=== PATIENT | female | born 1975 | race Two or more races ===

== ENCOUNTER 2020-07-27 07:55 | Outpatient (REF) | payer OTHER, SELFPAY ==
[2020-07-27 10:39] LABS: Hematocrit 37.4 % (37-47); Hemoglobin 12.5 g/dl (12.0-16.0); Mean Corpuscular HGB Conc 33.4 g/dl (31.0-35.0); Mean Corpuscular Hemoglobin 29.6 pg (27.0-33.0); Mean Corpuscular Volume 88.4 fL (80-98); Mean Platelet Volume 11.2 fL (9.4-12.3); Platelet Count 229 X10*3/uL (160-400); Red Blood Count 4.23 X10*6/uL (4.20-5.50); Red Cell Distribution Width 12.4 % (11.0-16.0); White Blood Count 6.5 X10*3/uL (4.8-10.8)
[2020-07-27 11:05] LABS: HCG Quantitative < 2 mIU/mL; Thyroid Stimulating Hormone 0.91 uIU/mL (0.32-4.0)
[2020-07-28 09:42] LABS: BV Int Neg Control Negative (Negative); BV Int Pos Control Positive (Positive)
[2020-07-29 16:43] LABS: HPV mRNA E6/E7 rflx Not Detected (Not Detected)
[2020-08-22 10:06] LABS: CT PCR NOT DETECTED (Not Detect.); NG PCR NOT DETECTED (Not Detect.)
== END 2020-07-27 07:56 | disposition home or self-care (01) ==
LOC: HO.LAB 07:55
PROVIDERS: PCP Internal Medicine; Visit Provider Advanced Practice Midwife
DX: N94.6 Dysmenorrhea, unspecified (principal); N84.1 Polyp of cervix uteri; N92.0 Excessive and frequent menstruation with regular cycle
CPT/HCPCS: 36415; 84443; 84702; 85027; 87480; 87491; 87510; 87591; 87624; 87625; 87660; 88142; 99202

== ENCOUNTER 2020-08-13 10:52 | Outpatient (REF) | payer OTHER, SELFPAY ==
--- NOTE | 2020-08-13 10:56 | US_ITS ---
EXAMINATION: US PELVIS COMPLETE US TRANSVAGINAL CLINICAL INFORMATION: Excessive and frequent menses. COMPARISON: None TECHNIQUE: Transabdominal and transvaginal ultrasound of the pelvis is performed. FINDINGS: The uterus is anteverted and anteflexed measuring 13.6 cm in length, 7.0 cm in AP and 8.6 cm in transverse dimension. There is a hypoechoic lesion in the upper posterior body of the uterus measuring 1.8 x 1.7 x 1.9 cm. No additional lesions seen. The endometrium measures 0.6 cm thick with small cysts within. There are small nabothian cysts seen in the cervix and minimal fluid within the endometrial canal. The right ovary measures 4.7 x 3.2 x 4.2 cm and volume 32.5 mL. There is an anechoic simple cyst measuring 3.5 x 2.9 x 2.5 cm. The left ovary is visualized on transabdominal exam only and measures 3.3 x 2.3 x 2.8 cm and volume 11.1 mL. US/US pelvic complete IMPRESSION: There are small nabothian cysts seen in the cervix and minimal fluid in the endometrial canal. Also visualized are small anechoic cysts in endometrial canal. Right ovarian 3.5 cm cyst.
--- NOTE | 2020-08-13 10:56 | US_ITS ---
EXAMINATION: US PELVIS COMPLETE US TRANSVAGINAL CLINICAL INFORMATION: Excessive and frequent menses. COMPARISON: None TECHNIQUE: Transabdominal and transvaginal ultrasound of the pelvis is performed. FINDINGS: The uterus is anteverted and anteflexed measuring 13.6 cm in length, 7.0 cm in AP and 8.6 cm in transverse dimension. There is a hypoechoic lesion in the upper posterior body of the uterus measuring 1.8 x 1.7 x 1.9 cm. No additional lesions seen. The endometrium measures 0.6 cm thick with small cysts within. There are small nabothian cysts seen in the cervix and minimal fluid within the endometrial canal. The right ovary measures 4.7 x 3.2 x 4.2 cm and volume 32.5 mL. There is an anechoic simple cyst measuring 3.5 x 2.9 x 2.5 cm. The left ovary is visualized on transabdominal exam only and measures 3.3 x 2.3 x 2.8 cm and volume 11.1 mL. US/US transvaginal IMPRESSION: There are small nabothian cysts seen in the cervix and minimal fluid in the endometrial canal. Also visualized are small anechoic cysts in endometrial canal. Right ovarian 3.5 cm cyst.
== END 2020-08-13 10:53 | disposition home or self-care (01) ==
LOC: HO.US 10:52
PROVIDERS: Visit Provider Advanced Practice Midwife
DX: N94.6 Dysmenorrhea, unspecified (principal); N84.1 Polyp of cervix uteri; N92.0 Excessive and frequent menstruation with regular cycle
CPT/HCPCS: 76830; 76856

== ENCOUNTER → 2020-08-24 13:49 | Outpatient (BNVA) | payer OTHER, SELFPAY | PROVIDERS: Visit Provider Advanced Practice Midwife | DX: N93.9 Abnormal uterine and vaginal bleeding, unspecified (principal) | CPT/HCPCS: 81025; 99212 ==

== ENCOUNTER 2020-09-01 15:22 | Outpatient (REF) | payer OTHER, SELFPAY | END 2020-09-01 15:23 | disposition home or self-care (01) | LOC: HO.LAB 15:22 | PROVIDERS: Visit Provider Obstetrics & Gynecology | DX: R87.615 Unsatisfactory cytologic smear of cervix (principal); N76.0 Acute vaginitis; B96.89 Other specified bacterial agents as the cause of diseases classified elsewhere; N92.1 Excessive and frequent menstruation with irregular cycle | CPT/HCPCS: 36415; 88141; 88142; 99212 ==

== ENCOUNTER → 2020-09-07 15:12 | Outpatient (BNVA) | payer OTHER, SELFPAY | PROVIDERS: PCP Internal Medicine; Visit Provider Obstetrics & Gynecology | DX: N92.1 Excessive and frequent menstruation with irregular cycle (principal) | CPT/HCPCS: 99212 ==

== ENCOUNTER 2020-09-11 08:04 | Day surgery (SDC) | payer OTHER, SELFPAY ==
--- NOTE | 2020-09-10 09:19 | HO.ANESPROP2 ---
Documented by User: Elizabeth Grover 09/10/20 09:21 HPI - Anesthesia Eval Consult details Narrative: 45yo F for D&C Diagnostic Hysteroscopy, Poss Myomectomy, Poss Polypectomy PMFSH Past Medical History Medical History Dysmenorrhea Essential hypertension GERD (gastroesophageal reflux disease) Heavy menstrual bleeding Medial meniscus tear Migraine Osteoarthritis, knee Psoriasis Type 2 diabetes mellitus without complication, without long-term current use of insulin Varicose vein of leg Family History Family History Father DVT (deep venous thrombosis) HTN (hypertension) Dyslipidemia Diabetes mellitus Mother Multiple myeloma COVID-19 Brother Lymphoma Surgical History Surgical History H/O arthroscopy of right knee History of bilateral tubal ligation History of varicose veins Social History Social History Alcohol intake: never Smoking Status: Never smoker Use of substances other than those prescribed or required for medical reasons: No Advance Directives: No Advance Directives Information Provided: Yes Sexual orientation: Straight/Heterosexual Meds Allergies Allergy/AdvReac Type Severity Reaction Status Date / Time metformin AdvReac Unknown HICKMAN, nausea Verified 09/07/20 15:22 Home Medications Medication Instructions Recorded Confirmed Type adalimumab 40 mg/0.8 mL mg SUBCUT Q2W 05/20/20 07/17/20 History subcutaneous pen kit flu vac qs 2019(4 yr up)CD(PF) ml IM 05/20/20 07/17/20 History omeprazole 20 mg capsule,delayed 20 mg PO DAILY 05/20/20 07/17/20 History release Exam Exam Date and Time: September 10, 202019 Pertinent Lab Results Pertinent Lab Results: Laboratory Tests 07/27/20 09:15 WBC 6.5 Hgb 12.5 Hct 37.4 Plt Count 229 Assessment and Plan Assessment Anesthesia Assessment: Chart Reviewed Documented by User: Eula Bliss 09/11/20 10:05 PMFSH Past Medical History Medical History Dysmenorrhea Essential hypertension GERD (gastroesophageal reflux disease) Heavy menstrual bleeding Medial meniscus tear Migraine Osteoarthritis, knee Psoriasis Type 2 diabetes mellitus without complication, without long-term current use of insulin Varicose vein of leg Family History Family History Father DVT (deep venous thrombosis) HTN (hypertension) Dyslipidemia Diabetes mellitus Mother Multiple myeloma COVID-19 Brother Lymphoma Surgical History Surgical History H/O arthroscopy of right knee History of bilateral tubal ligation History of varicose veins Social History Social History Alcohol intake: never Smoking Status: Never smoker Use of substances other than those prescribed or required for medical reasons: No Advance Directives: No Advance Directives Information Provided: Yes Sexual orientation: Straight/Heterosexual Meds Allergies Allergy/AdvReac Type Severity Reaction Status Date / Time metformin AdvReac Unknown HICKMAN, nausea Verified 09/07/20 15:22 Home Medications Medication Instructions Recorded Confirmed Type adalimumab 40 mg/0.8 mL mg SUBCUT Q2W 05/20/20 07/17/20 History subcutaneous pen kit flu vac qs 2019(4 yr up)CD(PF) ml IM 05/20/20 07/17/20 History omeprazole 20 mg capsule,delayed 20 mg PO DAILY 05/20/20 07/17/20 History release Exam Airway Mallampati Class: II TM Dist: >3cm Neck ROM: Full Loose/Missing/Broken Teeth: No Heart: RRR Lungs: CTA Assessment and Plan Assessment Anesthesia Assessment: Anesthesia Plan Discussed and Chart Reviewed Final Anesthetic Review NPO: Yes ASA Class: II Final Preanesthetic Review: Meds/Allgs Chart Reviewed, Consent Obtained/Reviewed and Anes Risks/Benef Reviewed Patient Risk: Low Procedure Risk: Low Anesthetic Plan Anesthetic Plan: GA Disposition: Standard PACU
[2020-09-11] MEDS: Lactated Ringers 1,000 ML 100 ML IVCONT (08:30)
--- NOTE | 2020-09-11 08:30 | MHC.SHP ---
Pre-Procedural Eval Section A The patient is an INPATIENT: No Changes since office visit: No Cold of Flu in the past 2 weeks, No New Medical Problems, No Changes in Medication and No Patient answered all questions The History & Physical has been completed within 30 days and I have reviewed it.: Yes Section B Chief Complaint: E Allergies: Allergies Allergy/AdvReac Type Severity Reaction Status Date / Time metformin AdvReac Unknown HICKMAN, nausea Verified 09/07/20 15:22 Plan Diagnosis/Plan: Unchanged I have reviewed the history and physical and performed a pertinent physical examination on my patient. No changes have occurred unless specified.
[2020-09-11 08:31] LABS: Glucose, Whole Blood 174 mg/dL (60-115)
[2020-09-11 08:32] VITALS: BP 149/83; PULSE 104; RESP 16; TEMP 37.3; O2SAT 98; BMI 36.3
--- NOTE | 2020-09-11 10:11 | P.OP_ITS ---
Operative Note Operative Note Date of Service: 09/11/20 Narrative: Preop Diagnosis: Menometrorrhagia Operation: Diagnostic Hysteroscopy, Dilataion & Curettage Post Op Diagnosis: normal endometrial and endocervical cavity no evidence of pathology QBL: Minimal Anesthesia: MAC Surgeon: Leobardo Huston MD Programs Director: None Complication: None Pathology: Endometrial Scrapings Procedure: The patient was put in the dorsal lithotomy position, scrubbed, and draped in the usual manner. A sterile speculum was inserted in the patient's vagina. The anterior lip of the cervix was grasped with a single tooth tenaculum. The cervix was dilated up to 5 mm, then the scope was inserted in the patient's uterus. Inspection revealed normal endocervical & endometrial cavity with no evidence of pathology. The scope was taken out of the uterine cavity , then sharp curetting was carried on with no complications. At the end of the procedure, all instruments were taken out of the patient uterine and vaginal cavity. The single tooth tenaculum was removed and homeostasis was assured using pressure. The patient tolerated the procedure well and was transferred to the PACU in a stable condition.
--- NOTE | 2020-09-11 10:11 | PM.OP ---
Brief Operative Note Date of Service: 09/11/20 Pre-op diagnosis: Menometrorrhagia Post-op diagnosis: same Procedure: Hysteroscopy D&C, Polypectomy Surgeon: Leobardo Huston MD Anesthesia: MAC Estimated blood loss (mL): 0 Pathology: other (Endometrial Scrapping. Polyp) Condition: stable Disposition: PACU
[2020-09-11 10:23] VITALS: BP 149/92; PULSE 94; RESP 18; TEMP 36.4; O2SAT 98
[2020-09-11 10:28] VITALS: BP 145/93; PULSE 91; RESP 18; O2SAT 98
[2020-09-11 10:33] VITALS: BP 138/91; PULSE 94; RESP 18; O2SAT 98
[2020-09-11 10:38] VITALS: BP 129/93; PULSE 91; RESP 18; O2SAT 98
[2020-09-11 10:53] VITALS: BP 137/97; PULSE 84; RESP 18; TEMP 36.4; O2SAT 98
--- NOTE | 2020-09-11 11:28 | HO.POSTANES ---
Post Anesthesia Evaluation Post Anesthesia Evaluation Vital Signs: Vital Signs Temp Pulse Resp BP Pulse Ox 09/11/20 10:53 97.5 F 84 18 137/97 H 98 09/11/20 10:38 91 18 129/93 H 98 09/11/20 10:33 94 18 138/91 H 98 09/11/20 10:28 91 18 145/93 H 98 09/11/20 10:23 97.5 F 94 18 149/92 H 98 09/11/20 08:32 99.1 F 104 H 16 149/83 H 98 Anesthesia: Monitored Mental Status: Awake Pain Control: Satisfactory Nausea/Vomiting: None Hydration: Adequate Anesthesia-Related Issues: No Anes. Related Issues
== END 2020-09-11 11:15 ==
LOC: HO.SSS 08:04
PROVIDERS: PCP Internal Medicine; Visit Provider Obstetrics & Gynecology
PROC: 0UDB8ZX Extraction of Endometrium, Via Natural or Artificial Opening Endoscopic, Diagnostic (ICD-10-PCS; CPT 58558; principal; 2020-09-11 10:30)
DX: N92.1 Excessive and frequent menstruation with irregular cycle (principal); I10 Essential (primary) hypertension; E11.9 Type 2 diabetes mellitus without complications; Z98.51 Tubal ligation status; Z79.899 Other long term (current) drug therapy; Z88.8 Allergy status to other drugs, medicaments and biological substances
CPT/HCPCS: 58558; 82947; 88305; J1100; J1885; J2250; J2405; J3010

== ENCOUNTER → 2020-09-24 15:46 | Outpatient (BNVA) | payer OTHER, SELFPAY | PROVIDERS: PCP Internal Medicine; Visit Provider Obstetrics & Gynecology ==

== ENCOUNTER 2020-10-22 15:00 | Outpatient (REF) | payer OTHER, SELFPAY ==
--- NOTE | ~2020-10-22 | MM_ITS ---
EXAMINATION: MM SCREENING DIGITAL BREAST TOMOSYNTHESIS, BILATERAL CLINICAL INFORMATION: Screening. Asymptomatic. The lifetime risk of breast cancer based on the Tyrer-Cuzick Model is 16.2%. COMPARISON: Mammography: October 17, 2019 and studies dating back to December 15, 2014 TECHNIQUE: Digital breast tomosynthesis is performed in both the craniocaudal and mediolateral oblique views along with computer-aided detection (CAD). Synthesized 2D images are generated from the tomosynthesis. FINDINGS: The breasts are extremely dense, which lowers the sensitivity of mammography (ACR BI-RADS breast composition Category d). There are no significant masses, abnormal calcifications, or other abnormalities. MM/MM tomosynthesis screening BI IMPRESSION: There are no significant changes from prior study. ASSESSMENT: BI-RADS 1: Negative RECOMMENDATION: Routine annual mammography screening. This patient's information was entered into a reminder system with a target due date for their next mammogram.
== END 2020-10-22 15:01 | disposition home or self-care (01) ==
LOC: HO.MAMMO 15:00
PROVIDERS: PCP Internal Medicine; Visit Provider Internal Medicine
DX: Z12.31 Encounter for screening mammogram for malignant neoplasm of breast (principal)
CPT/HCPCS: 77063; 77067

== ENCOUNTER 2020-11-16 06:34 | Emergency (ER) | payer OTHER, SELFPAY ==
[2020-11-16] VITALS (7 sets, daily range): BP systolic 116–146; BP diastolic 53–72; PULSE 89–111; RESP 18–20; TEMP 36.4; O2SAT 98–100; BMI 37.2
--- NOTE | 2020-11-16 07:40 | ED_ITS ---
HPI - Female Genitourinary General Chief complaint: Vaginal Bleeding Stated complaint: Vaginal Bleeding Time Seen by Provider: 11/16/20 07:39 Source: patient Mode of arrival: ambulatory Limitations: no limitations History of Present Illness HPI Narrative: patient with heavy vaginal bleeding for one month. Now with passing clots continuously since yesterday MD elicited complaint: vaginal bleeding Onset (ago): day(s) Severity: moderate Quality of pain: cramping Consistency: constant Vaginal bleeding: heavy Associated symptoms: weakness Related Data Home Medications Medication Instructions Recorded Confirmed adalimumab 40 mg/0.8 mL mg SUBCUT Q2W 05/20/20 09/20/20 subcutaneous pen kit flu vac qs 2019(4 yr up)CD(PF) ml IM 05/20/20 09/20/20 omeprazole 20 mg capsule,delayed 20 mg PO DAILY 05/20/20 09/20/20 release Previous Rx's Medication Instructions Recorded ibuprofen 600 mg tablet 600 mg PO BID PRN #30 tab 07/17/20 tranexamic acid [Lysteda] 1,300 mg PO TID #15 tab 11/16/20 Allergies Allergy/AdvReac Type Severity Reaction Status Date / Time metformin AdvReac Unknown HICKMAN, nausea Verified 09/20/20 22:40 Review of Systems Constitutional: Constitutional: Reports no additional constitutional complaints Eyes: Eyes: Reports no additional eye complaints ENT: Denies dizziness Cardiovascular: Cardiovascular: Reports no additional cardiovascular complaints Respiratory: Respiratory: Reports as per HPI Gastrointestinal: Gastrointestinal: Reports no additional gastrointestinal complaints Genitourinary: Genitourinary: Reports no additional female genitourinary complaints Musculoskeletal: Musculoskeletal: Reports no additional musculoskeletal co mplaints Integumentary/Breasts: Skin/Breast: Denies rash Neurologic: Reports system reviewed and no additional complaints, except as documented, Denies dizziness and Denies Sensory deficit (Neuro) Psychiatric: Psychiatric: Denies anxiety PMFSH Past Medical History Medical History Dysmenorrhea Essential hypertension GERD (gastroesophageal reflux disease) Heavy menstrual bleeding Medial meniscus tear Migraine Osteoarthritis, knee Psoriasis Type 2 diabetes mellitus without complication, without long-term current use of insulin Varicose vein of leg Surgical History H/O arthroscopy of right knee History of bilateral tubal ligation History of varicose veins Family History Family History Father DVT (deep venous thrombosis) HTN (hypertension) Dyslipidemia Diabetes mellitus Mother Multiple myeloma COVID-19 Brother Lymphoma Social History Social History Alcohol intake: never Smoking Status: Never smoker Sexual orientation: Straight/Heterosexual Physical Exam Vital Signs: Vital Signs: Last Vital Signs Temp 97.6 F 11/16/20 07:13 Pulse 89 11/16/20 11:23 Resp 20 11/16/20 11:23 BP 116/72 11/16/20 11:23 Pulse Ox 98 11/16/20 11:23 Body Mass Index 37.2 Const: Nutritional Appearance: obese Orientation/consciousness: oriented to person and patient oriented x3 Limitations: no limitations HENMT: Head: Yes normal to inspection Ears: external ears normal General nose exam: Normal external nose present Mouth: Normal oral and palatal mucosa present and oropharynx normal Throat: Yes posterior oropharynx normal Eyes: General: appearance normal, both eyes and all related structures Neck: Other: supple Neck: Yes normal visual inspection Chest: Chest palpation & inspection: normal inspection of the chest Resp: Auscultation: clear to auscultation bilaterally Cardio: Jugular venous distension: no JVD Rate: regular rate Rhythm: regular rhythm Heart sounds: S1 normal heart sound present and S2 normal heart sound present GI: Inspection: Yes normal to inspection Palpation (GI): Soft to palpation, nontender and No hepatosplenomegaly present Auscultation: normal bowel sounds : Other: Normal vagina, vault cleaned, bleeding stopped Skin: General skin exam: no rashes or lesions noted Neuro: General: oriented to person and patient oriented x3 Cranial nerves: Yes CN's II-XII intact bilaterally Motor exam (neuro): 5/5 motor strength present throughout Sensory Exam: No Sensory deficit (Neuro) Extrem: General: Yes normal to inspection Psych: Appearance: grossly normal Course Course Course Narrative: bleeding stopped, 10 point hct drop Reevaluation(s) Reevaluation #1: Discussed with Dr. Betzaida pereira start lysteda Time: 09:23 Reevaluation #2: patient felt lightheaded with standing Time: 11:17 Reevaluation #3: patient not currently orthostatic, will dc home Time: 13:06 MDM - Female Genitourinary MDM Narrative Medical decision making narrative: dysfunctional uterine bleeding will start txa and discharge home Lab Data Result diagrams: 11/16/20 10:36 11/16/20 10:36 Labs: Lab Results 11/16/20 11/16/20 11/16/20 Range/Units 08:16 08:48 10:36 WBC 5.7 (4.8-10.8) X10*3/uL RBC 3.26 L D (4.20-5.50) X10*6/uL Hgb 8.6 L D (12.0-16.0) g/dl Hct 27.0 L D (37-47) % MCV 82.8 (80-98) fL MCH 26.4 L (27.0-33.0) pg MCHC 31.9 (31.0-35.0) g/dl RDW 13.7 (11.0-16.0) % Plt Count 239 (160-400) X10*3/uL MPV 10.8 (9.4-12.3) fL Immature Gran % (Auto) 0.4 (0.0-0.4) % Neut % (Auto) 80.3 H (45-73) % Lymph % (Auto) 14.2 L (20-40) % Payne % (Auto) 4.2 (2-11) % Eos % (Auto) 0.2 (0-4) % Baso % (Auto) 0.7 (0-2) % Lymph # (Auto) 0.8 L (1.2-4.9) X10*3/uL Payne # (Auto) 0.2 (0.1-1.2) X10*3/uL Eos # (Auto) 0.0 (0.0-0.4) X10*3/uL Baso # (Auto) 0.0 (0.0-0.2) X10*3/uL Abs Immat Gran (auto) 0.02 (0.00-0.03) X10*3/uL Absolute Neuts (auto) 4.6 (2.0-8.3) X10*3/uL Absolute Nucleated RBC 0.000 (0.0-0.012) X10*3/uL Nucleated RBC % (auto) 0.0 (0.0-0.2) /100WBC Sodium 138 (135-145) mmol/L Potassium 3.8 (3.3-5.1) mmol/L Chloride 106 (96-108) mmol/L Carbon Dioxide 24 (22-29) mmol/L Anion Gap 12 (12-20) BUN 11 (9-16) mg/dL Creatinine 0.66 (0.5-1.4) mg/dL Estim Creat Clear Calc 115.6 Estimated GFR > 60 Random Glucose 194 H (60-115) mg/dL Calcium 8.6 (8.4-10.2) mg/dL Urine Test NEGATIVE (NEGATIVE) Blood Type Antibody Screen 11/16/20 11/16/20 Range/Units 10:36 10:44 WBC 7.3 (4.8-10.8) X10*3/uL RBC 3.20 L (4.20-5.50) X10*6/uL Hgb 8.2 L (12.0-16.0) g/dl Hct 26.2 L (37-47) % MCV 81.9 (80-98) fL MCH 25.6 L (27.0-33.0) pg MCHC 31.3 (31.0-35.0) g/dl RDW 13.7 (11.0-16.0) % Plt Count 227 (160-400) X10*3/uL MPV 10.6 (9.4-12.3) fL Immature Gran % (Auto) 0.4 (0.0-0.4) % Neut % (Auto) 79.0 H (45-73) % Lymph % (Auto) 16.1 L (20-40) % Payne % (Auto) 3.8 (2-11) % Eos % (Auto) 0.0 (0-4) % Baso % (Auto) 0.7 (0-2) % Lymph # (Auto) 1.2 (1.2-4.9) X10*3/uL Payne # (Auto) 0.3 (0.1-1.2) X10*3/uL Eos # (Auto) 0.0 (0.0-0.4) X10*3/uL Baso # (Auto) 0.1 (0.0-0.2) X10*3/uL Abs Immat Gran (auto) 0.03 (0.00-0.03) X10*3/uL Absolute Neuts (auto) 5.8 (2.0-8.3) X10*3/uL Absolute Nucleated RBC 0.000 (0.0-0.012) X10*3/uL Nucleated RBC % (auto) 0.0 (0.0-0.2) /100WBC Sodium (135-145) mmol/L Potassium (3.3-5.1) mmol/L Chloride (96-108) mmol/L Carbon Dioxide (22-29) mmol/L Anion Gap (12-20) BUN (9-16) mg/dL Creatinine (0.5-1.4) mg/dL Estim Creat Clear Calc Estimated GFR Random Glucose (60-115) mg/dL Calcium (8.4-10.2) mg/dL Urine Test (NEGATIVE) Blood Type A Positive Antibody Screen NEGATIVE Discharge Plan Discharge Clinical Impression: Dysmenorrhea Heavy menstrual bleeding Qualifiers: Menorrhagia type: with irregular cycle Qualified Code(s): N92.1 - Excessive and frequent menstruation with irregular cycle Patient Disposition: Home, Self-Care Instructions: Menorrhagia (ED), Dysfunctional Uterine Bleeding (ED) Prescriptions: New tranexamic acid [Lysteda] 650 mg tablet 1,300 mg PO TID Qty: 15 RF: 0 No Action Humira Pen 40 mg/0.8 mL pen injector kit subcut Q2W RF: 0 Flucelvax Quad [id number] (PF) 60 mcg (15 mcg x 4)/0.5 mL syringe IM RF: 0 omeprazole 20 mg capsule,delayed release(DR/EC) 20 mg PO DAILY RF: 0 ibuprofen 600 mg tablet 600 mg PO BID PRN (Reason: pain) Qty: 30 RF: 0 Referrals: Jen Ambrocio MD [Primary Care Provider] - 2 days Leobardo Huston MD [Physician] - 2 days
[2020-11-16 08:20] LABS: MANUAL DIFF FLAG NO
[2020-11-16 08:22] LABS: Basophils Percent Auto 0.7 % (0-2); Eosinophils Percent Auto 0.2 % (0-4); Hemoglobin 8.6 g/dl (12.0-16.0); Imm Gran Abs Auto 0.02 X10*3/uL (0.00-0.03); Imm Gran Pct Auto 0.4 % (0.0-0.4); Lymphocytes Absolute Auto 0.8 X10*3/uL (1.2-4.9); Lymphocytes Percent Auto 14.2 % (20-40); Mean Corpuscular HGB Conc 31.9 g/dl (31.0-35.0); Mean Corpuscular Hemoglobin 26.4 pg (27.0-33.0); Mean Corpuscular Volume 82.8 fL (80-98); Mean Platelet Volume 10.8 fL (9.4-12.3); Monocytes Absolute Auto 0.2 X10*3/uL (0.1-1.2); Monocytes Percent Auto 4.2 % (2-11); Neutrophils Absolute Auto 4.6 X10*3/uL (2.0-8.3); Neutrophils Percent Auto 80.3 % (45-73); Platelet Count 239 X10*3/uL (160-400); Red Blood Count 3.26 X10*6/uL (4.20-5.50); Red Cell Distribution Width 13.7 % (11.0-16.0); White Blood Count 5.7 X10*3/uL (4.8-10.8)
[2020-11-16] MEDS: Ketorolac Tromethamine 15 MG/ML VIAL IVPUSH (08:24)
--- NOTE | 2020-11-16 08:44 | PC.NURSE ---
pt reports for the last month having heavy periods, abd us being followed by obgyn, but yesterday started with very heavy bleeding yesterday with lot of clots, bright red, soaking through two pads every 5 minutes per pt. pt reports feeling very weak, lightheaded and lots of lower abd cramping, sclera slightly pale, ns on the monitor , vs stable
--- NOTE | 2020-11-16 09:16 | PC.NURSE ---
chaperoned dr rogers during a pelvic exam, pt tolerated the procedure well. every time pt stands up or changed position pt has a medium gush of blood come out form the vaginal pt also got very dizzy and nauseas when standing, bp stable 122/53 hr 90
--- NOTE | 2020-11-16 09:23 | P.CONOB_ITS ---
[employer] - CN: HPI Data of Consult Consult date: 11/16/20 Primary Care Provider: Jen Ambrocio MD Consult Narrative Narrative: I was consulted regarding Neredya Wood who is a 45 year old female who presented emergency room with heavy bleeding for the last 3 days associated with passage of blood clots. The patient was seen in the office few weeks ago the following workup done including CBC, TSH, GC and Chlamydia, ultrasound, endometrial biopsy all within normal. Options of treatment were discussed with the patient patient was leaning towards Mirena IUD as an option of treatment but was planning to discuss it with her have her mammogram done which was done and was negative and get back to us. In the emergency room today, hematocrit is 27, urine test is negative, and vaginal bleeding bleeding is not active on a pelvic exam by Dr. Man cc:: CC: OB [facility] Past Medical History Medical History Dysmenorrhea Essential hypertension GERD (gastroesophageal reflux disease) Heavy menstrual bleeding Medial meniscus tear Migraine Osteoarthritis, knee Psoriasis Type 2 diabetes mellitus without complication, without long-term current use of insulin Varicose vein of leg Family History Family History Father DVT (deep venous thrombosis) HTN (hypertension) Dyslipidemia Diabetes mellitus Mother Multiple myeloma COVID-19 Brother Lymphoma Surgical History Surgical History H/O arthroscopy of right knee History of bilateral tubal ligation History of varicose veins Social History Social History Alcohol intake: never Smoking Status: Never smoker Sexual orientation: Straight/Heterosexual Meds Allergies Allergy/AdvReac Type Severity Reaction Status Date / Time metformin AdvReac Unknown HICKMAN, nausea Verified 09/20/20 22:40 Home Medications Medication Instructions Recorded Confirmed Last Taken Type adalimumab 40 mg/0.8 mL mg SUBCUT Q2W 05/20/20 09/20/20 Unknown History subcutaneous pen kit flu vac qs 2019(4 yr up)CD(PF) ml IM 05/20/20 09/20/20 Unknown History omeprazole 20 mg capsule,delayed 20 mg PO DAILY 05/20/20 09/20/20 Unknown H istory release [employer] Physical Exam Vitals Vital signs: Temp Pulse Resp BP Pulse Ox 97.6 F 90 18 122/53 L 100 11/16/20 07:13 11/16/20 09:18 11/16/20 08:43 11/16/20 09:18 11/16/20 08:43 Body Mass Index 37.2 Additional Comments: Pelvic exam per Dr. Man no evidence of active vaginal bleeding [employer] - Results Labs CBC & Chem 7: 11/16/20 10:36 11/16/20 10:36 Labs: Short CBC 11/16/20 Range/Units 08:16 WBC 5.7 (4.8-10.8) X10*3/uL Hgb 8.6 L D (12.0-16.0) g/dl Hct 27.0 L D (37-47) % Plt Count 239 (160-400) X10*3/uL Assessment and Plan (1) Menometrorrhagia: Status: Acute Discussed the case with Dr. Man, if the patient is stable to be discharged from the emergency room, recommended Lysteda was 1300 mg p.o. t.i.d. for 5 days, will reach out to the patient to to come in for an evaluation and discuss options of treatment including endometrial ablation or Mirena IUD insertion as soon as possible, iron sulfate 325 mg p.o. t.i.d.
[2020-11-16 09:35] LABS: UPreg QC Valid YES; Urine Pregnancy NEGATIVE (NEGATIVE)
[2020-11-16 11:06] LABS: MANUAL DIFF FLAG NO
[2020-11-16 11:08] LABS: Basophils Absolute Auto 0.1 X10*3/uL (0.0-0.2); Basophils Percent Auto 0.7 % (0-2); Hematocrit 26.2 % (37-47); Hemoglobin 8.2 g/dl (12.0-16.0); Imm Gran Abs Auto 0.03 X10*3/uL (0.00-0.03); Imm Gran Pct Auto 0.4 % (0.0-0.4); Lymphocytes Absolute Auto 1.2 X10*3/uL (1.2-4.9); Lymphocytes Percent Auto 16.1 % (20-40); Mean Corpuscular HGB Conc 31.3 g/dl (31.0-35.0); Mean Corpuscular Hemoglobin 25.6 pg (27.0-33.0); Mean Corpuscular Volume 81.9 fL (80-98); Mean Platelet Volume 10.6 fL (9.4-12.3); Monocytes Absolute Auto 0.3 X10*3/uL (0.1-1.2); Monocytes Percent Auto 3.8 % (2-11); Neutrophils Absolute Auto 5.8 X10*3/uL (2.0-8.3); Platelet Count 227 X10*3/uL (160-400); Red Cell Distribution Width 13.7 % (11.0-16.0); White Blood Count 7.3 X10*3/uL (4.8-10.8)
[2020-11-16] MEDS: 0.9 % Sodium Chloride 1,000 ML 999 ML IVCONT ×2 (11:20→12:59)
--- NOTE | 2020-11-16 11:21 | PC.NURSE ---
pt got up to use the bathroom to urinate, while in the bathroom got very weak/dizzy and pale, states she feels like i am going to pass out. aware, vs stable 116/72, hr 90
[2020-11-16 11:37] LABS: Anion Gap 12 (12-20); Blood Urea Nitrogen 11 mg/dL (9-16); Calcium 8.6 mg/dL (8.4-10.2); Carbon Dioxide 24 mmol/L (22-29); Chloride 106 mmol/L (96-108); Creatinine Clr Calc Pharmacy 115.6; Estimated Glomerular Filt Rate > 60; Glucose Random 194 mg/dL (60-115); Potassium 3.8 mmol/L (3.3-5.1); Sodium 138 mmol/L (135-145)
== END 2020-11-16 13:37 | disposition home or self-care (01) ==
PROVIDERS: Emergency Provider Emergency Medicine; PCP Internal Medicine
DX: N92.1 Excessive and frequent menstruation with irregular cycle (principal); N94.4 Primary dysmenorrhea; N93.8 Other specified abnormal uterine and vaginal bleeding; I10 Essential (primary) hypertension; Z79.899 Other long term (current) drug therapy
CPT/HCPCS: 36415; 80048; 81025; 85025; 86850; 86900; 96365; 96375; 99283; 99284; J1885

== ENCOUNTER 2020-11-17 09:52 | Outpatient (REF) | payer OTHER, SELFPAY ==
[2020-11-17 11:36] LABS: Hematocrit 22.9 % (37-47); Hemoglobin 7.2 g/dl (12.0-16.0); Mean Corpuscular HGB Conc 31.4 g/dl (31.0-35.0); Mean Corpuscular Hemoglobin 25.9 pg (27.0-33.0); Mean Corpuscular Volume 82.4 fL (80-98); Mean Platelet Volume 10.4 fL (9.4-12.3); Platelet Count 224 X10*3/uL (160-400); Red Blood Count 2.78 X10*6/uL (4.20-5.50); Red Cell Distribution Width 13.8 % (11.0-16.0); White Blood Count 6.3 X10*3/uL (4.8-10.8)
[2020-11-18 11:28] LABS: CT PCR NOT DETECTED (Not Detect.); NG PCR NOT DETECTED (Not Detect.)
== END 2020-11-17 09:53 | disposition home or self-care (01) ==
LOC: HO.LAB 09:52
PROVIDERS: PCP Internal Medicine; Visit Provider Obstetrics & Gynecology
DX: Z30.430 Encounter for insertion of intrauterine contraceptive device (principal); N92.1 Excessive and frequent menstruation with irregular cycle; D64.9 Anemia, unspecified
CPT/HCPCS: 36415; 58300; 85027; 87491; 87591; 99212

== ENCOUNTER 2020-11-17 15:06 | Emergency (ER) | payer OTHER, SELFPAY ==
[2020-11-17] VITALS (9 sets, daily range): BP systolic 121–150; BP diastolic 58–74; PULSE 97–136; RESP 16–18; TEMP 36.2–37.2; O2SAT 98–99; BMI 37.2
--- NOTE | 2020-11-17 18:26 | ED_ITS ---
HPI - General Adult General Chief complaint: General Medical Stated complaint: blood tranfusion Time Seen by Provider: 11/17/20 18:26 Source: patient Mode of arrival: ambulatory Limitations: no limitations History of Present Illness HPI narrative: PATIENT DYSFUNCTIONAL UTERINE BLEED WAS SEEN HERE YESTERDAY AT THAT TIME HER HEMOGLOBIN WAS 8.2 HEMATOCRIT 26.2 PATIENT WAS SEEN BY SALES MANAGEMENT TRAINEE TODAY AND REPEAT HEMOGLOBIN WAS 7.2 AND HEMATOCRIT 22.9 PATIENT FEELING DIZZY AND WEAK HAD IUD PLACED EARLIER TODAY SENT BY SALES MANAGEMENT TRAINEE FOR BLOOD TRANSFUSION PATIENT NEVER HAD BLOOD TRANSFUSION BEFORE BUT SHE HAS DYSFUNCTIONAL UTERINE BLEED IN THE PAST BLEEDING HAS DECREASED BUT STILL HAVING CLOTS ALMOST EVERY HOUR Related Data Home Medications Medication Instructions Recorded Confirmed adalimumab 40 mg/0.8 mL mg SUBCUT Q2W 05/20/20 09/20/20 subcutaneous pen kit flu vac qs 2019(4 yr up)CD(PF) ml IM 05/20/20 09/20/20 omeprazole 20 mg capsule,delayed 20 mg PO DAILY 05/20/20 09/20/20 release Previous Rx's Medication Instructions Recorded ibuprofen 600 mg tablet 600 mg PO BID PRN #30 tab 07/17/20 tranexamic acid [Lysteda] 1,300 mg PO TID #15 tab 11/16/20 ferrous sulfate 325 mg PO DAILY #30 tab 11/18/20 Allergies Allergy/AdvReac Type Severity Reaction Status Date / Time metformin AdvReac Unknown HICKMAN, nausea Verified 09/20/20 22:40 Review of Systems Review of Systems: CONSTITUTIONAL : NO WEIGHT LOSS, NO FEVER, NO CHILLS ENT/MOUTH : NO SORE THROAT, NO RHINORRHEA EYES: NO EYE PAIN, NO SWELLING CARDIOVASCULAR : NO CHEST PAIN, NO PALPITATIONS RESPIRATORY : NO COUGH, NO SPUTUM, NO SHORTNESS OF BREATH GASTROINTESTINAL : NO NAUSEA, NO VOMITING, NO DIARRHEA, NO ABDOMINAL PAIN, NO BLACK STOOLS GENITOURINARY : NO DYSURIA, NO URINARY FREQUENCY MUSCULOSKELETAL : NO JOINT PAIN, NO MYALGIAS, NO JOINT SWELLING SKIN : NO SKIN LESIONS, NO RASH NEURO : NO WEAKNESS, NO NUMBNESS, NO DIZZINESS, NO HEADACHE PSYCH : NO ANXIETY/PANIC, NO DEPRESSION HEME/LYMPH: NO BRUISING, NO LYMPHADENOPATHY ENDOCRINE : NO POLYURIA, NO POLYDIPSIA ALL OTHER SYSTEMS REVIEWED AND ARE NEGATIVE [facility] Past Medical History Medical History Dysmenorrhea Essential hypertension GERD (gastroesophageal reflux disease) Heavy menstrual bleeding Medial meniscus tear Migraine Osteoarthritis, knee Psoriasis Type 2 diabetes mellitus without complication, without long-term current use of insulin Varicose vein of leg Surgical History H/O arthroscopy of right knee History of bilateral tubal ligation History of varicose veins Family History Family History Father DVT (deep venous thrombosis) HTN (hypertension) Dyslipidemia Diabetes mellitus Mother Multiple myeloma COVID-19 Brother Lymphoma Social History Social History Alcohol intake: never Smoking Status: Never smoker Advance Directives: No Advance Directives Information Provided: Yes Sexual orientation: Straight/Heterosexual Physical Exam Vital Signs: Vital Signs: Last Vital Signs Temp 98.0 F 11/18/20 01:07 Pulse 98 11/18/20 01:07 Resp 18 11/18/20 01:07 BP 140/77 H 11/18/20 01:07 Pulse Ox 98 11/17/20 23:20 Body Mass Index 37.2 APPEARANCE: ALERT. ORIENTED X3. NO ACUTE DISTRESS. EYES: PUPILS EQUAL, ROUND AND REACTIVE TO LIGHT. ENT: PHARYNX NORMAL. PALLOR+ NECK: NORMAL INSPECTION. NECK SUPPLE. CVS: NORMAL HEART RATE AND RHYTHM. PULSES NORMAL. RESPIRATORY: NO RESPIRATORY DISTRESS. BREATH SOUNDS NORMAL. ABDOMEN: SOFT AND NONTENDER. BOWEL SOUNDS ARE PRESENT, NO MASS PALPABLE, NO CVA TENDERNESS SKIN: SKIN WARM AND DRY. NORMAL SKIN COLOR. NORMAL SKIN TURGOR. EXTREMITIES: NO LOWER EXTREMITY EDEMA. NEURO: ORIENTED X 3. NO MOTOR DEFICIT. NO SENSORY DEFICIT. Medical Decision Making MDM Narrative Medical decision making narrative: Patient with acute anemia secondary to loss of blood secondary to vaginal bleed received 2 units of packed blood cell in the ER feeling much better will discharge patient home patient already has a plan to follow-up with Dr. Huston gynecology Lab Data Lab results reviewed: Yes I reviewed the patient's lab results. Labs: Lab Results 11/17/20 11/17/20 Range/Units 18:29 20:15 Blood Type A Positive Antibody Screen NEGATIVE Crossmatch See Detail See Detail Discharge Plan Discharge Clinical Impression: Heavy menstrual bleeding Qualifiers: Menorrhagia type: with irregular cycle Qualified Code(s): N92.1 - Excessive and frequent menstruation with irregular cycle Anemia Qualifiers: Anemia type: iron deficiency Iron deficiency anemia type: chronic blood loss Qualified Code(s): D50.0 - Iron deficiency anemia secondary to blood loss (chronic) Patient Disposition: Home, Self-Care Instructions: Menorrhagia (ED) Additional Instructions: Take the iron tablet as advised and follow with PCP/print support specialist Prescriptions: New ferrous sulfate 325 mg (65 mg iron) tablet 325 mg PO DAILY Qty: 30 RF: 0 No Action tranexamic acid [Lysteda] 650 mg tablet 1,300 mg PO TID Qty: 15 RF: 0 Humira Pen 40 mg/0.8 mL pen injector kit subcut Q2W RF: 0 Flucelvax Quad (PF) 60 mcg (15 mcg x 4)/0.5 mL syringe IM RF: 0 omeprazole 20 mg capsule,delayed release(DR/EC) 20 mg PO DAILY RF: 0 ibuprofen 600 mg tablet 600 mg PO BID PRN (Reason: pain) Qty: 30 RF: 0
--- NOTE | 2020-11-17 21:49 | PC.NURSE ---
first unit started to infuse at this time, vitals stable. Patient offers no complaints.
--- NOTE | 2020-11-17 23:36 | PC.NURSE ---
The first unit of PRBC's are continuing to infuse, patient is sleeping at this time, vitals are stable
[2020-11-18 00:20] VITALS: BP 134/85; PULSE 110; RESP 18; TEMP 37
--- NOTE | 2020-11-18 00:40 | PC.NURSE ---
patient is up going to the bathroom witha steady gait, denies any symptoms.
[2020-11-18 00:49] VITALS: BP 147/68; PULSE 96; RESP 16; TEMP 37
[2020-11-18 01:07] VITALS: BP 140/77; PULSE 98; RESP 18; TEMP 36.7
[2020-11-18 02:40] VITALS: BP 146/78; PULSE 87; RESP 16; TEMP 37.1
== END 2020-11-18 03:19 | disposition home or self-care (01) ==
PROVIDERS: Emergency Provider Internal Medicine; PCP Internal Medicine
DX: N92.1 Excessive and frequent menstruation with irregular cycle (principal); D50.0 Iron deficiency anemia secondary to blood loss (chronic); R42 Dizziness and giddiness; Z79.899 Other long term (current) drug therapy
CPT/HCPCS: 36430; 86850; 86900; 86923; 99284; P9016

== ENCOUNTER → 2020-12-16 15:03 | Outpatient (BNVA) | payer OTHER, SELFPAY | PROVIDERS: PCP Internal Medicine; Visit Provider Obstetrics & Gynecology | DX: Z30.431 Encounter for routine checking of intrauterine contraceptive device (principal); D64.9 Anemia, unspecified | CPT/HCPCS: 81025; 99212 ==

== ENCOUNTER 2020-12-23 06:37 | Outpatient (REF) | payer OTHER, SELFPAY ==
[2020-12-23 12:02] LABS: Estimated Average Glucose 151 mg/dL; Hemoglobin A1c % 6.9 %
[2020-12-23 12:15] LABS: Alanine Aminotransferase 42 U/L (0-31); Anion Gap 12 (12-20); Aspartate Amino Transferase 34 U/L (5-31); Blood Urea Nitrogen 12 mg/dL (9-16); Calcium 9.1 mg/dL (8.4-10.2); Carbon Dioxide 30 mmol/L (22-29); Chloride 102 mmol/L (96-108); Cholesterol 186 mg/dL; Estimated Glomerular Filt Rate > 60; Glucose Fasting 180 mg/dL (60-99); HDL Cholesterol 37 mg/dL; LDL Cholesterol Calculated 87 mg/dl; Potassium 3.8 mmol/L (3.3-5.1); Sodium 140 mmol/L (135-145); Triglycerides 313 mg/dL
[2020-12-23 12:36] LABS: Creatinine Urine 159.81 mg/dL; Microalbum/Creatinine Ratio Ur 21.9 ug/mg cr
== END 2020-12-23 06:38 | disposition home or self-care (01) ==
LOC: HO.HMGCLDS 06:37
PROVIDERS: PCP Internal Medicine; Visit Provider Internal Medicine
DX: I10 Essential (primary) hypertension (principal); E11.9 Type 2 diabetes mellitus without complications; L40.9 Psoriasis, unspecified
CPT/HCPCS: 36415; 80048; 80061; 82043; 83036; 84450; 84460

== ENCOUNTER 2020-12-31 08:14 | Outpatient (REF) | payer OTHER, SELFPAY ==
[2020-12-31 08:45] LABS: Hematocrit 38.5 % (37-47); Hemoglobin 12.7 g/dl (12.0-16.0); Mean Corpuscular Hemoglobin 27.8 pg (27.0-33.0); Mean Corpuscular Volume 84.2 fL (80-98); Mean Platelet Volume 10.5 fL (9.4-12.3); Platelet Count 269 X10*3/uL (160-400); Red Blood Count 4.57 X10*6/uL (4.20-5.50); Red Cell Distribution Width 15.1 % (11.0-16.0)
== END 2020-12-31 08:15 | disposition home or self-care (01) ==
LOC: HO.LAB 08:14
PROVIDERS: PCP Internal Medicine; Visit Provider Obstetrics & Gynecology
DX: D64.9 Anemia, unspecified (principal)
CPT/HCPCS: 36415; 85027

== ENCOUNTER → 2021-01-05 14:54 | Outpatient (BNVA) | payer OTHER, SELFPAY | PROVIDERS: PCP Internal Medicine; Visit Provider Obstetrics & Gynecology ==

== ENCOUNTER → 2021-02-10 08:06 | Outpatient (BNVA) | payer OTHER, SELFPAY | PROVIDERS: PCP Internal Medicine; Visit Provider Obstetrics & Gynecology | DX: N92.1 Excessive and frequent menstruation with irregular cycle (principal); T83.32XA Displacement of intrauterine contraceptive device, initial encounter | CPT/HCPCS: 81025; 99212 ==

== ENCOUNTER 2021-02-10 13:27 | Outpatient (REF) | payer OTHER, SELFPAY ==
--- NOTE | ~2021-02-10 | US_ITS ---
EXAMINATION: US PELVIS AND TRANSVAGINAL CLINICAL INFORMATION: Abnormal vaginal and uterine bleeding. COMPARISON: Pelvic ultrasound 07/2020 TECHNIQUE: Transabdominal and transvaginal imaging of pelvis is performed. FINDINGS: The uterus is anteverted and anteflexed measuring 14.4 cm in length, 16.6 cm in AP and 9.5 cm in transverse dimension. The uterus is heterogeneous. There is a hypoechoic lesion in the posterior body of the uterus measuring 2.0 x 1.7 x 1.8 cm. Previously measured 1.8 x 1.7 x 1.9 cm. There are small nabothian cysts in the cervix. IUD is not visualized. Endometrial thickness is 0.6 cm with punctate small anechoic multiple cysts in the myometrium. Small echogenic areas seen in the endometrium, likely large hemorrhagic products. The right ovary measures 1.8 x 1.5 x 1.3 cm and volume 1.8 mL. It appears unremarkable. Previously, the right ovary measured 4.7 x 3.2 x 4.2 cm. The left ovary measures 3.4 x 1.8 x 3.9 cm and volume 12.5 mL. There is an anechoic cyst measuring 2.6 x 1.6 x 2.7 cm. There is a cystic tubular structure in the left adnexa measuring 3.1 x 1.3 x 3.8 cm likely a small hydrosalpinx. Minimal fluid in right adnexa. US/US pelvic and transvaginal IMPRESSION: Large heterogeneous uterus with small posterior fibroid. Small endometrial cyst and echogenic material in the endometrium likely hemorrhagic products. Left ovarian cyst with a tubular structure adjacent suggestive of a small hydrosalpinx. Minimal fluid in the right adnexa.
--- NOTE | ~2021-02-10 | XR_ITS ---
EXAMINATION: XR ABDOMEN KUB CLINICAL INFORMATION: Displacement of intrauterine contraceptive device. COMPARISON: None TECHNIQUE: AP view of the abdomen. FINDINGS: No dilated loops of large or small bowel are evident. No pneumatosis intestinalis. Visualized bones unremarkable. Psoas margins are intact. No radiopaque intrauterine device is appreciated. There is osteitis pubis present. XR/XR KUB IMPRESSION: IUD not identified. Normal bowel gas pattern.
== END 2021-02-10 13:28 | disposition home or self-care (01) ==
LOC: HO.US 13:27
PROVIDERS: PCP Internal Medicine; Visit Provider Obstetrics & Gynecology
DX: N93.9 Abnormal uterine and vaginal bleeding, unspecified (principal); T83.32XA Displacement of intrauterine contraceptive device, initial encounter
CPT/HCPCS: 74018; 76830; 76856

== ENCOUNTER 2021-02-18 13:16 | Outpatient (REF) | payer OTHER, SELFPAY | END 2021-02-18 13:17 | disposition home or self-care (01) | LOC: HO.LAB 13:16 | PROVIDERS: Visit Provider Obstetrics & Gynecology | DX: N92.1 Excessive and frequent menstruation with irregular cycle (principal) | CPT/HCPCS: 58100; 88305; 99212 ==

== ENCOUNTER 2021-02-19 13:13 | Day surgery (SDC) | payer OTHER, SELFPAY ==
[2021-02-19 13:38] VITALS: BMI 36.6
[2021-02-19 13:45] VITALS: BP 138/83; PULSE 86; RESP 16; TEMP 37.1; O2SAT 98
--- NOTE | 2021-02-19 14:04 | MHC.SHP ---
Pre-Procedural Eval Section A Date of Service: 02/19/21 The patient is an INPATIENT: No Changes since office visit: No Cold of Flu in the past 2 weeks, No New Medical Problems, No Changes in Medication and No Patient answered all questions The History & Physical has been completed within 30 days and I have reviewed it.: Yes Section B Chief Complaint: excessive and frequent menstruation Allergies: Allergies Allergy/AdvReac Type Severity Reaction Status Date / Time metformin AdvReac Unknown HICKMAN, nausea Verified 02/18/21 13:26 Plan Diagnosis/Plan: Unchanged I have reviewed the history and physical and performed a pertinent physical examination on my patient. No changes have occurred unless specified.
[2021-02-19 14:05] LABS: Glucose, Whole Blood 126 mg/dL (60-115)
[2021-02-19 14:19] LABS: UPreg QC Valid YES; Urine Pregnancy NEGATIVE (NEGATIVE)
--- NOTE | 2021-02-19 14:23 | HO.ANESPROP2 ---
HPI - Anesthesia Eval Consult details Narrative: 46 year old female patient for uterine ablation with Novasure PMFSH Active Problems Active Problems: All Active Problems (Updated 02/10/21 @ 08:52 by Leobardo Huston MD) IUD strings lost (Acute) IUD check up (Acute) Anemia (Acute) Screening mammogram, encounter for (Acute) Menometrorrhagia (Acute) Bacterial vaginosis (Acute) Unsatisfactory cervical cytology smear (Acute) Polyp at cervical os (Acute) Dysmenorrhea (Acute) Heavy menstrual bleeding (Acute) GERD (gastroesophageal reflux disease) (Acute) Varicose vein of leg (Acute) Essential hypertension (Acute) Type 2 diabetes mellitus without complication, without long-term current use of insulin (Acute) Osteoarthritis, knee (Acute) Psoriasis (Acute) Past Medical History Medical History (Updated 02/19/21 @ 14:38 by Asia Scott) Dysmenorrhea Essential hypertension GERD (gastroesophageal reflux disease) Heavy menstrual bleeding Medial meniscus tear Migraine Osteoarthritis, knee Psoriasis Type 2 diabetes mellitus without complication, without long-term current use of insulin Varicose vein of leg Family History Family History Father DVT (deep venous thrombosis) HTN (hypertension) Dyslipidemia Diabetes mellitus Mother Multiple myeloma COVID-19 Brother Lymphoma Family history of problems with anesthesia: No Surgical History Surgical History H/O arthroscopy of right knee History of bilateral tubal ligation History of varicose veins History of Problems with Anesthesia: No Social History Social History Alcohol intake: current Alcohol intake frequency: does not drink Patient Tobacco Use Status: Never used Tobacco Use of substances other than those prescribed or required for medical reasons: No Are you DNR?: No Advance Directives: No Advance Directives Information Provided: No Recently lost weight without trying: No Nutrition Risks: No Nutritional Risk Sexual orientation: Straight/Heterosexual Meds Allergies Allergy/AdvReac Type Severity Reaction Status Date / Time metformin AdvReac Unknown HICKMAN, nausea Verified 02/18/21 13:26 Home Medications Medication Instructions Recorded Confirmed Last Taken Type adalimumab 40 mg/0.8 mL mg SUBCUT Q2W 05/20/20 09/20/20 Unknown History subcutaneous pen kit flu vac qs 2019(4 yr up)CD(PF) ml IM 05/20/20 09/20/20 Unknown History omeprazole 20 mg capsule,delayed 20 mg PO DAILY 05/20/20 09/20/20 Unknown History release levonorgestrel 20 mcg/24 hours (6 INTRAUTERINE 12/16/20 Unknown History yrs) 52 mg intrauterine device Exam Exam Date and Time: February 19, 2021 1423 Height,Weight and Vital Signs: Height 5 ft 2 in Weight 90.718 kg Last Vital Signs Temp 98.8 F 02/19/21 13:45 Pulse 86 02/19/21 13:45 Resp 16 02/19/21 13:45 BP 138/83 02/19/21 13:45 Pulse Ox 98 02/19/21 13:45 Pertinent Lab Results Pertinent Lab Results: Laboratory Tests 02/19/21 02/19/21 13:51 13:57 POC Glucose 126 H Urine Test NEGATIVE Airway Mallampati Class: III TM Dist: >3cm Neck ROM: Full Heart: RRR ?murmur Lungs: CTAB Assessment and Plan Assessment Anesthesia Assessment: Anesthesia Plan Discussed and Chart Reviewed Final Anesthetic Review NPO: Yes ASA Class: II Final Preanesthetic Review: No Changes in Pt Med Stat, Meds/Allgs Chart Reviewed, Consent Obtained/Reviewed and Anes Risks/Benef Reviewed Patient Risk: Intermediate Procedure Risk: Low Assessment/Block/Sedation in SS: Assess/Block/Sedation-SS Anesthetic Plan Anesthetic Plan: GA Disposition: Standard PACU
[2021-02-19] MEDS: Lactated Ringers 1,000 ML 100 ML IVCONT (14:33)
--- NOTE | 2021-02-19 15:19 | P.BOP_ITS ---
Brief Operative Note Date of Service: 06/26/20 Pre-op diagnosis: Menometrorrhagia Post-op diagnosis: same Procedure: NovaSure Endometrial Ablation Surgeon: Leobardo Huston MD Anesthesia: MAC Was an Senior Government Program Analyst used for this Procedure?: No Estimated blood loss (mL): 0 Pathology: none sent Condition: stable Disposition: PACU
--- NOTE | 2021-02-19 15:20 | W.PM.OPN ---
Operative Note Operative Note Date of Service: 06/26/20 Narrative: Preop diagnosis: Menorrhagia Post Op Diagnosis: Same Op: Novasure Endometrial Ablation Anesthesia: MAC Occupational Psychologist: None QBL: Minimal Pathology: None Complications: None Procedure: The patient was put in the dorsal lithotomy position. She was prepped and draped in the usual sterile manner. Bimanual exam prior to prepping revealed a mobile, anteverted uterus. A speculum was placed in the vagina and the anterior lip of the cervix was grasped with a single toothed tenaculum and brought forward. Taking care not to enter deep into the uterus, a sound was passed inside to measure the length of the uterus and cervix. This length was found to be 8 cm. Next, Hegar dilator was inserted into the cervical os to measure the cervical length which was 3 cm. This yielded an endometrial cavity length of 6.5 cm. A series of Hegar dilators were then inserted sequentially into the cervical os up to a size of 5 mm. The Novasure device was then opened and tested; the fan deployed easily. The instrument was set to the correct cavity length and introduced into the uterine cavity. The fan was slowly deployed with gentle movements to ensure a snug fit within the cavity. The cavity width read 4.5 cm. The measurements were imported and a cavity check was done. The trumpet was then slid down to the cervix and the device was activated. The total burn time was 94 seconds. The fan was retracted and device removed. The fan was examined and revealed charred tissue. The tenaculum was removed and the cervix examined for hemostasis which was achieved using pressure. Finally the speculum was removed. The patient tolerated the procedure well and was brought to the recovery room in a stable condition. At the end of the procedure all sponges and instruments were counted and correct. The blood loss was minimal and there were no complications.
[2021-02-19 15:29] VITALS: BP 132/66; PULSE 93; RESP 14; TEMP 36.7; O2SAT 96
[2021-02-19 15:34] VITALS: BP 140/71; PULSE 96; RESP 17; O2SAT 95
[2021-02-19 15:39] VITALS: BP 167/80; PULSE 94; RESP 16; O2SAT 96
[2021-02-19 15:44] VITALS: BP 158/81; PULSE 94; RESP 17; O2SAT 96
[2021-02-19 16:00] VITALS: BP 152/87; PULSE 87; RESP 17; TEMP 36.4; O2SAT 97
== END 2021-02-19 16:39 | disposition home or self-care (01) ==
LOC: HO.SSS 13:13
PROVIDERS: Visit Provider Obstetrics & Gynecology
PROC: (CPT 58353; principal; 2021-02-19 14:50)
DX: N92.1 Excessive and frequent menstruation with irregular cycle (principal); N94.6 Dysmenorrhea, unspecified; I10 Essential (primary) hypertension; E11.9 Type 2 diabetes mellitus without complications; D64.9 Anemia, unspecified; Z98.51 Tubal ligation status; Z79.899 Other long term (current) drug therapy
CPT/HCPCS: 58353; 81025; 82947; J1100; J2250; J2405; J3010

== ENCOUNTER → 2021-02-24 10:42 | Outpatient (BNVA) | payer OTHER, SELFPAY | PROVIDERS: PCP Internal Medicine; Visit Provider Obstetrics & Gynecology ==

== ENCOUNTER 2021-06-12 10:55 | Outpatient (REF) | payer OTHER, SELFPAY ==
[2021-06-12 13:20] LABS: Hematocrit 37.3 % (37.0-47.0); Hemoglobin 12.7 g/dl (12.0-16.0); Mean Corpuscular Hemoglobin 29.4 pg (27.0-33.0); Mean Corpuscular Volume 86.3 fL (80.0-98.0); Mean Platelet Volume 11.5 fL (9.4-12.3); Platelet Count 276 X10*3/uL (160-400); Red Blood Count 4.32 X10*6/uL (4.20-5.50); Red Cell Distribution Width 13.9 % (11.0-16.0); White Blood Count 6.4 X10*3/uL (4.8-10.8)
[2021-06-12 13:40] LABS: HCG Quantitative < 2 mIU/mL
== END 2021-06-12 10:56 | disposition home or self-care (01) ==
LOC: HO.HMGCLDS 10:55
PROVIDERS: PCP Internal Medicine; Visit Provider Physician Assistant
DX: N93.9 Abnormal uterine and vaginal bleeding, unspecified (principal)
CPT/HCPCS: 36415; 84702; 85027

== ENCOUNTER → 2021-06-22 09:32 | Outpatient (BNVA) | payer OTHER, SELFPAY | PROVIDERS: PCP Internal Medicine; Visit Provider Obstetrics & Gynecology | DX: N92.1 Excessive and frequent menstruation with irregular cycle (principal) | CPT/HCPCS: 99212 ==

== ENCOUNTER 2021-06-24 05:34 | Emergency (ER) | payer OTHER, SELFPAY ==
--- NOTE | 2021-06-24 | ECG_ITS ---
Test Reason : syncope Blood Pressure : / mmHG Vent. Rate : 087 BPM Atrial Rate : 087 BPM P-R Int : 158 ms QRS Dur : 092 ms QT Int : 384 ms P-R-T Axes : 015 019 048 degrees QTc Int : 462 ms Normal sinus rhythm RSR' or QR pattern in V1 suggests right ventricular conduction delay Otherwise normal ECG No previous ECGs available Referred By: Generic ED Physician Electronically Signed By:EULALIA MANUEL MD
[2021-06-24 06:14] VITALS: BP 117/62; PULSE 87; RESP 16; TEMP 36.6; O2SAT 99; BMI 36.3
[2021-06-24 06:30] LABS: MANUAL DIFF FLAG NO
[2021-06-24 06:52] LABS: Basophils Absolute Auto 0.1 X10*3/uL (0.0-0.2); Basophils Percent Auto 0.5 % (0-2); Eosinophils Percent Auto 0.1 % (0-4); Hemoglobin 10.1 g/dl (12.0-16.0); Imm Gran Abs Auto 0.04 X10*3/uL (0.00-0.03); Imm Gran Pct Auto 0.4 % (0.0-0.4); Lymphocytes Absolute Auto 1.4 X10*3/uL (1.2-4.9); Lymphocytes Percent Auto 14.9 % (20-40); Mean Corpuscular HGB Conc 33.7 g/dl (31.0-35.0); Mean Corpuscular Hemoglobin 29.4 pg (27.0-33.0); Mean Corpuscular Volume 87.2 fL (80.0-98.0); Mean Platelet Volume 10.6 fL (9.4-12.3); Monocytes Absolute Auto 0.5 X10*3/uL (0.1-1.2); Monocytes Percent Auto 5.2 % (2-11); Neutrophils Absolute Auto 7.3 x10*3/uL (2.0-8.3); Neutrophils Percent Auto 78.9 % (45-73); Platelet Count 230 X10*3/uL (160-400); Red Blood Count 3.44 X10*6/uL (4.20-5.50); Red Cell Distribution Width 13.6 % (11.0-16.0); White Blood Count 9.3 X10*3/uL (4.8-10.8)
[2021-06-24 06:53] LABS: Alanine Aminotransferase 32 U/L (0-31); Albumin Level 3.9 g/dL (3.5-5.0); Alkaline Phosphatase 97 U/L (39-117); Anion Gap 13 (12-20); Aspartate Amino Transferase 18 U/L (5-31); Bilirubin Total 1.4 mg/dL (0.0-1.0); Blood Urea Nitrogen 13 mg/dL (9-16); Calcium 8.5 mg/dL (8.4-10.2); Carbon Dioxide 23 mmol/L (22-29); Chloride 103 mmol/L (96-108); Estimated Glomerular Filt Rate > 60; Glucose Fasting 274 mg/dL (60-99); Potassium 3.7 mmol/L (3.3-5.1); Sodium 135 mmol/L (135-145); Total Protein 6.9 g/dL (6.5-8.0)
--- NOTE | 2021-06-24 07:31 | ED_ITS ---
HPI - General Adult General Chief complaint: Syncope Stated complaint: heavy flow during period, nausea Time Seen by Provider: 06/24/21 07:31 Source: family Mode of arrival: ambulatory Limitations: no limitations History of Present Illness HPI narrative: patient with heavy vaginal bleeding, in October she needed a blood transfusion. Now changing pads every 5 minutes. Last month had a period for 3 weeks and was started on norethindrone. Being seen my Dr. Huston. Her period stopped June 13 but restarted on 06/21. Today felt lightheaded. Onset (ago): day(s) Severity: moderate Associated symptoms: denies other symptoms Related Data Home Medications Medication Instructions Recorded Confirmed adalimumab 40 mg/0.8 mL mg SUBCUT Q2W 05/20/20 03/26/21 subcutaneous pen kit flu vac qs 2019(4 yr up)CD(PF) ml IM 05/20/20 03/26/21 Previous Rx's Medication Instructions Recorded ibuprofen 600 mg tablet 600 mg PO BID PRN #30 tab 07/17/20 omeprazole 20 mg capsule,delayed 20 mg PO DAILY #30 cap 03/18/21 release ibuprofen 600 mg tablet 600 mg PO Q8H PRN #30 tab 06/12/21 norethindrone acetate 5 mg tablet 5 mg PO DAILY 10 Days #10 tab 06/12/21 ferrous sulfate 324 mg (65 mg 324 mg PO DAILY #60 tab 06/24/21 iron) tablet,delayed release folic acid 1 mg tablet 1 mg PO DAILY #60 tab 06/24/21 medroxyprogesterone 10 mg tablet 10 mg PO DAILY #60 tab 06/24/21 (Provera) Allergies Allergy/AdvReac Type Severity Reaction Status Date / Time metformin AdvReac Unknown HICKMAN, nausea Verified 06/22/21 10:17 Review of Systems Constitutional: Constitutional: Reports no additional constitutional c omplaints Eyes: Eyes: Reports no additional eye complaints ENT: Denies dizziness Cardiovascular: Cardiovascular: Reports no additional cardiovascular complaints Respiratory: Respiratory: Reports as per HPI Gastrointestinal: Gastrointestinal: Reports no additional gastrointestinal complaints Genitourinary: Genitourinary: Reports no additional female genitourinary complaints Musculoskeletal: Musculoskeletal: Reports no additional musculoskeletal complaints Integumentary/Breasts: Skin/Breast: Denies rash Neurologic: Reports system reviewed and no additional complaints, except as documented, Denies dizziness and Denies Sensory deficit (Neuro) Psychiatric: Psychiatric: Denies anxiety [facility] Past Medical History Medical History Dysmenorrhea GERD (gastroesophageal reflux disease) Heartburn Heavy menstrual bleeding Medial meniscus tear Migraine Osteoarthritis, knee Psoriasis Type 2 diabetes mellitus without complication, without long-term current use of insulin Varicose vein of leg Surgical History H/O arthroscopy of right knee History of bilateral tubal ligation History of endometrial ablation History of varicose veins Family History Family History Father DVT (deep venous thrombosis) HTN (hypertension) Dyslipidemia Diabetes mellitus Mother Multiple myeloma COVID-19 Brother Lymphoma Social History Social History Housing: House Alcohol intake: current Alcohol intake frequency: does not drink Patient Tobacco Use Status: Never used Tobacco e-Cigarette/Vaping Use: Never Used Second Hand Smoke Exposure: No Use of substances other than those prescribed or required for medical reasons: No Advance Directives: No Advance Directives Information Provided: Yes service: No Current occupational status: employed 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 Current occupational exposures/hazards: No Sexual orientation: Straight/Heterosexual Physical Exam Vital Signs: Vital Signs: Last Vital Signs Temp 98 F 06/24/21 11:27 Pulse 82 06/24/21 11:27 Resp 18 06/24/21 11:27 BP 129/72 06/24/21 11:27 Pulse Ox 99 06/24/21 11:27 Body Mass Index 36.3 Const: Nutritional Appearance: obese Orientation/consciousness: oriented to person and patient oriented x3 Limitations: no limitations HENMT: Head: Yes normal to inspection Ears: external ears normal General nose exam: Normal external nose present Mouth: Normal oral and palatal mucosa present and oropharynx normal Throat: Yes posterior oropharynx normal Eyes: General: appearance normal, both eyes and all related structures Neck: Other: supple Neck: Yes normal visual inspection Chest: Chest palpation & inspection: normal inspection of the chest Resp: Auscultation: clear to auscultation bilaterally Cardio: Jugular venous distension: no JVD Rate: regular rate Rhythm: regular rhythm Heart sounds: S1 normal heart sound present and S2 normal heart sound present GI: Other: supra pubic tenderness to palpation Palpation (GI): Tenderness to palpation present (GI) Auscultation: normal bowel sounds : Other: vaginal exam, large clots removed, bleeding stopped General: Yes no CVA tenderness Back/Spine/Pelvis: Back: no CVA tenderness Skin: General skin exam: no rashes or lesions noted Neuro: General: oriented to person and patient oriented x3 Cranial nerves: Yes CN's II-XII intact bilaterally Motor exam (neuro): 5/5 motor strength present throughout Sensory Exam: No Sensory deficit (Neuro) Extrem: General: Yes normal to inspection Psych: Appearance: grossly normal Course Reevaluation(s) Reevaluation #1: seen by Dr. Huston, Physician observation started at 11am, the reason is observation for further bleeding and repeat CBC in 3 hours. Currently only seeping blood, no clots Time: 11:04 Reevaluation #2: Patients HCT stabilized nor further bleeding will dc on provera and Iron Time: 13:20 Medical Decision Making Lab Data Result diagrams: 06/24/21 13:05 06/24/21 06:23 Labs: Lab Results 06/24/21 06/24/21 06/24/21 Range/Units 06:23 06:23 08:40 WBC 9.3 (4.8-10.8) X10*3/uL RBC 3.44 L D (4.20-5.50) X10*6/uL Hgb 10.1 L D (12.0-16.0) g/dl Hct 30.0 L (37.0-47.0) % MCV 87.2 (80.0-98.0) fL MCH 29.4 (27.0-33.0) pg MCHC 33.7 (31.0-35.0) g/dl RDW 13.6 (11.0-16.0) % Plt Count 230 (160-400) X10*3/uL MPV 10.6 (9.4-12.3) fL Immature Gran % (Auto) 0.4 (0.0-0.4) % Neut % (Auto) 78.9 H (45-73) % Lymph % (Auto) 14.9 L (20-40) % [place] % (Auto) 5.2 (2-11) % Eos % (Auto) 0.1 (0-4) % Baso % (Auto) 0.5 (0-2) % Lymph # (Auto) 1.4 (1.2-4.9) X10*3/uL [place] # (Auto) 0.5 (0.1-1.2) X10*3/uL Eos # (Auto) 0.0 (0.0-0.4) X10*3/uL Baso # (Auto) 0.1 (0.0-0.2) X10*3/uL Abs Immat Gran (auto) 0.04 H (0.00-0.03) X10*3/uL Absolute Neuts (auto) 7.3 (2.0-8.3) x10*3/uL Absolute Nucleated RBC 0.000 (0.0-0.012) X10*3/uL Nucleated RBC % (auto) 0.0 (0.0-0.2) /100WBC Sodium 135 (135-145) mmol/L Potassium 3.7 (3.3-5.1) mmol/L Chloride 103 (96-108) mmol/L Carbon Dioxide 23 (22-29) mmol/L Anion Gap 13 (12-20) BUN 13 (9-16) mg/dL Creatinine 0.76 (0.5-1.4) mg/dL Estim Creat Clear Calc 98.0 Estimated GFR > 60 Fasting Glucose 274 H (60-99) mg/dL Calcium 8.5 D (8.4-10.2) mg/dL Total Bilirubin 1.4 H (0.0-1.0) mg/dL AST 18 D (5-31) U/L ALT 32 H (0-31) U/L Alkaline Phosphatase 97 (39-117) U/L Troponin I High Sens < 3.5 (<3.5-17.0) ng/L Total Protein 6.9 (6.5-8.0) g/dL Albumin 3.9 (3.5-5.0) g/dL Blood Type Antibody Screen 06/24/21 06/24/21 06/24/21 Range/Units 08:54 09:42 13:05 WBC 10.9 H 10.7 (4.8-10.8) X10*3/uL RBC 3.03 L 2.98 L (4.20-5.50) X10*6/uL Hgb 9.0 L 8.9 L (12.0-16.0) g/dl Hct 26.9 L 26.3 L (37.0-47.0) % MCV 88.8 88.3 (80.0-98.0) fL MCH 29.7 29.9 (27.0-33.0) pg MCHC 33.5 33.8 (31.0-35.0) g/dl RDW 13.8 14.0 (11.0-16.0) % Plt Count 191 187 (160-400) X10*3/uL MPV 10.4 10.4 (9.4-12.3) fL Immature Gran % (Auto) 0.4 0.3 (0.0-0.4) % Neut % (Auto) 82.2 H 73.4 H (45-73) % Lymph % (Auto) 12.4 L 19.7 L (20-40) % [place] % (Auto) 4.5 6.3 (2-11) % Eos % (Auto) 0.0 0.0 (0-4) % Baso % (Auto) 0.5 0.3 (0-2) % Lymph # (Auto) 1.3 2.1 (1.2-4.9) X10*3/uL [place] # (Auto) 0.5 0.7 (0.1-1.2) X10*3/uL Eos # (Auto) 0.0 0.0 (0.0-0.4) X10*3/uL Baso # (Auto) 0.1 0.0 (0.0-0.2) X10*3/uL Abs Immat Gran (auto) 0.04 H 0.03 (0.00-0.03) X10*3/uL Absolute Neuts (auto) 8.9 H 7.9 (2.0-8.3) x10*3/uL Absolute Nucleated RBC 0.000 0.000 (0.0-0.012) X10*3/uL Nucleated RBC % (auto) 0.0 0.0 (0.0-0.2) /100WBC Sodium (135-145) mmol/L Potassium (3.3-5.1) mmol/L Chloride (96-108) mmol/L Carbon Dioxide (22-29) mmol/L Anion Gap (12-20) BUN (9-16) mg/dL Creatinine (0.5-1.4) mg/dL Estim Creat Clear Calc Estimated GFR Fasting Glucose (60-99) mg/dL Calcium (8.4-10.2) mg/dL Total Bilirubin (0.0-1.0) mg/dL AST (5-31) U/L ALT (0-31) U/L Alkaline Phosphatase (39-117) U/L Troponin I High Sens (<3.5-17.0) ng/L Total Protein (6.5-8.0) g/dL Albumin (3.5-5.0) g/dL Blood Type A Positive Antibody Screen NEGATIVE Discharge Plan Discharge Clinical Impression: Dysmenorrhea Heavy menstrual bleeding Qualifiers: Menorrhagia type: with irregular cycle Qualified Code(s): N92.1 - Excessive and frequent menstruation with irregular cycle Patient Disposition: Home, Self-Care Instructions: Dysfunctional Uterine Bleeding (ED), Dysmenorrhea (ED) Prescriptions: New medroxyprogesterone [Provera] 10 mg tablet 10 mg PO DAILY Qty: 60 RF: 0 folic acid 1 mg tablet 1 mg PO DAILY Qty: 60 RF: 0 ferrous sulfate 324 mg (65 mg iron) tablet,delayed release (DR/EC) 324 mg PO DAILY Qty: 60 RF: 0 No Action Humira Pen 40 mg/0.8 mL pen injector kit subcut Q2W RF: 0 Flucelvax Quad (PF) 60 mcg (15 mcg x 4)/0.5 mL syringe IM RF: 0 omeprazole 20 mg capsule,delayed release(DR/EC) 20 mg PO DAILY Qty: 30 RF: 0 ibuprofen 600 mg tablet 600 mg PO BID PRN (Reason: pain) Qty: 30 RF: 0 norethindrone acetate 5 mg tablet 5 mg PO DAILY 10 Days Qty: 10 RF: 0 ibuprofen 600 mg tablet 600 mg PO Q8H PRN (Reason: menstrual cramps) Qty: 30 RF: 0 Referrals: Leobardo Huston MD [Physician] - 5 days Jen Ambrocio MD [Primary Care Provider] - 1 week
--- NOTE | 2021-06-24 08:05 | PC.NURSE ---
CALLED TO ROOM BY PATIENT REQUESTING TO USE COMMODE. REPORTS HEAVY VAGINAL BLEEDING AT HOME. DID NOT WANT TO USE BED [facility]. ASSISTED TO COMMODE BY THIS RN. PT REPORTED LARGE GUSH OF BLOOD. REPORTED FEELING DIZZY. CALLED FOR ASSISTANCE AND PLACED PATIENT BACK INTO THE BED. PT PLACED BACK ON MONITOR. BP 100/65. DR SANCHEZ AT BEDSIDE AND AWARE. 2L NS TO BE INFUSED WIDE OPEN. CARE BAG DRY WEIGHT 32 GRAMS CARE BAG WITH BLOOD 275 GRAMS EBL 243 GRAMS OF BLOOD. UPDATED PRIMARY RN ON ABOVE EVENT.
[2021-06-24] MEDS: 0.9 % Sodium Chloride 1,000 ML 999 ML IVCONT ×2 (08:06)
[2021-06-24 08:08] VITALS: BP 105/45; PULSE 86; RESP 18; TEMP 36.8; O2SAT 100
[2021-06-24 09:06] VITALS: BP 131/67; PULSE 97; RESP 19; O2SAT 100
[2021-06-24 09:13] LABS: Troponin-I High Sensitivity < 3.5 ng/L (<3.5-17.0)
[2021-06-24 09:45] LABS: MANUAL DIFF FLAG NO
[2021-06-24 09:48] LABS: Basophils Absolute Auto 0.1 X10*3/uL (0.0-0.2); Basophils Percent Auto 0.5 % (0-2); Hematocrit 26.9 % (37.0-47.0); Imm Gran Abs Auto 0.04 X10*3/uL (0.00-0.03); Imm Gran Pct Auto 0.4 % (0.0-0.4); Lymphocytes Absolute Auto 1.3 X10*3/uL (1.2-4.9); Lymphocytes Percent Auto 12.4 % (20-40); Mean Corpuscular HGB Conc 33.5 g/dl (31.0-35.0); Mean Corpuscular Hemoglobin 29.7 pg (27.0-33.0); Mean Corpuscular Volume 88.8 fL (80.0-98.0); Mean Platelet Volume 10.4 fL (9.4-12.3); Monocytes Absolute Auto 0.5 X10*3/uL (0.1-1.2); Monocytes Percent Auto 4.5 % (2-11); Neutrophils Absolute Auto 8.9 x10*3/uL (2.0-8.3); Neutrophils Percent Auto 82.2 % (45-73); Platelet Count 191 X10*3/uL (160-400); Red Blood Count 3.03 X10*6/uL (4.20-5.50); Red Cell Distribution Width 13.8 % (11.0-16.0); White Blood Count 10.9 X10*3/uL (4.8-10.8)
[2021-06-24] MEDS: Acetaminophen 325 MG TABLET 650 MG PO (09:49)
--- NOTE | 2021-06-24 11:04 | PM.GYNCN ---
TITLE CURATIVE SPECIALIST - CN: HPI Data of Consult Consult date: 06/24/21 Primary Care Provider: Jen Ambrocio MD Consult Narrative Narrative: I was consulted on Neryeda Wood who is a 46 year old female who presented emergency room with heavy vaginal bleeding started 3 hours prior to presentation associated with passage of blood clots and pelvic cramping. The patient was on norethindrone 5 mg p.o. q.d. for 10 days. 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 - Review of Systems Review of Systems ROS Unobtainable: All systems reviewed & are unremarkable except as noted in HPI and below OB PMFSH Past Medical History Medical History Dysmenorrhea GERD (gastroesophageal reflux disease) Heartburn Heavy menstrual bleeding Medial meniscus tear Migraine Osteoarthritis, knee Psoriasis Type 2 diabetes mellitus without complication, without long-term current use of insulin Varicose vein of leg Family History Family History Father DVT (deep venous thrombosis) HTN (hypertension) Dyslipidemia Diabetes mellitus Mother Multiple myeloma COVID-19 Brother Lymphoma Surgical History Surgical History H/O arthroscopy of right knee History of bilateral tubal ligation History of endometrial ablation History of varicose veins Social History Social History Housing: House Alcohol intake: current Alcohol intake frequency: does not drink Patient Tobacco Use Status: Never used Tobacco e-Cigarette/Vaping Use: Never Used Second Hand Smoke Exposure: No Use of substances other than those prescribed or required for medical reasons: No Advance Directives: No Advance Directives Information Provided: Yes service: No Current occupational status: employed 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 Current occupational exposures/hazards: No Sexual orientation: Straight/Heterosexual Meds Allergies Allergy/AdvReac Type Severity Reaction Status Date / Time metformin AdvReac Unknown HICKMAN, nausea Verified 06/22/21 10:17 Home Medications Medication Instructions Recorded Confirmed Last Taken Type adalimumab 40 mg/0.8 mL mg SUBCUT Q2W 05/20/20 03/26/21 Unknown History subcutaneous pen kit flu vac qs 2019(4 yr up)CD(PF) ml IM 10/07/20 08/13/21 Unknown History TITLE CURATIVE SPECIALIST Physical Exam Vitals Vital signs: Temp Pulse Resp BP Pulse Ox 98.2 F 97 19 131/67 100 06/24/21 08:08 06/24/21 09:06 06/24/21 09:06 06/24/21 09:06 06/24/21 09:06 Body Mass Index 36.3 Female Genitalia (Pelvic) Bladder/Urethra: Normal meatus Vulva: No lesions Cervix: Grossly normal Adnexa/Parametria: Adnexal Tenderness: None, Adnexal Mass: None, Parametrial Tenderness: None and Parametrial Mass: None Additional Comments: No evidence of active bleeding TITLE CURATIVE SPECIALIST - Results Labs CBC & Chem 7: 06/24/21 09:42 06/24/21 06:23 Labs: Short CBC 06/24/21 06/24/21 Range/Units 06:23 09:42 WBC 9.3 10.9 H (4.8-10.8) X10*3/uL Hgb 10.1 L D 9.0 L (12.0-16.0) g/dl Hct 30.0 L 26.9 L (37.0-47.0) % Plt Count 230 191 (160-400) X10*3/uL BMP 06/24/21 06:23 Sodium 135 Potassium 3.7 Chloride 103 Carbon Dioxide 23 BUN 13 Creatinine 0.76 Calcium 8.5 D Liver Function 06/24/21 Range/Units 06:23 Total Bilirubin 1.4 H (0.0-1.0) mg/dL AST 18 D (5-31) U/L ALT 32 H (0-31) U/L Alkaline Phosphatase 97 (39-117) U/L Albumin 3.9 (3.5-5.0) g/dL Antibody Screen Antibody Screen NEGATIVE 06/24/21 08:54 Assessment and Plan (1) Menometrorrhagia: Status: Acute Urine test to be done in the emergency room, discontinue Lysteda (the patient never filled up the prescription), start Provera 10 mg p.o. q.d. start now, observe the patient for few hours in the emergency room and repeat H&H, if the patient vaginal bleeding slows down and hematocrit drops, will need blood transfusion will transfuse with 1-2 units of packed RBCs, if bleeding subsides and the patient is stable for discharge, Provera 10 mg p.o. q.d. for 60 days, iron sulfate 325 mg p.o. t.i.d., follow-up in the office in few days for endometrial biopsy and further management .Instructions given to patient to call or come to emergency room in case of recurrence of her vaginal bleeding. All questions answered, the patient and her daughter verbalized understanding. Discussed with case Dr. Man in the emergency room.
[2021-06-24] MEDS: Ferrous Sulfate 324 MG TABLET.DR PO (11:22)
[2021-06-24] MEDS: medroxyPROGESTERone Acetate 5 MG TABLET 10 MG PO (11:22)
[2021-06-24 11:27] VITALS: BP 129/72; PULSE 82; RESP 18; TEMP 36.6; O2SAT 99
[2021-06-24 13:09] LABS: MANUAL DIFF FLAG NO
[2021-06-24 13:13] LABS: Basophils Percent Auto 0.3 % (0-2); Hematocrit 26.3 % (37.0-47.0); Hemoglobin 8.9 g/dl (12.0-16.0); Imm Gran Abs Auto 0.03 X10*3/uL (0.00-0.03); Imm Gran Pct Auto 0.3 % (0.0-0.4); Lymphocytes Absolute Auto 2.1 X10*3/uL (1.2-4.9); Lymphocytes Percent Auto 19.7 % (20-40); Mean Corpuscular HGB Conc 33.8 g/dl (31.0-35.0); Mean Corpuscular Hemoglobin 29.9 pg (27.0-33.0); Mean Corpuscular Volume 88.3 fL (80.0-98.0); Mean Platelet Volume 10.4 fL (9.4-12.3); Monocytes Absolute Auto 0.7 X10*3/uL (0.1-1.2); Monocytes Percent Auto 6.3 % (2-11); Neutrophils Absolute Auto 7.9 x10*3/uL (2.0-8.3); Neutrophils Percent Auto 73.4 % (45-73); Platelet Count 187 X10*3/uL (160-400); Red Blood Count 2.98 X10*6/uL (4.20-5.50); White Blood Count 10.7 X10*3/uL (4.8-10.8)
== END 2021-06-24 13:50 | disposition home or self-care (01) ==
PROVIDERS: Emergency Provider Emergency Medicine; PCP Internal Medicine
DX: N92.1 Excessive and frequent menstruation with irregular cycle (principal); N94.6 Dysmenorrhea, unspecified; E11.9 Type 2 diabetes mellitus without complications
CPT/HCPCS: 36415; 80053; 84484; 85025; 86850; 86900; 86901; 93005; 96360; 99284; 99285

== ENCOUNTER 2021-06-28 02:34 | Emergency (ER) | payer OTHER, SELFPAY ==
[2021-06-28] VITALS (8 sets, daily range): BP systolic 131–188; BP diastolic 66–106; PULSE 89–118; RESP 15–20; TEMP 36.7–36.9; O2SAT 99–100; BMI 35.7
--- NOTE | 2021-06-28 | ECG_ITS ---
Test Reason : HEART PALPATIONS Blood Pressure : / mmHG Vent. Rate : 117 BPM Atrial Rate : 117 BPM P-R Int : 156 ms QRS Dur : 090 ms QT Int : 346 ms P-R-T Axes : 042 000 041 degrees QTc Int : 482 ms Sinus tachycardia RSR' or QR pattern in V1 suggests right ventricular conduction delay Otherwise normal ECG When compared with ECG of 24-JUN-2021 06:14, Heart rate has increased Referred By: Generic ED Physician Electronically Signed By:EULALIA MANUEL MD
[2021-06-28 03:42] LABS: MANUAL DIFF FLAG NO
[2021-06-28 03:43] LABS: Basophils Percent Auto 0.6 % (0-2); Eosinophils Absolute Auto 0.1 X10*3/uL (0.0-0.4); Imm Gran Abs Auto 0.02 X10*3/uL (0.00-0.03); Imm Gran Pct Auto 0.4 % (0.0-0.4); Lymphocytes Absolute Auto 1.8 X10*3/uL (1.2-4.9); Lymphocytes Percent Auto 37.2 % (20-40); Mean Corpuscular HGB Conc 33.3 g/dl (31.0-35.0); Mean Corpuscular Hemoglobin 29.2 pg (27.0-33.0); Mean Corpuscular Volume 87.5 fL (80.0-98.0); Mean Platelet Volume 9.7 fL (9.4-12.3); Monocytes Absolute Auto 0.4 X10*3/uL (0.1-1.2); Monocytes Percent Auto 7.9 % (2-11); Neutrophils Absolute Auto 2.6 x10*3/uL (2.0-8.3); Neutrophils Percent Auto 52.9 % (45-73); Platelet Count 229 X10*3/uL (160-400); Red Cell Distribution Width 13.6 % (11.0-16.0); White Blood Count 4.9 X10*3/uL (4.8-10.8)
--- NOTE | 2021-06-28 03:54 | ED_ITS ---
HPI - Chest Pain General Chief Complaint: Chest Pain Stated Complaint: Palpitations Time Seen by Provider: 06/28/21 03:13 Source: patient and japanese interpreter Mode of arrival: ambulatory History of Present Illness HPI narrative: This is a 46-year-old female with known menorrhagia and was seen here on 06/24, started on Provera, and has an appointment this morning with gynecology at 9:00 a.m. and presents with worsening shortness of breath, pal pitations with associated tingling in hands/fingers and worsening fatigue since she was evaluated on . She denies any dizziness, shortness of breath, urinary symptoms or GI symptoms. Related Data Home Medications Medication Instructions Recorded Confirmed adalimumab 40 mg/0.8 mL mg SUBCUT Q2W 05/20/20 03/26/21 subcutaneous pen kit flu vac qs 2019(4 yr up)CD(PF) ml IM 05/20/20 03/26/21 Previous Rx's Medication Instructions Recorded ibuprofen 600 mg tablet 600 mg PO BID PRN #30 tab 07/17/20 omeprazole 20 mg capsule,delayed 20 mg PO DAILY #30 cap 03/18/21 release ibuprofen 600 mg tablet 600 mg PO Q8H PRN #30 tab 06/12/21 norethindrone acetate 5 mg tablet 5 mg PO DAILY 10 Days #10 tab 06/12/21 ferrous sulfate 324 mg (65 mg 324 mg PO DAILY #60 tab 06/24/21 iron) tablet,delayed release folic acid 1 mg tablet 1 mg PO DAILY #60 tab 06/24/21 medroxyprogesterone 10 mg tablet 10 mg PO DAILY #60 tab 06/24/21 (Provera) Allergies Allergy/AdvReac Type Severity Reaction Status Date / Time metformin AdvReac Unknown HICKMAN, nausea Verified 06/22/21 10:17 Review of Systems Review of Systems: Pertinent positives and negatives as stated in HPI 10 point review of systems is otherwise negative. [facility] Past Medical History Source: nursing notes reviewed Medical History Dysmenorrhea GERD (gastroesophageal reflux disease) Heartburn Heavy menstrual bleeding Medial meniscus tear Migraine Osteoarthritis, knee Psoriasis Type 2 diabetes mellitus without complication, without long-term current use of insulin Varicose vein of leg Surgical History H/O arthroscopy of right knee History of bilateral tubal ligation History of endometrial ablation History of varicose veins Family History Family History Father DVT (deep venous thrombosis) HTN (hypertension) Dyslipidemia Diabetes mellitus Mother Multiple myeloma COVID-19 Brother Lymphoma Social History Social History Housing: House Alcohol intake: current Alcohol intake frequency: does not drink Patient Tobacco Use Status: Never used Tobacco e-Cigarette/Vaping Use: Never Used Second Hand Smoke Exposure: No Advance Directives: No Patient : No service: No Current occupational status: employed 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 GENERAL: Well developed, well nourished, in no acute distress. HEAD: Normocephalic/atraumatic EYES: PERRLA, EOMI, pale conjunctiva OROPHARYNX: no oral lesions noted, posterior pharynx clear , with pale mucosa NECK: Supple, no adenopathy LUNGS: Normal breath sounds. No adventitious sounds or accessory muscle use. SpO2<99> CARDIOVASCULAR: Regular rate and rhythm without noted murmurs ABDOMEN: Soft, non-tender, non-distended with bowel sounds. SKIN: Inspection of the skin reveals no rashes, but pallor is present NEUROLOGIC: Alert and oriented x 4. Strength and sensation to light touch were grossly intact x 4. Course Course Course Narrative: 46-year-old female with history and clinical presentation consistent with acute blood loss anemia and patient will receive blood transfusion. Her symptoms are consistent with the blood loss, and this was discussed with Dr Huston, will see the patient and has instructed that she be kept NPO. Review of all investigations significant for acute, symptomatic blood loss anemia. Patient was typed and screened and will receive 2 units. She is otherwise hemodynamically stable and is pending evaluation by Dr Huston. Reevaluation(s) Reevaluation #1: Patient placed in physician observation because the patient needed more time for blood transfusion and evaluation by senior product consultant At the time observation was started the patient's vital signs were stable, patient is alert and oriented, neuro: Nonfocal, CV RRR, lungs clear Time: 05:08 MDM - Chest Pain Lab Data Result diagrams: 06/28/21 03:22 06/28/21 03:22 Labs: Lab Results 06/28/21 06/28/21 06/28/21 Range/Units 03:22 03:22 04:05 WBC 4.9 (4.8-10.8) X10*3/uL RBC 2.40 L (4.20-5.50) X10*6/uL Hgb 7.0 L* D (12.0-16.0) g/dl Hct 21.0 L* D (37.0-47.0) % MCV 87.5 (80.0-98.0) fL MCH 29.2 (27.0-33.0) pg MCHC 33.3 (31.0-35.0) g/dl RDW 13.6 (11.0-16.0) % Plt Count 229 (160-400) X10*3/uL MPV 9.7 (9.4-12.3) fL Immature Gran % (Auto) 0.4 (0.0-0.4) % Neut % (Auto) 52.9 (45-73) % Lymph % (Auto) 37.2 (20-40) % [place] % (Auto) 7.9 (2-11) % Eos % (Auto) 1.0 (0-4) % Baso % (Auto) 0.6 (0-2) % Lymph # (Auto) 1.8 (1.2-4.9) X10*3/uL [place] # (Auto) 0.4 (0.1-1.2) X10*3/uL Eos # (Auto) 0.1 (0.0-0.4) X10*3/uL Baso # (Auto) 0.0 (0.0-0.2) X10*3/uL Abs Immat Gran (auto) 0.02 (0.00-0.03) X10*3/uL Absolute Neuts (auto) 2.6 (2.0-8.3) x10*3/uL Absolute Nucleated RBC 0.000 (0.0-0.012) X10*3/uL Nucleated RBC % (auto) 0.0 (0.0-0.2) /100WBC Sodium 138 (135-145) mmol/L Potassium 3.2 L (3.3-5.1) mmol/L Chloride 107 (96-108) mmol/L Carbon Dioxide 24 (22-29) mmol/L Anion Gap 10 L (12-20) BUN 11 (9-16) mg/dL Creatinine 0.72 (0.5-1.4) mg/dL Estim Creat Clear Calc 102.7 Estimated GFR > 60 Random Glucose 242 H (60-115) mg/dL Calcium 8.4 (8.4-10.2) mg/dL Total Bilirubin 0.4 (0.0-1.0) mg/dL AST 26 D (5-31) U/L ALT 32 H (0-31) U/L Alkaline Phosphatase 75 D (39-117) U/L Total Protein 6.3 L (6.5-8.0) g/dL Albumin 3.6 (3.5-5.0) g/dL Urine Color Urine Appearance Urine pH (5.0-8.0) Ur Specific [place] (1.005-1.025) Urine Protein (NEG-TRACE) MG/DL Urine Glucose (UA) (NEG) MG/DL Urine Ketones (NEG) MG/DL Urine Blood (NEG) Urine Nitrite (NEG) Ur Leukocyte Esterase (NEG) Urine RBC (0) /HPF Urine WBC (0-4) /HPF Ur Squamous Epith Cells /LPF Urine Bacteria /LPF Ur Oval Fat Bodies (NONE) Urine Test (NEGATIVE) Blood Type A Positive Antibody Screen NEGATIVE Crossmatch See Detail 06/28/21 06/28/21 Range/Units 04:10 04:10 WBC (4.8-10.8) X10*3/uL RBC (4.20-5.50) X10*6/uL Hgb (12.0-16.0) g/dl Hct (37.0-47.0) % MCV (80.0-98.0) fL MCH (27.0-33.0) pg MCHC (31.0-35.0) g/dl RDW (11.0-16.0) % Plt Count (160-400) X10*3/uL MPV (9.4-12.3) fL Immature Gran % (Auto) (0.0-0.4) % Neut % (Auto) (45-73) % Lymph % (Auto) (20-40) % [place] % (Auto) (2-11) % Eos % (Auto) (0-4) % Baso % (Auto) (0-2) % Lymph # (Auto) (1.2-4.9) X10*3/uL [place] # (Auto) (0.1-1.2) X10*3/uL Eos # (Auto) (0.0-0.4) X10*3/uL Baso # (Auto) (0.0-0.2) X10*3/uL Abs Immat Gran (auto) (0.00-0.03) X10*3/uL Absolute Neuts (auto) (2.0-8.3) x10*3/uL Absolute Nucleated RBC (0.0-0.012) X10*3/uL Nucleated RBC % (auto) (0.0-0.2) /100WBC Sodium (135-145) mmol/L Potassium (3.3-5.1) mmol/L Chloride (96-108) mmol/L Carbon Dioxide (22-29) mmol/L Anion Gap (12-20) BUN (9-16) mg/dL Creatinine (0.5-1.4) mg/dL Estim Creat Clear Calc Estimated GFR Random Glucose (60-115) mg/dL Calcium (8.4-10.2) mg/dL Total Bilirubin (0.0-1.0) mg/dL AST (5-31) U/L ALT (0-31) U/L Alkaline Phosphatase (39-117) U/L Total Protein (6.5-8.0) g/dL Albumin (3.5-5.0) g/dL Urine Color RED Urine Appearance TURBID Urine pH 6.5 (5.0-8.0) Ur Specific [place] 1.020 (1.005-1.025) Urine Protein 2+ H (NEG-TRACE) MG/DL Urine Glucose (UA) >=1000 H (NEG) MG/DL Urine Ketones NEG (NEG) MG/DL Urine Blood 3+ H (NEG) Urine Nitrite NEG (NEG) Ur Leukocyte Esterase NEG (NEG) Urine RBC TNTC H (0) /HPF Urine WBC 0-2 (0-4) /HPF Ur Squamous Epith Cells 2+ /LPF Urine Bacteria NONE /LPF Ur Oval Fat Bodies NOTED (NONE) Urine Test NEGATIVE (NEGATIVE) Blood Type Antibody Screen Crossmatch ECG Data ECG #1: Attestation: I personally reviewed and interpreted this ECG as follows: Prior ECG tracings: available for review (06/24/2021 with some EKG changes noted within lead to/V2 likely consistent with anemia.) Interpretation: Sinus tachycardia, HR-117, no STEMI, GA/QRS/QTC are within normal limits. Discharge Plan Discharge Clinical Impression: Heavy menstrual bleeding, Acute blood loss anemia Patient Disposition: Still a Patient Prescriptions: No Action medroxyprogesterone [Provera] 10 mg tablet 10 mg PO DAILY Qty: 60 RF: 0 folic acid 1 mg tablet 1 mg PO DAILY Qty: 60 RF: 0 ferrous sulfate 324 mg (65 mg iron) tablet,delayed release (DR/EC) 324 mg PO DAILY Qty: 60 RF: 0 Humira Pen 40 mg/0.8 mL pen injector kit subcut Q2W RF: 0 Flucelvax Quad (PF) 60 mcg (15 mcg x 4)/0.5 mL syringe IM RF: 0 omeprazole 20 mg capsule,delayed release(DR/EC) 20 mg PO DAILY Qty: 30 RF: 0 ibuprofen 600 mg tablet 600 mg PO BID PRN (Reason: pain) Qty: 30 RF: 0 norethindrone acetate 5 mg tablet 5 mg PO DAILY 10 Days Qty: 10 RF: 0 ibuprofen 600 mg tablet 600 mg PO Q8H PRN (Reason: menstrual cramps) Qty: 30 RF: 0
[2021-06-28 04:00] LABS: Alanine Aminotransferase 32 U/L (0-31); Albumin Level 3.6 g/dL (3.5-5.0); Alkaline Phosphatase 75 U/L (39-117); Anion Gap 10 (12-20); Aspartate Amino Transferase 26 U/L (5-31); Bilirubin Total 0.4 mg/dL (0.0-1.0); Blood Urea Nitrogen 11 mg/dL (9-16); Calcium 8.4 mg/dL (8.4-10.2); Carbon Dioxide 24 mmol/L (22-29); Chloride 107 mmol/L (96-108); Creatinine Clr Calc Pharmacy 102.7; Estimated Glomerular Filt Rate > 60; Glucose Random 242 mg/dL (60-115); Potassium 3.2 mmol/L (3.3-5.1); Sodium 138 mmol/L (135-145); Total Protein 6.3 g/dL (6.5-8.0)
[2021-06-28 04:30] LABS: Appearance Urine TURBID; Color Urine RED; Glucose Urine UA >=1000 MG/DL (NEG); PH 6.5 (5.0-8.0); UACC Culture Trigger NO; Urine Blood 3+ (NEG); Urine Ketones NEG (NEG); Urine Protein 2+ MG/DL (NEG-TRACE)
[2021-06-28 04:42] LABS: Leukocyte Esterase Urine NEG (NEG); Nitrite Urine NEG (NEG)
[2021-06-28 04:43] LABS: Oval Fat Bodies Urine NOTED; RBC Urine TNTC /HPF (0); Squamous Epithelial Cell Urine 2+ /LPF; WBC Urine 0-2 /HPF (0-4)
[2021-06-28 04:51] LABS: UPreg QC Valid YES; Urine Pregnancy NEGATIVE (NEGATIVE)
[2021-06-28] MEDS: Potassium Chloride/H20 10 MEQ/100 ML PIGGYBACK 100 MEQ IV ×2 (08:22→09:41)
[2021-06-28] MEDS: 0.9 % Sodium Chloride 1,000 ML 999 ML IV (08:22)
--- NOTE | 2021-06-28 10:04 | ED.CHESTPAIN ---
HPI - Chest Pain General Chief Complaint: Chest Pain Stated Complaint: Palpitations Time Seen by Provider: 06/28/21 03:13 Source: patient and surgical services assistant Mode of arrival: ambulatory Related Data Home Medications Medication Instructions Recorded Confirmed adalimumab 40 mg/0.8 mL mg SUBCUT Q2W 05/20/20 03/26/21 subcutaneous pen kit flu vac qs 2020(4 yr up)CD(PF) ml IM 05/20/20 03/26/21 Previous Rx's Medication Instructions Recorded ibuprofen 600 mg tablet 600 mg PO BID PRN #30 tab 07/17/20 omeprazole 20 mg capsule,delayed 20 mg PO DAILY #30 cap 03/18/21 release ibuprofen 600 mg tablet 600 mg PO Q8H PRN #30 tab 06/12/21 norethindrone acetate 5 mg tablet 5 mg PO DAILY 10 Days #10 tab 06/12/21 ferrous sulfate 324 mg (65 mg 324 mg PO DAILY #60 tab 06/24/21 iron) tablet,delayed release folic acid 1 mg tablet 1 mg PO DAILY #60 tab 06/24/21 medroxyprogesterone 10 mg tablet 10 mg PO DAILY #90 tab 06/28/21 (Provera) Allergies Allergy/AdvReac Type Severity Reaction Status Date / Time metformin AdvReac Unknown HICKMAN, nausea Verified 06/28/21 10:40 PMFSH Past Medical History Medical History Dysmenorrhea GERD (gastroesophageal reflux disease) Heartburn Heavy menstrual bleeding Medial meniscus tear Migraine Osteoarthritis, knee Psoriasis Type 2 diabetes mellitus without complication, without long-term current use of insulin Varicose vein of leg Surgical History H/O arthroscopy of right knee History of bilateral tubal ligation History of endometrial ablation History of varicose veins Family History Family History Father DVT (deep venous thrombosis) HTN (hypertension) Dyslipidemia Diabetes mellitus Mother Multiple myeloma COVID-19 Brother Lymphoma Social History Social History Housing: House Alcohol intake: current Alcohol intake frequency: does not drink Patient Tobacco Use Status: Never used Tobacco e-Cigarette/Vaping Use: Never Used Second Hand Smoke Exposure: No service: No Current occupational status: employed 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 Current occupational exposures/hazards: No Sexual orientation: Straight/Heterosexual Physical Exam Vital Signs: Vital Signs: Last Vital Signs Temp 98.5 F 06/28/21 09:40 Pulse 95 06/28/21 09:40 Resp 20 06/28/21 09:40 BP 152/87 H 06/28/21 09:40 Pulse Ox 100 06/28/21 04:00 Body Mass Index 35.7 Course Course Course Narrative: Dr Camarillo saw the pt overnight and signed out to me at 7 AM,she received blood transfusion ,she spoke with Dr Graves and the plan is to d/c pt after blood transfusion and to go to his office directly from the ED MDM - Chest Pain Lab Data Result diagrams: 06/28/21 03:22 06/28/21 03:22 Labs: Lab Results 06/28/21 06/28/21 06/28/21 Range/Units 03:22 03:22 04:05 WBC 4.9 (4.8-10.8) X10*3/uL RBC 2.40 L (4.20-5.50) X10*6/uL Hgb 7.0 L* D (12.0-16.0) g/dl Hct 21.0 L* D (37.0-47.0) % MCV 87.5 (80.0-98.0) fL MCH 29.2 (27.0-33.0) pg MCHC 33.3 (31.0-35.0) g/dl RDW 13.6 (11.0-16.0) % Plt Count 229 (160-400) X10*3/uL MPV 9.7 (9.4-12.3) fL Immature Gran % (Auto) 0.4 (0.0-0.4) % Neut % (Auto) 52.9 (45-73) % Lymph % (Auto) 37.2 (20-40) % Story % (Auto) 7.9 (2-11) % Eos % (Auto) 1.0 (0-4) % Baso % (Auto) 0.6 (0-2) % Lymph # (Auto) 1.8 (1.2-4.9) X10*3/uL Story # (Auto) 0.4 (0.1-1.2) X10*3/uL Eos # (Auto) 0.1 (0.0-0.4) X10*3/uL Baso # (Auto) 0.0 (0.0-0.2) X10*3/uL Abs Immat Gran (auto) 0.02 (0.00-0.03) X10*3/uL Absolute Neuts (auto) 2.6 (2.0-8.3) x10*3/uL Absolute Nucleated RBC 0.000 (0.0-0.012) X10*3/uL Nucleated RBC % (auto) 0.0 (0.0-0.2) /100WBC Sodium 138 (135-145) mmol/L Potassium 3.2 L (3.3-5.1) mmol/L Chloride 107 (96-108) mmol/L Carbon Dioxide 24 (22-29) mmol/L Anion Gap 10 L (12-20) BUN 11 (9-16) mg/dL Creatinine 0.72 (0.5-1.4) mg/dL Estim Creat Clear Calc 102.7 Estimated GFR > 60 Random Glucose 242 H (60-115) mg/dL Calcium 8.4 (8.4-10.2) mg/dL Total Bilirubin 0.4 (0.0-1.0) mg/dL AST 26 D (5-31) U/L ALT 32 H (0-31) U/L Alkaline Phosphatase 75 D (39-117) U/L Total Protein 6.3 L (6.5-8.0) g/dL Albumin 3.6 (3.5-5.0) g/dL Urine Color Urine Appearance Urine pH (5.0-8.0) Ur Specific [place] (1.005-1.025) Urine Protein (NEG-TRACE) MG/DL Urine Glucose (UA) (NEG) MG/DL Urine Ketones (NEG) MG/DL Urine Blood (NEG) Urine Nitrite (NEG) Ur Leukocyte Esterase (NEG) Urine RBC (0) /HPF Urine WBC (0-4) /HPF Ur Squamous Epith Cells /LPF Urine Bacteria /LPF Ur Oval Fat Bodies (NONE) Urine Test (NEGATIVE) Blood Type A Positive Antibody Screen NEGATIVE Crossmatch See Detail 11/15/21 11/15/21 Range/Units 04:10 04:10 WBC (4.8-10.8) X10*3/uL RBC (4.20-5.50) X10*6/uL Hgb (12.0-16.0) g/dl Hct (37.0-47.0) % MCV (80.0-98.0) fL MCH (27.0-33.0) pg MCHC (31.0-35.0) g/dl RDW (11.0-16.0) % Plt Count (160-400) X10*3/uL MPV (9.4-12.3) fL Immature Gran % (Auto) (0.0-0.4) % Neut % (Auto) (45-73) % Lymph % (Auto) (20-40) % Story % (Auto) (2-11) % Eos % (Auto) (0-4) % Baso % (Auto) (0-2) % Lymph # (Auto) (1.2-4.9) X10*3/uL Story # (Auto) (0.1-1.2) X10*3/uL Eos # (Auto) (0.0-0.4) X10*3/uL Baso # (Auto) (0.0-0.2) X10*3/uL Abs Immat Gran (auto) (0.00-0.03) X10*3/uL Absolute Neuts (auto) (2.0-8.3) x10*3/uL Absolute Nucleated RBC (0.0-0.012) X10*3/uL Nucleated RBC % (auto) (0.0-0.2) /100WBC Sodium (135-145) mmol/L Potassium (3.3-5.1) mmol/L Chloride (96-108) mmol/L Carbon Dioxide (22-29) mmol/L Anion Gap (12-20) BUN (9-16) mg/dL Creatinine (0.5-1.4) mg/dL Estim Creat Clear Calc Estimated GFR Random Glucose (60-115) mg/dL Calcium (8.4-10.2) mg/dL Total Bilirubin (0.0-1.0) mg/dL AST (5-31) U/L ALT (0-31) U/L Alkaline Phosphatase (39-117) U/L Total Protein (6.5-8.0) g/dL Albumin (3.5-5.0) g/dL Urine Color RED Urine Appearance TURBID Urine pH 6.5 (5.0-8.0) Ur Specific [place] 1.020 (1.005-1.025) Urine Protein 2+ H (NEG-TRACE) MG/DL Urine Glucose (UA) >=1000 H (NEG) MG/DL Urine Ketones NEG (NEG) MG/DL Urine Blood 3+ H (NEG) Urine Nitrite NEG (NEG) Ur Leukocyte Esterase NEG (NEG) Urine RBC TNTC H (0) /HPF Urine WBC 0-2 (0-4) /HPF Ur Squamous Epith Cells 2+ /LPF Urine Bacteria NONE /LPF Ur Oval Fat Bodies NOTED (NONE) Urine Test NEGATIVE (NEGATIVE) Blood Type Antibody Screen Crossmatch Discharge Plan Discharge Clinical Impression: Heavy menstrual bleeding, Acute blood loss anemia Patient Disposition: Home, Self-Care Instructions: Dysmenorrhea (ED), Anemia (ED) Additional Instructions: Go to Dr Cisneros office as discussed ,he is waiting in the office Prescriptions: No Action folic acid 1 mg tablet 1 mg PO DAILY Qty: 60 RF: 0 ferrous sulfate 324 mg (65 mg iron) tablet,delayed release (DR/EC) 324 mg PO DAILY Qty: 60 RF: 0 Humira Pen 40 mg/0.8 mL pen injector kit subcut Q2W RF: 0 Flucelvax Quad [id number] (PF) 60 mcg (15 mcg x 4)/0.5 mL syringe IM RF: 0 omeprazole 20 mg capsule,delayed release(DR/EC) 20 mg PO DAILY Qty: 30 RF: 0 ibuprofen 600 mg tablet 600 mg PO BID PRN (Reason: pain) Qty: 30 RF: 0 norethindrone acetate 5 mg tablet 5 mg PO DAILY 10 Days Qty: 10 RF: 0 ibuprofen 600 mg tablet 600 mg PO Q8H PRN (Reason: menstrual cramps) Qty: 30 RF: 0 medroxyprogesterone [Provera] 10 mg tablet 10 mg PO DAILY Qty: 90 RF: 2 Referrals: Leobardo Huston MD [Physician] - 06/28/21 10:03 am Interventions: ED Discharge Assessment Last Done: 06/28/21 10:18 Discharge Date/Time: 06/28/21 10:19
== END 2021-06-28 10:19 | disposition home or self-care (01) ==
PROVIDERS: Student in an Organized Health Care Education/Training Program; Emergency Provider Emergency Medicine; PCP Internal Medicine
DX: D62 Acute posthemorrhagic anemia (principal); N92.0 Excessive and frequent menstruation with regular cycle; E11.9 Type 2 diabetes mellitus without complications
CPT/HCPCS: 36415; 36430; 80053; 81001; 81025; 85025; 86850; 86900; 86901; 86923; 93005; 96361; 96374; 99212; 99284; 99285; P9016

== ENCOUNTER 2021-07-17 08:06 | Emergency (ER) | payer OTHER, SELFPAY ==
[2021-07-17 08:35] VITALS: BP 112/82; PULSE 120; RESP 18; TEMP 36.7; O2SAT 98; BMI 36.3
--- NOTE | 2021-07-17 09:43 | ED.GENADULT ---
HPI - General Adult General Chief complaint: General Medical Stated complaint: heavy menstrual bleeding Time Seen by Provider: 07/17/21 09:22 Source: patient Mode of arrival: ambulatory Limitations: no limitations History of Present Illness HPI narrative: 46-year-old female presents for heavy vaginal bleeding that started July 14. Patient has a year-long history of menometrorrhagia, and is followed by ashley Huston.. Patient was here on June 28, 2021 and received 2 units of packed red blood cells for anemia from menstrual bleeding. She was seen the same day by doctors Betzaida who recommended a hysterectomy because her menometrorrhagia is resistant to endometrial ablation. Patient was referred to [facility] for this and has not heard back about it. Four days ago patient went to [facility] with heavy bleeding and waited 13 hours and was never seen by a doctor and so she left. States she has had heavy menstrual bleeding for 1 year, she gets her periods monthly. Her menses can last for 3 weeks. Patient has pelvic pain bilaterally, she had pain last night in her low right back with which Motrin helped. She is fatigued, she feels short of breath, she feels very short of breath when she uses the bathroom. States that her fingers are tingly. States she is changing pads every 10 minutes. Related Data Home Medications Medication Instructions Recorded Confirmed adalimumab 40 mg/0.8 mL mg SUBCUT Q2W 05/20/20 03/26/21 subcutaneous pen kit flu vac qs 2019(4 yr up)CD(PF) ml IM 05/20/20 03/26/21 Previous Rx's Medication Instructions Recorded omeprazole 20 mg capsule,delayed 20 mg PO DAILY #30 cap 03/18/21 release ibuprofen 600 mg tablet 600 mg PO Q8H PRN #30 tab 06/12/21 norethindrone acetate 5 mg tablet 5 mg PO DAILY 10 Days #10 tab 06/12/21 ferrous sulfate 324 mg (65 mg 324 mg PO DAILY #60 tab 06/24/21 iron) tablet,delayed release folic acid 1 mg tablet 1 mg PO DAILY #60 tab 06/24/21 medroxyprogesterone 10 mg tablet 10 mg PO DAILY #90 tab 07/15/21 (Provera) ibuprofen 600 mg tablet 600 mg PO BID PRN #30 tab 07/16/21 Allergies Allergy/AdvReac Type Severity Reaction Status Date / Time metformin AdvReac Unknown HICKMAN, nausea Verified 06/28/21 10:40 Review of Systems Constitutional: Constitutional: Denies body ache(s), Denies chills, Reports fatigue, Denies fever(s), Denies headache(s), Denies malaise and Denies weakness Eyes: Eyes: Denies diplopia ENT: Denies vertigo, Denies dizziness, Denies otalgia, Denies headache(s), Denies mouth pain, Denies post nasal drip, Denies sinus pain, Denies sinus pressure, Denies sore throat and Denies throat swelling Cardiovascular: Cardiovascular: Denies chest pain, Denies syncope, Denies leg edema, Denies lightheadedness, Denies Loss of Consciousness, Denies palpitations, Reports dyspnea and Reports dyspnea on exertion Respiratory: Respiratory: Denies chest congestion, Denies cough, Reports dyspnea and Reports dyspnea on exertion Gastrointestinal: Gastrointestinal: Denies abdominal pain, Denies hematochezia, Denies constipation, Denies diarrhea and Denies vomiting Genitourinary: Genitourinary: Reports abnormal vaginal bleeding, Reports menorrhagia, Denies dysuria, Reports pelvic pain and Denies urinary incontinence Musculoskeletal: Musculoskeletal: Reports back pain Neurologic: Denies confusion, Denies vertigo, Denies dizziness, Denies syncope, Denies headache(s) and Denies weakness Psychiatric: Psychiatric: Denies anxiety, Denies confusion and Denies depression Endocrine: Endocrine: Reports fatigue and Denies palpitations Allergic/Immunologic: Allergic/Immunologic: Denies throat swelling PMFSH Past Medical History Medical History Dysmenorrhea GERD (gastroesophageal reflux disease) Heartburn Heavy menstrual bleeding Medial meniscus tear Migraine Osteoarthritis, knee Psoriasis Type 2 diabetes mellitus without complication, without long-term current use of insulin Varicose vein of leg Surgical History H/O arthroscopy of right knee History of bilateral tubal ligation History of endometrial ablation History of varicose veins Family History Family History Father DVT (deep venous thrombosis) HTN (hypertension) Dyslipidemia Diabetes mellitus Mother Multiple myeloma COVID-19 Brother Lymphoma Social History Social History Housing: House Alcohol intake: never Patient Tobacco Use Status: Never used Tobacco e-Cigarette/Vaping Use: Never Used Second Hand Smoke Exposure: No Use of substances other than those prescribed or required for medical reasons: No Advance Directives: No Advance Directives Information Provided: Yes Patient : No service: No Current occupational status: employed 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 Current occupational exposures/hazards: No Sexual orientation: Straight/Heterosexual Physical Exam Vital Signs: Vital Signs: Last Vital Signs Temp 98.4 F 07/17/21 12:00 Pulse 90 07/17/21 14:09 Resp 18 07/17/21 14:09 BP 134/67 07/17/21 14:09 Pulse Ox 100 07/17/21 12:00 BMI result Body Mass Index 36.3 Const: General: alert and awake; No confusion Nutritional Appearance: obese centrally obese Orientation/consciousness: patient oriented x3 and No confusion Limitations: no limitations HENMT: Head: Yes normal to inspection, Yes normocephalic and Yes atraumatic Ears: hearing grossly normal bilaterally General nose exam: Normal external nose present Face and sinus: Yes normal facial exam Mouth: Normal oral and palatal mucosa present Throat: Yes posterior oropharynx normal Eyes: Conjunctivae: conjunctival abnormal bilateral pallor Pupils: Equal, round and reactive pupils present EOM: EOMs intact bilaterally Neck: Neck: Yes full ROM, Yes no lymphadenopathy and Yes supple Resp: Effort & Inspection: normal respiratory effort and able to speak in complete sentences Auscultation: clear to auscultation bilaterally, no crackles, no rales, no rhonchi and no wheezes Cardio: Rate: regular rate Rhythm: regular rhythm Heart sounds: S1 normal heart sound present and S2 normal heart sound present GI: Inspection: Yes normal to inspection Palpation (GI): Soft to palpation, nontender, no guarding and not rigid Percussion: Yes normal to percussion Auscultation: normal bowel sounds : External Female Exam: normal external appearance, No erythema and No externally tender Speculum Exam - Vagina: normal appearance of the vagina, no lesions, vaginal bleeding, No tissue present in vagina and nontender Speculum Exam - Cervix: normal appearance of the cervix OB/external & speculum: vaginal bleeding; No no tissue noted in vagina Skin: General skin exam: no rashes or lesions noted Neuro: General: patient oriented x3 and No confusion Cranial nerves: Yes Equal, round and reactive pupils present Extrem: General: Yes normal to inspection and Yes full ROM Psych: Appearance: grossly normal Affect: normal affect Attitude: cooperative Thought process: Normal thought process present Course Course Course Narrative: 46-year-old female presents for 4 days of heavy menstrual bleeding, states she is soaking a pad every 15 minutes. Patient was seen here 3 weeks ago and received 2 units packed red blood cells. Patient is visibly short of breath when she returns from the bathroom. Patient has pallor in her conjunctiva. On speculum exam, patient has blood in her vaginal vault, no clots. About 2 tbsp of blood in vaginal vault. Patient did not give enough urine to get a urine . Will get hCG serum instead. Reevaluation(s) Reevaluation #1: Patient's H&H is 9.7 and 29.9. On June 28, 2021 it was [address] Huston about patient. DR Huston requested we repeat transvaginal ultrasound, start fluids, he will come in and see patient. Have called labs several times for hCG results Reevaluation #2: Spoke with Dr Huston in person, who came down to evaluate the patient. Patient's heart rate is now 97. Patient given fluids. He advise ultrasound not indicated now, I cancel that order. Prior to discharge we will redraw patient's CBC, and make sure her H&H is not dropping precipitously. Patient will be put on [id number] iron, and get 10 mg of Provera day. Patient needs a hysterectomy, will discuss doing that here at [facility] and let ashley Huston know pt's preference Reevaluation #3: Patient prefers to wait to hear back from [facility] for hysterectomy. Patient given 1 L of fluid, and her H&H has dropped mildly. H&H was 9.7 and 29.9, now is 8.8 and 27.4. Will do orthostatics, and if patient's vitals remained stable, will discharge home. Discussed patient's H&H drop with Dr Blankenship, who agreed with above plan. Orthostatics negative Medical Decision Making Lab Data Result diagrams: 07/17/21 12:38 07/17/21 10:05 Labs: Lab Results 07/17/21 07/17/2121 Range/Units 09:49 10:05 10:05 WBC (4.8-10.8) X10*3/uL RBC (4.20-5.50) X10*6/uL Hgb (12.0-16.0) g/dl Hct (37.0-47.0) % MCV (80.0-98.0) fL MCH (27.0-33.0) pg MCHC (31.0-35.0) g/dl RDW (11.0-16.0) % Plt Count (160-400) X10*3/uL MPV (9.4-12.3) fL Immature Gran % (Auto) (0.0-0.4) % Neut % (Auto) (45-73) % Lymph % (Auto) (20-40) % Howell % (Auto) (2-11) % Eos % (Auto) (0-4) % Baso % (Auto) (0-2) % Lymph # (Auto) (1.2-4.9) X10*3/uL Howell # (Auto) (0.1-1.2) X10*3/uL Eos # (Auto) (0.0-0.4) X10*3/uL Baso # (Auto) (0.0-0.2) X10*3/uL Abs Immat Gran (auto) (0.00-0.03) X10*3/uL Absolute Neuts (auto) (2.0-8.3) x10*3/uL Absolute Nucleated RBC (0.0-0.012) X10*3/uL Nucleated RBC % (auto) (0.0-0.2) /100WBC Sodium 136 (135-145) mmol/L Potassium 3.4 (3.3-5.1) mmol/L Chloride 106 (96-108) mmol/L Carbon Dioxide 24 (22-29) mmol/L Anion Gap 9 L (12-20) BUN 12 (9-16) mg/dL Creatinine 0.82 (0.5-1.4) mg/dL Estim Creat Clear Calc 90.9 Estimated GFR > 60 Random Glucose 256 H (60-115) mg/dL Calcium 8.7 (8.4-10.2) mg/dL Total Bilirubin 1.0 (0.0-1.0) mg/dL AST 18 (5-31) U/L ALT 19 (0-31) U/L Alkaline Phosphatase 91 D (39-117) U/L Total Protein 6.8 (6.5-8.0) g/dL Albumin 3.9 (3.5-5.0) g/dL Beta HCG, Quant mIU/mL Urine Color Urine Appearance Urine pH (5.0-8.0) Ur Specific [place] (1.005-1.025) Urine Protein (NEG-TRACE) MG/DL Urine Glucose (UA) (NEG) MG/DL Urine Ketones (NEG) MG/DL Urine Blood (NEG) Urine Nitrite (NEG) Ur Leukocyte Esterase (NEG) Urine RBC (0) /HPF Urine WBC (0-4) /HPF Ur Squamous Epith Cells /LPF Urine Bacteria /LPF Urine Test NEGATIVE (NEGATIVE) Blood Type A Positive Antibody Screen NEGATIVE 07/17/21 07/17/21 07/17/21 Range/Units 10:06 11:06 11:15 WBC 5.7 (4.8-10.8) X10*3/uL RBC 3.44 L D (4.20-5.50) X10*6/uL Hgb 9.7 L D (12.0-16.0) g/dl Hct 29.9 L D (37.0-47.0) % MCV 86.9 (80.0-98.0) fL MCH 28.2 (27.0-33.0) pg MCHC 32.4 (31.0-35.0) g/dl RDW 13.5 (11.0-16.0) % Plt Count 276 (160-400) X10*3/uL MPV 10.2 (9.4-12.3) fL Immature Gran % (Auto) 0.4 (0.0-0.4) % Neut % (Auto) 62.6 (45-73) % Lymph % (Auto) 28.0 (20-40) % Howell % (Auto) 7.2 (2-11) % Eos % (Auto) 0.9 (0-4) % Baso % (Auto) 0.9 (0-2) % Lymph # (Auto) 1.6 (1.2-4.9) X10*3/uL Howell # (Auto) 0.4 (0.1-1.2) X10*3/uL Eos # (Auto) 0.1 (0.0-0.4) X10*3/uL Baso # (Auto) 0.1 (0.0-0.2) X10*3/uL Abs Immat Gran (auto) 0.02 (0.00-0.03) X10*3/uL Absolute Neuts (auto) 3.6 (2.0-8.3) x10*3/uL Absolute Nucleated RBC 0.000 (0.0-0.012) X10*3/uL Nucleated RBC % (auto) 0.0 (0.0-0.2) /100WBC Sodium (135-145) mmol/L Potassium (3.3-5.1) mmol/L Chloride (96-108) mmol/L Carbon Dioxide (22-29) mmol/L Anion Gap (12-20) BUN (9-16) mg/dL Creatinine (0.5-1.4) mg/dL Estim Creat Clear Calc Estimated GFR Random Glucose (60-115) mg/dL Calcium (8.4-10.2) mg/dL Total Bilirubin (0.0-1.0) mg/dL AST (5-31) U/L ALT (0-31) U/L Alkaline Phosphatase (39-117) U/L Total Protein (6.5-8.0) g/dL Albumin (3.5-5.0) g/dL Beta HCG, Quant < 2 mIU/mL Urine Color RED Urine Appearance CLOUDY Urine pH 6.0 (5.0-8.0) Ur Specific [place] 1.025 (1.005-1.025) Urine Protein 2+ H (NEG-TRACE) MG/DL Urine Glucose (UA) 250 H (NEG) MG/DL Urine Ketones NEG (NEG) MG/DL Urine Blood 3+ H (NEG) Urine Nitrite NEG (NEG) Ur Leukocyte Esterase NEG (NEG) Urine RBC TNTC H (0) /HPF Urine WBC 0-2 (0-4) /HPF Ur Squamous Epith Cells TRACE /LPF Urine Bacteria NONE /LPF Urine Test (NEGATIVE) Blood Type Antibody Screen 12/04/21 Range/Units 12:38 WBC 5.6 (4.8-10.8) X10*3/uL RBC 3.15 L (4.20-5.50) X10*6/uL Hgb 8.8 L (12.0-16.0) g/dl Hct 27.4 L (37.0-47.0) % MCV 87.0 (80.0-98.0) fL MCH 27.9 (27.0-33.0) pg MCHC 32.1 (31.0-35.0) g/dl RDW 13.6 (11.0-16.0) % Plt Count 258 (160-400) X10*3/uL MPV 9.7 (9.4-12.3) fL Immature Gran % (Auto) 0.2 (0.0-0.4) % Neut % (Auto) 55.4 (45-73) % Lymph % (Auto) 35.3 (20-40) % Howell % (Auto) 7.7 (2-11) % Eos % (Auto) 0.9 (0-4) % Baso % (Auto) 0.5 (0-2) % Lymph # (Auto) 2.0 (1.2-4.9) X10*3/uL Howell # (Auto) 0.4 (0.1-1.2) X10*3/uL Eos # (Auto) 0.1 (0.0-0.4) X10*3/uL Baso # (Auto) 0.0 (0.0-0.2) X10*3/uL Abs Immat Gran (auto) 0.01 (0.00-0.03) X10*3/uL Absolute Neuts (auto) 3.1 (2.0-8.3) x10*3/uL Absolute Nucleated RBC 0.000 (0.0-0.012) X10*3/uL Nucleated RBC % (auto) 0.0 (0.0-0.2) /100WBC Sodium (135-145) mmol/L Potassium (3.3-5.1) mmol/L Chloride (96-108) mmol/L Carbon Dioxide (22-29) mmol/L Anion Gap (12-20) BUN (9-16) mg/dL Creatinine (0.5-1.4) mg/dL Estim Creat Clear Calc Estimated GFR Random Glucose (60-115) mg/dL Calcium (8.4-10.2) mg/dL Total Bilirubin (0.0-1.0) mg/dL AST (5-31) U/L ALT (0-31) U/L Alkaline Phosphatase (39-117) U/L Total Protein (6.5-8.0) g/dL Albumin (3.5-5.0) g/dL Beta HCG, Quant mIU/mL Urine Color Urine Appearance Urine pH (5.0-8.0) Ur Specific Gardner (1.005-1.025) Urine Protein (NEG-TRACE) MG/DL Urine Glucose (UA) (NEG) MG/DL Urine Ketones (NEG) MG/DL Urine Blood (NEG) Urine Nitrite (NEG) Ur Leukocyte Esterase (NEG) Urine RBC (0) /HPF Urine WBC (0-4) /HPF Ur Squamous Epith Cells /LPF Urine Bacteria /LPF Urine Test (NEGATIVE) Blood Type Antibody Screen Discharge Plan Discharge Clinical Impression: Menometrorrhagia Patient Disposition: Home, Self-Care Additional Instructions: Please return to the emergency room have chest pain, severe dizziness, or worsening shortness of breath. You do not need a blood transfusion today. He must continue [id number] iron supplements, and continue to take your Provera 10 mg a day. Please call [facility]. This is their phone number a replaced by [facility] fall: [phone] The solution for your vaginal bleeding as a hysterectomy. If you cannot get in to see [facility] in a timely fashion, doctor Huston will be happy to perform. Prescriptions: No Action medroxyprogesterone [Provera] 10 mg tablet 10 mg PO DAILY Qty: 90 RF: 2 ibuprofen 600 mg tablet 600 mg PO BID PRN (Reason: pain) Qty: 30 RF: 0 folic acid 1 mg tablet 1 mg PO DAILY Qty: 60 RF: 0 ferrous sulfate 324 mg (65 mg iron) tablet,delayed release (DR/EC) 324 mg PO DAILY Qty: 60 RF: 0 Humira Pen 40 mg/0.8 mL pen injector kit subcut Q2W RF: 0 Flucelvax Quad (PF) 60 mcg (15 mcg x 4)/0.5 mL syringe IM RF: 0 omeprazole 20 mg capsule,delayed release(DR/EC) 20 mg PO DAILY Qty: 30 RF: 0 norethindrone acetate 5 mg tablet 5 mg PO DAILY 10 Days Qty: 10 RF: 0 ibuprofen 600 mg tablet 600 mg PO Q8H PRN (Reason: menstrual cramps) Qty: 30 RF: 0 Referrals: Leobardo Huston MD [Physician] - 2 days
[2021-07-17] MEDS: Ibuprofen 800 MG TABLET PO (09:59)
[2021-07-17 10:12] LABS: MANUAL DIFF FLAG NO
[2021-07-17 10:24] LABS: Basophils Percent Auto 0.9 % (0-2); Eosinophils Percent Auto 0.9 % (0-4); Hematocrit 29.9 % (37.0-47.0); Hemoglobin 9.7 g/dl (12.0-16.0); Imm Gran Pct Auto 0.4 % (0.0-0.4); Mean Corpuscular HGB Conc 32.4 g/dl (31.0-35.0); Mean Corpuscular Hemoglobin 28.2 pg (27.0-33.0); Mean Corpuscular Volume 86.9 fL (80.0-98.0); Mean Platelet Volume 10.2 fL (9.4-12.3); Monocytes Percent Auto 7.2 % (2-11); Neutrophils Absolute Auto 3.6 x10*3/uL (2.0-8.3); Neutrophils Percent Auto 62.6 % (45-73); Platelet Count 276 X10*3/uL (160-400); Red Blood Count 3.44 X10*6/uL (4.20-5.50); Red Cell Distribution Width 13.5 % (11.0-16.0); White Blood Count 5.7 X10*3/uL (4.8-10.8)
[2021-07-17 10:25] LABS: Basophils Absolute Auto 0.1 X10*3/uL (0.0-0.2); Eosinophils Absolute Auto 0.1 X10*3/uL (0.0-0.4); Imm Gran Abs Auto 0.02 X10*3/uL (0.00-0.03); Lymphocytes Absolute Auto 1.6 X10*3/uL (1.2-4.9); Monocytes Absolute Auto 0.4 X10*3/uL (0.1-1.2)
[2021-07-17 10:47] LABS: Alanine Aminotransferase 19 U/L (0-31); Albumin Level 3.9 g/dL (3.5-5.0); Alkaline Phosphatase 91 U/L (39-117); Anion Gap 9 (12-20); Aspartate Amino Transferase 18 U/L (5-31); Blood Urea Nitrogen 12 mg/dL (9-16); Calcium 8.7 mg/dL (8.4-10.2); Carbon Dioxide 24 mmol/L (22-29); Chloride 106 mmol/L (96-108); Creatinine Clr Calc Pharmacy 90.9; Estimated Glomerular Filt Rate > 60; Glucose Random 256 mg/dL (60-115); Potassium 3.4 mmol/L (3.3-5.1); Sodium 136 mmol/L (135-145); Total Protein 6.8 g/dL (6.5-8.0)
[2021-07-17] MEDS: 0.9 % Sodium Chloride 1,000 ML 999 ML IV (11:20)
[2021-07-17 11:37] LABS: Appearance Urine CLOUDY; Color Urine RED; Glucose Urine UA 250 MG/DL (NEG); Leukocyte Esterase Urine NEG (NEG); Nitrite Urine NEG (NEG); Specific Gravity - Urine 1.025 (1.005-1.025); UACC Culture Trigger NO; Urine Blood 3+ (NEG); Urine Ketones NEG (NEG); Urine Protein 2+ MG/DL (NEG-TRACE)
[2021-07-17 11:38] VITALS: BP 140/76; PULSE 97; RESP 18; TEMP 37.2; O2SAT 99
[2021-07-17 11:40] LABS: RBC Urine TNTC /HPF (0); Squamous Epithelial Cell Urine TRACE /LPF; WBC Urine 0-2 /HPF (0-4)
[2021-07-17 11:41] LABS: UPreg QC Valid YES; Urine Pregnancy NEGATIVE (NEGATIVE)
[2021-07-17 12:00] VITALS: BP 147/75; PULSE 87; RESP 18; TEMP 36.9; O2SAT 100
--- NOTE | 2021-07-17 12:28 | P.CONOB_ITS ---
[facility] - CN: HPI Data of Consult Consult date: 07/17/21 Primary Care Provider: Jen Ambrocio MD Consult Narrative Narrative: I was consulted on Nereyda Wood who is a 46 year old female who presented emergency room few days history of vaginal bleeding. Patient went to the ER at [facility] 2 days ago left after several hours of waiting in the emergency room and patient states that she was having heavy bleeding for last few days but the bleeding slowed down over the last few hours since she has been in the emergency room. No other associated symptoms patient is on Provera 10 mg p.o. q.d. and iron sulfate 325 mg p.o. b.i.d. which she stopped few days ago after she ran out of the pills. The patient was seen on 06/28 after she was seen in the emergency room few days prior to her office appointment, with heavy menstrual bleeding H&H was 26.2, the patient was started on Provera 10 mg p.o. q.d. the bleeding has slowed krista to spotting daily over the few days prior to the appointment on the 28 of June, the patient start having some dizziness and weakness in presented emergency room hematocrit was 21, she received 2 units of packed RBCs is feeling much better now. Menometrorrhagia workup was done over the last few months included TSH, hCG both negative, Pap /HPV in August of 2020 were negative, endometrial biopsy in February of 2021 was also negative for malignancy and hyperplasia.? Last mammogram was in October of 2020 was negative.? Pelvic ultrasound done in January of 2021 showed the following: The uterus is anteverted and anteflexed measuring 14.4 cm in length, 16.6 cm in AP and 9.5 cm in transverse dimension. The uterus is heterogeneous. There is a hypoechoic lesion in the posterior body of the uterus measuring 2.0 x 1.7 x 1.8 cm. Previously measured 1.8 x 1.7 x 1.9 cm. There are small nabothian cysts in the cervix. IUD is not visualized. Endometrial thickness is 0.6 cm with punctate small anechoic multiple cysts in the myometrium. Small echogenic areas seen in the endometrium, likely large hemorrhagic products. The right ovary measures 1.8 x 1.5 x 1.3 cm and volume 1.8 mL. It appears unremarkable. Previously, the right ovary measured 4.7 x 3.2 x 4.2 cm. The left ovary measures 3.4 x 1.8 x 3.9 cm and volume 12.5 mL. There is an anechoic cyst measuring 2.6 x 1.6 x 2.7 cm. There is a cystic tubular structure in the left adnexa measuring 3.1 x 1.3 x 3.8 cm likely a small hydrosalpinx. Minimal fluid in right adnexa. The patient had an IUD which was expelled, underwent endometrial ablation few months ago but her bleeding persisted.??During this visit the patient was counseled regarding different options of treat including hysterectomy, the patient decided to be referred to [facility] for minimally invasive/robotic hysterectomy, since then she has not heard from the OBGYN at [facility] for her appointment. 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 - Review of Systems Review of Systems ROS Unobtainable: All systems reviewed & are unremarkable except as noted in HPI and below Cardiovascular: Denies Palpatations, Loss of consciousness or Chest pain Respiratory: Denies Cough, Wheezing or Shortness of breath Musculoskeletal: Denies Low back pain Gastrointestinal: Denies Heartburn, Constipation, Diarrhea, Nausea or Vomiting Genitourinary: Denies Pain with urination, Burning with urination or Urinary frequency Neurological: Denies Migranes Psychological: Denies Depression OB PMFSH Past Medical History Medical History Dysmenorrhea GERD (gastroesophageal reflux disease) Heartburn Heavy menstrual bleeding Medial meniscus tear Migraine Osteoarthritis, knee Psoriasis Type 2 diabetes mellitus without complication, without long-term current use of insulin Varicose vein of leg Family History Family History Father DVT (deep venous thrombosis) HTN (hypertension) Dyslipidemia Diabetes mellitus Mother Multiple myeloma COVID-19 Brother Lymphoma Surgical History Surgical History H/O arthroscopy of right knee History of bilateral tubal ligation History of endometrial ablation History of varicose veins Social History Social History Housing: House Alcohol intake: current Alcohol intake frequency: does not drink Patient Tobacco Use Status: Never used Tobacco e-Cigarette/Vaping Use: Never Used Second Hand Smoke Exposure: No Advance Directives: No Advance Directives Information Provided: Yes Patient : No service: No Current occupational status: employed 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 Current occupational exposures/hazards: No Sexual orientation: Straight/Heterosexual Meds Allergies Allergy/AdvReac Type Severity Reaction Status Date / Time metformin AdvReac Unknown HICKMAN, nausea Verified 06/28/21 10:40 Home Medications Medication Instructions Recorded Confirmed Last Taken Type adalimumab 40 mg/0.8 mL mg SUBCUT Q2W 05/20/20 03/26/21 Unknown History subcutaneous pen kit flu vac qs 2020(4 yr up)CD(PF) ml IM 05/20/20 03/26/21 Unknown History [facility] Physical Exam Vitals Vital signs: Temp Pulse Resp BP Pulse Ox 98.9 F 97 18 140/76 H 99 07/17/21 11:38 07/17/21 11:38 07/17/21 11:38 07/17/21 11:38 07/17/21 11:38 BMI result Body Mass Index 36.3 Constitutional General Appearance: Healthy appearing, Well-nourished and Well-developed Psychiatric Mood and Affect: active and alert, normal mood and normal affect Skin Appearance: No rashes and No lesions Lungs Respiratory Effort: No intercostal retractions Auscultation: Clear to auscultation Cardiovascular Auscultation: RRR Abdomen Auscultation/Inspection/Palpation: Normal bowel sounds, Soft, Non-distended and No tenderness Female Genitalia (Pelvic) Vagina: Nontender Cervix: Grossly normal Uterus: Normal size Adnexa/Parametria: Adnexal Tenderness: None, Adnexal Mass: None, Parametrial Tenderness: None and Parametrial Mass: None Additional Comments: Speculum exam revealed minimal blood per vagina, no active bleeding [facility] - Results Labs CBC & Chem 7: 07/17/21 10:06 07/17/21 10:05 Labs: Short CBC 07/17/21 Range/Units 10:06 WBC 5.7 (4.8-10.8) X10*3/uL Hgb 9.7 L D (12.0-16.0) g/dl Hct 29.9 L D (37.0-47.0) % Plt Count 276 (160-400) X10*3/uL BMP 07/17/21 10:05 Sodium 136 Potassium 3.4 Chloride 106 Carbon Dioxide 24 BUN 12 Creatinine 0.82 Calcium 8.7 Liver Function 07/17/21 Range/Units 10:05 Total Bilirubin 1.0 (0.0-1.0) mg/dL AST 18 (5-31) U/L ALT 19 (0-31) U/L Alkaline Phosphatase 91 D (39-117) U/L Albumin 3.9 (3.5-5.0) g/dL Urine 07/17/21 07/17/21 Range/Units 09:49 11:15 Urine Color RED Urine Appearance CLOUDY Urine pH 6.0 (5.0-8.0) Ur Specific [place] 1.025 (1.005-1.025) Urine Protein 2+ H (NEG-TRACE) MG/DL Urine Glucose (UA) 250 H (NEG) MG/DL Urine Test NEGATIVE (NEGATIVE) Antibody Screen Antibody Screen NEGATIVE 07/17/21 10:05 Assessment and Plan (1) Menometrorrhagia: Status: Acute Heart rate on presentation was 120 repeat vital signs it was down to 96. Recommended to JOSIAH Mccall the following: IV fluid, CBC, and assess the need for blood transfusion. The patient is to stay on Provera 10 mg p.o. q.d., iron sulfate 325 mg p.o. t.i.d. Discussed with the patient indication for hysterectomy, and type of hysterectomy were discussed with the patient including minimally invasive/robotic, abdominal, with and without BSO supracervical versus total. Patient is interested in minimally invasive hysterectomy/robotic and would like to get in at [facility]. I offered the patient hysterectomy on an urgent basis, to be done as soon as possible, at [facility] to stop the bleeding and improve her situation. The patient would like to think about and get back to me katrina. Instructions were given to patient to stay on Provera 10 mg p.o. q.d., iron sulfate 325 mg p.o. t.i.d., call or come back to emergency room in case of heavy bleeding all questions answered, the patient verbalized understanding
[2021-07-17 12:50] LABS: MANUAL DIFF FLAG NO
[2021-07-17 12:57] LABS: HCG Quantitative < 2 mIU/mL
[2021-07-17 12:58] LABS: Basophils Percent Auto 0.5 % (0-2); Eosinophils Absolute Auto 0.1 X10*3/uL (0.0-0.4); Eosinophils Percent Auto 0.9 % (0-4); Hematocrit 27.4 % (37.0-47.0); Hemoglobin 8.8 g/dl (12.0-16.0); Imm Gran Abs Auto 0.01 X10*3/uL (0.00-0.03); Imm Gran Pct Auto 0.2 % (0.0-0.4); Lymphocytes Percent Auto 35.3 % (20-40); Mean Corpuscular HGB Conc 32.1 g/dl (31.0-35.0); Mean Corpuscular Hemoglobin 27.9 pg (27.0-33.0); Mean Platelet Volume 9.7 fL (9.4-12.3); Monocytes Absolute Auto 0.4 X10*3/uL (0.1-1.2); Monocytes Percent Auto 7.7 % (2-11); Neutrophils Absolute Auto 3.1 x10*3/uL (2.0-8.3); Neutrophils Percent Auto 55.4 % (45-73); Platelet Count 258 X10*3/uL (160-400); Red Blood Count 3.15 X10*6/uL (4.20-5.50); Red Cell Distribution Width 13.6 % (11.0-16.0); White Blood Count 5.6 X10*3/uL (4.8-10.8)
--- NOTE | 2021-07-17 13:02 | PC.NURSE ---
patient a&ox3, vss, labs redrawn, fluids completed, family at bedside will continue to monitor
[2021-07-17 14:08] VITALS: BP 134/67; BP 141/72; PULSE 90; PULSE 96
[2021-07-17 14:09] VITALS: BP 134/67; BP 146/73; PULSE 90; PULSE 92; RESP 18
== END 2021-07-17 14:55 | disposition home or self-care (01) ==
PROVIDERS: Physician Assistant; Emergency Provider Emergency Medicine; PCP Internal Medicine
DX: N92.1 Excessive and frequent menstruation with irregular cycle (principal); R53.83 Other fatigue; R06.02 Shortness of breath; D64.9 Anemia, unspecified; I10 Essential (primary) hypertension; E11.9 Type 2 diabetes mellitus without complications; Z79.4 Long term (current) use of insulin
CPT/HCPCS: 36415; 80053; 81001; 81025; 84702; 85025; 86850; 86900; 86901; 99285

== ENCOUNTER 2021-08-26 13:54 | Outpatient (REF) | payer OTHER, SELFPAY ==
[2021-08-27 08:51] LABS: BV Int Neg Control Negative (Negative); BV Int Pos Control Positive (Positive)
== END 2021-08-26 13:55 | disposition home or self-care (01) ==
LOC: HO.LNP 13:54
PROVIDERS: Visit Provider Physician Assistant Medical
DX: N76.0 Acute vaginitis (principal)
CPT/HCPCS: 87086; 87480; 87510; 87660

== ENCOUNTER 2021-09-27 12:11 | Outpatient (REF) | payer OTHER, SELFPAY ==
[2021-09-28 11:04] LABS: BV Int Neg Control Negative (Negative)
[2021-09-28 11:05] LABS: BV Int Pos Control Positive (Positive)
== END 2021-09-27 12:12 | disposition home or self-care (01) ==
LOC: HO.LNP 12:11
PROVIDERS: Visit Provider Physician Assistant
DX: N76.0 Acute vaginitis (principal)
CPT/HCPCS: 87480; 87510; 87660

== ENCOUNTER 2021-10-06 08:55 | Outpatient (REF) | payer OTHER, SELFPAY ==
[2021-10-06 11:08] LABS: MANUAL DIFF FLAG NO
[2021-10-06 11:15] LABS: Basophils Percent Auto 0.6 % (0-2); Eosinophils Percent Auto 0.4 % (0-4); Hematocrit 39.6 % (37.0-47.0); Hemoglobin 13.5 g/dl (12.0-16.0); Imm Gran Abs Auto 0.01 X10*3/uL (0.00-0.03); Imm Gran Pct Auto 0.2 % (0.0-0.4); Lymphocytes Absolute Auto 1.9 X10*3/uL (1.2-4.9); Lymphocytes Percent Auto 40.1 % (20-40); Mean Corpuscular HGB Conc 34.1 g/dl (31.0-35.0); Mean Platelet Volume 11.4 fL (9.4-12.3); Monocytes Absolute Auto 0.3 X10*3/uL (0.1-1.2); Monocytes Percent Auto 6.7 % (2-11); Neutrophils Absolute Auto 2.5 x10*3/uL (2.0-8.3); Platelet Count 261 X10*3/uL (160-400); Red Blood Count 4.66 X10*6/uL (4.20-5.50); Red Cell Distribution Width 13.4 % (11.0-16.0); White Blood Count 4.8 X10*3/uL (4.8-10.8)
[2021-10-06 11:32] LABS: Alanine Aminotransferase 21 U/L (0-31); Albumin Level 4.2 g/dL (3.5-5.0); Alkaline Phosphatase 96 U/L (39-117); Anion Gap 14 (12-20); Aspartate Amino Transferase 18 U/L (5-31); Blood Urea Nitrogen 14 mg/dL (9-16); Calcium 9.5 mg/dL (8.4-10.2); Carbon Dioxide 23 mmol/L (22-29); Chloride 104 mmol/L (96-108); Cholesterol 156 mg/dL; Estimated Glomerular Filt Rate > 60; Glucose Fasting 170 mg/dL (60-99); HDL Cholesterol 39 mg/dL; Iron 109 mcg/dL (30-160); LDL Cholesterol Calculated 97 mg/dl; Percent Iron Saturation 27 % (15-50); Potassium 3.7 mmol/L (3.3-5.1); Sodium 137 mmol/L (135-145); Total Iron Binding Capacity 404 mcg/dL (228-428); Total Protein 7.5 g/dL (6.5-8.0); Triglycerides 104 mg/dL; Unsaturated Iron Binding 295 ug/dL
[2021-10-06 12:11] LABS: Creatinine Urine 228.14 mg/dL; Microalbum/Creatinine Ratio Ur 181.4 ug/mg cr
== END 2021-10-06 08:56 | disposition home or self-care (01) ==
LOC: HO.HMGCLDS 08:55
PROVIDERS: Visit Provider Internal Medicine
DX: D50.9 Iron deficiency anemia, unspecified (principal); E11.65 Type 2 diabetes mellitus with hyperglycemia
CPT/HCPCS: 36415; 80053; 80061; 82043; 83540; 85025

== ENCOUNTER 2021-10-20 11:47 | Outpatient (REF) | payer OTHER, SELFPAY ==
[2021-10-21 11:03] LABS: BV Int Neg Control Negative (Negative); BV Int Pos Control Positive (Positive)
== END 2021-10-20 11:48 | disposition home or self-care (01) ==
LOC: HO.LNP 11:47
PROVIDERS: Visit Provider Internal Medicine
DX: R30.0 Dysuria (principal)
CPT/HCPCS: 87480; 87510; 87660

== ENCOUNTER 2021-10-26 15:03 | Outpatient (REF) | payer OTHER, SELFPAY ==
--- NOTE | ~2021-10-26 | MM_ITS ---
EXAMINATION: MM SCREENING DIGITAL BREAST TOMOSYNTHESIS, BILATERAL CLINICAL INFORMATION: Screening. Asymptomatic. The lifetime risk of breast cancer based on the Tyrer-Cuzick Model is 16%. COMPARISON: Mammography: 10/22/2020, 10/17/2019, 04/03/2018 TECHNIQUE: Digital breast tomosynthesis is performed in both the craniocaudal and mediolateral oblique views along with computer-aided detection (CAD). Synthesized 2D images are generated from the tomosynthesis. FINDINGS: The breasts are heterogeneously dense, which may obscure small masses (ACR BI-RADS breast composition Category c). There are no significant masses, abnormal calcifications, or other abnormalities. Parenchymal pattern is similar to prior studies. There is no developing density or architectural abnormality. Fibronodular parenchymal pattern is similar to prior studies. The axilla and skin contours are unremarkable. No significant changes. MM/MM tomosynthesis screening BI IMPRESSION: No mammographic evidence of malignancy. ASSESSMENT: BI-RADS 1: Negative RECOMMENDATION: Routine annual mammography screening. This patient's information was entered into a reminder system with a target due date for their next mammogram.
== END 2021-10-26 15:04 | disposition home or self-care (01) ==
LOC: HO.MAMMO 15:03
PROVIDERS: PCP Internal Medicine; Visit Provider Internal Medicine
DX: Z12.31 Encounter for screening mammogram for malignant neoplasm of breast (principal)
CPT/HCPCS: 77063; 77067

== ENCOUNTER 2021-12-11 08:10 | Outpatient (REF) | payer OTHER, SELFPAY ==
[2021-12-11 11:09] LABS: MANUAL DIFF FLAG NO
[2021-12-11 11:13] LABS: Basophils Absolute Auto 0.1 X10*3/uL (0.0-0.2); Basophils Percent Auto 1.1 % (0-2); Eosinophils Percent Auto 0.6 % (0-4); Hematocrit 37.7 % (37.0-47.0); Hemoglobin 12.8 g/dl (12.0-16.0); Imm Gran Abs Auto 0.01 X10*3/uL (0.00-0.03); Imm Gran Pct Auto 0.2 % (0.0-0.4); Lymphocytes Absolute Auto 2.1 X10*3/uL (1.2-4.9); Mean Corpuscular Hemoglobin 29.6 pg (27.0-33.0); Mean Corpuscular Volume 87.3 fL (80.0-98.0); Mean Platelet Volume 10.9 fL (9.4-12.3); Monocytes Absolute Auto 0.5 X10*3/uL (0.1-1.2); Monocytes Percent Auto 8.5 % (2-11); Neutrophils Absolute Auto 2.7 x10*3/uL (2.0-8.3); Neutrophils Percent Auto 50.6 % (45-73); Platelet Count 342 X10*3/uL (160-400); Red Blood Count 4.32 X10*6/uL (4.20-5.50); Red Cell Distribution Width 13.2 % (11.0-16.0); White Blood Count 5.4 X10*3/uL (4.8-10.8)
[2021-12-11 11:21] LABS: Alanine Aminotransferase 18 U/L (0-31); Anion Gap 13 (12-20); Aspartate Amino Transferase 17 U/L (5-31); Blood Urea Nitrogen 11 mg/dL (9-16); Calcium 9.4 mg/dL (8.4-10.2); Carbon Dioxide 26 mmol/L (22-29); Chloride 104 mmol/L (96-108); Cholesterol 181 mg/dL; Estimated Glomerular Filt Rate > 60; Glucose Fasting 163 mg/dL (60-99); HDL Cholesterol 43 mg/dL; Iron 72 mcg/dL (30-160); LDL Cholesterol Calculated 112 mg/dl; Percent Iron Saturation 17 % (15-50); Potassium 4.2 mmol/L (3.3-5.1); Sodium 139 mmol/L (135-145); Total Iron Binding Capacity 418 mcg/dL (228-428); Triglycerides 131 mg/dL; Unsaturated Iron Binding 346 ug/dL
[2021-12-11 12:15] LABS: Estimated Average Glucose 154 mg/dL
== END 2021-12-11 08:11 | disposition home or self-care (01) ==
LOC: HO.HMGCLDS 08:10
PROVIDERS: PCP Internal Medicine; Visit Provider Internal Medicine
DX: D50.9 Iron deficiency anemia, unspecified (principal); E11.65 Type 2 diabetes mellitus with hyperglycemia; I10 Essential (primary) hypertension
CPT/HCPCS: 36415; 80048; 80061; 83036; 83540; 84450; 84460; 85025

== ENCOUNTER 2022-03-14 09:39 | Outpatient (REF) | payer OTHER, SELFPAY ==
[2022-03-14 12:23] LABS: Alanine Aminotransferase 18 U/L (0-31); Anion Gap 13 (12-20); Aspartate Amino Transferase 18 U/L (5-31); Blood Urea Nitrogen 18 mg/dL (9-16); Calcium 9.5 mg/dL (8.4-10.2); Carbon Dioxide 26 mmol/L (22-29); Chloride 105 mmol/L (96-108); Cholesterol 139 mg/dL; Estimated Glomerular Filt Rate > 60; Glucose Fasting 130 mg/dL (60-99); HDL Cholesterol 41 mg/dL; LDL Cholesterol Calculated 67 mg/dl; Potassium 3.9 mmol/L (3.3-5.1); Sodium 140 mmol/L (135-145); Triglycerides 157 mg/dL
[2022-03-14 12:25] LABS: Estimated Average Glucose 148 mg/dL; Hemoglobin A1c % 6.8 %
[2022-03-14 12:31] LABS: Creatinine Urine 164.59 mg/dL; Microalbum/Creatinine Ratio Ur 8.5 ug/mg cr
== END 2022-03-14 09:40 | disposition home or self-care (01) ==
LOC: HO.HMGCLDS 09:39
PROVIDERS: PCP Internal Medicine; Visit Provider Internal Medicine
DX: E11.65 Type 2 diabetes mellitus with hyperglycemia (principal); E78.5 Hyperlipidemia, unspecified; I10 Essential (primary) hypertension
CPT/HCPCS: 36415; 80048; 80061; 82043; 83036; 84450; 84460

== ENCOUNTER 2022-06-01 18:16 | Outpatient (REF) | payer SELFPAY ==
[2022-06-02 09:46] LABS: BV Int Neg Control Negative (Negative); BV Int Pos Control Positive (Positive)
== END 2022-06-01 18:17 | disposition home or self-care (01) ==
LOC: HO.LNP 18:16
PROVIDERS: Visit Provider Internal Medicine
DX: N76.0 Acute vaginitis (principal)
CPT/HCPCS: 87480; 87510; 87660

== ENCOUNTER 2022-07-13 11:14 | Outpatient (REF) | payer SELFPAY ==
[2022-07-13 13:22] LABS: CT PCR NOT DETECTED (Not Detect.); NG PCR NOT DETECTED (Not Detect.)
[2022-07-14 13:57] LABS: BV Int Neg Control Negative (Negative); BV Int Pos Control Positive (Positive)
== END 2022-07-13 11:15 | disposition home or self-care (01) ==
LOC: HO.LNP 11:14
PROVIDERS: Visit Provider Nurse Practitioner Family
DX: Z11.3 Encounter for screening for infections with a predominantly sexual mode of transmission (principal); R30.0 Dysuria; N89.8 Other specified noninflammatory disorders of vagina; B37.31 Acute candidiasis of vulva and vagina
CPT/HCPCS: 87086; 87480; 87491; 87510; 87591; 87660

== ENCOUNTER 2022-09-24 08:02 | Outpatient (REF) | payer OTHER, SELFPAY ==
[2022-09-24 11:17] LABS: Anion Gap 14 (12-20); Blood Urea Nitrogen 16 mg/dL (9-16); Calcium 9.5 mg/dL (8.4-10.2); Carbon Dioxide 24 mmol/L (22-29); Chloride 105 mmol/L (96-108); Estimated Glomerular Filt Rate > 60; Glucose Fasting 148 mg/dL (60-99); Potassium 4.2 mmol/L (3.3-5.1); Sodium 139 mmol/L (135-145)
== END 2022-09-24 08:03 | disposition home or self-care (01) ==
LOC: HO.HMGCLDS 08:02
PROVIDERS: PCP Internal Medicine; Visit Provider Internal Medicine
DX: E11.9 Type 2 diabetes mellitus without complications (principal); E78.5 Hyperlipidemia, unspecified; I10 Essential (primary) hypertension; Z79.4 Long term (current) use of insulin
CPT/HCPCS: 36415; 80048

== ENCOUNTER 2022-10-04 11:20 | Outpatient (AMB) | payer OTHER, SELFPAY ==
--- NOTE | 2022-10-04 12:18 | MHC.PC.OV ---
Vital Signs 10/04/22 12:21 Height 5 ft 3 in Weight 200 lb 6 oz BMI 35.4 BP 138/80 Blood Pressure Location Rt brachial Position Sitting Pulse 85 Pulse Source Pulse Oximeter Pulse Oximetry (%) 97 Oxygen Delivery Method Room Air Intake Visit Reasons: 3m f/u dm,lipids Intake Note: Pt is here for her three month f/u on diabetes and lipids. Allergies No Known Allergies Allergy (Verified 10/08/23 17:12) Medication List - Last Reconciled 10/04/22 by Jen Ambrocio MD adalimumab Humira cefuroxime axetil 250 mg PO BID 5 days fluconazole (Diflucan) 150 mg PO DAILY fluticasone propionate 50 mcg/actuation 1 spray intranasal Q12H ibuprofen 600 mg PO Q8H PRN levocetirizine 5 mg PO QPM PRN lisinopril 5 mg PO DAILY metformin 500 mg PO BIDWMEAL 3 months omeprazole 20 mg PO DAILY oxybutynin chloride ER 5 mg PO QAM rosuvastatin 5 mg PO Q2D 90 days Tobacco use date assessed: 10/04/22 HPI 3m f/u dm,lipids HPI Details 48-year-old lady here today for follow-up on her diabetes mellitus and hyperlipidemia. Currently taking metformin 500 mg 1 tablet twice a day with meals and rosuvastatin 5 mg every other day. Has been compliant with diet, admits to not getting regular exercise however. Complains of recurrent pruritic rash on vulvar area, present for the last several weeks. Denies any abnormal vaginal discharge, no dysuria or urinary frequency PFSH Medical History Intermittent lightheadedness Type 2 diabetes mellitus without complication, without long-term current use of insulin Dyslipidemia Essential hypertension Iron deficiency anemia Heartburn Dysmenorrhea Heavy menstrual bleeding Medial meniscus tear GERD (gastroesophageal reflux disease) Varicose vein of leg Osteoarthritis, knee Psoriasis Migraine Surgical History Status post abdominal hysterectomy History of endometrial ablation History of bilateral tubal ligation H/O arthroscopy of right knee History of varicose veins Family History Father DVT (deep venous thrombosis) HTN (hypertension) Dyslipidemia Diabetes mellitus Mother Multiple myeloma COVID-19 Brother Lymphoma Social History Housing: House Alcohol intake: current Alcohol intake frequency: a few times a month Patient Tobacco Use Status: Never used Tobacco e-Cigarette/Vaping Use: Never Used Second Hand Smoke Exposure: No service: No Current occupational status: employed 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 1. Little interest or pleasure in doing things: not at all 2. Feeling down, depressed, or hopeless: not at all 3. Trouble falling or staying asleep, or sleeping too much: not at all 4. Feeling tired or having little energy: not at all 5. Poor appetite or overeating: not at all 6. Feeling bad about yourself - or that you are a failure or have let yourself or your family down: not at all 7. Trouble concentrating on things, such as reading the newspaper or watching television: not at all 8. Moving or speaking so slowly that other people could have noticed. Or the opposite - being so fidgety or restless that you have been moving around a lot more than usual: not at all 9. Thoughts that you would be better off or of hurting yourself in some way: not at all Total score: 0 Depression Screening Interpretation: Negative 59549 - PHQ-9 Billing: Yes Source: Developed by Drs. Sid Real, Martha Oviedo, Arnoldo Escobedo and colleagues, with an educational yamini from [employer]. Thrive Questionnaire Declines Thrive assessment: No Date Thrive assessed: 10/04/22 I am a: Patient What is your living situation today?: I have a steady place to live Within the past 12 months, did the food you bought not last and you didn't have the money to get more?: Never true Within the past 12 months, did you worry whether your food would run out before you got money to buy more?: Never true Do you have trouble paying for medicines?: No Do you have trouble getting transportation to medical appointments?: No Do you have trouble paying your heating and electricity bill?: No Do you have trouble taking care of your child, family member or friend?: No Do you have trouble with day-to-day activities such as bathing, preparing meals, shopping, managing finances, etc.?: No Are you currently unemployed and looking for a job?: No Are you interested in more education?: No AUDIT C Alcohol Use Questionnaire (AUDIT-C) 1. How often do you have a drink containing alcohol?: Never 3. How often do you have six or more drinks on one occasion?: Never Total Score: 0 MARY-7 AMB Questionnaire MARY-7 Date MARY - 7 assessed: 10/04/22 Feeling nervous, anxious, or on edge: 0 = Not at all Not being able to stop or control worryin = Not at all Worrying too much about different things: 0 = Not at all Trouble relaxin = Not at all Being so restless that it is hard to sit still: 0 = Not at all Becoming easily annoyed or irritable: 0 = Not at all Feeling afraid as if something awful might happen: 0 = Not at all Total MARY-7 score (0-4 normal; 5-9 mild; 10-14 moderate; 15-21 severe): 0 Source: Developed by Drs. Sid Real, Martha Oviedo, Arnoldo Escobedo and colleagues, with an educational yamini from [employer]. MARY-7 Assessment Billing MARY-7 Assessment Tool: MARY-7 Assessment 41963 Review of Systems Const Denies chills, Denies fever(s), Denies frequent falls, Denies headache(s) and Denies malaise Eyes Details: Negative retinopathy screening done at [facility] 01/16/2023 Reports no additional complaints ENT Denies headache(s) Card Denies chest pain, Denies chest pain with activity, Denies syncope, Denies irregular heart rhythm and Denies palpitations Resp Reports no additional complaints GI Denies abdominal pain, Denies dyspepsia, Denies heartburn and Denies nausea Reports no additional complaints Musc Denies myalgias, Denies arthralgias, Denies joint swelling, Denies limited range of motion, Denies muscle weakness and Denies stiffness Neuro Denies syncope, Denies frequent falls and Denies headache(s) Psych Reports no additional complaints Endo Denies palpitations Eusebio/Lymph Reports no additional complaints Aller/Immun Reports no additional complaints Physical exam (Primary Care) Vital Signs: Last Vital Signs Pulse 85 10/04/22 12:21 BP 138/80 10/04/22 12:21 Pulse Ox 97 10/04/22 12:21 Oxygen Delivery Method Room Air 10/04/22 12:21 BMI result Body Mass Index 35.4 Tobacco/Smoking Status: Tobacco use Status Tobacco use date assessed 10/04/22 10/04/22 12:23 Patient Tobacco Use Status Never used Tobacco 10/04/22 12:19 e-Cigarette/Vaping Use Never Used 10/04/22 12:19 PHQ-9: PHQ-9 Score PHQ-9: Total score 0 10/04/22 12:45 Depression Screening Interpretation: Negative Thrive Assessment: Date of Thrive Assessment Date Thrive assessed 10/04/22 10/04/22 12:31 Const Other: Alert oriented x3, no acute cardiorespiratory distress noted ambulatory with normal gait HENMT Head: Yes normocephalic Ears: external ears normal, TM's normal bilaterally and EAC's normal General nose exam: Normal external nose present Face and sinus: Yes face symmetric Mouth: Normal oral and palatal mucosa present, oropharynx normal and moist mucous membranes Eyes General: appearance normal, both eyes and all related structures Pupils: Equal, round and reactive pupils present EOM: EOMs intact bilaterally Neck Neck: Yes full ROM, Yes no lymphadenopathy and Yes supple Resp Auscultation: clear to auscultation bilaterally Cardio Other: S1-S2 present regular rate and rhythm, no murmurs GI Other: Normal bowel sounds, soft, nontender with no mass palpated Other: Erythematous patch on vulvar areas, no abnormal vaginal discharge seen Neuro Cranial nerves: Yes CN's II-XII intact bilaterally, Yes Equal, round and reactive pupils present and Yes Bilaterally intact EOM present Extrem General: Yes full ROM, Yes no joint enlargement, Yes no clubbing, cyanosis or edema, Yes no calf tenderness and Yes normal gait Results AMB Hemoglobin A1c AMB Hemoglobin A1c 6.5 % Last Edit by Shell Schultz CMA on 10/04/22 12:36 Results Reviewed Results Reviewed: Laboratory Last Values Hgb A1c (Clinic) 6.5 % (4.0-6.0) H 10/04/22 12:20 ENTERED: 09/24/22-810 DELMY MEJIAS: ORDERED: Met Prof Fast Test Result Flag Reference Site Sodium 139 135-145 mmol/L Potassium 4.2 3.3-5.1 mmol/L CL 105 96-108 mmol/L CO2 24 22-29 mmol/L Gap 14 12-20 BUN 16 9-16 mg/dL Creat 0.69 0.5-1.4 mg/dL EGFR > 60 NOTE: For -Senegalese individuals, multiply the result by 1.210. Chronic Kidney Disease: Estimated GFR < 60 mL/min/1.73m2 Severe Kidney Disease: Estimated GFR < 15 mL/min/1.73m2 FBS 148 H 60-99 mg/dL A fasting glucose of 126 mg/dl or greater on more than one occasion is considered diagnostic of diabetes. CA 9.5 8.4-10.2 mg/dL Laboratory Tests 10/04/22 12:20 Hgb A1c (Clinic) 6.5 H Assessment and Plan Assessment & Plan (1) Dyslipidemia: Code(s): E78.5 - Hyperlipidemia, unspecified Plan: Fasting lipid panel Continue with rosuvastatin 5 mg every other day , in addition to adherence to low-cholesterol diet and regular exercise, at least 30 minutes 3 to 4 times a week. Advised patient to make healthy food choices, eat more fruits, vegetables, whole grains, wild caught fish and low-fat dairy. Limit amount of meat and fried or fatty food products, as well as processed foods and fast foods. Follow-up scheduled with repeat fasting lipid panel in 3 months. (2) Essential hypertension: Code(s): I10 - Essential (primary) hypertension Plan: Blood pressure not at goal of less than 130/80. . Will continue on 10 mg of lisinopril once daily and reinforced importance of following a low sodium diet, getting regular exercise, and lowering stress levels. Follow-up in 3 month (3) Type 2 diabetes mellitus without complication, without long-term current use of insulin: Code(s): E11.9 - Type 2 diabetes mellitus without complications Plan: Recent lab results reviewed with patient, with sugar and hemoglobin A1c stable and at goal. Continue with metformin same dose, continue to check fasting blood sugar at home, maintain log and bring to next appointment for review. Reinforced diabetic diet and regular exercise with patient. Counseled regarding importance of yearly diabetes retinopathy screening. Patient advised to inspect feet daily, for any signs of injury, callus or infection. Compliance with diet and regular exercise again stressed. Blood pressure goal is less than 130/80, goal LDL is less than 100 and goal hemoglobin A1c is less than 7% follow-up appointment made in--3-months, after fasting labs done. (4) Rash of vulva: Code(s): R21 - Rash and other nonspecific skin eruption Plan: Prescription sent for nystatin-triamcinolone cream to be applied sparingly to affected area once a day for 7 days. Keep areas clean and dry at all times Orders: Orders Alanine Aminotransferase 12/12/22 E78.5 - Hyperlipidemia, unspecified, I10 - Essential (primary) hypertension Hemoglobin A1c 12/12/22 E78.5 - Hyperlipidemia, unspecified, I10 - Essential (primary) hypertension, E11.9 - Type 2 diabetes mellitus without complications Lipid Panel 12/12/22 E78.5 - Hyperlipidemia, unspecified, I10 - Essential (primary) hypertension Basic Metabolic Panel Fasting 12/12/22 E78.5 - Hyperlipidemia, unspecified, I10 - Essential (primary) hypertension Microalbumin, Random (w Creat) 12/12/22 E78.5 - Hyperlipidemia, unspecified, I10 - Essential (primary) hypertension, E11.9 - Type 2 diabetes mellitus without complications AMB Hemoglobin A1c 10/04/22 E11.9 - Type 2 diabetes mellitus without complications, Z79.4 - halfway (current) use of insulin Aspartate Amino Transferase 12/12/22 E78.5 - Hyperlipidemia, unspecified, I10 - Essential (primary) hypertension Medications: New nystatin-triamcinolone 100,000-0.1 unit/g-% 1 appl topical DAILY 30 grams 0RF 7 days R21 - Rash and other nonspecific skin eruption Coding Level of Care Code Est Pt Level 4 (28281) Diagnoses Dyslipidemia E78.5 Essential hypertension I10 Type 2 diabetes mellitus without complication, without long-term current use of insulin E11.9 Rash of vulva R21 Additional Codes MARY-7 Assessment Billing - MARY-7 Assessment Tool: MARY-7 Assessment [id number] ([id number])
[2022-10-04 12:21] VITALS: BP 138/80; PULSE 85; O2SAT 97; BMI 35.4
== END 2022-10-04 12:53 | disposition home or self-care (01) ==
LOC: HO.HMGC 11:20
PROVIDERS: PCP Internal Medicine; Visit Provider Internal Medicine
DX: E78.5 Hyperlipidemia, unspecified (principal); I10 Essential (primary) hypertension; E11.9 Type 2 diabetes mellitus without complications; R21 Rash and other nonspecific skin eruption
CPT/HCPCS: 99214; 99499

== ENCOUNTER 2022-11-03 10:43 | Emergency (ER) | payer OTHER, SELFPAY ==
--- NOTE | ~2022-11-03 | CT_ITS ---
EXAMINATION: CT ABDOMEN AND PELVIS WITHOUT CONTRAST CLINICAL INFORMATION: Right flank pain. COMPARISON: None available. TECHNIQUE: Multidetector volumetric imaging was performed from the superior aspect of the liver through the pubic symphysis. Sagittal and coronal reformatted images were obtained on the technologist's workstation. This CT examination was performed using dose optimization techniques as appropriate, variously including the following: *Automated exposure control *Adjustment of mA and/or kV according to patient size (this includes techniques or standardized protocols for targeted exams where dose is matched to indication/reason for exam; i.e. extremities or head) *Use of iterative reconstruction technique DLP: 653 mGy-cm FINDINGS: LUNG BASES: The visualized lung bases are unremarkable. Heart size is normal. LIVER, GALLBLADDER, AND BILIARY TREE: The liver is normal in size, shape, and attenuation. No focal hepatic lesion or biliary ductal dilatation is present. The gallbladder is unremarkable with no evidence of radiopaque gallstones, gallbladder wall thickening, or obvious pericholecystic inflammatory changes. PANCREAS: Unremarkable. SPLEEN: Unremarkable. ADRENAL GLANDS: Unremarkable. KIDNEYS AND URETERS: The kidneys are normal in size, shape, and attenuation. No visible 5 mm right distal ureter radiopaque calculi resulting in mild hydroureteronephrosis. No radiopaque renal calculi seen. The left ureter is normal. There is an exophytic 1.4 cm cyst lower pole right kidney. BLADDER: The bladder is mildly distended. GASTROINTESTINAL TRACT: There is scattered stool and gas seen throughout the colon without significant distention. The small bowel loops are normal caliber. There is mild haziness in the left small bowel mesentery, nonspecific. No lymph nodes seen. The stomach is nondistended. Appendix is not visualized with certainty. There is no free fluid. ABDOMINAL WALL: Small lumbar canal hernia containing fat. LYMPH NODES: Normal. VASCULAR: Unremarkable. PELVIC VISCERA: The uterus is anteverted without focal lesion. There is a 2.9 x 2.2 cm right ovarian cysts.. OSSEOUS STRUCTURES: No lytic or sclerotic process seen.. CT/CT abdomen pelvis wo IV con IMPRESSION: 1. 5 mm right distal ureter radiopaque calculi with mild hydroureteronephrosis. 2. Mild constipation. 3. Small right ovarian cyst. Fleischner guidelines were followed.
[2022-11-03 10:47] VITALS: BP 175/96; PULSE 106; RESP 16; TEMP 36.9; O2SAT 99; BMI 35.4
[2022-11-03 11:28] LABS: Bacteria Urine Trace (None Seen); Hyaline Casts Urine 0-2 /LPF (0-2); RBC Urine >20 /HPF (0-2); WBC Urine 0-5 /HPF (0-5)
[2022-11-03 11:35] LABS: Appearance Urine Cloudy; Color Urine Orange; Glucose Urine UA >=1000 mg/dL (Negative); Leukocyte Esterase Urine Trace (Negative); Nitrite Urine Negative (Negative); PH 6.5 (5.0-9.0); Specific Gravity - Urine 1.025 (1.005-1.025); UMIC TRIGGER UACC YES; Urine Blood Large (3+) (Negative); Urine Ketones Negative (Negative); Urine Protein 30 (1+) mg/dL (Neg-Trace)
[2022-11-03 12:44] VITALS: BP 162/83; PULSE 90; RESP 18; TEMP 36.7; O2SAT 97
--- NOTE | 2022-11-03 13:11 | ED.FEMALEGU ---
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 She states her urine has become darker in color but denies seeing any bright red blood. She states she has frequency and only voiding small amounts. She states she was treated for a UTI a couple of weeks ago as well as a yeast infection. No current vaginal discharge or bleeding. No vomiting or diarrhea. She has intermittent nausea but no fever or chills. MD elicited complaint: UTI and flank pain Pertinent past history: recurrent UTIs Onset (ago): week(s) (1) Location of symptoms: flank Severity: moderate Female Urogenital Radiation: Suprapubic Quality of pain: aching Consistency: intermittent Vaginal discharge: none Vaginal bleeding: none Urinary symptoms: Urgency, Frequency and Difficulty Urinating Exacerbating factors: urination and palpation Relieving factors: medication Associated symptoms: chills and nausea Treatment prior to arrival: none Sexual activity: No Patient : No Related Data Home Medications Medication Instructions Recorded Confirmed oxybutynin chloride 5 mg 5 mg PO QAM 10/20/21 06/09/22 tablet,extended release 24 hr adalimumab 40 mg/0.8 mL mg subcut Q2W 01/06/22 06/09/22 subcutaneous pen kit Previous Rx's Medication Instructions Recorded ibuprofen 600 mg tablet 600 mg PO Q8H PRN menstrual cramps 01/06/22 #30 tabs metformin 500 mg tablet 500 mg PO BIDWMEAL 3 months #180 01/06/22 tabs omeprazole 20 mg capsule,delayed 20 mg PO DAILY #90 caps 04/05/22 release rosuvastatin 5 mg tablet 5 mg PO Q2D 90 days #45 tabs 04/26/22 fluticasone propionate 50 1 spray intranasal Q12H #16 grams 06/09/22 mcg/actuation nasal spray,suspension lisinopril 5 mg tablet 5 mg PO DAILY #90 tabs 06/09/22 levocetirizine 5 mg tablet 5 mg PO QPM PRN allergy symptoms 07/05/22 #30 tabs cefuroxime axetil 250 mg tablet 250 mg PO BID 5 days #10 tabs 07/13/22 fluconazole 150 mg tablet 150 mg PO DAILY #1 tab 07/13/22 (Diflucan) nystatin-triamcinolone 100,000 1 appl topical DAILY 7 days #30 10/04/22 unit/g-0.1 % topical cream grams cefuroxime axetil 250 mg tablet 250 mg PO BID 7 days #14 tabs 11/03/22 ibuprofen 600 mg tablet 600 mg PO Q8H PRN pain #20 tabs 11/03/22 ondansetron 4 mg disintegrating 4 mg PO TID PRN nausea and 11/03/22 tablet vomiting #6 tabs tamsulosin 0.4 mg capsule (Flomax) 0.4 mg PO BEDTIME #30 caps 11/03/22 Allergies Allergy/AdvReac Type Severity Reaction Status Date / Time metformin AdvReac Unknown HICKMAN, nausea Verified 11/03/22 10:50 Review of Systems Review of Systems: Yes all other systems are reviewed and are negative COUNT INCLUDES THE [facility] Past Medical History Medical History (Updated 11/03/22 @ 16:12 by JOSIAH Ellis) Dyslipidemia Dysmenorrhea Essential hypertension GERD (gastroesophageal reflux disease) Heartburn Heavy menstrual bleeding Iron deficiency anemia Medial meniscus tear Migraine Osteoarthritis, knee Psoriasis Type 2 diabetes mellitus without complication, without long-term current use of insulin Varicose vein of leg Surgical History (Updated 06/09/22 @ 18:09 by Jen Ambrocio MD) H/O arthroscopy of right knee History of bilateral tubal ligation History of endometrial ablation History of varicose veins Status post abdominal hysterectomy Family History Family History Father DVT (deep venous thrombosis) HTN (hypertension) Dyslipidemia Diabetes mellitus Mother Multiple myeloma COVID-19 Brother Lymphoma Social History Social History Housing: House Alcohol intake: current Alcohol intake frequency: a few times a month Patient Tobacco Use Status: Never used Tobacco e-Cigarette/Vaping Use: Never Used Second Hand Smoke Exposure: No service: No Current occupational status: employed 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 Oriented X3. No acute distress. Eyes: Pupils equal, round and reactive to light. ENT: Pharynx normal. Neck: Normal inspection. Neck supple. CVS: Normal heart rate and rhythm. Pulses normal. Respiratory: No respiratory distress. Breath sounds normal. Abdomen: Soft and nontender. +BS x4. +CVA tenderness on the right. Skin: Skin warm and dry. Normal skin color. Normal skin turgor. No rashes. Extremities: No lower extremity edema. Neuro: Oriented X 3. No motor deficit. No sensory deficit. Medications Administered Discontinued Medications Generic Name Dose Route Start Last Admin Trade Name Freq PRN Reason Stop Dose Admin Dexamethasone Sodium Phosphate 8 mg 11/03/22 15:27 11/03/22 15:46 Dexamethasone Sod Phosphate 4 Mg/Ml Vial IVPUSH 11/03/22 15:28 8 mg ONCE ONE Administration Ceftriaxone Sodium 1 gm/ 50 mls @ 100 mls/hr 11/03/22 13:06 11/03/22 15:04 Sodium Chloride IV 11/03/22 13:35 Infused ONCE ONE Infusion Sodium Chloride 1,000 mls @ 999 mls/hr 11/03/22 13:15 11/03/22 15:43 Ns IVCONT 11/03/22 14:15 Infused .Q1H1M JONAH Infusion Tamsulosin HCl 0.4 mg 11/03/22 15:27 11/03/22 15:45 Tamsulosin Hcl 0.4 Mg Capsule PO 11/03/22 15:28 0.4 mg ONCE ONE Administration Medical Decision Making Medical Decision Making MDM Narrative: 47-year-old female presenting to the ER for evaluation of right-sided flank pain, intermittent for the last 1 week along with urinary symptoms of frequency, darkened urine. Urinalysis is consistent with blood, possible early infection although there is some squamous cells in the sample which could suggest contamination. Lab work was performed which shows no leukocytosis, normal renal function. CT scan is showing a 5 mm distal ureteral stone with mild hydroureteronephrosis. Given the stone is in the distal ureter it is likely that she will pass the stone on her own. She is currently pain-free. She states she has a longstanding history of kidney stones dating back to 25 years ago when she was . Will plan to discharge with Flomax, pain control, follow-up with Urology. She was given strict return precautions and stable for discharge home. Differential Diagnosis Differential Diagnoses: The differential diagnosis associated with the presentation includes acute UTI, pyelonephritis, kidney stone, obstructive uropathy, nephritis Admission/Observation Consideration of admission/observation: Escalation of care including admission/observation considered 5mm stone, considered admission for intervention however pain is well controlled. Lab Data MDM Lab Attestation statement: I reviewed the patient's lab results. No leukocytosis, normal renal function. No metabolic derangement 11/03/22 13:26 11/03/22 13:26 Labs: Lab Results 11/03/22 11/03/22 11/03/22 Range/Units 11:01 13:26 13:26 WBC 8.7 (4.8-10.8) X10*3/uL RBC 4.49 (4.20-5.50) X10*6/uL Hgb 13.8 (12.0-16.0) g/dl Hct 39.1 (37.0-47.0) % MCV 87.1 (80.0-98.0) fL MCH 30.7 (27.0-33.0) pg MCHC 35.3 H (31.0-35.0) g/dl RDW 12.0 (11.0-16.0) % Plt Count 241 D (160-400) X10*3/uL MPV 9.8 (9.4-12.3) fL Immature Gran % (Auto) 0.3 (0.0-0.4) % Neut % (Auto) 70.4 (45-73) % Lymph % (Auto) 20.6 (20-40) % [place] % (Auto) 7.4 (2-11) % Eos % (Auto) 0.5 (0-4) % Baso % (Auto) 0.8 (0-2) % Lymph # (Auto) 1.8 (1.2-4.9) X10*3/uL [place] # (Auto) 0.6 (0.1-1.2) X10*3/uL Eos # (Auto) 0.0 (0.0-0.4) X10*3/uL Baso # (Auto) 0.1 (0.0-0.2) X10*3/uL Abs Immat Gran (auto) 0.03 (0.00-0.03) X10*3/uL Absolute Neuts (auto) 6.1 (2.0-8.3) x10*3/uL Absolute Nucleated RBC 0.000 (0.0-0.012) X10*3/uL Nucleated RBC % (auto) 0.0 (0.0-0.2) /100WBC Sodium 141 (135-145) mmol/L Potassium 3.6 (3.3-5.1) mmol/L Chloride 105 (96-108) mmol/L Carbon Dioxide 26 (22-29) mmol/L Anion Gap 14 (12-20) BUN 17 H (9-16) mg/dL Creatinine 0.75 (0.5-1.4) mg/dL Estim Creat Clear Calc 97.0 Estimated GFR > 60 Random Glucose 124 H (60-115) mg/dL Lactic Acid (0.5-2.0) mmol/L Calcium 9.4 (8.4-10.2) mg/dL Magnesium 1.7 (1.6-2.6) mg/dL Total Bilirubin 0.7 (0.0-1.0) mg/dL Direct Bilirubin 0.2 (0.0-0.5) mg/dL AST 20 (5-31) U/L ALT 22 (0-31) U/L Alkaline Phosphatase 80 (39-117) U/L Total Protein 7.5 (6.5-8.0) g/dL Albumin 4.4 (3.5-5.0) g/dL Urine Color [place] A Urine Appearance Cloudy Urine pH 6.5 (5.0-9.0) Ur Specific [place] 1.025 (1.005-1.025) Urine Protein 30 (1+) H (Neg-Trace) mg/dL Urine Glucose (UA) >=1000 H (Negative) mg/dL Urine Ketones Negative (Negative) mg/dL Urine Blood Large (3+) H (Negative) Urine Nitrite Negative (Negative) Ur Leukocyte Esterase Trace H (Negative) Urine RBC >20 H (0-2) /HPF Urine WBC 0-5 (0-5) /HPF Ur Squamous Epith Cells 6-10 (0-2) /HPF Urine Bacteria Trace (None Seen) Hyaline Casts 0-2 (0-2) /LPF 11/03/22 Range/Units 13:26 WBC (4.8-10.8) X10*3/uL RBC (4.20-5.50) X10*6/uL Hgb (12.0-16.0) g/dl Hct (37.0-47.0) % MCV (80.0-98.0) fL MCH (27.0-33.0) pg MCHC (31.0-35.0) g/dl RDW (11.0-16.0) % Plt Count (160-400) X10*3/uL MPV (9.4-12.3) fL Immature Gran % (Auto) (0.0-0.4) % Neut % (Auto) (45-73) % Lymph % (Auto) (20-40) % [place] % (Auto) (2-11) % Eos % (Auto) (0-4) % Baso % (Auto) (0-2) % Lymph # (Auto) (1.2-4.9) X10*3/uL [place] # (Auto) (0.1-1.2) X10*3/uL Eos # (Auto) (0.0-0.4) X10*3/uL Baso # (Auto) (0.0-0.2) X10*3/uL Abs Immat Gran (auto) (0.00-0.03) X10*3/uL Absolute Neuts (auto) (2.0-8.3) x10*3/uL Absolute Nucleated RBC (0.0-0.012) X10*3/uL Nucleated RBC % (auto) (0.0-0.2) /100WBC Sodium (135-145) mmol/L Potassium (3.3-5.1) mmol/L Chloride (96-108) mmol/L Carbon Dioxide (22-29) mmol/L Anion Gap (12-20) BUN (9-16) mg/dL Creatinine (0.5-1.4) mg/dL Estim Creat Clear Calc Estimated GFR Random Glucose (60-115) mg/dL Lactic Acid 1.1 (0.5-2.0) mmol/L Calcium (8.4-10.2) mg/dL Magnesium (1.6-2.6) mg/dL Total Bilirubin (0.0-1.0) mg/dL Direct Bilirubin (0.0-0.5) mg/dL AST (5-31) U/L ALT (0-31) U/L Alkaline Phosphatase (39-117) U/L Total Protein (6.5-8.0) g/dL Albumin (3.5-5.0) g/dL Urine Color Urine Appearance Urine pH (5.0-9.0) Ur Specific [place] (1.005-1.025) Urine Protein (Neg-Trace) mg/dL Urine Glucose (UA) (Negative) mg/dL Urine Ketones (Negative) mg/dL Urine Blood (Negative) Urine Nitrite (Negative) Ur Leukocyte Esterase (Negative) Urine RBC (0-2) /HPF Urine WBC (0-5) /HPF Ur Squamous Epith Cells (0-2) /HPF Urine Bacteria (None Seen) Hyaline Casts (0-2) /LPF Independent Interpretation I performed an independent interpretation of an: CT Scan Interpretation: Mild hydro nephrosis appreciated, distal kidney stone appreciated. Agree the radiologist reading. Radiology Impression Discussion of test interpretation with radiology: I have reviewed the radiologist's reading. Radiologist Impression: EXAMINATION: CT ABDOMEN AND PELVIS WITHOUT CONTRAST? CLINICAL INFORMATION: Right flank pain.? COMPARISON: None available.? TECHNIQUE: Multidetector volumetric imaging was performed from the superior aspect of the liver through the pubic symphysis. Sagittal and coronal reformatted images were obtained on the technologist's workstation.? This CT examination was performed using dose optimization techniques as appropriate, variously including the following: *Automated exposure control *Adjustment of mA and/or kV according to patient size (this includes techniques or standardized protocols for targeted exams where dose is matched to indication/reason for exam; i.e. extremities or head) *Use of iterative reconstruction technique DLP: 653 mGy-cm FINDINGS: LUNG BASES: The visualized lung bases are unremarkable. Heart size is normal. LIVER, GALLBLADDER, AND BILIARY TREE: The liver is normal in size, shape, and attenuation. No focal hepatic lesion or biliary ductal dilatation is present. The gallbladder is unremarkable with no evidence of radiopaque gallstones, gallbladder wall thickening, or obvious pericholecystic inflammatory changes.? PANCREAS: Unremarkable.? SPLEEN: Unremarkable.? ADRENAL GLANDS: Unremarkable.? KIDNEYS AND URETERS: The kidneys are normal in size, shape, and attenuation. No visible 5 mm right distal ureter radiopaque calculi resulting in mild hydroureteronephrosis. No radiopaque renal calculi seen. The left ureter is normal. There is an exophytic 1.4 cm cyst lower pole right kidney.? BLADDER: The bladder is mildly distended.? GASTROINTESTINAL TRACT: There is scattered stool and gas seen throughout the colon without significant distention. The small bowel loops are normal caliber. There is mild haziness in the left small bowel mesentery, nonspecific. No lymph nodes seen. The stomach is nondistended. Appendix is not visualized with certainty. There is no free fluid.? ABDOMINAL WALL: Small lumbar canal hernia containing fat.? LYMPH NODES: Normal. VASCULAR: Unremarkable. PELVIC VISCERA: The uterus is anteverted without focal lesion. There is a 2.9 x 2.2 cm right ovarian cysts..? OSSEOUS STRUCTURES: No lytic or sclerotic process seen..? CT/CT abdomen pelvis wo IV con IMPRESSION: 1.? 5 mm right distal ureter radiopaque calculi with mild hydroureteronephrosis. 2.? Mild constipation. 3.? Small right ovarian cyst. ? External Record Review External record reviewed: Outpatient record, Prior outpatient labs and Prior outpatient radiology Prescription Management I considered prescription management with: Pain Medication and Antibiotic Chronic Conditions Patient?s care impacted by: Other (recurrent kidney stones) Critical Care Time Critical Care Time Critical Care Time: No Discharge Plan Discharge Clinical Impression: Hydronephrosis with ureteral calculus Patient Disposition: Home, Self-Care Instructions: Ureteral Stones (ED) Additional Instructions: The prescribed antibiotic as directed. Started tomorrow morning. Your given 1st IV dose today the emergency room. Take the prescribed other medications for kidney stone. You most likely will pass the stone on your own at home. Recommend following up with Urology. If you develop new or worsening symptoms call 911 or come back to the ER for further evaluation. Prescriptions: New tamsulosin [Flomax] 0.4 mg capsule 0.4 mg PO BEDTIME Qty: 30 0RF ibuprofen 600 mg tablet 600 mg PO Q8H PRN (Reason: pain) Qty: 20 0RF cefuroxime axetil 250 mg tablet 250 mg PO BID 7 Days Qty: 14 0RF ondansetron 4 mg tablet,disintegrating 4 mg PO TID PRN (Reason: nausea and vomiting) Qty: 6 0RF No Action omeprazole 20 mg capsule,delayed release(DR/EC) 20 mg PO DAILY Qty: 90 1RF rosuvastatin 5 mg tablet 5 mg PO Q2D 90 Days Qty: 45 1RF levocetirizine 5 mg tablet 5 mg PO QPM PRN (Reason: allergy symptoms) Qty: 30 0RF adalimumab 40 mg/0.8 mL pen injector kit subcut Q2W Rx Instructions: Humira oxybutynin chloride 5 mg tablet extended release 24hr 5 mg PO QAM fluticasone propionate 50 mcg/actuation spray,suspension 1 spray intranasal Q12H Qty: 16 0RF Rx Instructions: administer into each nostril lisinopril 5 mg tablet 5 mg PO DAILY Qty: 90 1RF metformin 500 mg tablet 500 mg PO BIDWMEAL 90 Days Qty: 180 3RF ibuprofen 600 mg tablet 600 mg PO Q8H PRN (Reason: menstrual cramps) Qty: 30 0RF fluconazole [Diflucan] 150 mg tablet 150 mg PO DAILY Qty: 1 0RF cefuroxime axetil 250 mg tablet 250 mg PO BID 5 Days Qty: 10 0RF nystatin-triamcinolone 100,000-0.1 unit/g-% cream 1 appl topical DAILY 7 Days Qty: 30 0RF Referrals: [facility] [Provider Group] (recurrent kidney stones, 5mm distal stone w/ hydro) Stand Alone Forms: Work/School Release
[2022-11-03 13:40] LABS: MANUAL DIFF FLAG NO
[2022-11-03 13:42] LABS: Basophils Absolute Auto 0.1 X10*3/uL (0.0-0.2); Basophils Percent Auto 0.8 % (0-2); Eosinophils Percent Auto 0.5 % (0-4); Hematocrit 39.1 % (37.0-47.0); Hemoglobin 13.8 g/dl (12.0-16.0); Imm Gran Abs Auto 0.03 X10*3/uL (0.00-0.03); Imm Gran Pct Auto 0.3 % (0.0-0.4); Lymphocytes Absolute Auto 1.8 X10*3/uL (1.2-4.9); Lymphocytes Percent Auto 20.6 % (20-40); Mean Corpuscular HGB Conc 35.3 g/dl (31.0-35.0); Mean Corpuscular Hemoglobin 30.7 pg (27.0-33.0); Mean Corpuscular Volume 87.1 fL (80.0-98.0); Mean Platelet Volume 9.8 fL (9.4-12.3); Monocytes Absolute Auto 0.6 X10*3/uL (0.1-1.2); Monocytes Percent Auto 7.4 % (2-11); Neutrophils Absolute Auto 6.1 x10*3/uL (2.0-8.3); Neutrophils Percent Auto 70.4 % (45-73); Platelet Count 241 X10*3/uL (160-400); Red Blood Count 4.49 X10*6/uL (4.20-5.50); White Blood Count 8.7 X10*3/uL (4.8-10.8)
[2022-11-03] MEDS: 0.9 % Sodium Chloride 1,000 ML 999 ML IVCONT (13:50)
[2022-11-03 13:51] LABS: Lactic Acid 1.1 mmol/L (0.5-2.0)
--- NOTE | 2022-11-03 13:55 | PC.NURSE ---
Pt a&ox4. Iv 20G inserted in Left AC, labs drawn, 1L NS running.
[2022-11-03 14:03] LABS: Alanine Aminotransferase 22 U/L (0-31); Albumin Level 4.4 g/dL (3.5-5.0); Alkaline Phosphatase 80 U/L (39-117); Anion Gap 14 (12-20); Aspartate Amino Transferase 20 U/L (5-31); Bilirubin Direct 0.2 mg/dL (0.0-0.5); Bilirubin Total 0.7 mg/dL (0.0-1.0); Blood Urea Nitrogen 17 mg/dL (9-16); Calcium 9.4 mg/dL (8.4-10.2); Carbon Dioxide 26 mmol/L (22-29); Chloride 105 mmol/L (96-108); Estimated Glomerular Filt Rate > 60; Glucose Random 124 mg/dL (60-115); Magnesium 1.7 mg/dL (1.6-2.6); Potassium 3.6 mmol/L (3.3-5.1); Sodium 141 mmol/L (135-145); Total Protein 7.5 g/dL (6.5-8.0)
[2022-11-03] MEDS: cefTRIAXone sodium 1 GM in 0.9 % Sodium Chloride 50 ML IV (14:04)
[2022-11-03 15:17] VITALS: BP 151/71; PULSE 83; RESP 18; TEMP 36.6; O2SAT 99
[2022-11-03] MEDS: Tamsulosin HCL 0.4 MG CAPSULE PO (15:45)
[2022-11-03] MEDS: dexAMETHasone sod phosphate 4 MG/ML VIAL 8 MG IVPUSH (15:46)
== END 2022-11-03 16:57 | disposition home or self-care (01) ==
PROVIDERS: Physician Assistant; Emergency Provider Student in an Organized Health Care Education/Training Program; PCP Internal Medicine
DX: N13.2 Hydronephrosis with renal and ureteral calculous obstruction (principal); E11.9 Type 2 diabetes mellitus without complications; E78.5 Hyperlipidemia, unspecified; I10 Essential (primary) hypertension; Z79.02 Long term (current) use of antithrombotics/antiplatelets; Z79.899 Other long term (current) drug therapy
CPT/HCPCS: 36415; 74176; 80048; 80076; 81001; 83605; 83735; 85025; 87040; 96361; 96374; 96375; 99284; J0696; J1100

== ENCOUNTER 2022-11-06 22:27 | Emergency (ER) | payer OTHER, SELFPAY ==
[2022-11-06 22:52] VITALS: BP 143/71; PULSE 102; RESP 18; TEMP 36.6; O2SAT 98; BMI 35.4
[2022-11-06 23:30] LABS: MANUAL DIFF FLAG NO
[2022-11-06 23:31] LABS: Basophils Absolute Auto 0.1 X10*3/uL (0.0-0.2); Basophils Percent Auto 0.6 % (0-2); Eosinophils Absolute Auto 0.1 X10*3/uL (0.0-0.4); Eosinophils Percent Auto 1.1 % (0-4); Hematocrit 35.4 % (37.0-47.0); Hemoglobin 12.4 g/dl (12.0-16.0); Imm Gran Abs Auto 0.02 X10*3/uL (0.00-0.03); Imm Gran Pct Auto 0.2 % (0.0-0.4); Lymphocytes Absolute Auto 2.4 X10*3/uL (1.2-4.9); Lymphocytes Percent Auto 29.7 % (20-40); Mean Corpuscular Hemoglobin 30.8 pg (27.0-33.0); Mean Corpuscular Volume 88.1 fL (80.0-98.0); Monocytes Absolute Auto 0.7 X10*3/uL (0.1-1.2); Monocytes Percent Auto 8.7 % (2-11); Neutrophils Absolute Auto 4.9 x10*3/uL (2.0-8.3); Neutrophils Percent Auto 59.7 % (45-73); Platelet Count 226 X10*3/uL (160-400); Red Blood Count 4.02 X10*6/uL (4.20-5.50); Red Cell Distribution Width 11.9 % (11.0-16.0); White Blood Count 8.2 X10*3/uL (4.8-10.8)
--- NOTE | 2022-11-06 23:39 | ED.GENADULT ---
HPI - General Adult General Chief complaint: General Medical Stated complaint: kidney stone pain Time Seen by Provider: 11/06/22 23:39 Source: patient Mode of arrival: ambulatory Limitations: no limitations History of Present Illness HPI narrative: Patient with history of kidney stone was seen here 4 days ago with right flank pain CT scan showed 5 mm UVJ stone with mild to moderate hydronephrosis patient is on Flomax comes back as pain is still going on being worse now with nausea no fever no chills no hematuria Related Data Home Medications Medication Instructions Recorded Confirmed oxybutynin chloride 5 mg 5 mg PO QAM 10/20/21 06/09/22 tablet,extended release 24 hr adalimumab 40 mg/0.8 mL mg subcut Q2W 01/06/22 06/09/22 subcutaneous pen kit Previous Rx's Medication Instructions Recorded ibuprofen 600 mg tablet 600 mg PO Q8H PRN menstrual cramps 01/06/22 #30 tabs metformin 500 mg tablet 500 mg PO BIDWMEAL 3 months #180 01/06/22 tabs omeprazole 20 mg capsule,delayed 20 mg PO DAILY #90 caps 04/05/22 release rosuvastatin 5 mg tablet 5 mg PO Q2D 90 days #45 tabs 04/26/22 fluticasone propionate 50 1 spray intranasal Q12H #16 grams 06/09/22 mcg/actuation nasal spray,suspension lisinopril 5 mg tablet 5 mg PO DAILY #90 tabs 06/09/22 levocetirizine 5 mg tablet 5 mg PO QPM PRN allergy symptoms 07/05/22 #30 tabs cefuroxime axetil 250 mg tablet 250 mg PO BID 5 days #10 tabs 07/13/22 fluconazole 150 mg tablet 150 mg PO DAILY #1 tab 07/13/22 (Diflucan) nystatin-triamcinolone 100,000 1 appl topical DAILY 7 days #30 10/04/22 unit/g-0.1 % topical cream grams cefuroxime axetil 250 mg tablet 250 mg PO BID 7 days #14 tabs 11/03/22 ibuprofen 600 mg tablet 600 mg PO Q8H PRN pain #20 tabs 11/03/22 ondansetron 4 mg disintegrating 4 mg PO TID PRN nausea and 11/03/22 tablet vomiting #6 tabs tamsulosin 0.4 mg capsule (Flomax) 0.4 mg PO BEDTIME #30 caps 11/03/22 ondansetron 4 mg disintegrating 4 mg PO Q6-8H PRN nausea and 11/07/22 tablet vomiting #7 tabs oxycodone 5 mg tablet 5 mg PO Q6H PRN pain #20 tabs 11/07/22 Allergies Allergy/AdvReac Type Severity Reaction Status Date / Time No Known Allergies Allergy Verified 11/07/22 00:27 Review of Systems Review of Systems: Yes all other systems are reviewed and are negative [facility] Past Medical History Medical History Dyslipidemia Dysmenorrhea Essential hypertension GERD (gastroesophageal reflux disease) Heartburn Heavy menstrual bleeding Iron deficiency anemia Medial meniscus tear Migraine Osteoarthritis, knee Psoriasis Type 2 diabetes mellitus without complication, without long-term current use of insulin Varicose vein of leg Surgical History H/O arthroscopy of right knee History of bilateral tubal ligation History of endometrial ablation History of varicose veins Status post abdominal hysterectomy Family History Family History Father DVT (deep venous thrombosis) HTN (hypertension) Dyslipidemia Diabetes mellitus Mother Multiple myeloma COVID-19 Brother Lymphoma Social History Social History Housing: House Alcohol intake: current Alcohol intake frequency: a few times a month Patient Tobacco Use Status: Never used Tobacco e-Cigarette/Vaping Use: Never Used Second Hand Smoke Exposure: No Advance Directives: No service: No Current occupational status: employed 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 Oriented X3. In mild distress. Eyes: No pallor/ icterus ENT: Pharynx normal. Oral Mucosa moist Neck: Normal inspection. Neck supple. CVS: Normal heart rate and rhythm. Pulses normal. Respiratory: No respiratory distress. Equal air entry bilateral, no wheezing/rales/rhonchi Abdomen: Soft and nontender. Bowel sounds are present, no mass palpable,r CVA tenderness Skin: Skin warm and dry. Normal skin color. Normal skin turgor. Extremities: No lower extremity edema. No calf tenderness Neuro: Oriented X 3. No motor deficit. Medications Administered Discontinued Medications Generic Name Dose Route Start Last Admin Trade Name Freq PRN Reason Stop Dose Admin Sodium Chloride 1,000 mls @ 999 mls/hr 11/06/22 23:46 11/07/22 00:17 Ns IV 11/07/22 00:46 999 mls/hr .Q1H1M ONE Administration Ketorolac Tromethamine 30 mg 11/06/22 23:46 11/07/22 00:28 Ketorolac Tromethamine 30 Mg/Ml Vial IVPUSH 11/06/22 23:47 Not Given ONCE ONE Morphine Sulfate 4 mg 11/06/22 23:46 11/07/22 00:16 Morphine Sulfate 4 Mg/Ml Cartridge IVPUSH 11/06/22 23:47 4 mg ONCE ONE Administration Protocol Ondansetron HCl 4 mg 11/06/22 23:46 11/07/22 00:15 Ondansetron Hcl 4 Mg/2 Ml Vial IVPUSH 11/06/22 23:47 4 mg ONCE ONE Administration Medical Decision Making Medical Decision Making [facility] Narrative: Patient feeling much better now pain is almost gone discharge patient on oxycodone and advised to continue Flomax see urologist if pain recurs Lab Data [facility] Lab Attestation statement: I reviewed the patient's lab results. 11/06/22 23:20 11/06/22 23:20 Labs: Lab Results 11/06/22 11/06/22 11/07/22 Range/Units 23:20 23:20 01:13 WBC 8.2 (4.8-10.8) X10*3/uL RBC 4.02 L (4.20-5.50) X10*6/uL Hgb 12.4 (12.0-16.0) g/dl Hct 35.4 L (37.0-47.0) % MCV 88.1 (80.0-98.0) fL MCH 30.8 (27.0-33.0) pg MCHC 35.0 (31.0-35.0) g/dl RDW 11.9 (11.0-16.0) % Plt Count 226 (160-400) X10*3/uL MPV 10.0 (9.4-12.3) fL Immature Gran % (Auto) 0.2 (0.0-0.4) % Neut % (Auto) 59.7 (45-73) % Lymph % (Auto) 29.7 (20-40) % [place] % (Auto) 8.7 (2-11) % Eos % (Auto) 1.1 (0-4) % Baso % (Auto) 0.6 (0-2) % Lymph # (Auto) 2.4 (1.2-4.9) X10*3/uL [place] # (Auto) 0.7 (0.1-1.2) X10*3/uL Eos # (Auto) 0.1 (0.0-0.4) X10*3/uL Baso # (Auto) 0.1 (0.0-0.2) X10*3/uL Abs Immat Gran (auto) 0.02 (0.00-0.03) X10*3/uL Absolute Neuts (auto) 4.9 (2.0-8.3) x10*3/uL Absolute Nucleated RBC 0.000 (0.0-0.012) X10*3/uL Nucleated RBC % (auto) 0.0 (0.0-0.2) /100WBC Sodium 138 (135-145) mmol/L Potassium 3.8 (3.3-5.1) mmol/L Chloride 102 (96-108) mmol/L Carbon Dioxide 25 (22-29) mmol/L Anion Gap 15 (12-20) BUN 16 (9-16) mg/dL Creatinine 0.88 (0.5-1.4) mg/dL Estim Creat Clear Calc 82.6 Estimated GFR > 60 Random Glucose 149 H (60-115) mg/dL Calcium 9.2 (8.4-10.2) mg/dL Total Bilirubin 1.2 H (0.0-1.0) mg/dL AST 18 (5-31) U/L ALT 16 (0-31) U/L Alkaline Phosphatase 69 (39-117) U/L Total Protein 7.0 (6.5-8.0) g/dL Albumin 4.1 (3.5-5.0) g/dL Urine Color Yellow Urine Appearance Clear Urine pH 5.5 (5.0-9.0) Ur Specific [place] 1.010 (1.005-1.025) Urine Protein Negative (Neg-Trace) mg/dL Urine Glucose (UA) 100 H (Negative) mg/dL Urine Ketones Negative (Negative) mg/dL Urine Blood Moderate (2+) H (Negative) Urine Nitrite Negative (Negative) Ur Leukocyte Esterase Trace H (Negative) Urine RBC 6-10 H (0-2) /HPF Urine WBC 0-5 (0-5) /HPF Ur Squamous Epith Cells 3-5 (0-2) /HPF Urine Bacteria None Seen (None Seen) Hyaline Casts 0-2 (0-2) /LPF Discharge Plan Discharge Clinical Impression: Kidney stone on right side Patient Disposition: Home, Self-Care Instructions: Kidney Stones (ED) Additional Instructions: Drink plenty of fluids Continue to Take Flomax daily in the evening till stone passes Pain medication as prescribed Follow with urologist if pain continues Prescriptions: New oxycodone 5 mg tablet 5 mg PO Q6H PRN (Reason: pain) Qty: 20 0RF Rx Instructions: Partial Fill upon patient request. ondansetron 4 mg tablet,disintegrating 4 mg PO Q6-8H PRN (Reason: nausea and vomiting) Qty: 7 0RF No Action omeprazole 20 mg capsule,delayed release(DR/EC) 20 mg PO DAILY Qty: 90 1RF rosuvastatin 5 mg tablet 5 mg PO Q2D 90 Days Qty: 45 1RF levocetirizine 5 mg tablet 5 mg PO QPM PRN (Reason: allergy symptoms) Qty: 30 0RF tamsulosin [Flomax] 0.4 mg capsule 0.4 mg PO BEDTIME Qty: 30 0RF ibuprofen 600 mg tablet 600 mg PO Q8H PRN (Reason: pain) Qty: 20 0RF cefuroxime axetil 250 mg tablet 250 mg PO BID 7 Days Qty: 14 0RF ondansetron 4 mg tablet,disintegrating 4 mg PO TID PRN (Reason: nausea and vomiting) Qty: 6 0RF adalimumab 40 mg/0.8 mL pen injector kit subcut Q2W Rx Instructions: Humira oxybutynin chloride 5 mg tablet extended release 24hr 5 mg PO QAM fluticasone propionate 50 mcg/actuation spray,suspension 1 spray intranasal Q12H Qty: 16 0RF Rx Instructions: administer into each nostril lisinopril 5 mg tablet 5 mg PO DAILY Qty: 90 1RF metformin 500 mg tablet 500 mg PO BIDWMEAL 90 Days Qty: 180 3RF ibuprofen 600 mg tablet 600 mg PO Q8H PRN (Reason: menstrual cramps) Qty: 30 0RF fluconazole [Diflucan] 150 mg tablet 150 mg PO DAILY Qty: 1 0RF cefuroxime axetil 250 mg tablet 250 mg PO BID 5 Days Qty: 10 0RF nystatin-triamcinolone 100,000-0.1 unit/g-% cream 1 appl topical DAILY 7 Days Qty: 30 0RF Referrals: Junior Lama MD [Physician] - 2 days
[2022-11-06 23:46] LABS: Alanine Aminotransferase 16 U/L (0-31); Albumin Level 4.1 g/dL (3.5-5.0); Alkaline Phosphatase 69 U/L (39-117); Anion Gap 15 (12-20); Aspartate Amino Transferase 18 U/L (5-31); Bilirubin Total 1.2 mg/dL (0.0-1.0); Blood Urea Nitrogen 16 mg/dL (9-16); Calcium 9.2 mg/dL (8.4-10.2); Carbon Dioxide 25 mmol/L (22-29); Chloride 102 mmol/L (96-108); Creatinine Clr Calc Pharmacy 82.6; Estimated Glomerular Filt Rate > 60; Glucose Random 149 mg/dL (60-115); Potassium 3.8 mmol/L (3.3-5.1); Sodium 138 mmol/L (135-145)
[2022-11-07] MEDS: ondansetron HCL 4 MG/2 ML VIAL IVPUSH (00:15)
[2022-11-07 00:16] VITALS: RESP 16
[2022-11-07] MEDS: Morphine Sulfate 4 MG/ML CARTRIDGE IVPUSH (00:16)
[2022-11-07] MEDS: 0.9 % Sodium Chloride 1,000 ML 999 ML IV (00:17)
[2022-11-07 01:16] VITALS: BP 139/73; PULSE 93; RESP 16; TEMP 36.6; O2SAT 95
[2022-11-07 01:21] LABS: Appearance Urine Clear; Color Urine Yellow; Glucose Urine UA 100 mg/dL (Negative); Leukocyte Esterase Urine Trace (Negative); Nitrite Urine Negative (Negative); PH 5.5 (5.0-9.0); UMIC TRIGGER UACC YES; Urine Blood Moderate (2+) (Negative); Urine Ketones Negative (Negative); Urine Protein Negative (Neg-Trace)
[2022-11-07 01:26] LABS: Bacteria Urine None Seen (None Seen); Hyaline Casts Urine 0-2 /LPF (0-2); WBC Urine 0-5 /HPF (0-5)
== END 2022-11-07 02:06 | disposition home or self-care (01) ==
PROVIDERS: Emergency Provider Internal Medicine; PCP Internal Medicine
DX: N20.0 Calculus of kidney (principal); N13.30 Unspecified hydronephrosis; Z79.899 Other long term (current) drug therapy
CPT/HCPCS: 36415; 80053; 81001; 85025; 96361; 96374; 96375; 99283; 99284; J2270; J2405

== ENCOUNTER 2022-11-17 13:18 | Outpatient (REF) | payer OTHER, SELFPAY | END 2022-11-17 13:19 | disposition home or self-care (01) | LOC: HO.LNP 13:18 | PROVIDERS: PCP Internal Medicine; Visit Provider Nurse Practitioner Family | DX: R31.29 Other microscopic hematuria (principal); N20.0 Calculus of kidney; R30.0 Dysuria | CPT/HCPCS: 87086; 99202 ==

== ENCOUNTER 2022-12-21 15:10 | Outpatient (REF) | payer OTHER, SELFPAY ==
--- NOTE | ~2022-12-21 | US_ITS ---
EXAMINATION: US RETROPERITONEAL LIMITED (RENAL ONLY) CLINICAL INFORMATION: Calculus of kidney. COMPARISON: CT abdomen and pelvis without contrast 11/03/2022. X-ray abdomen KUB 02/10/2021. TECHNIQUE: Real-time imaging of the kidneys. FINDINGS: RIGHT KIDNEY: 12.6 x 5.1 x 6.3 cm (SAG x AP x TRV). The kidney is normal in size, contour, and echogenicity. Renal cortical thickness is normal. No renal calculi or hydronephrosis. There is anechoic cyst lower pole measuring 1.2 x 1.5 x 1.1 cm LEFT KIDNEY: 12.4 x 5.6 x 5.1 cm (SAG x AP x TRV). The kidney is normal in size, contour, and echogenicity. Renal cortical thickness is normal. No calculi or focal parenchymal lesions. No hydronephrosis. US/US renal BI IMPRESSION: Anechoic cyst lower pole right kidney. The left kidney is unremarkable.
== END 2022-12-21 15:11 | disposition home or self-care (01) ==
LOC: HO.US 15:10
PROVIDERS: Visit Provider Nurse Practitioner Family
DX: N20.0 Calculus of kidney (principal)
CPT/HCPCS: 76775

== ENCOUNTER 2022-12-28 15:36 | Outpatient (REF) | payer OTHER, SELFPAY ==
--- NOTE | ~2022-12-28 | MM_ITS ---
EXAMINATION: MM SCREENING DIGITAL BREAST TOMOSYNTHESIS, BILATERAL CLINICAL INFORMATION: Screening. Asymptomatic. The lifetime risk of breast cancer based on the Tyrer-Cuzick Model is 15.4%. COMPARISON: Mammography: October 26, 2021 and studies dating back to February 03, 2016 TECHNIQUE: Digital breast tomosynthesis is performed in both the craniocaudal and mediolateral oblique views along with computer-aided detection (CAD). Synthesized 2D images are generated from the tomosynthesis. FINDINGS: The breasts are extremely dense, which lowers the sensitivity of mammography (ACR BI-RADS breast composition Category d). There are no new significant masses, abnormal calcifications, or other abnormalities. MM/MM tomosynthesis screening BI IMPRESSION: No significant changes from prior exam. ASSESSMENT: BI-RADS 1: Negative RECOMMENDATION: Routine annual mammography screening. This patient's information was entered into a reminder system with a target due date for their next mammogram.
== END 2022-12-28 15:37 | disposition home or self-care (01) ==
LOC: HO.MAMMO 15:36
PROVIDERS: PCP Internal Medicine; Visit Provider Internal Medicine
DX: Z12.31 Encounter for screening mammogram for malignant neoplasm of breast (principal)
CPT/HCPCS: 77063; 77067

== ENCOUNTER 2023-01-14 08:17 | Outpatient (REF) | payer OTHER, SELFPAY ==
[2023-01-14 11:46] LABS: Estimated Average Glucose 143 mg/dL; Hemoglobin A1c % 6.6 %
[2023-01-14 11:49] LABS: Alanine Aminotransferase 26 U/L (0-31); Anion Gap 13 (12-20); Aspartate Amino Transferase 18 U/L (5-31); Blood Urea Nitrogen 19 mg/dL (9-16); Calcium 9.6 mg/dL (8.4-10.2); Carbon Dioxide 26 mmol/L (22-29); Chloride 105 mmol/L (96-108); Cholesterol 166 mg/dL; Estimated Glomerular Filt Rate > 60; Glucose Fasting 149 mg/dL (60-99); HDL Cholesterol 46 mg/dL; LDL Cholesterol Calculated 90 mg/dl; Potassium 4.1 mmol/L (3.3-5.1); Sodium 140 mmol/L (135-145); Triglycerides 150 mg/dL
[2023-01-14 12:00] LABS: Microalbum/Creatinine Ratio Ur 18.2 ug/mg cr
== END 2023-01-14 08:18 | disposition home or self-care (01) ==
LOC: HO.HMGCLDS 08:17
PROVIDERS: PCP Internal Medicine; Visit Provider Internal Medicine
DX: I10 Essential (primary) hypertension (principal); E78.5 Hyperlipidemia, unspecified; E11.9 Type 2 diabetes mellitus without complications
CPT/HCPCS: 36415; 80048; 80061; 82043; 83036; 84450; 84460

== ENCOUNTER 2023-03-22 13:19 | Outpatient (AMB) | payer OTHER, SELFPAY ==
--- NOTE | 2023-03-22 13:50 | MHC.PC.OV ---
Vital Signs 03/22/23 13:51 Height 5 ft 3 in Weight 202 lb BMI 35.8 BP 144/97 H Blood Pressure Location Rt brachial Position Sitting Pulse 92 Pulse Source Pulse Oximeter Pulse Oximetry (%) 97 Oxygen Delivery Method Room Air Intake Visit Reasons: Dizziness/Nausea Intake Note: Pt is here today c/o dizziness and nausea started this morning Allergies No Known Allergies Allergy (Verified 03/22/23 13:50) Tobacco use date assessed: 03/22/23 Dental Screening Dental Screen Date: 03/22/23 Did you have a dental visit in the last 12 months?: Yes Did you have a dental problem in the last 6 months where you did not have access to dental care?: No Was dental information given to patient?: Patient has dentist HPI Dizziness/Nausea HPI Details 48-year-old lady here today complaining of sudden onset of dizziness when she woke up this morning. Patient states that she was getting out of bed when she the spinning sensation hit her accompanied by a headache. She had to rest for a while on the bed until is subsided. She has been experiencing these episodes now on and off for the last several weeks. Denies any accompanying chest pain, no headache, no shortness of breath or nausea reported. Recent labs showed diabetes mellitus is well controlled, but blood pressure today is high. She states that she recently had some dental work done, and she was told that her blood pressure shot up to around 1 60/1 80s systolic during the surgery. [facility] Medical History (Updated 03/23/23 @ 00:06 by Jen Ambrocio MD) Dyslipidemia Dysmenorrhea Essential hypertension GERD (gastroesophageal reflux disease) Heartburn Heavy menstrual bleeding Intermittent lightheadedness Iron deficiency anemia Medial meniscus tear Migraine Osteoarthritis, knee Psoriasis Type 2 diabetes mellitus without complication, without long-term current use of insulin Varicose vein of leg Surgical History H/O arthroscopy of right knee History of bilateral tubal ligation History of endometrial ablation History of varicose veins Status post abdominal hysterectomy Family History Father DVT (deep venous thrombosis) HTN (hypertension) Dyslipidemia Diabetes mellitus Mother Multiple myeloma COVID-19 Brother Lymphoma Social History Housing: House Alcohol intake: current Alcohol intake frequency: a few times a month Patient Tobacco Use Status: Never used Tobacco e-Cigarette/Vaping Use: Never Used Second Hand Smoke Exposure: No service: No Current occupational status: employed 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 How often do you have a drink containing alcohol?: Never Total Score: 0 MARY-7 AMB Questionnaire MARY-7 Date MARY - 7 assessed: 11/11/22 Source: Developed by Drs. Sid Real, Martha Oviedo, Arnoldo Escobedo and colleagues, with an educational yamini from [employer]. Review of Systems Const Reports no additional complaints, Denies chills, Denies fever(s), Denies frequent falls, Denies headache(s) and Denies malaise Eyes Reports no additional complaints ENT Denies headache(s) Card Denies chest pain, Denies chest pain with activity, Denies syncope, Denies irregular heart rhythm and Denies palpitations Resp Reports no additional complaints GI Denies abdominal pain, Denies dyspepsia, Denies heartburn and Denies nausea Reports no additional complaints Neuro Denies syncope, Denies frequent falls and Denies headache(s) Endo Denies palpitations Physical exam (Primary Care) Vital Signs: Last Vital Signs Pulse 92 03/22/23 13:51 BP 144/97 H 03/22/23 13:51 Pulse Ox 97 03/22/23 13:51 Oxygen Delivery Method Room Air 03/22/23 13:51 BMI result Body Mass Index 35.8 Tobacco/Smoking Status: Tobacco use Status Tobacco use date assessed 03/22/23 03/22/23 13:55 Patient Tobacco Use Status Never used Tobacco 03/22/23 13:55 e-Cigarette/Vaping Use Never Used 03/22/23 13:55 Thrive Assessment: Date of Thrive Assessment Date Thrive assessed 11/11/22 03/22/23 13:55 Const Other: Alert oriented x3, no acute cardiorespiratory distress noted ambulatory with normal gait [facility] Head: Yes normocephalic and Yes atraumatic Ears: external ears normal, TM's normal bilaterally and EAC's normal General nose exam: Normal external nose present Face and sinus: Yes face symmetric Mouth: Normal oral and palatal mucosa present, tongue normal, oropharynx normal and moist mucous membranes Eyes General: appearance normal, both eyes and all related structures Pupils: Equal, round and reactive pupils present EOM: EOMs intact bilaterally Neck Neck: Yes full ROM, Yes no lymphadenopathy and Yes supple Resp Auscultation: clear to auscultation bilaterally Cardio Other: S1-S2 present regular rate and rhythm, no murmurs GI Other: Normal bowel sounds, soft, nontender with no mass palpated Neuro Cranial nerves: Yes CN's II-XII intact bilaterally, Yes Equal, round and reactive pupils present, Yes Bilaterally intact EOM present and Yes Nystagmus not present Results Reviewed Results Reviewed: PEC : [id number] MICA: 01/14/23 STATUS: COMP REQ : [id number] RECD: 01/14/[address]: Jen Ambrocio MD COMP: 01/14/23114 ENTERED: 01/14/[address]: ORDERED: Met Prof Fast, AST, ALT, Lipid Panel Test Result Flag Reference Site Sodium 140 135-145 mmol/L Potassium 4.1 3.3-5.1 mmol/L CL 105 96-108 mmol/L CO2 26 22-29 mmol/L Gap 13 12-20 BUN 19 H 9-16 mg/dL Creat 0.75 0.5-1.4 mg/dL EGFR > 60 NOTE: For -Italian individuals, multiply the result by 1.210. Chronic Kidney Disease: Estimated GFR < 60 mL/min/1.73m2 Severe Kidney Disease: Estimated GFR < 15 mL/min/1.73m2 FBS 149 H 60-99 mg/dL A fasting glucose of 126 mg/dl or greater on more than one occasion is considered diagnostic of diabetes. CA 9.6 8.4-10.2 mg/dL AST (GOT) 18 5-31 U/L ALT (GPT) 26 0-31 U/L Triglyceride 150 mg/dL Desirable Triglyceride: less than 150 mg/dL Borderline High Triglyceride 150-199 mg/dL High Triglyceride: 200-499 mg/dL Very High Triglyceride: greater than or equal to 5OO mg/dL Chol 166 mg/dL Desirable Cholesterol: less than 200 mg/dL Borderline High Cholesterol: 200-239 mg/dL High Cholesterol: greater than 239 mg/dL LDL Calculated 90 mg/dl Desirable LDL: less than 100 mg/dL Near Optimal/Above Optimal LDL: 110-129 mg/dL Borderline High LDL: 130-159 mg/dL High LDL: 160-189 mg/dL Very High LDL: greater than or equal to 190 mg/dL HDL 46 mg/dL Desirable HDL: greater than 40 mg/dL Note: This HDL assay may give artificially low results in patients with liver disease. Laboratory Tests 11/06/22 01/14/23 23:20 08:32 WBC 8.2 Hgb 12.4 Hct 35.4 L Plt Count 226 Estimat Average Glucose 143 Hemoglobin A1c % 6.6 Assessment and Plan Assessment & Plan (1) Type 2 diabetes mellitus without complication, without long-term current use of insulin: Code(s): E11.9 - Type 2 diabetes mellitus without complications Plan: Recent lab results reviewed with patient, with sugar and hemoglobin A1c stable and at goal. continue with metformin 500 at bedtime, continue to check fasting blood sugar at home, maintain log and bring to next appointment for review. Reinforced diabetic diet and regular exercise with patient. Counseled regarding importance of yearly diabetes retinopathy screening. Patient advised to inspect feet daily, for any signs of injury, callus or infection. Compliance with diet and regular exercise again stressed. Blood pressure goal is less than 130/80, goal LDL is less than 100 and goal hemoglobin A1c is less than 7% follow-up appointment made in---months, after fasting labs done. (2) Essential hypertension: Code(s): I10 - Essential (primary) hypertension Plan: Increased lisinopril dosing to 10 mg daily, refill sent. Blood pressure goal is less than 130/80. Reinforced importance of following a low sodium diet, getting regular exercise, and lowering stress levels. (3) Dyslipidemia: Code(s): E78.5 - Hyperlipidemia, unspecified Plan: Reviewed recent fasting lipid profile with patient with levels within normal limits . Continue with adherence to low-cholesterol diet and regular exercise, at least 30 minutes 3 to 4 times a week. Advised patient to make healthy food choices, eat more fruits, vegetables, whole grains, wild caught fish and low-fat dairy. Limit amount of meat and fried or fatty food products, as well as processed foods and fast foods. Return to clinic for follow-up next month (4) Intermittent lightheadedness: Code(s): R42 - Dizziness and giddiness Plan: Advised to drink plenty of fluids, dose of lisinopril increased to 10 mg daily in a.m., continued on metformin Medications: New meclizine 12.5 mg PO .qd PRN 20 tabs 0RF dizziness Changed From lisinopril 5 mg PO DAILY 90 tabs 1RF I10 - Essential (primary) hypertension To lisinopril 10 mg (2 x 5 mg) PO DAILY 90 tabs 1RF I10 - Essential (primary) hypertension Refilled omeprazole 20 mg PO DAILY 90 caps 1RF R12 - Heartburn Coding Level of Care Code Est Pt Level 4 (50613) Diagnoses Type 2 diabetes mellitus without complication, without long-term current use of insulin E11.9 Essential hypertension I10 Dyslipidemia E78.5 Intermittent lightheadedness R42
[2023-03-22 13:51] VITALS: BP 144/97; PULSE 92; O2SAT 97; BMI 35.8
== END 2023-03-22 15:05 | disposition home or self-care (01) ==
PROVIDERS: PCP Internal Medicine; Visit Provider Internal Medicine
DX: E11.9 Type 2 diabetes mellitus without complications (principal); I10 Essential (primary) hypertension; E78.5 Hyperlipidemia, unspecified; R42 Dizziness and giddiness
CPT/HCPCS: 99214

== ENCOUNTER 2023-03-28 08:59 | Outpatient (REF) | payer OTHER, SELFPAY ==
[2023-03-28 11:31] LABS: Estimated Average Glucose 148 mg/dL; Hemoglobin A1c % 6.8 %
[2023-03-28 12:04] LABS: Alanine Aminotransferase 25 U/L (0-31); Anion Gap 11 (12-20); Aspartate Amino Transferase 23 U/L (5-31); Blood Urea Nitrogen 13 mg/dL (9-16); Calcium 9.6 mg/dL (8.4-10.2); Carbon Dioxide 29 mmol/L (22-29); Chloride 105 mmol/L (96-108); Cholesterol 139 mg/dL; Estimated Glomerular Filt Rate > 60; Glucose Fasting 140 mg/dL (60-99); HDL Cholesterol 44 mg/dL; LDL Cholesterol Calculated 58 mg/dl; Potassium 4.2 mmol/L (3.3-5.1); Sodium 141 mmol/L (135-145); Triglycerides 186 mg/dL
[2023-03-28 12:29] LABS: Microalbum/Creatinine Ratio Ur 10.8 ug/mg cr
== END 2023-03-28 09:00 | disposition home or self-care (01) ==
LOC: HO.HMGCLDS 08:59
PROVIDERS: PCP Internal Medicine; Visit Provider Internal Medicine
DX: E11.9 Type 2 diabetes mellitus without complications (principal); E78.5 Hyperlipidemia, unspecified; I10 Essential (primary) hypertension
CPT/HCPCS: 36415; 80048; 80061; 82043; 83036; 84450; 84460

== ENCOUNTER 2023-04-06 15:11 | Outpatient (AMB) | payer OTHER, SELFPAY ==
[2023-04-06 15:57] VITALS: BP 136/78; PULSE 76; O2SAT 98
--- NOTE | 2023-04-06 15:57 | A.OFFPC_ITS ---
Vital Signs 04/06/23 15:57 Height 5 ft 3 in BP 136/78 Blood Pressure Location Lt brachial Position Sitting Pulse 76 Pulse Source Pulse Oximeter Pulse Oximetry (%) 98 Intake Visit Reasons: f/u DM and lipids Intake Note: pt is here for f/u labs Allergies No Known Allergies Allergy (Verified 04/06/23 16:26) Medication List - Last Reconciled 04/06/23 by Jen Ambrocio MD adalimumab Humira ibuprofen 600 mg PO Q8H PRN levocetirizine 5 mg PO QPM PRN lisinopril 10 mg (2 x 5 mg) PO DAILY meclizine 12.5 mg PO .qd PRN metformin 500 mg PO BIDWMEAL 3 months omeprazole 20 mg PO DAILY Tobacco use date assessed: 03/22/23 Dental Screening Dental Screen Date: 04/06/23 Did you have a dental visit in the last 12 months?: Yes Did you have a dental problem in the last 6 months where you did not have access to dental care?: No Was dental information given to patient?: Patient has dentist HPI f/u DM and lipids HPI Details 48-year-old lady with diabetes mellitus type 2, has dyslipidemia hypertension, here today for follow-up. She has been feeling well, with no complaints at present time. Blood sugar well controlled and stable with present treatment, with hemoglobin A1c at 6.8%. Her fasting lipids are also within normal limits and blood pressure stable and controlled on present treatment. [facility] Medical History Intermittent lightheadedness Type 2 diabetes mellitus without complication, without long-term current use of insulin Dyslipidemia Essential hypertension Iron deficiency anemia Heartburn Dysmenorrhea Heavy menstrual bleeding Medial meniscus tear GERD (gastroesophageal reflux disease) Varicose vein of leg Osteoarthritis, knee Psoriasis Migraine Surgical History Status post abdominal hysterectomy History of endometrial ablation History of bilateral tubal ligation H/O arthroscopy of right knee History of varicose veins Family History Father DVT (deep venous thrombosis) HTN (hypertension) Dyslipidemia Diabetes mellitus Mother Multiple myeloma COVID-19 Brother Lymphoma Social History Housing: House Alcohol intake: current Alcohol intake frequency: a few times a month Patient Tobacco Use Status: Never used Tobacco e-Cigarette/Vaping Use: Never Used Second Hand Smoke Exposure: No service: No Current occupational status: employed 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 Sid Real, Martha Oviedo, Arnoldo Escobedo and colleagues, with an educational yamini from [employer]. Review of Systems Const Reports no additional complaints, Denies chills, Denies fever(s), Denies frequent falls, Denies headache(s) and Denies malaise Eyes Details: Negative retinopathy screening done at [facility] 01/16/2023 Reports no additional complaints ENT Denies headache(s) Card Denies chest pain, Denies chest pain with activity, Denies syncope, Denies irregular heart rhythm and Denies palpitations Resp Reports no additional complaints GI Denies abdominal pain, Denies dyspepsia, Denies heartburn and Denies nausea Reports no additional complaints Musc Denies myalgias, Denies arthralgias, Denies joint swelling, Denies limited range of motion, Denies muscle weakness and Denies stiffness Skin/Breast Denies rash Neuro Denies syncope, Denies frequent falls and Denies headache(s) Psych Reports no additional complaints Endo Denies palpitations Eusebio/Lymph Reports no additional complaints Aller/Immun Reports no additional complaints Physical exam (Primary Care) Vital Signs: Last Vital Signs Pulse 76 04/06/23 15:57 BP 136/78 04/06/23 15:57 Pulse Ox 98 04/06/23 15:57 Tobacco/Smoking Status: Tobacco use Status Tobacco use date assessed 03/22/23 04/06/23 15:57 Patient Tobacco Use Status Never used Tobacco 04/06/23 15:57 e-Cigarette/Vaping Use Never Used 04/06/23 15:57 Thrive Assessment: Date of Thrive Assessment Date Thrive assessed 11/11/22 04/06/23 15:57 Const Other: Alert oriented x3, no acute cardiorespiratory distress noted ambulatory with normal gait HENSC Head: Yes normocephalic and Yes atraumatic Ears: external ears normal, TM's normal bilaterally and EAC's normal General nose exam: Normal external nose present Face and sinus: Yes face symmetric Mouth: Normal oral and palatal mucosa present, oropharynx normal and moist mucous membranes Eyes General: appearance normal, both eyes and all related structures Pupils: Equal, round and reactive pupils present EOM: EOMs intact bilaterally Neck Neck: Yes full ROM, Yes no lymphadenopathy and Yes supple Resp Auscultation: clear to auscultation bilaterally Cardio Other: S1-S2 present regular rate and rhythm, no murmurs GI Other: Normal bowel sounds, soft, nontender with no mass palpated Skin General skin exam: no rashes or lesions noted Neuro Cranial nerves: Yes CN's II-XII intact bilaterally, Yes Equal, round and reactive pupils present, Yes Bilaterally intact EOM present and Yes Nystagmus not present Extrem General: Yes full ROM, Yes no joint enlargement, Yes no clubbing, cyanosis or edema, Yes no calf tenderness and Yes normal gait Results Reviewed Results Reviewed: RUN: 04/06/23 7374 PAGE 1 [facility] [address] [place] [id number] M1 Armor Crewman: Theron Krishnan M.D. Specimen Inquiry Name: Nereyda Edge Age/Sex: 48/F : 1975 Unit#: [id number] Attend Dr: Jen Ambrocio MD Re03/28/23 Status: DEP REF Location: [facility] Disch: SPEC : [id number] MICA: 03/28/23 STATUS: COMP REQ : [id number] RECD: 03/28/23-[address]: Jen Ambrocio MD COMP: 03/28/231204 ENTERED: 03/28/[address] [facility] [address]: ORDERED: Met Prof Fast, AST, ALT, Lipid Panel Test Result Flag Reference Site Sodium 141 135-145 mmol/L Potassium 4.2 3.3-5.1 mmol/L CL 105 96-108 mmol/L CO2 29 22-29 mmol/L Gap 11 L 12-20 BUN 13 9-16 mg/dL Creat 0.78 0.5-1.4 mg/dL EGFR > 60 NOTE: For -[place] individuals, multiply the result by 1.210. Chronic Kidney Disease: Estimated GFR < 60 mL/min/1.73m2 Severe Kidney Disease: Estimated GFR < 15 mL/min/1.73m2 FBS 140 H 60-99 mg/dL A fasting glucose of 126 mg/dl or greater on more than one occasion is considered diagnostic of diabetes. CA 9.6 8.4-10.2 mg/dL AST (GOT) 23 5-31 U/L ALT (GPT) 25 0-31 U/L Triglyceride 186 mg/dL Desirable Triglyceride: less than 150 mg/dL Borderline High Triglyceride 150-199 mg/dL High Triglyceride: 200-499 mg/dL Very High Triglyceride: greater than or equal to 5OO mg/dL Chol 139 mg/dL Desirable Cholesterol: less than 200 mg/dL Borderline High Cholesterol: 200-239 mg/dL High Cholesterol: greater than 239 mg/dL LDL Calculated 58 mg/dl Desirable LDL: less than 100 mg/dL Near Optimal/Above Optimal LDL: 110-129 mg/dL Borderline High LDL: 130-159 mg/dL High LDL: 160-189 mg/dL Very High LDL: greater than or equal to 190 mg/dL HDL 44 mg/dL Desirable HDL: greater than 40 mg/dL Note: This HDL assay may give artificially low results in patients with liver disease. RECD: 03/28/23-[address]: Jen Ambrocio MD COMP: 03/28/231229 ENTERED: 03/28/[address] [facility] [address]: ORDERED: MICARU Test Result Flag Reference Site Creat, Ur 379.22 mg/dL Microalbumin Ur 41.0 mg/L Alb/Creat Ratio 10.8 ug/mg cr Albumin/Creatinine Ratio Reference Ranges: Normal: < 30 ug/mg creatinine Microalbuminuria: 30 - 300 ug/mg creatinine Clinical Albuminuria: > 300 ug/mg creatinine Laboratory Tests 03/28/23 09:16 Estimat Average Glucose 148 Hemoglobin A1c % 6.8 Assessment and Plan Assessment & Plan (1) Type 2 diabetes mellitus without complication, without long-term current use of insulin: Code(s): E11.9 - Type 2 diabetes mellitus without complications Plan: Recent lab results reviewed with patient, with sugar and hemoglobin A1c stable and at goal . continue to check fasting blood sugar at home, maintain log and bring to next appointment for review. Reinforced diabetic diet and regular exercise with patient. She is up-to-date with her yearly diabetes retinopathy screening. Patient advised to inspect feet daily, for any signs of injury, callus or infection. Compliance with diet and regular exercise again stressed. Blood pressure goal is less than 130/80, goal LDL is less than 100 and goal hemoglobin A1c is less than 7% follow-up appointment made in---months, after fasting labs done. (2) Dyslipidemia: Code(s): E78.5 - Hyperlipidemia, unspecified Plan: Reviewed recent fasting lipid profile with patient with levels within normal limits except for mildly elevated triglycerides. . Continue with , in addition to adherence to low-cholesterol diet and regular exercise, at least 30 minutes 3 to 4 times a week. Advised patient to make healthy food choices, eat more fruits, vegetables, whole grains, wild caught fish and low-fat dairy. Limit amount of meat and fried or fatty food products, as well as processed foods and fast foods. Follow-up scheduled with repeat fasting lipid panel in 7 months. (3) Essential hypertension: Code(s): I10 - Essential (primary) hypertension Plan: Blood pressure at goal of less than 130/80. Continue with current medication. Reinforced importance of following a low sodium diet, getting regular exercise, and lowering stress levels. Coding Level of Care Code Est Pt Level 4 (40484) Diagnoses Type 2 diabetes mellitus without complication, without long-term current use of insulin E11.9 Dyslipidemia E78.5 Essential hypertension I10
== END 2023-04-06 17:01 | disposition home or self-care (01) ==
PROVIDERS: PCP Internal Medicine; Visit Provider Internal Medicine
DX: E11.9 Type 2 diabetes mellitus without complications (principal); E78.5 Hyperlipidemia, unspecified; I10 Essential (primary) hypertension
CPT/HCPCS: 99214

== ENCOUNTER 2023-07-13 08:01 | Outpatient (AMB) | payer OTHER, SELFPAY ==
[2023-07-13 08:08] VITALS: BP 152/90; PULSE 103; TEMP 36.7; O2SAT 98
--- NOTE | 2023-07-13 08:08 | MHC.OFFWIV ---
Intake Vital Signs 07/13/23 08:08 Height 5 ft 3 in BP 152/90 H Blood Pressure Location Rt brachial Position Sitting Pulse 103 H Pulse Source Pulse Oximeter Temp 98.0 F Temp Source Temporal Artery Scan Pulse Oximetry (%) 98 Oxygen Delivery Method Room Air Intake Visit Reasons: EP, body aches, headache ([phone]) Intake Note: pt is here for c.o body aches, headache, at home covid test postive Patient Tobacco Use Status: Never used Tobacco Allergies No Known Allergies Allergy (Verified 07/13/23 08:09) Do you need a note to return to daycare/school/sports/work: Yes HPI HPI Comments History of Present Illness Details This is a 48-year-old female with a past medical history of [id number] diabetes, hyperlipidemia, hypertension and gastroesophageal reflux disease presenting for evaluation after testing positive for COVID-19 at home last night. Patient reports a 1 day history of headache, fever and body aches. Patient denies having any shortness of breath, chest pain, nausea, vomiting, diarrhea, abdominal pain or back pain. Patient is requesting a return to work note for Monday07.17.2023. [facility] Medical History Intermittent lightheadedness Type 2 diabetes mellitus without complication, without long-term current use of insulin Dyslipidemia Essential hypertension Iron deficiency anemia Heartburn Dysmenorrhea Heavy menstrual bleeding Medial meniscus tear GERD (gastroesophageal reflux disease) Varicose vein of leg Osteoarthritis, knee Psoriasis Migraine Surgical History Status post abdominal hysterectomy History of endometrial ablation History of bilateral tubal ligation H/O arthroscopy of right knee History of varicose veins Family History Father DVT (deep venous thrombosis) HTN (hypertension) Dyslipidemia Diabetes mellitus Mother Multiple myeloma COVID-19 Brother Lymphoma Social History Housing: House Alcohol intake: current Alcohol intake frequency: a few times a month Patient Tobacco Use Status: Never used Tobacco e-Cigarette/Vaping Use: Never Used Second Hand Smoke Exposure: No service: No Current occupational status: employed 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 Current occupational exposures/hazards: No Sexual orientation: Straight/Heterosexual Cognitive needs: No Hearing needs: No Vision needs: No Female Reproductive History Menstrual Age of Menarche: 6 Date of menopause: 08/25/20 Review of Systems Const All systems reviewed & are unremarkable except as noted in HPI and below Reports body aches, Denies chills, Reports fatigue, Reports fever(s), Denies night sweats and Reports weakness Eyes Reports as per HPI ENT Reports no additional complaints Card Reports as per HPI Resp Reports as per HPI GI Reports as per HPI Skin/Breast Reports system reviewed and no additional complaints, except as documented Neuro Reports no additional complaints and Reports weakness Endo Reports fatigue Physical Exam Vital Signs: Patient is afebrile and is not hypoxic. Const General: cooperative, comfortable and no acute distress Nutritional Appearance: average body habitus Orientation/consciousness: patient oriented x3 Limitations: no limitations HEENT Head: Yes normal to inspection Ears: hearing grossly normal bilaterally, external ears normal, TM's normal bilaterally and EAC's normal General nose exam: Normal external nose present Face and sinus: Yes normal facial exam Mouth: Normal oral and palatal mucosa present and oropharynx normal Teeth and gingiva: dentition normal Throat: Yes posterior oropharynx normal Eyes General: appearance normal, both eyes and all related structures Conjunctivae: conjunctivae normal Sclerae: sclerae normal Pupils: Equal, round and reactive pupils present EOM: EOMs intact bilaterally Resp Effort & Inspection: normal respiratory effort and able to speak in complete sentences Auscultation: clear to auscultation bilaterally Cardio Rate: regular rate Rhythm: regular rhythm Neuro General: patient oriented x3 Cranial nerves: Yes Equal, round and reactive pupils present Psych Appearance: grossly normal Mental Status: mental status grossly normal Insight: Good insight present (Psych) Judgement: Good judgement present (Psych) Assessment & Plan Assessment & Plan (1) COVID-19: Code(s): U07.1 - COVID-19 Plan Tylenol or ibuprofen as needed for fevers and myalgias, increased fluids daily and follow-up with primary care within 7-10 days if symptoms have not improved. Coding Level of Care Code Est Pt Level 3 (10081) Diagnoses COVID-19 U07.1 Time Spent (min) 20
== END 2023-07-13 08:31 | disposition home or self-care (01) ==
PROVIDERS: PCP Internal Medicine; Visit Provider Physician Assistant
DX: U07.1 COVID-19 (principal)
CPT/HCPCS: 99213

== ENCOUNTER 2023-07-31 08:45 | Outpatient (AMB) | payer OTHER, SELFPAY ==
[2023-07-31 08:53] VITALS: BP 162/84; PULSE 110; TEMP 36.7; O2SAT 96; BMI 36.2
--- NOTE | 2023-07-31 08:53 | AM.OFFWIN_ITS ---
Intake Vital Signs 07/31/23 08:53 Height 5 ft 3 in Weight 92.646 kg BMI 36.2 BP 162/84 H Blood Pressure Location Rt brachial Position Sitting Pulse 110 H Pulse Source Pulse Oximeter Temp 98.0 F Temp Source Oral Pulse Oximetry (%) 96 Oxygen Delivery Method Room Air Intake Visit Reasons: EP, cough, congestion ([phone]) Intake Note: pt is here for c.o cough,congestion, chest congestion Patient Tobacco Use Status: Never used Tobacco Allergies No Known Allergies Allergy (Verified 07/31/23 08:53) Do you need a note to return to daycare/school/sports/work: Yes HPI HPI Comments History of Present Illness Details 48-year-old who presents with fatigue, m alaise, myalgias, cough, subjective fevers, headache and chills that 4-5 days ago.? Was sick with covid a few weeks ago. Family members RSV + ? Denies chest pain, shortness of breath, nausea, vomiting, abdominal pain, headache vision change, dizziness, weakness, changes in bowel or urinary habits Physical exam benign History and physical exam concerning for viral illness versus bronchitis versus flu versus COVID versus RSV.? Unlikely pneumonia, ACS, dissection, pulmonary embolism, acute respiratory distress, intracranial hemorrhage, stroke, posterior stroke, meningitis, encephalitis Plan at this time viral testing will discharge patient home with supportive measures.? Educated patient on diagnosis and treatment plan, answered all question, patient verbalizes understanding.? At this time patient will be discharged home, advised to return with new or worsening symptoms.? Educated on worrisome signs and symptoms and when to return.? At this time I feel comfortable discharge home. [facility] Medical History Intermittent lightheadedness Type 2 diabetes mellitus without complication, without long-term current use of insulin Dyslipidemia Essential hypertension Iron deficiency anemia Heartburn Dysmenorrhea Heavy menstrual bleeding Medial meniscus tear GERD (gastroesophageal reflux disease) Varicose vein of leg Osteoarthritis, knee Psoriasis Migraine Surgical History Status post abdominal hysterectomy History of endometrial ablation History of bilateral tubal ligation H/O arthroscopy of right knee History of varicose veins Family History Father DVT (deep venous thrombosis) HTN (hypertension) Dyslipidemia Diabetes mellitus Mother Multiple myeloma COVID-19 Brother Lymphoma Social History Housing: House Alcohol intake: current Alcohol intake frequency: a few times a month Patient Tobacco Use Status: Never used Tobacco e-Cigarette/Vaping Use: Never Used Second Hand Smoke Exposure: No service: No Current occupational status: employed 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 Current occupational exposures/hazards: No Sexual orientation: Straight/Heterosexual Cognitive needs: No Hearing needs: No Vision needs: No Female Reproductive History Menstrual Age of Menarche: 6 Date of menopause: 08/25/20 Review of Systems Const All systems reviewed & are unremarkable except as noted in HPI and below Physical Exam Vital Signs: Last Vital Signs Temp 98.0 F 07/31/23 08:53 Pulse 110 H 07/31/23 08:53 BP 162/84 H 07/31/23 08:53 Pulse Ox 96 07/31/23 08:53 Oxygen Delivery Method Room Air 07/31/23 08:53 BMI result Body Mass Index 36.2 Slightly tachycardic likely secondary to viral illness Appearance: Alert.? Oriented X3.? No acute distress.?Patient sounds very congested Head: Normocephalic, atraumatic, no step-offs or deformities Eyes: Pupils equal, round and reactive to light.? ENT: Pharynx normal.? Neck: Normal inspection.? Neck supple.? CVS: Normal heart rate and rhythm.? Pulses normal.? Respiratory: No respiratory distress.? Breath sounds normal.? Abdomen: Soft and nontender.? Skin: Skin warm and dry.? Normal skin color.? Normal skin turgor.? Extremities: No lower extremity edema.? No calf ttp. 5/5 strength to bilateral upper and lower extremities Neuro: Oriented X 3.? No motor deficit.? No sensory deficit. CN 2-12 intact Assessment & Plan Assessment & Plan (1) Viral illness: Code(s): B34.9 - Viral infection, unspecified Plan Take your medications as prescribed. If you were prescribed antibiotics today, it is important that you take your medication to their entirety, do not skip any doses, do not finish them early. Follow-up with your primary care provider this week. Return to the emergency department with new or worsening symptoms. Such as fevers, chills, chest pain, shortness of breath, nausea, vomiting, dizziness, headache, vision changes, lethargy In case of emergency call 911 Orders: Orders SARS-CoV2/FLU/RSV Today B34.9 - Viral infection, unspecified Medications: New albuterol sulfate 90 mcg/actuation 2 puffs inhalation Q6H PRN 6.7 grams 0RF shortness of breath or wheezing ibuprofen 600 mg PO Q6H PRN 30 tabs 0RF pain prednisone 20 mg PO DAILY 5 tabs 0RF 5 days benzonatate 100 mg PO BID PRN 14 caps 0RF cough Coding Level of Care Code Est Pt Level 3 (35363) Diagnoses Viral illness B34.9
== END 2023-07-31 09:20 | disposition home or self-care (01) ==
PROVIDERS: PCP Internal Medicine; Visit Provider Physician Assistant
DX: B34.9 Viral infection, unspecified (principal)
CPT/HCPCS: 99213

== ENCOUNTER 2023-07-31 11:33 | Outpatient (REF) | payer OTHER, SELFPAY ==
[2023-07-31 12:48] LABS: Influenza A PCR NEGATIVE (Negative); Influenza B PCR NEGATIVE (Negative); Resp Syncy Virus RNA Qual PCR NEGATIVE (Negative); SARS COV2 PCR INHOUSE NEGATIVE (Negative)
== END 2023-07-31 11:34 | disposition home or self-care (01) ==
LOC: HO.LNP 11:33
PROVIDERS: Visit Provider Physician Assistant
DX: B34.9 Viral infection, unspecified (principal); Z11.52 Encounter for screening for COVID-19
CPT/HCPCS: 0241U

== ENCOUNTER 2023-08-03 12:02 | Outpatient (AMB) | payer OTHER, SELFPAY ==
[2023-08-03 12:02] VITALS: BP 140/100; PULSE 92; TEMP 36.2; O2SAT 92; BMI 36.5
--- NOTE | 2023-08-03 12:02 | MHC.OFFWIV ---
Intake Vital Signs 08/03/23 12:02 Height 5 ft 3 in Weight 206 lb 2 oz BMI 36.5 BP 140/100 H Blood Pressure Location Lt brachial Position Sitting Pulse 92 Pulse Source Pulse Oximeter Temp 97.2 F Temp Source Temporal Artery Scan Pulse Oximetry (%) 92 Oxygen Delivery Method Room Air Intake Visit Reasons: EST/head/ear pressure([phone]) Intake Note: pt is here today for head ear pressure started 1 week ago Patient Tobacco Use Status: Never used Tobacco Allergies No Known Allergies Allergy (Verified 08/03/23 12:14) Do you need a note to return to daycare/school/sports/work: No HPI HPI Comments History of Present Illness Details The patient presents urgent care for evaluation of ongoing cough and cold symptoms. She states that she was seen in urgent care on Monday and prescribed Tessalon Perles and albuterol. She reports that she still has the ongoing cough which is keeping her up at night. She is using the medications prescribed. Patient has an underlying history of hypertension diabetes and is currently on compliant with her medication. She denies fever chills chest pain or shortness of breath [facility] Medical History Intermittent lightheadedness Type 2 diabetes mellitus without complication, without long-term current use of insulin Dyslipidemia Essential hypertension Iron deficiency anemia Heartburn Dysmenorrhea Heavy menstrual bleeding Medial meniscus tear GERD (gastroesophageal reflux disease) Varicose vein of leg Osteoarthritis, knee Psoriasis Migraine Surgical History Status post abdominal hysterectomy History of endometrial ablation History of bilateral tubal ligation H/O arthroscopy of right knee History of varicose veins Family History Father DVT (deep venous thrombosis) HTN (hypertension) Dyslipidemia Diabetes mellitus Mother Multiple myeloma COVID-19 Brother Lymphoma Social History Housing: House Alcohol intake: current Alcohol intake frequency: a few times a month Patient Tobacco Use Status: Never used Tobacco e-Cigarette/Vaping Use: Never Used Second Hand Smoke Exposure: No service: No Current occupational status: employed 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 Current occupational exposures/hazards: No Sexual orientation: Straight/Heterosexual Cognitive needs: No Hearing needs: No Vision needs: No Female Reproductive History Menstrual Age of Menarche: 6 Date of menopause: 08/25/20 Review of Systems Const Reports headache(s) ENT Denies dizziness, Reports headache(s) and Reports nasal congestion Card Denies rapid heart rate, Denies dyspnea and Denies dyspnea on exertion Resp Denies dyspnea and Denies dyspnea on exertion GI Denies dyspepsia and Denies heartburn Musc Denies arthralgias and Denies muscle cramps Neuro Denies dizziness, Reports headache(s), Denies focal weakness and Denies Other visual disturbances Physical Exam Vital Signs: Last Vital Signs Temp 97.2 F 08/03/23 12:02 Pulse 92 08/03/23 12:02 BP 140/100 H 08/03/23 12:02 Pulse Ox 92 08/03/23 12:02 Oxygen Delivery Method Room Air 08/03/23 12:02 BMI result Body Mass Index 36.5 Const General: healthy appearing and no acute distress HEENT Mouth: Normal oral and palatal mucosa present Resp Effort & Inspection: normal respiratory effort and able to speak in complete sentences Auscultation: clear to auscultation bilaterally Cardio Rate: regular rate Rhythm: regular rhythm Assessment & Plan Assessment & Plan (1) URI (upper respiratory infection): Code(s): J06.9 - Acute upper respiratory infection, unspecified Plan A/P - URI Discussed etiology of URI and lack of role of antibiotics in treating viral illnesses. Discussed typical course of illness and supportive measures. Fluids, rest, motrin or tylenol prn fevers/myalgias. Discussed reasons to return including SOB, LOZANO, not improving after 1-2 weeks, worsening of symptoms. No evidence of bacterial infection such as suppurative otitis media, strep throat, bacterial sinusitis, or pneumonia. work note given Medications: New codeine-guaifenesin 10-100 mg/5 mL 5 mL PO Q6H PRN 120 mL 0RF allergy symptoms Coding Level of Care Code Est Pt Level 3 (81965) Diagnoses URI (upper respiratory infection) J06.9
== END 2023-08-03 12:44 | disposition home or self-care (01) ==
PROVIDERS: PCP Internal Medicine; Visit Provider Emergency Medicine
DX: J06.9 Acute upper respiratory infection, unspecified (principal)
CPT/HCPCS: 99213

== ENCOUNTER 2023-08-08 11:28 | Outpatient (AMB) | payer OTHER, SELFPAY ==
--- NOTE | 2023-08-08 11:30 | AM.OFFWIN_ITS ---
Intake Vital Signs 08/08/23 11:31 Height 5 ft 3 in Weight 206 lb BMI 36.5 BP 140/94 H Blood Pressure Location Rt brachial Position Sitting Pulse 78 Pulse Source Pulse Oximeter Temp 98.0 F Temp Source Oral Pulse Oximetry (%) 98 Oxygen Delivery Method Room Air Intake Visit Reasons: EP Ear/head pain seen last week Intake Note: pt is here for c.o ear and head pain, seen last week not feeling better Patient Tobacco Use Status: Never used Tobacco Allergies No Known Allergies Allergy (Verified 08/08/23 11:43) Medication List - Last Reconciled 08/08/23 by Willis Harris MD adalimumab Humira benzonatate 100 mg PO BID PRN ibuprofen 600 mg PO Q6H PRN levocetirizine 5 mg PO QPM PRN lisinopril 10 mg (2 x 5 mg) PO DAILY metformin 500 mg PO BIDWMEAL 3 months omeprazole 20 mg PO DAILY prednisone 20 mg PO DAILY 5 days rosuvastatin 5 mg PO Q2D 90 days Do you need a note to return to daycare/school/sports/work: Yes HPI EP Ear/head pain seen last week HPI Details Patient presents for a sick visit. Reporting symptoms of sinus congestion, sore throat and difficulty swallowing. Low-grade fever. No family member is sick. No recent travel. Patient reports symptoms of malaise and fatigue. Chest PFSH Medical History Intermittent lightheadedness Type 2 diabetes mellitus without complication, without long-term current use of insulin Dyslipidemia Essential hypertension Iron deficiency anemia Heartburn Dysmenorrhea Heavy menstrual bleeding Medial meniscus tear GERD (gastroesophageal reflux disease) Varicose vein of leg Osteoarthritis, knee Psoriasis Migraine Surgical History Status post abdominal hysterectomy History of endometrial ablation History of bilateral tubal ligation H/O arthroscopy of right knee History of varicose veins Family History Father DVT (deep venous thrombosis) HTN (hypertension) Dyslipidemia Diabetes mellitus Mother Multiple myeloma COVID-19 Brother Lymphoma Social History Housing: House Alcohol intake: current Alcohol intake frequency: a few times a month Patient Tobacco Use Status: Never used Tobacco e-Cigarette/Vaping Use: Never Used Second Hand Smoke Exposure: No service: No Current occupational status: employed 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 Current occupational exposures/hazards: No Sexual orientation: Straight/Heterosexual Cognitive needs: No Hearing needs: No Vision needs: No Female Reproductive History Menstrual Age of Menarche: 6 Date of menopause: 08/25/20 Physical Exam Vital Signs: Last Vital Signs Temp 98.0 F 08/08/23 11:31 Pulse 78 08/08/23 11:31 BP 140/94 H 08/08/23 11:31 Pulse Ox 98 08/08/23 11:31 Oxygen Delivery Method Room Air 08/08/23 11:31 BMI result Body Mass Index 36.5 Const General: cooperative and healthy appearing Nutritional Appearance: well nourished Orientation/consciousness: patient oriented x3 Limitations: no limitations HEENT Head: Yes normal to inspection Eyes General: appearance normal, both eyes and all related structures Neck Neck: Yes normal visual inspection Chest Chest palpation & inspection: normal palpation of entire chest wall Resp Effort & Inspection: normal respiratory effort Neuro General: patient oriented x3 Assessment & Plan Assessment & Plan (1) URI (upper respiratory infection): Code(s): J06.9 - Acute upper respiratory infection, unspecified Plan: Antibiotics ordered. Increase fluid intake. Tylenol for aches and pains. If symptoms worsen, follow-up here for a recheck. Coding Level of Care Code Est Pt Level 3 (31195) Diagnoses URI (upper respiratory infection) J06.9
[2023-08-08 11:31] VITALS: BP 140/94; PULSE 78; TEMP 36.7; O2SAT 98; BMI 36.5
== END 2023-08-08 12:08 | disposition home or self-care (01) ==
PROVIDERS: PCP Internal Medicine; Visit Provider Internal Medicine
DX: J06.9 Acute upper respiratory infection, unspecified (principal)
CPT/HCPCS: 99213

== ENCOUNTER 2023-08-11 08:55 | Outpatient (AMB) | payer OTHER, SELFPAY ==
[2023-08-11 09:38] VITALS: BP 140/94; PULSE 96; TEMP 36.6; O2SAT 97; BMI 36.5
--- NOTE | 2023-08-11 09:38 | MHC.OFFWIV ---
Intake Vital Signs 08/11/23 09:38 Height 5 ft 3 in Weight 206 lb BMI 36.5 BP 140/94 H Blood Pressure Location Rt brachial Position Sitting Pulse 96 Pulse Source Pulse Oximeter Temp 97.9 F Temp Source Oral Pulse Oximetry (%) 97 Oxygen Delivery Method Room Air Intake Visit Reasons: EP ear pain seen 08/03, 08/08 [id number] Intake Note: pt is here for ear pain has been here twice in the last week and this will be her 3rd time coming in office for ear pain. Patient Tobacco Use Status: Never used Tobacco Allergies No Known Allergies Allergy (Verified 08/11/23 09:39) Do you need a note to return to daycare/school/sports/work: Yes HPI HPI Comments History of Present Illness Details Staff interpretting for patient Patient presents to office with cold symptoms Ongoing x weeks Seen 07/13 and givn [address] nd albuterol Seen 08/03 and given codeine; takes prn Seen 08/08 and given antibiotic; one more day Not on meclizine; denies dizziness She comes in for L sided headache > 1 month + ST pain and also L ear blocked She said not getting better with antibiotic; azithromycin No fever or chills Pain in throat with swallowing + cough that is occasional, No SOB; using albuterol prn No HT or syncope She had covid 3 weeks ago and then she started with symptom No f/u with PCP [facility] Medical History Intermittent lightheadedness Type 2 diabetes mellitus without complication, without long-term current use of insulin Dyslipidemia Essential hypertension Iron deficiency anemia Heartburn Dysmenorrhea Heavy menstrual bleeding Medial meniscus tear GERD (gastroesophageal reflux disease) Varicose vein of leg Osteoarthritis, knee Psoriasis Migraine Surgical History Status post abdominal hysterectomy History of endometrial ablation History of bilateral tubal ligation H/O arthroscopy of right knee History of varicose veins Family History Father DVT (deep venous thrombosis) HTN (hypertension) Dyslipidemia Diabetes mellitus Mother Multiple myeloma COVID-19 Brother Lymphoma Social History Housing: House Alcohol intake: current Alcohol intake frequency: a few times a month Patient Tobacco Use Status: Never used Tobacco e-Cigarette/Vaping Use: Never Used Second Hand Smoke Exposure: No service: No Current occupational status: employed 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 Current occupational exposures/hazards: No Sexual orientation: Straight/Heterosexual Cognitive needs: No Hearing needs: No Vision needs: No Female Reproductive History Menstrual Age of Menarche: 6 Date of menopause: 08/25/20 Review of Systems Const Denies chills, Reports fatigue, Denies fever(s) and Reports headache(s) Eyes Denies blurry vision ENT Denies dizziness, Reports otalgia (L sided ear), Reports headache(s), Reports nasal congestion, Reports sinus pain, Reports sore throat, Denies throat swelling and Denies tongue swelling Card Denies chest pain, Denies rapid heart rate and Denies dyspnea Resp Denies chest congestion, Reports cough and Denies dyspnea GI Denies abdominal pain Skin/Breast Denies erythema Neuro Denies dizziness, Reports headache(s) and Denies focal weakness Endo Reports fatigue Aller/Immun Denies throat swelling and Denies tongue swelling Physical Exam Vital Signs: Last Vital Signs Temp 97.9 F 08/11/23 09:38 Pulse 96 08/11/23 09:38 BP 140/94 H 08/11/23 09:38 Pulse Ox 97 08/11/23 09:38 Oxygen Delivery Method Room Air 08/11/23 09:38 BMI result Body Mass Index 36.5 General: Non-toxic, NAD. Speaking full sentences. Skin: Warm dry throughout. No rashes to scalp or neck Eye: EOMI, PERRL HENT: Airway patent. Uvula midline. No pharyngeal erythema or edema. No TRIAGE LICENSED PRACTICAL NURSE. Bilateral canals clear. TM non-erythematous, non-bulging. No TM perforation or hemotympanum noted. Lymph: No symphadenopathy palpated Head: No masses or tenderness to palpation. Occipital region is painful on L but not on examination. Respiratory: CTA bilaterally. No wheezes, rales or rhonchi Cardiac: RRR. No murmur MSK: Full ROM extremities. Neurology: A/O. CN 2-12 grossly intact. No aphasia or facial droop. Gait without abnormality Psych: Good mood and affect Assessment & Plan Assessment & Plan (1) Headache: Code(s): R51.9 - Headache, unspecified Qualifiers: Headache type: tension-type Headache chronicity pattern: acute headache Intractability: intractable Qualified Code(s): G44.201 - Tension-type headache, unspecified, intractable Plan: Patient seen and evaluated. No neurological deficit on exam Lungs CTA On azithromycin for sinuses; exam without sinus pressure, OE or OM Discussed headache can be post covid symptom and she may require ENT follow up ANy worsening go to ED Patient gave verbal understanding and had no additional questions or concerns at time of discharge All questions answered (2) Upper respiratory tract infection: Code(s): J06.9 - Acute upper respiratory infection, unspecified Qualifiers: URI type: unspecified viral URI Qualified Code(s): J06.9 - Acute upper respiratory infection, unspecified Plan: see above Coding Level of Care Code Est Pt Level 3 (74254) Diagnoses Acute intractable tension-type headache G44.201 Headache type: tension-type Headache chronicity pattern: acute headache Intractability: intractable Viral upper respiratory tract infection J06.9 URI type: unspecified viral URI
== END 2023-08-11 10:08 | disposition home or self-care (01) ==
PROVIDERS: PCP Internal Medicine; Visit Provider Physician Assistant
DX: G44.201 Tension-type headache, unspecified, intractable (principal); J06.9 Acute upper respiratory infection, unspecified
CPT/HCPCS: 99213

== ENCOUNTER 2023-10-04 08:03 | Outpatient (REF) | payer OTHER, SELFPAY ==
[2023-10-04 12:07] LABS: Alanine Aminotransferase 44 U/L (0-31); Anion Gap 12 (12-20); Aspartate Amino Transferase 30 U/L (5-31); Blood Urea Nitrogen 14 mg/dL (9-16); Calcium 9.5 mg/dL (8.4-10.2); Carbon Dioxide 27 mmol/L (22-29); Chloride 104 mmol/L (96-108); Cholesterol 166 mg/dL (<200); Estimated Glomerular Filt Rate > 60; Glucose Fasting 220 mg/dL (60-99); HDL Cholesterol 45 mg/dL (>40); LDL Cholesterol Calculated 89 mg/dL (<100); Potassium 3.8 mmol/L (3.3-5.1); Sodium 139 mmol/L (135-145); Triglycerides 161 mg/dL (<150)
== END 2023-10-04 08:04 | disposition home or self-care (01) ==
LOC: HO.HMGCLDS 08:03
PROVIDERS: PCP Internal Medicine; Visit Provider Internal Medicine
DX: E11.9 Type 2 diabetes mellitus without complications (principal); I10 Essential (primary) hypertension; E78.5 Hyperlipidemia, unspecified
CPT/HCPCS: 36415; 80048; 80061; 84450; 84460

== ENCOUNTER 2023-11-11 09:11 | Outpatient (AMB) | payer OTHER, SELFPAY ==
--- NOTE | 2023-11-11 09:18 | MHC.OFFWIV ---
Intake Vital Signs 11/11/23 09:19 Height 5 ft 3 in BP 132/90 H Blood Pressure Location Lt brachial Position Sitting Pulse 95 Pulse Source Pulse Oximeter Pulse Oximetry (%) 96 Oxygen Delivery Method Room Air Intake Visit Reasons: Burning sensation when urinating Intake Note: pt has burning and frequency for the past 2 days and pt says the outside of her vagina is itchy as well she says she uses pantyliners and is unsure if this is what is causing this Patient Tobacco Use Status: Never used Tobacco Allergies No Known Allergies Allergy (Verified 11/11/23 09:29) HPI Burning sensation when urinating HPI Details Patient is a 48-year-old female comes to the walk-in clinic complaining of urinary frequency and painful urination for 2 days. She also has itching around the vaginal area also. She reports that she is perimenopausal, and has started to get hot flashes at night. She does report some low central back discomfort, which she had attributed to not sleeping well at night. She denies abdominal pain, pelvic pain, bleeding or vaginal discharge, flank pain, nausea vomiting or diarrhea, dizziness or weakness, myalgias or malaise, fever or chills, or other significant associated symptoms. She did attempt to get through to her strategic alliances manager to discuss these symptoms but has not heard back yet. She plans to call them back on Monday. [facility] Medical History Intermittent lightheadedness Type 2 diabetes mellitus without complication, without long-term current use of insulin Dyslipidemia Essential hypertension Iron deficiency anemia Heartburn Dysmenorrhea Heavy menstrual bleeding Medial meniscus tear GERD (gastroesophageal reflux disease) Varicose vein of leg Osteoarthritis, knee Psoriasis Migraine Surgical History Status post abdominal hysterectomy History of endometrial ablation History of bilateral tubal ligation H/O arthroscopy of right knee History of varicose veins Family History Father DVT (deep venous thrombosis) HTN (hypertension) Dyslipidemia Diabetes mellitus Mother Multiple myeloma COVID-19 Brother Lymphoma Social History Housing: House Alcohol intake: current Alcohol intake frequency: a few times a month Patient Tobacco Use Status: Never used Tobacco e-Cigarette/Vaping Use: Never Used Second Hand Smoke Exposure: No service: No Current occupational status: employed 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 [employer] Current occupational exposures/hazards: No Sexual orientation: Straight/Heterosexual Cognitive needs: No Hearing needs: No Vision needs: No Female Reproductive History Menstrual Age of Menarche: 6 Date of menopause: 08/25/20 Review of Systems Const All systems reviewed & are unremarkable except as noted in HPI and below Physical Exam Vital Signs: Last Vital Signs Pulse 95 11/11/23 09:19 BP 132/90 H 11/11/23 09:19 Pulse Ox 96 11/11/23 09:19 Oxygen Delivery Method Room Air 11/11/23 09:19 Const General: cooperative, healthy appearing, comfortable, no acute distress, alert, awake, Physically active and well groomed; No anxious, diaphoretic, ill appearing, intoxicated appearing, poor hygiene or tired appearing Nutritional Appearance: average body habitus Orientation/consciousness: patient oriented x3 Limitations: no limitations Resp Effort & Inspection: normal respiratory effort Cardio Rate: regular rate General: Yes bladder normal to palpation and Yes no CVA tenderness External Female Exam: erythema, No external swelling, No lesion and No urethral discharge Bimanual exam- vagina & uterus: bladder normal to palpation Back/Spine/Pelvis Back: no CVA tenderness Skin Other: Good color, warm and dry Neuro General: patient oriented x3 Psych Appearance: grossly normal Mental Status: mental status grossly normal Speech and movement: Normal speech and movement present Affect: normal affect Attitude: cooperative Thought process: Normal thought process present Insight: Good insight present (Psych) Judgement: Good judgement present (Psych) Results AMB Urinalysis, Automated UA Leukoctes 15 William/uL Last Edit by Yaz Mayfield CMA on 11/11/23 09:43 UA Nitrite Negative Last Edit by aYz Mayfield CMA on 11/11/23 09:43 UA Urobilinogen 0.2 mg/dL Last Edit by Yaz Mayfield CMA on 11/11/23 09:43 UA Protein 0 mg/dL Last Edit by Yaz Mayfield CMA on 11/11/23 09:43 UA pH 6.0 Last Edit by Yaz Mayfield CMA on 11/11/23 09:43 UA Blood 10 Samir/uL Last Edit by Yaz Mayfield CMA on 11/11/23 09:43 UA Specific [place] 1.015 Last Edit by Yaz Mayfield CMA on 11/11/23 09:43 UA Ketone Negative Last Edit by Yaz Mayfield CMA on 11/11/23 09:43 UA Bilirubin 0 mg/dL Last Edit by Yaz Mayfield CMA on 11/11/23 09:43 UA Glucose 0 mg/dL Last Edit by Yaz Mayfield CMA on 11/11/23 09:43 Assessment & Plan Assessment & Plan (1) Vaginitis: Code(s): N76.0 - Acute vaginitis Plan Patient with polyuria and dysuria, and indeterminate urinalysis results, with just a few leukocytes and trace blood. Will treat for UTI to be safe with Macrobid. However it is possible that she is feeling the discomfort due to dryness and burning to her labia, which might be hormone deficiency due to perimenopause verses a vaginal no cyanosis etiology. Pending results of BV panel. She plans to call her strategic alliances manager on Monday to schedule an appointment. In the meantime, she will continue with using an [id number] lubricant, getting adequate water intake and monitor symptoms. We also discussed not using any creams, soaps, or other products around the genital area that might be causing the symptoms. She understood this. Orders: Orders AMB Urinalysis Automated Today Z13.9 - Encounter for screening, unspecified Bacterial Vaginosis Panel Today B96.89 - Other specified bacterial agents as the cause of diseases classified elsewhere, N76.0 - Acute vaginitis Medications: New nitrofurantoin monohyd/m-cryst 100 mg (Macrobid) must administer with a meal/food 100 mg PO Q12H 5 days 10 caps 0RF R82.90 - Unspecified abnormal findings in urine Coding Level of Care Code Est Pt Level 4 (42933) Diagnoses Vaginitis N76.0
[2023-11-11 09:19] VITALS: BP 132/90; PULSE 95; O2SAT 96
== END 2023-11-11 10:57 | disposition home or self-care (01) ==
PROVIDERS: PCP Internal Medicine; Visit Provider Physician Assistant Medical
DX: N76.0 Acute vaginitis (principal)
CPT/HCPCS: 81003; 99051; 99214

== ENCOUNTER 2023-11-11 11:16 | Outpatient (REF) | payer OTHER, SELFPAY ==
[2023-11-12 08:43] LABS: BV Int Neg Control Negative (Negative); BV Int Pos Control Positive (Positive)
== END 2023-11-11 11:17 | disposition home or self-care (01) ==
LOC: HO.LNP 11:16
PROVIDERS: Visit Provider Physician Assistant Medical
DX: N76.0 Acute vaginitis (principal); B96.89 Other specified bacterial agents as the cause of diseases classified elsewhere
CPT/HCPCS: 87480; 87510; 87660

== ENCOUNTER 2024-01-03 14:59 | Outpatient (REF) | payer OTHER, SELFPAY ==
--- NOTE | ~2024-01-03 | MM_ITS ---
EXAMINATION: MM SCREENING DIGITAL BREAST TOMOSYNTHESIS, BILATERAL CLINICAL INFORMATION: Screening. Asymptomatic COMPARISON: Mammography: This study is compared with prior exams dating back to 2018. TECHNIQUE: Digital breast tomosynthesis is performed in both the craniocaudal and mediolateral oblique views along with computer-aided detection (CAD). Synthesized 2D images are generated from the tomosynthesis. FINDINGS: There are scattered areas of fibroglandular density (ACR BI-RADS breast composition Category b). There are no significant masses, abnormal calcifications, or other abnormalities. There is tissue marker in the left breast from prior benign percutaneous biopsy. MM/MM tomosynthesis screening BI IMPRESSION: No mammographic evidence of malignancy. ASSESSMENT: BI-RADS BI-RADS 1 - Negative RECOMMENDATION: Routine annual mammography screening. 1 year F/U This examination should not preclude the clinical evaluation of a suspicious palpable abnormality. This patient's information was entered into a reminder system with a target due date for their next mammogram.
== END 2024-01-03 15:00 | disposition home or self-care (01) ==
LOC: HO.MAMMO 14:59
PROVIDERS: PCP Internal Medicine; Visit Provider Internal Medicine
DX: Z12.31 Encounter for screening mammogram for malignant neoplasm of breast (principal)
CPT/HCPCS: 77063; 77067

== ENCOUNTER → 2024-01-03 15:30 | Outpatient (BNV) | payer OTHER, SELFPAY | PROVIDERS: PCP Internal Medicine; Visit Provider Radiology Diagnostic Radiology | DX: Z12.31 Encounter for screening mammogram for malignant neoplasm of breast (principal) | CPT/HCPCS: 77063; 77067 ==

== ENCOUNTER 2024-01-09 13:10 | Outpatient (AMB) | payer OTHER, SELFPAY ==
[2024-01-09 13:29] VITALS: BP 130/82; PULSE 88; O2SAT 97; BMI 36.3
--- NOTE | 2024-01-09 13:29 | A.OFFPC_ITS ---
Vital Signs 01/09/24 13:29 Height 5 ft 3 in Weight 205 lb BMI 36.3 BP 130/82 Blood Pressure Location Lt brachial Position Sitting Pulse 88 Pulse Source Pulse Oximeter Pulse Oximetry (%) 97 Oxygen Delivery Method Room Air Intake Visit Reasons: Annual PE/ OK per DR. Ambrocio ~ R/S 10/25 Intake Note: Pt is here today for her PE: Last mammogram 01/03/24, papsmear 09/02/20 Allergies No Known Allergies Allergy (Verified 01/09/24 13:53) Medication List - Last Reconciled 01/09/24 by Jen Ambrocio MD adalimumab (Humira(CF) Pen) mg subcut estradiol 1 mg PO DAILY ibuprofen 600 mg PO Q6H PRN levocetirizine 5 mg PO QPM PRN lisinopril 10 mg (2 x 5 mg) PO DAILY metformin 500 mg PO BIDWMEAL 3 months omeprazole 20 mg PO DAILY rosuvastatin 5 mg PO Q2D 90 days Tobacco use date assessed: 01/09/24 Dental Screening Dental Screen Date: 01/09/24 Did you have a dental visit in the last 12 months?: Yes Did you have a dental problem in the last 6 months where you did not have access to dental care?: No Was dental information given to patient?: Patient has dentist HPI Annual PE/ OK per DR. Ambrocio ~ R/S 10/25 HPI Details 48-year-old lady with history of psorias is, hypertension, seasonal allergies, diabetes mellitus and hyperlipidemia as well as chronic GERD, here today for physical exam. She is up-to-date with her screening mammogram, and now sees Dr. Merari Nichole for routine Pap and pelvic exam, she is also being followed by performance improvement coordinator in [place] for her psoriasis, currently stable and controlled on Humira. She has diabetes mellitus, recently diagnosed earlier this year, and place on metformin 500 mg taken 1 tablet twice a day. She has been seen by nurse navigator for diabetes education. Has been checking her blood sugar twice a day and in the morning it has been running from between 146-1 73 and in the 150s during the middle of the day and again fluctuating with her blood sugar readings at night . She is now due for her screening colonoscopy. FORMERLY [facility] Medical History Intermittent lightheadedness Type 2 diabetes mellitus without complication, without long-term current use of insulin Dyslipidemia Essential hypertension Iron deficiency anemia Heartburn Dysmenorrhea Heavy menstrual bleeding Medial meniscus tear GERD (gastroesophageal reflux disease) Varicose vein of leg Osteoarthritis, knee Psoriasis Migraine Surgical History Status post abdominal hysterectomy History of endometrial ablation History of bilateral tubal ligation H/O arthroscopy of right knee History of varicose veins Family History Father DVT (deep venous thrombosis) HTN (hypertension) Dyslipidemia Diabetes mellitus Mother Multiple myeloma COVID-19 Brother Lymphoma Social History Housing: House Alcohol intake: current Alcohol intake frequency: a few times a month Patient Tobacco Use Status: Never used Tobacco e-Cigarette/Vaping Use: Never Used Second Hand Smoke Exposure: No service: No Current occupational status: employed 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 1. Little interest or pleasure in doing things: not at all 2. Feeling down, depressed, or hopeless: not at all 3. Trouble falling or staying asleep, or sleeping too much: not at all 4. Feeling tired or having little energy: not at all 5. Poor appetite or overeating: not at all 6. Feeling bad about yourself - or that you are a failure or have let yourself or your family down: not at all 7. Trouble concentrating on things, such as reading the newspaper or watching television: not at all 8. Moving or speaking so slowly that other people could have noticed. Or the opposite - being so fidgety or restless that you have been moving around a lot more than usual: not at all 9. Thoughts that you would be better off or of hurting yourself in some way: not at all Total score: 0 Depression Screening Interpretation: Negative Depression Screening Done: Yes 99817 - PHQ-9 Billing: Yes Source: Developed by Drs. Sid Real, Martha Oviedo, Arnoldo Escobedo and colleagues, with an educational yamini from [employer]. Thrive Questionnaire Date Thrive assessed: 01/09/24 I am a: Patient What is your living situation today?: I have a steady place to live Within the past 12 months, did the food you bought not last and you didn't have the money to get more?: Never true Within the past 12 months, did you worry whether your food would run out before you got money to buy more?: Never true Do you have trouble paying for medicines?: No Do you have trouble getting transportation to medical appointments?: No Do you have trouble paying your heating and electricity bill?: No Do you have trouble taking care of your child, family member or friend?: No Do you have trouble with day-to-day activities such as bathing, preparing meals, shopping, managing finances, etc.?: No Are you currently unemployed and looking for a job?: No Are you interested in more education?: No THRIVE Score: 0 AUDIT C Alcohol Use Questionnaire (AUDIT-C) 1. How often do you have a drink containing alcohol?: Never Total Score: 0 MARY-7 AMB Questionnaire MARY-7 Date MARY - 7 assessed: 01/09/24 Feeling nervous, anxious, or on edge: 0 = Not at all Not being able to stop or control worryin = Not at all Worrying too much about different things: 0 = Not at all Trouble relaxin = Not at all Being so restless that it is hard to sit still: 0 = Not at all Feeling afraid as if something awful might happen: 0 = Not at all Source: Developed by Drs. Sid Real, Arnoldo Clemente and colleagues, with an educational yamini from [employer]. MARY-7 Assessment Billing MARY-7 Assessment Tool: MARY-7 Assessment 22103 Review of Systems Const Denies chills, Denies fever(s), Denies frequent falls and Denies malaise Eyes Details: Goes to [facility], has an appointment already scheduled for 01/2024 Reports no additional complaints ENT Reports no additional complaints Card Denies chest pain, Denies chest pain with activity, Denies syncope, Denies irregular heart rhythm and Denies palpitations Resp Reports no additional complaints GI Denies abdominal pain, Denies dyspepsia, Denies heartburn and Denies nausea Reports no additional complaints Musc Denies myalgias, Denies arthralgias, Denies joint swelling, Denies limited range of motion, Denies muscle weakness and Denies stiffness Skin/Breast Details: sees dermatology in [place] for her psoriasis currently on Humira Denies rash Neuro Denies syncope and Denies frequent falls Psych Reports no additional complaints Endo Denies palpitations Eusebio/Lymph Reports no additional complaints Aller/Immun Reports no additional complaints Physical exam (Primary Care) Vital Signs: Last Vital Signs Pulse 88 01/09/24 13:29 BP 130/82 01/09/24 13:29 Pulse Ox 97 01/09/24 13:29 Oxygen Delivery Method Room Air 01/09/24 13:29 BMI result Body Mass Index 36.3 Tobacco/Smoking Status: Tobacco use Status Tobacco use date assessed 01/09/24 01/09/24 13:37 Patient Tobacco Use Status Never used Tobacco 01/09/24 13:30 e-Cigarette/Vaping Use Never Used 01/09/24 13:30 PHQ-9: PHQ-9 Score PHQ-9: Total score 0 01/09/24 13:56 Depression Screening Interpretation: Negative Thrive Assessment: Date of Thrive Assessment Date Thrive assessed 01/09/24 01/09/24 13:37 Advance Care Planning discussion: Completed/Scanned Date of discussion: 01/09/24 Who was present: Patient Forms completed: Health Care Proxy Time spent: 16-45 minutes Actual minutes spent: 16 Const Other: Alert oriented x3, no acute cardiorespiratory distress noted ambulatory with normal gait HENMT Head: Yes normocephalic Ears: external ears normal, TM's normal bilaterally and EAC's normal General nose exam: Normal external nose present Face and sinus: Yes face symmetric Mouth: Normal oral and palatal mucosa present, oropharynx normal and moist mucous membranes Eyes General: appearance normal, both eyes and all related structures Pupils: Equal, round and reactive pupils present EOM: EOMs intact bilaterally Neck Neck: Yes full ROM, Yes no lymphadenopathy and Yes supple Chest Chest palpation & inspection: normal inspection of the chest Breast/axilla palpation: normal palpation of the breasts Resp Auscultation: clear to auscultation bilaterally Cardio Other: S1-S2 present regular rate and rhythm, no murmurs GI Other: Normal bowel sounds, soft, nontender with no mass palpated General: Yes no CVA tenderness and Yes deferred (Goes to [facility]) Back/Spine/Pelvis Back: no CVA tenderness and No back tenderness Skin General skin exam: no rashes or lesions noted Neuro Cranial nerves: Yes CN's II-XII intact bilaterally, Yes Equal, round and reactive pupils present, Yes Bilaterally intact EOM present and Yes Nystagmus not present Extrem General: Yes full ROM, Yes no joint enlargement, Yes no clubbing, cyanosis or edema, Yes no calf tenderness and Yes normal gait Psych Appearance: grossly normal and well kempt Mental Status: mental status grossly normal Speech and movement: Normal speech and movement present Affect: normal affect Attitude: cooperative Assessment and Plan Assessment & Plan (1) Annual visit for general adult medical examination with abnormal findings: Code(s): Z00.01 - Encounter for general adult medical examination with abnormal findings Plan: Will check appropriate labs. Recommended dental visit every 6 months and yearly eye exam for diabetes retinopathy screening and follow-up. Take adequate calcium in diet and vitamin-D 3 at 2000 IU per cap once a day, in addition to weight-bearing exercises to help maintain good muscle tone and weight control. Instructed to do self-breast exam, and continue with yearly mammogram,. Goes to [facility] for her routine Pap and pelvic exam. Up-to-date with all her vaccinations. Referred for her initial screening colonoscopy. (2) Psoriasis: Code(s): L40.9 - Psoriasis, unspecified Plan: Followed by dermatology , currently on Humira (3) GERD (gastroesophageal reflux disease): Code(s): K21.9 - Gastro-esophageal reflux disease without esophagitis Plan: Controlled on omeprazole (4) Essential hypertension: Code(s): I10 - Essential (primary) hypertension Plan: Blood pressure at goal of less than 130/80. Continue lisinopril 10 mg daily. Reinforced importance of following a low sodium diet, getting regular exercise, and lowering stress levels. (5) Dyslipidemia: Code(s): E78.5 - Hyperlipidemia, unspecified Plan: Fasting lipid panel ordered, currently on rosuvastatin 5 mg taken every other day (6) Type 2 diabetes mellitus without complication, without long-term current use of insulin: Code(s): E11.9 - Type 2 diabetes mellitus without complications Plan: Hemoglobin A1c and urine for microalbuminuria screening ordered. Currently on metformin 500 mg 1 tablet twice a day. Up-to-date with her diabetes eye exam, has another appointment for follow-up next month [facility] (7) Encounter for screening for malignant neoplasm of colon: Code(s): Z12.11 - Encounter for screening for malignant neoplasm of colon Plan: Referred to [facility] for her initial screening colonoscopy Orders: Orders Lipid Panel Today E11.9 - Type 2 diabetes mellitus without complications, E78.5 - Hyperlipidemia, unspecified, I10 - Essential (primary) hypertension, K21.9 - Gastro-esophageal reflux disease without esophagitis, L40.9 - Psoriasis, unspecified Microalbumin, Random (w Creat) Today E11.9 - Type 2 diabetes mellitus without complications, E78.5 - Hyperlipidemia, unspecified, I10 - Essential (primary) hypertension, K21.9 - Gastro-esophageal reflux disease without esophagitis, L40.9 - Psoriasis, unspecified Alanine Aminotransferase Today E11.9 - Type 2 diabetes mellitus without complications, E78.5 - Hyperlipidemia, unspecified, I10 - Essential (primary) hypertension, K21.9 - Gastro-esophageal reflux disease without esophagitis, L40.9 - Psoriasis, unspecified Aspartate Amino Transferase Today E11.9 - Type 2 diabetes mellitus without complications, E78.5 - Hyperlipidemia, unspecified, I10 - Essential (primary) hypertension, K21.9 - Gastro-esophageal reflux disease without esophagitis, L40.9 - Psoriasis, unspecified Hemoglobin A1c Today E11.9 - Type 2 diabetes mellitus without complications, E78.5 - Hyperlipidemia, unspecified, I10 - Essential (primary) hypertension, K21.9 - Gastro-esophageal reflux disease without esophagitis, L40.9 - Psoriasis, unspecified Basic Metabolic Panel Fasting Today E11.9 - Type 2 diabetes mellitus without complications, E78.5 - Hyperlipidemia, unspecified, I10 - Essential (primary) hypertension, K21.9 - Gastro-esophageal reflux disease without esophagitis, L40.9 - Psoriasis, unspecified Referrals Gastroenterology Referral Z12.11 - Encounter for screening for malignant neoplasm of colon Coding Level of Care Code Est Pt Prev Care 40-64y([id number]) Diagnoses Annual visit for general adult medical examination with abnormal findings Z00.01 Psoriasis L40.9 GERD (gastroesophageal reflux disease) K21.9 Essential hypertension I10 Dyslipidemia E78.5 Type 2 diabetes mellitus without complication, without long-term current use of insulin E11.9 Encounter for screening for malignant neoplasm of colon Z12.11 Additional Codes MARY-7 Assessment Billing - MARY-7 Assessment Tool: MARY-7 Assessment 28558 ([id number]) Vital Signs *Quality* - Advance Care Planning discussion: Completed/Scanned ([id number]) Vital Signs *Quality* - Time spent: 16-45 minutes ([id number])
== END 2024-01-09 14:15 | disposition home or self-care (01) ==
PROVIDERS: PCP Internal Medicine; Visit Provider Internal Medicine
DX: Z00.01 Encounter for general adult medical examination with abnormal findings (principal); L40.9 Psoriasis, unspecified; K21.9 Gastro-esophageal reflux disease without esophagitis; I10 Essential (primary) hypertension; E78.5 Hyperlipidemia, unspecified; E11.9 Type 2 diabetes mellitus without complications; Z12.11 Encounter for screening for malignant neoplasm of colon; Z00.00 Encounter for general adult medical examination without abnormal findings
CPT/HCPCS: 1123F; 99396; 99497

== ENCOUNTER 2024-01-12 06:24 | Outpatient (REF) | payer OTHER, SELFPAY ==
[2024-01-12 10:40] LABS: Estimated Average Glucose 171 mg/dL; Hemoglobin A1c % 7.6 % (<6.0)
[2024-01-12 10:45] LABS: Alanine Aminotransferase 37 U/L (0-31); Anion Gap 12 (12-20); Aspartate Amino Transferase 23 U/L (5-31); Blood Urea Nitrogen 16 mg/dL (9-16); Calcium 9.6 mg/dL (8.4-10.2); Carbon Dioxide 29 mmol/L (22-29); Chloride 104 mmol/L (96-108); Cholesterol 144 mg/dL (<200); Estimated Glomerular Filt Rate > 60; Glucose Fasting 144 mg/dL (60-99); HDL Cholesterol 44 mg/dL (>40); LDL Cholesterol Calculated 71 mg/dL (<100); Potassium 3.9 mmol/L (3.3-5.1); Sodium 141 mmol/L (135-145); Triglycerides 145 mg/dL (<150)
[2024-01-12 11:07] LABS: Vitamin D 25-OH Total 37.1 ng/mL (>30)
[2024-01-12 11:34] LABS: Creatinine Urine 258.78 mg/dL
== END 2024-01-12 06:25 | disposition home or self-care (01) ==
LOC: HO.HMGCLDS 06:24
PROVIDERS: PCP Internal Medicine; Visit Provider Internal Medicine
DX: E11.9 Type 2 diabetes mellitus without complications (principal); E78.5 Hyperlipidemia, unspecified; I10 Essential (primary) hypertension; K21.9 Gastro-esophageal reflux disease without esophagitis; L40.9 Psoriasis, unspecified
CPT/HCPCS: 36415; 80048; 80061; 82043; 82306; 82570; 83036; 84450; 84460

== ENCOUNTER 2024-05-13 06:45 | Outpatient (REF) | payer OTHER, SELFPAY ==
[2024-05-13 10:43] LABS: Anion Gap 11 (12-20); Aspartate Amino Transferase 29 U/L (5-31); Blood Urea Nitrogen 12 mg/dL (9-16); Calcium 9.7 mg/dL (8.4-10.2); Carbon Dioxide 27 mmol/L (22-29); Chloride 105 mmol/L (96-108); Estimated Glomerular Filt Rate > 60; Glucose Fasting 162 mg/dL (60-99); Potassium 3.6 mmol/L (3.3-5.1); Sodium 139 mmol/L (135-145)
[2024-05-13 10:54] LABS: Estimated Average Glucose 166 mg/dL; Hemoglobin A1c % 7.4 % (<6.0); Total Hemoglobin (HGBA1C) 3527.1362 umol/L
[2024-05-13 11:13] LABS: Microalbum/Creatinine Ratio Ur 17.1 ug/mg cr (<30)
== END 2024-05-13 06:46 | disposition home or self-care (01) ==
LOC: HO.HMGCLDS 06:45
PROVIDERS: PCP Internal Medicine; Visit Provider Internal Medicine
DX: J30.9 Allergic rhinitis, unspecified (principal); E11.9 Type 2 diabetes mellitus without complications; E78.5 Hyperlipidemia, unspecified; I10 Essential (primary) hypertension; K21.9 Gastro-esophageal reflux disease without esophagitis; L40.9 Psoriasis, unspecified
CPT/HCPCS: 36415; 80048; 82043; 82570; 83036; 84450; 99212

== ENCOUNTER 2024-05-13 08:07 | Outpatient (AMB) | payer OTHER, SELFPAY ==
[2024-05-13 08:30] VITALS: BP 140/80; PULSE 82; TEMP 36.7; O2SAT 97; BMI 36.0
--- NOTE | 2024-05-13 08:30 | MHC.OFFWIV ---
Intake Vital Signs 05/13/24 08:30 Height 5 ft 3 in Weight 203 lb BMI 36.0 BP 140/80 H Blood Pressure Location Rt brachial Position Sitting Pulse 82 Pulse Source Pulse Oximeter Temp 98.0 F Temp Source Oral Pulse Oximetry (%) 97 Intake Visit Reasons: EP-headaches, high blood sugar Intake Note: pt is here is here for c/o headache, high blood sugars over the weekend Patient Tobacco Use Status: Never used Tobacco Allergies No Known Allergies Allergy (Verified 05/13/24 08:37) Do you need a note to return to daycare/school/sports/work: No HPI EP-headaches, high blood sugar HPI Details This note is constructed using voice recognition software. While every effort has been made to ensure accuracy, paper bundler errors may have been included. The patient is a 49 year old female who presents to the clinic today with frontal headache. She notes that she has a history of diabetes, and when her blood sugar is higher she seems to get a headache. Seems to be happening worse in the morning or at bedtime, and seems to be frontal in nature. She denies any confusion, dizziness, lightheadedness. She reports that she did try her Flonase and that seemed to help the headache. She notes that her sugars are running approximately 160-180 when she is waking up in the morning. She has an appointment with her primary in June to go over these things and obtain labs this morning for monitoring of this condition. She notes that she is trying to drink more water, and reduce the carbohydrates that she is eating, and is compliant with her medication metformin which she is taking twice a day. FORMERLY [facility] Medical History Intermittent lightheadedness Type 2 diabetes mellitus without complication, without long-term current use of insulin Dyslipidemia Essential hypertension Iron deficiency anemia Heartburn Dysmenorrhea Heavy menstrual bleeding Medial meniscus tear GERD (gastroesophageal reflux disease) Varicose vein of leg Osteoarthritis, knee Psoriasis Migraine Surgical History Status post abdominal hysterectomy History of endometrial ablation History of bilateral tubal ligation H/O arthroscopy of right knee History of varicose veins Family History Father DVT (deep venous thrombosis) HTN (hypertension) Dyslipidemia Diabetes mellitus Mother Multiple myeloma COVID-19 Brother Lymphoma Social History Housing: House Alcohol intake: current Alcohol intake frequency: a few times a month Patient Tobacco Use Status: Never used Tobacco e-Cigarette/Vaping Use: Never Used Second Hand Smoke Exposure: No service: No Current occupational status: employed 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 Current occupational exposures/hazards: No Sexual orientation: Straight/Heterosexual Cognitive needs: No Hearing needs: No Vision needs: Yes Female Reproductive History Menstrual Age of Menarche: 6 Date of menopause: 08/25/20 Review of Systems Const All systems reviewed & are unremarkable except as noted in HPI and below Physical Exam Vital Signs: Last Vital Signs Temp 98.0 F 05/13/24 08:30 Pulse 82 05/13/24 08:30 BP 140/80 H 05/13/24 08:30 Pulse Ox 97 05/13/24 08:30 BMI result Body Mass Index 36.0 Const General: cooperative, healthy appearing, comfortable and no acute distress Orientation/consciousness: patient oriented x3 Limitations: no limitations HEENT Head: Yes normal to inspection Ears: hearing grossly normal bilaterally, external ears normal and TM abnormal retracted General nose exam: Normal external nose present, No nasal discharge present and Abnormal mucous membranes and turbinates present boggy and pale Face and sinus: Yes normal facial exam and Yes sinuses nontender Mouth: Normal oral and palatal mucosa present and moist mucous membranes Throat: Yes tonsils normal, Yes uvula midline, Yes posterior oropharynx abnormal (Erythema), Yes postnasal drainage and Yes cobblestoning Eyes General: appearance normal, both eyes and all related structures Neck Neck: Yes normal visual inspection Resp Effort & Inspection: normal respiratory effort, able to speak in complete sentences, Actively coughing, no respiratory distress, not tachypneic, no tripod positioning and no use of accessory muscles Auscultation: clear to auscultation bilaterally Cardio Rate: regular rate Rhythm: regular rhythm Heart sounds: normal S1 and S2 Skin General skin exam: no rashes or lesions noted Neuro General: patient oriented x3 Cranial nerves: Yes CN's II-XII intact bilaterally Extrem General: Yes normal to inspection and Yes no clubbing, cyanosis or edema Assessment & Plan Assessment & Plan (1) Allergic rhinitis: Code(s): Tom30.9 - Allergic rhinitis, unspecified Qualifiers: Allergic rhinitis trigger: unspecified Allergic rhinitis seasonality: unspecified Qualified Code(s): J30.9 - Allergic rhinitis, unspecified Plan: Headache appears to be related to allergies. No concerns for neurologic features. Supportive measures encouraged and reviewed. Advised patient to try a Flonase nasal spray and second-generation antihistamine such as Zyrtec, Claritin, Mera or similar. Advised consideration of sinus rinse if needed. Advised patient to follow up with primary care provider with worsening or failure to resolve. Plan See above for full details and plan. Advised patient to follow up with primary care provider as planned for her diabetes. Medications: New fluticasone propionate 50 mcg/actuation (Flonase Allergy Relief) administer into each nostril 1 spray intranasal BID PRN 16 grams 0RF allergy symptoms Coding Level of Care Code Est Pt Level 3 (09836) Diagnoses Allergic rhinitis, unspecified seasonality, unspecified trigger J30.9 Allergic rhinitis trigger: unspecified Allergic rhinitis seasonality: unspecified
== END 2024-05-13 09:25 | disposition home or self-care (01) ==
PROVIDERS: PCP Internal Medicine; Visit Provider Registered Nurse
DX: J30.9 Allergic rhinitis, unspecified (principal)

== ENCOUNTER 2024-05-28 09:37 | Outpatient (AMB) | payer OTHER, SELFPAY ==
[2024-05-28 09:40] VITALS: BP 142/82; PULSE 89; O2SAT 98; BMI 36.5
--- NOTE | 2024-05-28 09:40 | MHC.PC.OV ---
Vital Signs 05/28/24 09:40 Height 5 ft 3 in Weight 206 lb BMI 36.5 BP 142/82 H Blood Pressure Location Lt brachial Position Sitting Pulse 89 Pulse Source Pulse Oximeter Pulse Oximetry (%) 98 Oxygen Delivery Method Room Air Intake Visit Reasons: f/u blood sugar log Intake Note: Pt is here today to f/u elevated b/s Allergies No Known Allergies Allergy (Verified 05/28/24 10:06) Medication List - Last Reconciled 05/28/24 by Jen Ambrocio MD adalimumab (Humira(CF) Pen) mg subcut estradiol 1 mg PO DAILY fluticasone propionate 50 mcg/actuation (Flonase Allergy Relief) 1 spray intranasal BID PRN ibuprofen 600 mg PO Q6H PRN levocetirizine 5 mg PO QPM PRN lisinopril 10 mg (2 x 5 mg) PO DAILY metformin 500 mg PO BIDWMEAL 3 months omeprazole 20 mg PO DAILY rosuvastatin 5 mg PO Q2D 90 days Tobacco use date assessed: 05/28/24 Dental Screening Dental Screen Date: 05/28/24 Did you have a dental visit in the last 12 months?: Yes Did you have a dental problem in the last 6 months where you did not have access to dental care?: No Was dental information given to patient?: Patient has dentist HPI f/u blood sugar log HPI Details 49-year-old lady with diabetes mellitus, hypertension hyperlipidemia, here today for follow-up. Blood pressure still not at goal of less than 130/90, currently takes lisinopril 10 mg once a day, and latest fasting labs showed hemoglobin A1c at 7.4%, still not at goal of less than 7%. Her fasting lipids however are within normal limits. Currently takes rosuvastatin 5 mg 1 tablet every other day [facility] Medical History (Updated 05/28/24 @ 10:21 by Jen Ambrocio MD) History of nephrolithiasis Intermittent lightheadedness Dyslipidemia Essential hypertension Iron deficiency anemia Heartburn Dysmenorrhea Heavy menstrual bleeding Medial meniscus tear GERD (gastroesophageal reflux disease) Varicose vein of leg Osteoarthritis, knee Psoriasis Migraine Surgical History Status post abdominal hysterectomy History of endometrial ablation History of bilateral tubal ligation H/O arthroscopy of right knee History of varicose veins Family History Father DVT (deep venous thrombosis) HTN (hypertension) Dyslipidemia Diabetes mellitus Mother Multiple myeloma COVID-19 Brother Lymphoma Social History Housing: House Alcohol intake: current Alcohol intake frequency: a few times a month Patient Tobacco Use Status: Never used Tobacco e-Cigarette/Vaping Use: Never Used Second Hand Smoke Exposure: No service: No Current occupational status: employed 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 Sid Real, Martha Oviedo, Arnoldo Escobedo and colleagues, with an educational yamini from [employer]. Review of Systems Const Denies chills, Denies fever(s), Denies frequent falls and Denies malaise Eyes Details: Goes to [facility], has an appointment Reports no additional complaints ENT Reports no additional complaints Card Denies chest pain, Denies chest pain with activity, Denies syncope, Denies irregular heart rhythm and Denies palpitations Resp Reports no additional complaints GI Denies abdominal pain, Denies dyspepsia, Denies heartburn and Denies nausea Reports no additional complaints Musc Denies myalgias, Denies arthralgias, Denies joint swelling, Denies limited range of motion, Denies muscle weakness and Denies stiffness Skin/Breast Details: sees dermatology in [place] for her psoriasis currently on Humira Denies rash Neuro Denies syncope and Denies frequent falls Psych Reports no additional complaints Endo Denies palpitations Eusebio/Lymph Reports no additional complaints Aller/Immun Reports no additional complaints Physical exam (Primary Care) Vital Signs: Last Vital Signs Pulse 89 05/28/24 09:40 BP 142/82 H 05/28/24 09:40 Pulse Ox 98 05/28/24 09:40 Oxygen Delivery Method Room Air 05/28/24 09:40 BMI result Body Mass Index 36.5 Tobacco/Smoking Status: Tobacco use Status Tobacco use date assessed 05/28/24 05/28/24 09:43 Patient Tobacco Use Status Never used Tobacco 05/28/24 09:43 e-Cigarette/Vaping Use Never Used 05/28/24 09:43 Thrive Assessment: Date of Thrive Assessment Date Thrive assessed 01/09/24 05/28/24 09:43 Const Other: Alert oriented x3, no acute cardiorespiratory distress noted ambulatory with normal gait HENME Head: Yes normocephalic Ears: external ears normal, TM's normal bilaterally and EAC's normal General nose exam: Normal external nose present Face and sinus: Yes face symmetric Mouth: Normal oral and palatal mucosa present, oropharynx normal and moist mucous membranes Eyes General: appearance normal, both eyes and all related structures Pupils: Equal, round and reactive pupils present EOM: EOMs intact bilaterally Neck Neck: Yes full ROM, Yes no lymphadenopathy and Yes supple Chest Chest palpation & inspection: normal inspection of the chest Breast/axilla palpation: normal palpation of the breasts Resp Auscultation: clear to auscultation bilaterally Cardio Other: S1-S2 present regular rate and rhythm, no murmurs GI Other: Normal bowel sounds, soft, nontender with no mass palpated General: Yes no CVA tenderness and Yes deferred (Goes to [facility]) Back/Spine/Pelvis Back: no CVA tenderness and No back tenderness Skin General skin exam: no rashes or lesions noted Neuro Cranial nerves: Yes CN's II-XII intact bilaterally, Yes Equal, round and reactive pupils present, Yes Bilaterally intact EOM present and Yes Nystagmus not present Extrem General: Yes full ROM, Yes no joint enlargement, Yes no clubbing, cyanosis or edema, Yes no calf tenderness and Yes normal gait Psych Appearance: grossly normal and well kempt Mental Status: mental status grossly normal Speech and movement: Normal speech and movement present Affect: normal affect Attitude: cooperative Office Procedures Flu Questionnaire Does the patient have a severe egg allergy?: No Does the patient have severe life threatening allergies?: No Does the patient have a fever or illness today?: No Has the patient ever had Guillain-[place] Syndrome?: No Has the patient ever had any past reaction to a flu shot?: No Immunizations Fluarix Triv 3006-9906 (PF) 45 mcg (15 mcg x 3)/0.5 mL IM syringe Performing Provider: Jen Ambrocio MD Performing Location: [facility] Administered by: Shell Schultz CMA on 05/28/24 10:26 Dose Route Admin Location Dispensed Lot Number Expiration Date NDC Subsea Engineer 0.5 mL IM Left Deltoid 0.5 mL [id number] 02/10/25 21028-315-04 [employer] VIS Given Date VIS Provided VIS Publication Date 05/28/24 Single Vaccine 21 Eligibility Eligibility Date Funding Source Not VFC Eligible 05/28/24 Private Results Reviewed Results Reviewed: Name: Nereyda Edge Age/Sex: 48/F : 1975 Unit#: [id number] Attend Dr: Jen Ambrocio MD Re10/04/23 Status: DEP REF Location: [facility] Disch: SPEC : [id number] MICA: 10/04/23-815 STATUS: COMP REQ : [id number] RECD: 10/04/23-[address]: Jen Ambrocio MD COMP: 10/04/23-120 ENTERED: 10/04/23-[address]: ORDERED: Met Prof Fast, AST, ALT, Lipid Panel Test Result Flag Reference Sodium 139 135-145 mmol/L Potassium 3.8 3.3-5.1 mmol/L CL 104 96-108 mmol/L CO2 27 22-29 mmol/L Gap 12 12-20 BUN 14 9-16 mg/dL Creat 0.75 0.5-1.4 mg/dL EGFR > 60 NOTE: For -[place] individuals, multiply the result by 1.210. Chronic Kidney Disease: Estimated GFR < 60 mL/min/1.73m2 Severe Kidney Disease: Estimated GFR < 15 mL/min/1.73m2 FBS 220 H 60-99 mg/dL A fasting glucose of 126 mg/dl or greater on more than one occasion is considered diagnostic of diabetes. CA 9.5 8.4-10.2 mg/dL AST (GOT) 30 5-31 U/L ALT (GPT) 44 H 0-31 U/L Triglyceride 161 H <150 mg/dL Desirable Triglyceride: less than 150 mg/dL Borderline High Triglyceride 150-199 mg/dL High Triglyceride: 200-499 mg/dL Very High Triglyceride: greater than or equal to 5OO mg/dL Cholesterol 166 <200 mg/dL Desirable Cholesterol: less than 200 mg/dL Borderline High Cholesterol: 200-239 mg/dL High Cholesterol: greater than 239 mg/dL LDL Calculated 89 <100 mg/dL Desirable LDL: less than 100 mg/dL Near Optimal/Above Optimal LDL: 110-129 mg/dL Borderline High LDL: 130-159 mg/dL High LDL: 160-189 mg/dL Very High LDL: greater than or equal to 190 mg/dL HDL 45 >40 mg/dL Desirable HDL: greater than 40 mg/dL Note: This HDL assay may give artificially low results in patients with liver disease. Laboratory Tests 01/12/24 05/13/24 06:51 06:48 Estimat Average Glucose 171 166 Hemoglobin A1c % 7.6 H 7.4 H Urine Creatinine 198.00 Urine Microalbumin 34.0 Microalb/Creat Ratio 17.1 Coding Level of Care Code Est Pt Level 4 (89416) Complex EM visit Add On G2211 Diagnoses Essential hypertension I10 Dyslipidemia E78.5 Diabetes mellitus with hyperglycemia, without long-term current use of insulin E11.65 Assessment & Plan Assessment & Plan (1) Essential hypertension: Code(s): I10 - Essential (primary) hypertension Category: Medical Plan: Blood pressure goal less than 130/80. Increase lisinopril dose to 20 mg daily Reinforced importance of following a low sodium diet, getting regular exercise, and lowering stress levels. (2) Dyslipidemia: Code(s): E78.5 - Hyperlipidemia, unspecified Category: Medical Plan: Latest fasting lipids are within normal limits, continued on rosuvastatin 5 mg taken every other day (3) Diabetes mellitus with hyperglycemia, without long-term current use of insulin: Code(s): E11.65 - Type 2 diabetes mellitus with hyperglycemia Category: Medical Plan: Diabetes mellitus still not well controlled with latest hemoglobin A1c still elevated at 7.4%. Will increase metformin dose to a 1000 mg taken 1 tablet twice a day with meals. Reinforced importance of following recommended diabetic diet and getting regular exercise. Will repeat another hemoglobin A1c in 3 months. Up-to-date with her diabetes retinopathy screening, goes to [facility], flu vaccine given today. Reminded to get an updated COVID booster. Prescriptions also sent for freestyle Lite meter, lancets and test strips to check blood sugar twice a day before meals and to keep a log of the readings, bring it on next visit for review Orders: Orders Influenza [id number] Immunization 05/28/24 Z23 - Encounter for immunization Aspartate Amino Transferase 05/28/24 E11.65 - Type 2 diabetes mellitus with hyperglycemia, E78.5 - Hyperlipidemia, unspecified, I10 - Essential (primary) hypertension Basic Metabolic Panel Fasting 05/28/24 E11.65 - Type 2 diabetes mellitus with hyperglycemia, E78.5 - Hyperlipidemia, unspecified, I10 - Essential (primary) hypertension Lipid Panel 05/28/24.65 - Type 2 diabetes mellitus with hyperglycemia, E78.5 - Hyperlipidemia, unspecified, I10 - Essential (primary) hypertension Alanine Aminotransferase 05/28/24 E11.65 - Type 2 diabetes mellitus with hyperglycemia, E78.5 - Hyperlipidemia, unspecified, I10 - Essential (primary) hypertension Hemoglobin A1c 05/28/24 E11.65 - Type 2 diabetes mellitus with hyperglycemia, E78.5 - Hyperlipidemia, unspecified, I10 - Essential (primary) hypertension Medications: New blood-glucose meter (FreeStyle Lite Meter kit) Check fasting blood sugar twice a day before meals 1 ea 0RF E11.65 - Type 2 diabetes mellitus with hyperglycemia blood sugar diagnostic (FreeStyle Lite Strips) Check fasting blood sugar twice a day before meals 100 ea 8RF E11.65 - Type 2 diabetes mellitus with hyperglycemia lancets (FreeStyle Lancets) Check fasting blood sugar twice a day before meals 100 ea 8RF E11.65 - Type 2 diabetes mellitus with hyperglycemia Changed From lisinopril 10 mg (2 x 5 mg) PO DAILY 90 tabs 3RF I10 - Essential (primary) hypertension To lisinopril 20 mg PO DAILY 90 tabs 2RF I10 - Essential (primary) hypertension From metformin 500 mg PO BIDWMEAL 3 months 180 tabs 1RF E11.65 - Type 2 diabetes mellitus with hyperglycemia To metformin 1,000 mg PO BIDWMEAL 3 months 180 tabs 1RF E11.65 - Type 2 diabetes mellitus with hyperglycemia Refilled rosuvastatin 5 mg PO Q2D 90 days 45 tabs 1RF
== END 2024-05-28 10:52 | disposition home or self-care (01) ==
PROVIDERS: PCP Internal Medicine; Visit Provider Internal Medicine
DX: I10 Essential (primary) hypertension (principal); E78.5 Hyperlipidemia, unspecified; E11.65 Type 2 diabetes mellitus with hyperglycemia

== ENCOUNTER → 2024-05-28 09:37 | Outpatient (BNVA) | payer OTHER, SELFPAY | PROVIDERS: PCP Internal Medicine; Visit Provider Internal Medicine | DX: Z23 Encounter for immunization (principal); I10 Essential (primary) hypertension; E78.5 Hyperlipidemia, unspecified; E11.65 Type 2 diabetes mellitus with hyperglycemia | CPT/HCPCS: 90471; 90656; 99212 ==

== ENCOUNTER 2024-08-15 08:14 | Outpatient (REF) | payer OTHER, SELFPAY ==
[2024-08-15 10:10] LABS: Estimated Average Glucose 154 mg/dL; Hemoglobin A1C 189.1232 umol/L; Total Hemoglobin (HGBA1C) 3570.4369 umol/L
[2024-08-15 10:17] LABS: Alanine Aminotransferase 32 U/L (0-31); Anion Gap 11 (12-20); Aspartate Amino Transferase 26 U/L (5-31); Blood Urea Nitrogen 11 mg/dL (9-16); Calcium 8.9 mg/dL (8.4-10.2); Carbon Dioxide 28 mmol/L (22-29); Chloride 105 mmol/L (96-108); Cholesterol 131 mg/dL (<200); Estimated Glomerular Filt Rate > 60; Glucose Fasting 155 mg/dL (60-99); HDL Cholesterol 48 mg/dL (>40); LDL Cholesterol Calculated 63 mg/dL (<100); Potassium 3.5 mmol/L (3.3-5.1); Sodium 140 mmol/L (135-145); Triglycerides 100 mg/dL (<150)
== END 2024-08-15 08:15 | disposition home or self-care (01) ==
LOC: HO.HMGCLDS 08:14
PROVIDERS: PCP Internal Medicine; Visit Provider Internal Medicine
DX: E78.5 Hyperlipidemia, unspecified (principal); I10 Essential (primary) hypertension; E11.65 Type 2 diabetes mellitus with hyperglycemia
CPT/HCPCS: 36415; 80048; 80061; 83036; 84450; 84460

== ENCOUNTER 2024-08-28 07:45 | Outpatient (AMB) | payer OTHER, SELFPAY ==
--- NOTE | 2024-08-28 08:06 | MHC.PC.OV ---
Vital Signs 08/28/24 08:08 Height 5 ft 3 in Weight 203 lb BMI 36.0 BP 150/90 H Blood Pressure Location Lt brachial Position Sitting Pulse 94 Pulse Source Pulse Oximeter Pulse Oximetry (%) 97 Oxygen Delivery Method Room Air Comment just took lisinopril 30 minutes ago Intake Visit Reasons: 3m follow up labs Intake Note: Pt is here today for her 3mo. f/u Allergies No Known Allergies Allergy (Verified 08/28/24 08:16) Medication List - Last Reconciled 08/28/24 by Jen Ambrocio MD adalimumab (Humira(CF) Pen) mg subcut blood sugar diagnostic (FreeStyle Lite Strips) Check fasting blood sugar twice a day before meals blood-glucose meter (FreeStyle Lite Meter kit) Check fasting blood sugar twice a day before meals estradiol 1 mg PO DAILY fluticasone propionate 50 mcg/actuation (Flonase Allergy Relief) 1 spray intranasal BID PRN ibuprofen 600 mg PO Q6H PRN lancets (FreeStyle Lancets) Check fasting blood sugar twice a day before meals levocetirizine 5 mg PO QPM PRN lisinopril 20 mg PO DAILY metformin 1,000 mg PO BIDWMEAL 3 months Mounjaro (tirzepatide) 2.5 mg (0.5 mL) subcut QWEEK 1 month NS omeprazole 20 mg PO DAILY PRN rosuvastatin 5 mg PO Q2D 90 days Tobacco use date assessed: 08/28/24 Dental Screening Dental Screen Date: 08/28/24 Did you have a dental visit in the last 12 months?: Yes Did you have a dental problem in the last 6 months where you did not have access to dental care?: No Was dental information given to patient?: Patient has dentist HPI 3m follow up labs HPI Details 49-year-old lady with diabetes mellitus, hypertension, hyperlipidemia, here today for follow-up. She has been taking her medicines as directed, but admits to not really following completely recommended diet and has not been getting any regular exercise lately. Diabetes controlled however has improved with latest hemoglobin A1c at 7%. And her fasting lipids are within normal limits. Patient however is very frustrated that she is unable to lose more weight. Would like to try taking a GLP 1 agonist to help with both lower her blood sugar and weight. [facility] Medical History (Updated 08/28/24 @ 23:07 by Jen Ambrocio MD) Hx of menorrhagia Obesity (BMI 30.0-34.9) History of nephrolithiasis Dyslipidemia Essential hypertension Heartburn Dysmenorrhea Medial meniscus tear GERD (gastroesophageal reflux disease) Varicose vein of leg Osteoarthritis, knee Psoriasis Surgical History Status post abdominal hysterectomy History of endometrial ablation History of bilateral tubal ligation H/O arthroscopy of right knee History of varicose veins Family History Father DVT (deep venous thrombosis) HTN (hypertension) Dyslipidemia Diabetes mellitus Mother Multiple myeloma COVID-19 Brother Lymphoma Social History Housing: House Alcohol intake: current Alcohol intake frequency: a few times a month Patient Tobacco Use Status: Never used Tobacco e-Cigarette/Vaping Use: Never Used Second Hand Smoke Exposure: No service: No Current occupational status: employed 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 1. Little interest or pleasure in doing things: not at all 2. Feeling down, depressed, or hopeless: not at all 3. Trouble falling or staying asleep, or sleeping too much: not at all 4. Feeling tired or having little energy: not at all 5. Poor appetite or overeating: not at all 6. Feeling bad about yourself - or that you are a failure or have let yourself or your family down: not at all 7. Trouble concentrating on things, such as reading the newspaper or watching television: not at all 8. Moving or speaking so slowly that other people could have noticed. Or the opposite - being so fidgety or restless that you have been moving around a lot more than usual: not at all 9. Thoughts that you would be better off or of hurting yourself in some way: not at all Total score: 0 Depression Screening Interpretation: Negative Depression Screening Done: Yes 82162 - PHQ-9 Billing: Yes Source: Developed by Drs. Sid Real, Martha Oviedo, Arnoldo Escobedo and colleagues, with an educational yamini from [employer]. Thrive Questionnaire Date Thrive assessed: 08/28/24 I am a: Patient What is your living situation today?: I have a steady place to live Within the past 12 months, did the food you bought not last and you didn't have the money to get more?: I choose not to answer this question Within the past 12 months, did you worry whether your food would run out before you got money to buy more?: I choose not to answer this question Do you have trouble paying for medicines?: No Do you have trouble getting transportation to medical appointments?: No Do you have trouble paying your heating and electricity bill?: No Do you have trouble taking care of your child, family member or friend?: No Do you have trouble with day-to-day activities such as bathing, preparing meals, shopping, managing finances, etc.?: No Are you currently unemployed and looking for a job?: No Are you interested in more education?: No Please select the resources that you would like help with: None Currently or been in a relationship where the following occur: I choose not to answer THRIVE Score: 0 AUDIT C Alcohol Use Questionnaire (AUDIT-C) 1. How often do you have a drink containing alcohol?: Never Total Score: 0 MARY-7 AMB Questionnaire MARY-7 Date MARY - 7 assessed: 08/28/24 Feeling nervous, anxious, or on edge: 0 = Not at all Not being able to stop or control worryin = Not at all Worrying too much about different things: 0 = Not at all Trouble relaxin = Not at all Being so restless that it is hard to sit still: 0 = Not at all Becoming easily annoyed or irritable: 0 = Not at all Feeling afraid as if something awful might happen: 0 = Not at all Total MARY-7 score (0-4 normal; 5-9 mild; 10-14 moderate; 15-21 severe): 0 Source: Developed by Martha Lee Kurt Kroenke and colleagues, with an educational yamini from [employer]. MARY-7 Assessment Billing MARY-7 Assessment Tool: MARY-7 Assessment 24305 Review of Systems Const Denies chills, Denies fever(s), Denies frequent falls and Denies malaise Eyes Details: Goes to [facility], has an appointment Reports no additional complaints ENT Reports no additional complaints Card Denies chest pain, Denies chest pain with activity, Denies syncope, Denies irregular heart rhythm and Denies palpitations Resp Reports no additional complaints GI Denies abdominal pain, Denies dyspepsia, Denies heartburn and Denies nausea Reports no additional complaints Musc Denies myalgias, Denies arthralgias, Denies joint swelling, Denies limited range of motion, Denies muscle weakness and Denies stiffness Skin/Breast Details: sees Dr Mynor Ramos for her psoriasis, currently on Humira Denies rash Neuro Denies syncope and Denies frequent falls Psych Reports no additional complaints Endo Denies palpitations Eusebio/Lymph Reports no additional complaints Aller/Immun Reports no additional complaints Physical exam (Primary Care) Vital Signs: Last Vital Signs Pulse 94 08/28/24 08:08 BP 150/90 H 08/28/24 08:08 Pulse Ox 97 08/28/24 08:08 Oxygen Delivery Method Room Air 08/28/24 08:08 BMI result Body Mass Index 36.0 Tobacco/Smoking Status: Tobacco use Status Tobacco use date assessed 08/28/24 08/28/24 08:10 Patient Tobacco Use Status Never used Tobacco 08/28/24 08:06 e-Cigarette/Vaping Use Never Used 08/28/24 08:06 PHQ-9: PHQ-9 Score PHQ-9: Total score 0 08/28/24 08:38 Depression Screening Interpretation: Negative Thrive Assessment: Date of Thrive Assessment Date Thrive assessed 08/28/24 08/28/24 08:10 Currently or been in a relationship where the following occur: I choose not to answer Const Other: Alert oriented x3, no acute cardiorespiratory distress noted ambulatory with normal gait HENMT Ears: external ears normal, TM's normal bilaterally and EAC's normal General nose exam: Normal external nose present Face and sinus: Yes face symmetric Mouth: Normal oral and palatal mucosa present, oropharynx normal and moist mucous membranes Eyes General: appearance normal, both eyes and all related structures Pupils: Equal, round and reactive pupils present EOM: EOMs intact bilaterally Neck Neck: Yes full ROM, Yes no lymphadenopathy and Yes supple Resp Auscultation: clear to auscultation bilaterally Cardio Other: S1-S2 present regular rate and rhythm, no murmurs GI Other: Normal bowel sounds, soft, nontender with no mass palpated General: Yes no CVA tenderness and Yes deferred (Goes to [facility]) Back/Spine/Pelvis Back: no CVA tenderness and No back tenderness Skin General skin exam: no rashes or lesions noted Neuro Cranial nerves: Yes CN's II-XII intact bilaterally, Yes Equal, round and reactive pupils present and Yes Bilaterally intact EOM present Extrem General: Yes full ROM, Yes no joint enlargement, Yes no clubbing, cyanosis or edema, Yes no calf tenderness and Yes normal gait Psych Appearance: grossly normal and well kempt Mental Status: mental status grossly normal Speech and movement: Normal speech and movement present Affect: normal affect Attitude: cooperative Results Reviewed Results Reviewed: Name: Nereyda Edge Age/Sex: 49/F : 1975 Unit#: [id number] Attend Dr: Jen Ambrocio MD Re08/15/24 Status: DEP REF Location: [facility] Disch: SPEC : [id number] MICA: 08/15/24 STATUS: COMP REQ : [id number] RECD: 08/15/[address]: Jen Ambrocio MD COMP: 08/15/24 ENTERED: 08/15/[address] [facility] [address]: ORDERED: Met Prof Fast, AST, ALT, Lipid Panel Test Result Flag Reference Sodium 140 135-145 mmol/L Potassium 3.5 3.3-5.1 mmol/L CL 105 96-108 mmol/L CO2 28 22-29 mmol/L Gap 11 L 12-20 BUN 11 9-16 mg/dL Creat 0.74 0.5-1.4 mg/dL eGFR > 60 Chronic Kidney Disease: Estimated GFR < 60 mL/min/1.73m2 Severe Kidney Disease: Estimated GFR < 15 mL/min/1.73m2 FBS 155 H 60-99 mg/dL A fasting glucose of 126 mg/dl or greater on more than one occasion is considered diagnostic of diabetes. CA 8.9 # 8.4-10.2 mg/dL AST (GOT) 26 5-31 U/L ALT (GPT) 32 H 0-31 U/L Triglyceride 100 <150 mg/dL Desirable Triglyceride: less than 150 mg/dL Borderline High Triglyceride 150-199 mg/dL High Triglyceride: 200-499 mg/dL Very High Triglyceride: greater than or equal to 5OO mg/dL Cholesterol 131 <200 mg/dL Desirable Cholesterol: less than 200 mg/dL Borderline High Cholesterol: 200-239 mg/dL High Cholesterol: greater than 239 mg/dL LDL Calculated 63 <100 mg/dL Desirable LDL: less than 100 mg/dL Near Optimal/Above Optimal LDL: 110-129 mg/dL Borderline High LDL: 130-159 mg/dL High LDL: 160-189 mg/dL Very High LDL: greater than or equal to 190 mg/dL HDL 48 >40 mg/dL Desirable HDL: greater than 40 mg/dL Laboratory Tests 01/12/24 05/13/24 08/15/24 06:51 06:48 08:19 Estimat Average Glucose 171 166 154 Hemoglobin A1c % 7.6 H 7.4 H 7.0 H Coding Level of Care Code Est Pt Level 4 (81741) Complex EM visit Add On G2211 Diagnoses Type 2 diabetes mellitus without complication, without long-term current use of insulin E11.9 Dyslipidemia E78.5 Essential hypertension I10 GERD (gastroesophageal reflux disease) K21.9 Additional Codes PHQ-9 - 77877 - PHQ-9 Billing: Yes ([id number]) MARY-7 Assessment Billing - MARY-7 Assessment Tool: MARY-7 Assessment 55535 ([id number]) Assessment & Plan Assessment & Plan (1) Type 2 diabetes mellitus without complication, without long-term current use of insulin: Comment: No rx. Trying diet control Code(s): E11.9 - Type 2 diabetes mellitus without complications Category: Medical Plan: Improvement in diabetes control noted with hemoglobin A1c now at 7%. Continued on metformin 1000 mg 1 tablet twice a day with meals and will start her on Mounjaro 2.5 mg injected subcutaneously once a week. Directions on proper use of medication and discussed common side effects of the medication. Will see her back for follow-up in 1 month (2) Dyslipidemia: Code(s): E78.5 - Hyperlipidemia, unspecified Category: Medical Plan: Latest fasting lipids are within normal limits, continue with rosuvastatin 5 mg taken 1 tablet every 2 days, in addition to adherence to low-cholesterol diet and regular cardio exercise at least 3 to 4 times a week for 15 minutes each time (3) Essential hypertension: Code(s): I10 - Essential (primary) hypertension Category: Medical Plan: Patient's blood pressure was elevated today, but states she only just took her medicine minutes prior to coming to her appointment.. Reinforced importance of following a low-sodium diet, getting regular exercise, continued on current dose of lisinopril 20 mg daily. Will check blood pressure again on next visit in a month (4) GERD (gastroesophageal reflux disease): Code(s): K21.9 - Gastro-esophageal reflux disease without esophagitis Category: Medical Plan: Patient states heartburn symptoms are well controlled with taking omeprazole 20 mg once a a day. Will continue on current dose. Reminded to avoid triggers for heartburn Medications: Eduard Gaffney (tirzepatide) for 4 weeks 2.5 mg (0.5 mL) subcut QWEEK 1 month 2 mL 1RF NS E11.9 - Type 2 diabetes mellitus without complications, E66.811 - Obesity, class 1 Changed From omeprazole 20 mg PO DAILY 90 caps 1RF R12 - Heartburn To omeprazole 20 mg PO DAILY PRN R12 - Heartburn
[2024-08-28 08:08] VITALS: BP 150/90; PULSE 94; O2SAT 97; BMI 36.0
== END 2024-08-28 08:36 | disposition home or self-care (01) ==
PROVIDERS: PCP Internal Medicine; Visit Provider Internal Medicine
DX: E11.9 Type 2 diabetes mellitus without complications (principal); E78.5 Hyperlipidemia, unspecified; I10 Essential (primary) hypertension; K21.9 Gastro-esophageal reflux disease without esophagitis

== ENCOUNTER → 2024-08-28 07:45 | Outpatient (BNVA) | payer OTHER, SELFPAY | PROVIDERS: PCP Internal Medicine; Visit Provider Internal Medicine | DX: E11.9 Type 2 diabetes mellitus without complications (principal); E78.5 Hyperlipidemia, unspecified; I10 Essential (primary) hypertension; K21.9 Gastro-esophageal reflux disease without esophagitis | CPT/HCPCS: 96127; 99212 ==

== ENCOUNTER 2024-09-10 11:48 | Outpatient (AMB) | payer OTHER, SELFPAY ==
[2024-09-10 11:50] VITALS: BP 146/86; PULSE 96; O2SAT 96; BMI 36.2
--- NOTE | 2024-09-10 11:50 | MHC.OFFVIS ---
Vital Signs 09/10/24 11:50 Height 5 ft 3 in Weight 204 lb 9.423 oz BMI 36.2 BP 146/86 H Blood Pressure Location Rt brachial Position Sitting Pulse 96 Pulse Source Pulse Oximeter Pulse Oximetry (%) 96 Oxygen Delivery Method Room Air Intake Visit Reasons: pre colonoscopy Intake Note: NEW PATIENT Reason; Screening. Initial Concerns/Questions? No GI concerns per pt. Computer Education Teacher Required: Yes Computer Education Teacher Services: Computer Education Teacher Present Computer Education Teacher Name: Rickie Pereira Information Interpreted: non-clinical & clinical Accompanied by: Self / Same As Patient Allergies No Known Allergies Allergy (Verified 09/10/24 11:51) HPI HPI pre colonoscopy: Details: 49 year old? female here today for pre colonoscopy screening.? Patient was sent to us by her PCP.? This is her first colonoscopy screening.? Patient denies any gastrointestinal symptoms in the past or at present.? However patient admits to patient was reflux depending of what she eats. Usually spicy food, tomato sauce or tomatoes will cause that. Patient tries to avoid it. Only uses omeprazole as needed. Denies any personal or family history of gastrointestinal disease, colon polyps, or CRC.? Denies history of difficulty with sedation or anesthesia in the past.? Negative for history of sleep apnea.? Denies any history of cardiac, renal, pulmonary, or hepatic disease.?? No history of infectious? diseases like hepatitis A, B, C, HIV or tuberculosis.? Patient is not on any anticoagulation [facility] Medical History Hx of menorrhagia Obesity (BMI 30.0-34.9) History of nephrolithiasis Dyslipidemia Essential hypertension Heartburn Dysmenorrhea Medial meniscus tear GERD (gastroesophageal reflux disease) Varicose vein of leg Osteoarthritis, knee Psoriasis Surgical History Status post abdominal hysterectomy History of endometrial ablation History of bilateral tubal ligation H/O arthroscopy of right knee History of varicose veins Family History Father DVT (deep venous thrombosis) HTN (hypertension) Dyslipidemia Diabetes mellitus Mother Multiple myeloma COVID-19 Brother Lymphoma Social History Housing: House Alcohol intake: current Alcohol intake frequency: a few times a month Patient Tobacco Use Status: Never used Tobacco e-Cigarette/Vaping Use: Never Used Second Hand Smoke Exposure: No service: No Current occupational status: employed 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 Current occupational exposures/hazards: No Sexual orientation: Straight/Heterosexual Cognitive needs: No Hearing needs: No Vision needs: Yes Female Reproductive History Menstrual Age of Menarche: 6 Date of menopause: 08/25/20 Review of Systems Const Denies weight gain and Denies weight loss ENT Reports no additional complaints, Denies dysphagia and Denies odynophagia Card Reports no additional complaints Resp Reports no additional complaints GI Denies abdominal pain, Denies belching, Denies melena, Denies bloating, Denies change in bowel habits, Denies dysphagia, Denies excessive flatus, Denies dyspepsia, Denies heartburn, Denies diarrhea, Denies loose stools, Denies nausea, Denies odynophagia and Denies vomiting Musc Reports no additional complaints Neuro Reports no additional complaints Psych Reports no additional complaints Endo Reports no additional complaints Physical Exam Const General: healthy appearing and no acute distress Nutritional Appearance: obese Orientation/consciousness: patient oriented x3 Resp Effort & Inspection: normal respiratory effort, able to speak in complete sentences, no tracheal deviation and symmetric chest movement Auscultation: clear to auscultation bilaterally Cardio Rate: regular rate GI Inspection: Yes normal to inspection, No distended and Yes obesity Palpation (GI): Soft to palpation, not firm, nontender and No hepatosplenomegaly present Auscultation: normal bowel sounds General: Yes no CVA tenderness Back/Spine/Pelvis Back: no CVA tenderness Skin General skin exam: elasticity normal, turgor normal and dry skin Neuro General: patient oriented x3 Psych Appearance: grossly normal Mental Status: mental status grossly normal Assessment & Plan Assessment & Plan (1) GERD (gastroesophageal reflux disease): Code(s): K21.9 - Gastro-esophageal reflux disease without esophagitis Category: Medical Qualifiers: Esophagitis presence: esophagitis presence not specified Qualified Code(s): K21.9 - Gastro-esophageal reflux disease without esophagitis (2) Screen for colon cancer: Code(s): Z12.11 - Encounter for screening for malignant neoplasm of colon Plan Patient denies any GI, cardiac or respiratory symptoms.? Denies any issues with anesthesia in the past.? Denies any history of sleep apnea.? No history infectious diseases in the past or present.? Not on any anticoagulation therapy.? No family or personal history of colon cancer or polyps.? Patient denies melena, hematochezia, unintentional weight loss or ribbon like stools.? Discussed at length the pre-procedure,? prep, diet & medications as well as what to expect prior, during and after the procedure.?? Stressed the importance of good bowel prep.? Recommended the use of Vaseline or Calmoseptine OTC & baby wipes with bowel movements to promote comfort.? ?Patient verbalizes understanding and agrees to plan of care.? She was given the opportunity to ask questions and all questions answered.? We will see her after the procedure.? Medications: New bisacodyl (Dulcolax (bisacodyl)) take 4 tabs at noon the day before your colonoscopy 20 mg (4 x 5 mg) PO ONCE 1 day 4 tabs 0RF Z12.11 - Encounter for screening for malignant neoplasm of colon polyethylene glycol 3350 (Miralax) As directed by gastroenterology department at [facility] 238 grams PO ONCE 238 grams 0RF Z12.11 - Encounter for screening for malignant neoplasm of colon Coding Level of Care Code New Pt Level 3 (68911) Diagnoses Gastroesophageal reflux disease, unspecified whether esophagitis present K21.9 Esophagitis presence: esophagitis presence not specified Screen for colon cancer Z12.11 Time Spent (min) 40 Comment 30 minutes spent with patient and additional 10 minutes spent reviewing her records
--- OUTSIDE RECORDS SUMMARY | 2024-09-10 12:56 | XMS_ITS | Clinical Summary ---
Author Organization [employer] [facility] it Address [address] [place] [address] Care Team Providers Care Corporate Safety Manager Name Role Phone Jamie Vieyra MD Primary Care Provider [phone] Medical History Medical History Date Comments Psoriasis 02/17/2017 DX:Psoriasis Diabetes mellitus type 2, uncomplicated (CMS/HCC) 02/17/2017 DX:Diabetes mellitus type 2, uncomplicated (HCC) Social History Tobacco Use Types Packs/Day Years Used Date Smoking Tobacco: Never Smokeless Tobacco: Never Sex and Gender Information Value Date Recorded Sex Assigned at Not on file Gender Identity Not on file Sexual Orientation Not on file Obstetrics History Plan of Treatment Health Maintenance Due Date Last Done Comments Breast Cancer Screening 1975 Diabetes: Annual GFR (Glomer ular Filtration Rate) 1975 COVID-19 Vaccine (#1) 1978 Diabetes: Annual Foot Exam 1983 Diabetes: Annual Retina Eye Exam 1983 DTaP,Tdap,and Td Vaccines (1 - Tdap) 02/19/1992 Hepatitis B Vaccines (1 of 3 - 19+ 3-dose series) 02/19/1992 Cervical Cancer Screening: P ap Smear 1994 Cholesterol Screening (Lipid Panel) 07/16/2022 Colorectal Cancer Screening: Colonoscopy 07/16/2022 Depression Screening 07/16/2022 HIV Screening 07/16/2022 Hepatitis C Screening 07/16/2022 Social Influencers of Health Screening 07/16/2022 Diabetes: Annual Urine Albumin-Creatinine Ratio (uACR) 07/29/2022 Diabetes: Blood Sugar Contro l Test (HGBA1C) 07/29/2022 Zoster Vaccines (1 of 2) 2023 Influenza Vaccine (#1) 2024 HIB Vaccines Aged Out No longer eligi ble based on patient's age to complete this topic HPV Vaccines Aged Out No longer eligi ble based on patient's age to complete this topic Hepatitis A Vaccines Aged Out No long er eligible based on patient's age to complete this topic IPV Vaccines Aged Out No longer eligi ble based on patient's age to complete this topic MMR Vaccines Aged Out No longer eligi ble based on patient's age to complete this topic Meningococcal ACWY Vaccine Aged Out N o longer eligible based on patient's age to complete this topic Pneumococcal Vaccine: Pediat rics (0 to 5 Years) and At-Risk Patients (6 to 64 Years) Aged Out No longer eligible b ased on patient's age to complete this topic RSV Immunization Patients Un john 20 months Aged Out No longer eligible b ased on patient's age to complete this topic Varicella Vaccines Aged Out No longer eligible based on patient's age to complete this topic Care Teams Corporate Safety Manager Relationship Specialty Start Date End Date Jamie Vieyra MD [address] [place] [address] PCP - General Internal Medicine 07/17/17
--- OUTSIDE RECORDS SUMMARY | 2024-09-10 12:56 | XMS_ITS | Clinical Summary ---
Author Organization [employer] Address [address] [facility] [address] [place] [address] Care Team Providers Care Photo Cartographer Name Role Phone Unavailable Primary Care Provider Unavailabl e Social History Tobacco Use Types Packs/Day Years Used Date Smoking Tobacco: Never Assessed Comments Unknown Sex and Gender Information Value Date Recorded Sex Assigned at Female 06/13/2022 10:14 AM EDT Legal Sex Female 10:14 AM EDT Gender Identity Female 06/13/2022 10:14 AM EDT Sexual Orientation Straight 06/13/2022 10 :14 AM EDT Plan of Treatment Health Maintenance Due Date Last Done Comments CT Colonography 1973 Colonoscopy 1973 Colorectal Cancer Screening 1973 Depression Screening 1973 FIT DNA/Cologuard 1973 FIT 1973 FOBT 1973 Sigmoidoscopy 1973 Alcohol/Substance Use Screening 1985 Tobacco Screening 1985 Family Planning (PISQ) 02/19/1988 DTaP/Tdap/Td Vaccines (1 - Tdap) 02/19/1992 Hepatitis B Vaccines (1 of 3 - 19+ 3-dose series) 02/19/1992 Pap Smear 1994 Cervical Cancer Screening 2003 HPV/Cotest 2003 Mammogram 2013 Zoster Vaccines (1 of 2) 2023 COVID-19 Vaccine ( season) 2024 02/04/2021, 01/14/2021 RSV Patients and Patients Aged 60 years or older (1 - 1-dose 75+ series) 02/19/2048 Pneumococcal Vaccine: Pediatrics (0 to 5 Years) and At-Risk Patients (6 to 64 Years) Aged Out 12/17/2018 No longer eligible based on patient's age to complete this topic Influenza Vaccine Completed 05/28/2024, , 05/10/2022, Additional history exists HIB Vaccines Aged Out No longer eligi [...] patient's age to complete this topic Meningococcal Vaccine Aged Out No jordan srinath eligible based on patient's age to complete this topic RSV under 20 months Aged Out No longe r eligible based on patient's age to complete this topic Rotavirus Vaccines Aged Out No longer eligible based on patient's age to complete this topic
--- OUTSIDE RECORDS SUMMARY | 2024-09-10 12:56 | XMS_ITS | Encounter Summary ---
Author Organization [employer] Address [address] [facility] [address] [place] [address] Care Team Providers Care Environment Coordinator Name Role Phone Unavailable Primary Care Provider Unavailabl e Encounter Details Date Type Department Care Team (Latest Contact Info) Description 06/15/2021 Abstract [facility] CONVERSIONS Dental, Provider, DDS Social History Tobacco Use Types Packs/Day Years Used Date Smoking Tobacco: Never Assessed Comments Unknown Sex and Gender Information Value Date Recorded Sex Assigned at Female 06/13/2022 10:14 AM EDT Legal Sex Female 10:14 AM EDT Gender Identity Female 06/13/2022 10:14 AM EDT Sexual Orientation Straight 06/13/2022 10 :14 AM EDT documented as of this encounter Plan of Treatment Not on file documented as of this encounter Visit Diagnoses Not on filedocumented in this encounter
== END 2024-09-10 16:17 | disposition home or self-care (01) ==
PROVIDERS: PCP Internal Medicine; Visit Provider Nurse Practitioner Family
DX: Z01.818 Encounter for other preprocedural examination (principal); Z12.11 Encounter for screening for malignant neoplasm of colon; K21.9 Gastro-esophageal reflux disease without esophagitis
CPT/HCPCS: 99202

== ENCOUNTER → 2024-09-10 11:48 | Outpatient (BNVA) | payer OTHER, SELFPAY | PROVIDERS: PCP Internal Medicine; Visit Provider Nurse Practitioner Family | DX: Z01.818 Encounter for other preprocedural examination (principal); K21.9 Gastro-esophageal reflux disease without esophagitis | CPT/HCPCS: 99202 ==

== ENCOUNTER 2024-09-23 09:02 | Outpatient (AMB) | payer OTHER, SELFPAY ==
--- NOTE | 2024-09-23 09:13 | MHC.OFFWIV ---
Intake Vital Signs 09/23/24 09:27 Height 5 ft 3 in Weight 24 lb BMI 4.3 BP 118/80 Blood Pressure Location Rt brachial Position Sitting Pulse 97 Pulse Source Pulse Oximeter Pulse Oximetry (%) 97 Oxygen Delivery Method Room Air Intake Visit Reasons: PE bilat knee swelling Intake Note: Patient here for left knee pain that started 3 days ago, difficulty baring weight on it and is now having issues with the right knee because she is putting more pressure on it to avoid being on the left side so much. Patient Tobacco Use Status: Never used Tobacco Allergies No Known Allergies Allergy (Verified 09/23/24 09:28) Do you need a note to return to daycare/school/sports/work: No HPI HPI Comments History of Present Illness Details 49 y/o female patient who presents to the [facility] in clinic with c/o Bilateral knee pains. Reports that Left knee pain > right knee. H/o OA on both knees. PFSH Medical History Hx of menorrhagia Obesity (BMI 30.0-34.9) History of nephrolithiasis Dyslipidemia Essential hypertension Heartburn Dysmenorrhea Medial meniscus tear GERD (gastroesophageal reflux disease) Varicose vein of leg Osteoarthritis, knee Psoriasis Surgical History Status post abdominal hysterectomy History of endometrial ablation History of bilateral tubal ligation H/O arthroscopy of right knee History of varicose veins Family History Father DVT (deep venous thrombosis) HTN (hypertension) Dyslipidemia Diabetes mellitus Mother Multiple myeloma COVID-19 Brother Lymphoma Social History Housing: House Alcohol intake: current Alcohol intake frequency: a few times a month Patient Tobacco Use Status: Never used Tobacco e-Cigarette/Vaping Use: Never Used Second Hand Smoke Exposure: No service: No Current occupational status: employed 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 Current occupational exposures/hazards: No Sexual orientation: Straight/Heterosexual Cognitive needs: No Hearing needs: No Vision needs: Yes Female Reproductive History Menstrual Age of Menarche: 6 Date of menopause: 08/25/20 Review of Systems Const All systems reviewed & are unremarkable except as noted in HPI and below Physical Exam Vital Signs: Last Vital Signs Pulse 97 09/23/24 09:27 BP 118/80 09/23/24 09:27 Pulse Ox 97 09/23/24 09:27 Oxygen Delivery Method Room Air 09/23/24 09:27 BMI result Body Mass Index 4.3 Const General: cooperative and no acute distress Nutritional Appearance: obese Orientation/consciousness: patient oriented x3 Neuro General: patient oriented x3, gait normal and moves all extremities Extrem Right lower extremity: knee Details: tenderness Location: of the patella and normal ROM; no swelling Left lower extremity: knee (Pain with ROM. ) Details: normal to inspection and tenderness Location: of the patella and of the lateral joint line; no swelling, no crepitus, no deformity and no unusual warmth Psych Speech and movement: Normal speech and movement present Assessment & Plan Assessment & Plan (1) Osteoarthritis, knee: Code(s): M17.10 - Unilateral primary osteoarthritis, unspecified knee Qualifiers: Laterality: left Osteoarthritis type: unspecified Qualified Code(s): M17.12 - Unilateral primary osteoarthritis, left knee Plan: Ice/Hot Rest joint Ordered PT. NSAIDs and Acetaminophen for pain relief. Orders: Orders PT Evaluation and Treatment Today M17.12 - Unilateral primary osteoarthritis, left knee Medications: New acetaminophen 1,000 mg (2 x 500 mg) PO Q6H PRN 30 caps 0RF pain M17.12 - Unilateral primary osteoarthritis, left knee cyclobenzaprine 5 mg PO BEDTIME 10 tabs 0RF M17.12 - Unilateral primary osteoarthritis, left knee Refilled ibuprofen 600 mg PO Q6H PRN 30 tabs 0RF pain M17.12 - Unilateral primary osteoarthritis, left knee Coding Level of Care Code Est Pt Level 4 (75687) Diagnoses Osteoarthritis of left knee, unspecified osteoarthritis type M17.12 Laterality: left Osteoarthritis type: unspecified Time Spent (min) 20
[2024-09-23 09:27] VITALS: BP 118/80; PULSE 97; O2SAT 97
== END 2024-09-23 10:04 | disposition home or self-care (01) ==
PROVIDERS: PCP Internal Medicine; Visit Provider Nurse Practitioner Family
DX: M17.12 Unilateral primary osteoarthritis, left knee (principal)

== ENCOUNTER 2024-09-24 11:20 | Outpatient (AMB) | payer OTHER, SELFPAY ==
[2024-09-24 11:56] VITALS: BP 134/90; PULSE 103; RESP 16; TEMP 36.6; O2SAT 99; BMI 36.1
--- NOTE | 2024-09-24 11:56 | A.OFFPC_ITS ---
Vital Signs 09/24/24 11:56 Height 5 ft 3 in Weight 204 lb BMI 36.1 BP 134/90 H Blood Pressure Location Rt brachial Position Sitting Respiration 16 Pulse 103 H Pulse Source Pulse Oximeter Temp 97.8 F Temp Source Oral Pulse Oximetry (%) 99 Oxygen Delivery Method Room Air Intake Visit Reasons: bilat knee swelling, f/u from walk in Intake Note: Pt is here today c/o bilateral knee pain went to the walkin yesterday, provider wanted pt to f/u with PCP Allergies No Known Allergies Allergy (Verified 09/24/24 12:04) Medication List - Last Reconciled 09/24/24 by Jen Ambrocoi MD acetaminophen 1,000 mg (2 x 500 mg) PO Q6H PRN adalimumab (Humira(CF) Pen) mg subcut bisacodyl (Dulcolax (bisacodyl)) 20 mg (4 x 5 mg) PO ONCE 1 day blood sugar diagnostic (FreeStyle Lite Strips) Check fasting blood sugar twice a day before meals blood-glucose meter (FreeStyle Lite Meter kit) Check fasting blood sugar twice a day before meals cyclobenzaprine 5 mg PO BEDTIME estradiol 1 mg PO DAILY fluticasone propionate 50 mcg/actuation (Flonase Allergy Relief) 1 spray intranasal BID PRN ibuprofen 600 mg PO Q6H PRN lancets (FreeStyle Lancets) Check fasting blood sugar twice a day before meals levocetirizine 5 mg PO QPM PRN lisinopril 20 mg PO DAILY metformin 1,000 mg PO BIDWMEAL 3 months omeprazole 20 mg PO DAILY PRN Ozempic (semaglutide) 0.25 mg (0.368 mL) subcut QWEEK 30 days NS polyethylene glycol 3350 (Miralax) 238 grams PO ONCE rosuvastatin 5 mg PO Q2D 90 days Tobacco use date assessed: 09/24/24 Dental Screening Dental Screen Date: 09/24/24 Did you have a dental visit in the last 12 months?: Yes Did you have a dental problem in the last 6 months where you did not have access to dental care?: No Was dental information given to patient?: Patient has dentist HPI bilat knee swelling, f/u from walk in HPI Details 49-year-old lady here today for follow-u p after recent walk-in visit complaining of pain in her left knee joint present now for the last week or so. Patient has been avoiding putting her weight on her left leg but now is starting to have similar symptoms in her right knee. Patient also has been complaining of aching legs worse towards the end of the day with some puffiness noted around ankles. She has been resting her legs and taking Tylenol which affords only temporary relief. [facility] Medical History Hx of menorrhagia Obesity (BMI 30.0-34.9) History of nephrolithiasis Dyslipidemia Essential hypertension Heartburn Dysmenorrhea Medial meniscus tear GERD (gastroesophageal reflux disease) Varicose vein of leg Osteoarthritis, knee Psoriasis Surgical History Status post abdominal hysterectomy History of endometrial ablation History of bilateral tubal ligation H/O arthroscopy of right knee History of varicose veins Family History Father DVT (deep venous thrombosis) HTN (hypertension) Dyslipidemia Diabetes mellitus Mother Multiple myeloma COVID-19 Brother Lymphoma Social History Housing: House Alcohol intake: current Alcohol intake frequency: a few times a month Patient Tobacco Use Status: Never used Tobacco e-Cigarette/Vaping Use: Never Used Second Hand Smoke Exposure: No service: No Current occupational status: employed 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 Current occupational exposures/hazards: No Sexual orientation: Straight/Heterosexual Cognitive needs: No Hearing needs: No Vision needs: Yes Female Reproductive History Menstrual Age of Menarche: 6 Date of menopause: 08/25/20 Questionnaire Thrive Questionnaire Date Thrive assessed: 08/28/24 I am a: Patient What is your living situation today?: I have a steady place to live Within the past 12 months, did the food you bought not last and you didn't have the money to get more?: I choose not to answer this question Within the past 12 months, did you worry whether your food would run out before you got money to buy more?: I choose not to answer this question Do you have trouble paying for medicines?: No Do you have trouble getting transportation to medical appointments?: No Do you have trouble paying your heating and electricity bill?: No Do you have trouble taking care of your child, family member or friend?: No Do you have trouble with day-to-day activities such as bathing, preparing meals, shopping, managing finances, etc.?: No Are you currently unemployed and looking for a job?: No Are you interested in more education?: No Please select the resources that you would like help with: None Currently or been in a relationship where the following occur: I choose not to answer THRIVE Score: 0 AUDIT C Alcohol Use Questionnaire (AUDIT-C) 3. How often do you have six or more drinks on one occasion?: Never Total Score: 0 MARY-7 AMB Questionnaire MARY-7 Date MARY - 7 assessed: 08/28/24 Source: Developed by Drs. Sid Real, Martha Oviedo, Arnoldo Escobedo and colleagues, with an educational yamini from [employer]. Review of Systems Const All systems reviewed & are unremarkable except as noted in HPI and below Physical exam (Primary Care) Vital Signs: Last Vital Signs Temp 97.8 F 09/24/24 11:56 Pulse 103 H 09/24/24 11:56 Resp 16 09/24/24 11:56 BP 134/90 H 09/24/24 11:56 Pulse Ox 99 09/24/24 11:56 Oxygen Delivery Method Room Air 09/24/24 11:56 BMI result Body Mass Index 36.1 Tobacco/Smoking Status: Tobacco use Status Tobacco use date assessed 09/24/24 09/24/24 12:02 Patient Tobacco Use Status Never used Tobacco 09/24/24 12:02 e-Cigarette/Vaping Use Never Used 09/24/24 12:02 Thrive Assessment: Date of Thrive Assessment Date Thrive assessed 08/28/24 09/24/24 12:02 Currently or been in a relationship where the following occur: I choose not to answer Const Other: Alert oriented x3, no acute cardiorespiratory distress noted ambulatory with normal gait HENMT Ears: external ears normal Face and sinus: Yes face symmetric Mouth: oropharynx normal and moist mucous membranes Neck Neck: Yes full ROM, Yes no lymphadenopathy and Yes supple Resp Auscultation: clear to auscultation bilaterally Cardio Other: S1-S2 present regular rate and rhythm, no murmurs GI Other: Normal bowel sounds, soft, nontender with no mass palpated General: Yes no CVA tenderness and Yes deferred (Goes to [facility]) Back/Spine/Pelvis Back: no CVA tenderness and No back tenderness Skin General skin exam: no rashes or lesions noted Neuro Cranial nerves: Yes CN's II-XII intact bilaterally and Yes Bilaterally intact EOM present Extrem Other: Crepitus noted in both knees. Varicose veins present in both lower extremities General: Yes full ROM, Yes no joint enlargement, Yes no calf tenderness, Yes no rmal gait and Yes pedal edema Coding Level of Care Code Est Pt Level 3 (56871) Diagnoses Acute pain of both knees M25.561; M25.562 Chronicity: acute Varicose veins of left lower extremity with pain I83.812 Assessment & Plan Assessment & Plan (1) Pain in both knees: Code(s): M25.561 - Pain in right knee; M25.562 - Pain in left knee Qualifiers: Chronicity: acute Qualified Code(s): M25.561 - Pain in right knee; M25.562 - Pain in left knee Plan: Continue taking Tylenol 650 mg 1 tablet twice a day as needed for pain, avoid Motrin, friction sent for diclofenac gel 1%, to massaged to affected area in joint 4 times a day as needed. X-ray of bilateral knee ordered. Patient has already been referred for physical therapy. (2) Varicose veins of left lower extremity with pain: Code(s): I83.812 - Varicose veins of left lower extremity with pain Category: Medical Plan: Advised to try wearing travel compression socks during the day when she is up and about and remove them at night, elevate legs as much as possible, persist, will refer her to vascular surgeon for further evaluation and management. Orders: Orders XR knee standing BI 09/24/24 M25.561 - Pain in right knee, M25.562 - Pain in left knee Medications: New diclofenac sodium 1% 4 grams topical QID PRN 100 grams 0RF Knee pain
--- OUTSIDE RECORDS SUMMARY | 2024-09-24 12:58 | XMS_ITS | Encounter Summary ---
Author Organization [employer] Address [address] [facility] [address] [place] [address] Care Team Providers Care Mobile Home Park Manager Name Role Phone Unavailable Primary Care Provider Unavailabl e Encounter Details Date Type Department Care Team (Latest Contact Info) Description 06/15/2021 Abstract [facility] CONVERSIONS Dental, Provider, DDS Social History Tobacco [...]
--- OUTSIDE RECORDS SUMMARY | 2024-09-24 12:58 | XMS_ITS | Clinical Summary ---
Author Organization [employer] Address [address] [facility] [address] [place] [address] Care Team Providers Care Electroplater Apprentice Name Role Phone Unavailable Primary Care Provider [...] Cancer Screening 2003 HPV/Cotest 2003 Mammogram 2013 Pneumococcal Vaccine: 50+ Years (2 of 2 - PCV) 2023 12/17/2018 Zoster Vaccines (1 of 2) 2023 COVID-19 Vaccine (3 - 2023- season) 2024 02/04/2021, 01/14/2021 RSV Patients and Patients Aged 60 years or older (1 - 1-dose 75+ series) 02/19/2048 Pneumococcal Vaccine: Pediatrics (0 to 5 Years) and At-Risk Patients (6 to 49) Years) Aged Out 12/17/2018 No longer eligible [...]
--- OUTSIDE RECORDS SUMMARY | 2024-09-24 12:58 | XMS_ITS | Clinical Summary ---
Author Organization [facility] it Address [address] [place] [address] Care Team Providers Care Smoking Tobacco Packer Hand Name Role Phone Jamie Vieyra MD Primary Care Provider [phone] Medical History Medical History Date Comments Psoriasis 02/17/2017 DX:Psoriasis Diabetes mellitus type 2, uncomplicated (CMS/HCC) 02/17/2017 DX:Diabetes mellitus type 2, uncomplicated (HCC) Social History Tobacco Use Types Packs/Day Years Used Date Smoking Tobacco: Never Smokeless Tobacco: Never Comments Unknown Sex and Gender Information Value Date Recorded Sex Assigned at Not on file Legal Sex Female 6:14 PM EST Gender Identity Not on file Sexual Orientation Not on file Obstetrics History Plan of Treatment Health Maintenance Due Date Last Done Comments Breast Cancer Screening 1973 Diabetes: Annual GFR (Glomer ular Filtration Rate) 1973 COVID-19 Vaccine (#1) 1978 DTaP,Tdap,and Td Vaccines (1 - Tdap) 02/19/1980 Diabetes: Annual Foot Exam 1983 Diabetes: Annual Retina Eye Exam 1983 Hepatitis B Vaccines (1 of 3 - 19+ 3-dose series) 02/19/1992 Cervical Cancer Screening: P ap Smear 1994 Cholesterol Screening (Lipid Panel) 07/16/2022 Colorectal Cancer Screening: Colonoscopy 07/16/2022 Depression Screening 07/16/2022 HIV Screening 07/16/2022 Hepatitis C Screening 07/16/2022 Social Influencers of Health Screening 07/16/2022 Diabetes: Annual Urine Albumin-Creatinine Ratio (uACR) 07/29/2022 Diabetes: Blood Sugar Contro l Test (HGBA1C) 07/29/2022 Pneumococcal Vaccine: 50+ Ye ars (1 of 1 - PCV) 2023 Zoster Vaccines (1 of 2) 2023 Influenza [...] patient's age to complete this topic Meningococcal B Vacine Aged Out No lo nger eligible based on patient's age to complete [...] age to complete this topic Care Teams Smoking Tobacco Packer Hand Relationship Specialty Start Date End Date Jamie Vieyra MD [address] [place] [address] PCP - General Internal Medicine 07/17/17
== END 2024-09-24 13:38 | disposition home or self-care (01) ==
PROVIDERS: PCP Internal Medicine; Visit Provider Internal Medicine
DX: M25.561 Pain in right knee (principal); M25.562 Pain in left knee; I83.812 Varicose veins of left lower extremity with pain

== ENCOUNTER 2024-09-24 11:20 | Outpatient (REF) | payer OTHER, SELFPAY ==
--- NOTE | ~2024-09-24 | XR_ITS ---
EXAMINATION: XR KNEE AP STANDING CLINICAL INFORMATION: M25.561 - Pain in right knee COMPARISON: None available. TECHNIQUE: AP bilateral standing view of the knees was obtained. FINDINGS: There is mild reduction in medial compartment joint space with minimal spurring of both knees. No bony erosive changes or loose bodies seen. No fracture or lytic process seen. XR/XR knee standing BI IMPRESSION: Mild DJD medial compartment both knees. Electronically signed by: Miguel A Kim MD 10/15/2024 12:44 PM EST
--- OUTSIDE RECORDS SUMMARY | 2024-09-24 14:08 | XMS_ITS | Encounter Summary ---
Author Organization [employer] Address [address] [facility] [address] [place] [address] Care Team Providers Care Homicide Squad Lieutenant Name Role Phone Unavailable Primary Care Provider Unavailabl e Encounter Details Date Type Department Care Team (Latest Contact Info) Description 06/15/2021 Abstract [facility] CONVERSIONS Dental, Provider, DDS Social History [...]
--- OUTSIDE RECORDS SUMMARY | 2024-09-24 14:08 | XMS_ITS | Clinical Summary ---
Author Organization [facility] it Address [address] [place] [address] Care Team Providers Care Financial Services Specialist Name Role Phone Jamie Vieyra MD Primary Care Provider [phone] Medical History Medical History Date Comments Psoriasis [...] age to complete this topic Care Teams Financial Services Specialist Relationship Specialty Start Date End Date Jamie Vieyra MD [address] [place] [address] PCP - General Internal Medicine 07/17/17
--- OUTSIDE RECORDS SUMMARY | 2024-09-24 14:08 | XMS_ITS | Clinical Summary ---
Author Organization [employer] Address [address] [facility] [address] [place] [address] Care Team Providers Care Construction Sales Manager Name Role Phone Unavailable Primary Care [...]
== END 2024-09-24 11:21 | disposition home or self-care (01) ==
LOC: HO.HMGCX 11:20
PROVIDERS: PCP Internal Medicine; Visit Provider Internal Medicine
DX: M23.8X2 Other internal derangements of left knee (principal); M23.8X1 Other internal derangements of right knee; I83.812 Varicose veins of left lower extremity with pain
CPT/HCPCS: 73565; 99212

== ENCOUNTER → 2024-09-24 13:17 | Outpatient (BNV) | payer OTHER, SELFPAY | PROVIDERS: PCP Internal Medicine; Visit Provider Radiology Diagnostic Radiology | DX: M25.561 Pain in right knee (principal) | CPT/HCPCS: 73565 ==

== ENCOUNTER 2024-10-02 09:10 | Outpatient (AMB) | payer OTHER, SELFPAY ==
--- NOTE | 2024-10-02 09:21 | A.OFFPC_ITS ---
Vital Signs 10/02/24 09:24 Height 5 ft 3 in Weight 201 lb BMI 35.6 BP 136/92 H Blood Pressure Location Rt brachial Position Sitting Pulse 103 H Pulse Source Pulse Oximeter Temp 98.0 F Temp Source Oral Pulse Oximetry (%) 97 Oxygen Delivery Method Room Air Intake Visit Reasons: 1m follow up labs Intake Note: Pt is here today for her weight f/u after starting Ozempic Allergies No Known Allergies Allergy (Verified 10/02/24 09:52) Medication List - Last Reconciled 10/02/24 by Jen Ambrocio MD acetaminophen 1,000 mg (2 x 500 mg) PO Q6H PRN adalimumab (Humira(CF) Pen) mg subcut bisacodyl (Dulcolax (bisacodyl)) 20 mg (4 x 5 mg) PO ONCE 1 day blood sugar diagnostic (FreeStyle Lite Strips) Check fasting blood sugar twice a day before meals blood-glucose meter (FreeStyle Lite Meter kit) Check fasting blood sugar twice a day before meals diclofenac sodium 1% 4 grams topical QID PRN fluticasone propionate 50 mcg/actuation (Flonase Allergy Relief) 1 spray intranasal BID PRN ibuprofen 600 mg PO Q6H PRN lancets (FreeStyle Lancets) Check fasting blood sugar twice a day before meals levocetirizine 5 mg PO QPM PRN lisinopril 20 mg PO DAILY metformin 1,000 mg PO BIDWMEAL 3 months omeprazole 20 mg PO DAILY PRN Ozempic (semaglutide) 0.25 mg (0.368 mL) subcut QWEEK 30 days NS polyethylene glycol 3350 (Miralax) 238 grams PO ONCE rosuvastatin 5 mg PO Q2D 90 days Tobacco use date assessed: 10/02/24 Dental Screening Dental Screen Date: 10/02/24 HPI 1m follow up labs HPI Details 49-year-old lady with past medical histo ry of diabetes mellitus currently on Ozempic 0.25 mg injected once weekly together with metformin 1000 mg twice a day, has hypertension currently on lisinopril 20 mg daily, and hyperlipidemia currently on rosuvastatin 5 mg taken every other day, here today for follow-up. Patient reports nausea and abdominal pain after she administer Ozempic. She states that even drinking water makes her nauseated . She recently saw [facility] 09/02/2024 for pre colonoscopy screening and pre upper endoscopy screening. Patient however still waiting for an procedure date. She has omeprazole but takes it only rarely. Latest fasting labs done showed hemoglobin A1c the same at 6.8%, but fasting lipids and electrolytes and renal function are all within normal limits [facility] Medical History Hx of menorrhagia Obesity (BMI 30.0-34.9) History of nephrolithiasis Dyslipidemia Essential hypertension Heartburn Dysmenorrhea Medial meniscus tear GERD (gastroesophageal reflux disease) Varicose vein of leg Osteoarthritis, knee Psoriasis Surgical History Status post abdominal hysterectomy History of endometrial ablation History of bilateral tubal ligation H/O arthroscopy of right knee History of varicose veins Family History Father DVT (deep venous thrombosis) HTN (hypertension) Dyslipidemia Diabetes mellitus Mother Multiple myeloma COVID-19 Brother Lymphoma Social History Housing: House Alcohol intake: current Alcohol intake frequency: a few times a month Patient Tobacco Use Status: Never used Tobacco e-Cigarette/Vaping Use: Never Used Second Hand Smoke Exposure: No service: No Current occupational status: employed 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 Current occupational exposures/hazards: No Sexual orientation: Straight/Heterosexual Cognitive needs: No Hearing needs: No Vision needs: Yes Female Reproductive History Menstrual Age of Menarche: 6 Date of menopause: 08/25/20 Questionnaire Thrive Questionnaire Date Thrive assessed: 08/28/24 I am a: Patient What is your living situation today?: I have a steady place to live Within the past 12 months, did the food you bought not last and you didn't have the money to get more?: I choose not to answer this question Within the past 12 months, did you worry whether your food would run out before you got money to buy more?: I choose not to answer this question Do you have trouble paying for medicines?: No Do you have trouble getting transportation to medical appointments?: No Do you have trouble paying your heating and electricity bill?: No Do you have trouble taking care of your child, family member or friend?: No Do you have trouble with day-to-day activities such as bathing, preparing meals, shopping, managing finances, etc.?: No Are you currently unemployed and looking for a job?: No Are you interested in more education?: No Please select the resources that you would like help with: None Currently or been in a relationship where the following occur: I choose not to answer THRIVE Score: 0 MARY-7 AMB Questionnaire MARY-7 Date MARY - 7 assessed: 08/28/24 Source: Developed by Drs. Sid Real, Martha Oviedo, Arnoldo Escobedo and colleagues, with an educational yamini from [employer]. Review of Systems Const Denies chills, Denies fever(s), Denies frequent falls and Denies malaise Eyes Details: Goes to [facility], has an appointment Reports no additional complaints ENT Reports no additional complaints Card Denies chest pain, Denies chest pain with activity, Denies syncope, Denies irregular heart rhythm and Denies palpitations Resp Reports no additional complaints GI Reports as per HPI, Denies melena and Denies hematochezia Reports no additional complaints Musc Denies myalgias, Denies arthralgias, Denies joint swelling, Denies limited range of motion, Denies muscle weakness and Denies stiffness Skin/Breast Details: sees Dr Mynor Ramos for her psoriasis, currently on Humira Denies rash Neuro Denies syncope and Denies frequent falls Psych Reports no additional complaints Endo Denies palpitations Eusebio/Lymph Reports no additional complaints Aller/Immun Reports no additional complaints Physical exam (Primary Care) Vital Signs: Last Vital Signs Temp 98.0 F 10/02/24 09:24 Pulse 103 H 10/02/24 09:24 BP 136/92 H 10/02/24 09:24 Pulse Ox 97 10/02/24 09:24 Oxygen Delivery Method Room Air 10/02/24 09:24 BMI result Body Mass Index 35.6 Tobacco/Smoking Status: Tobacco use Status Tobacco use date assessed 10/02/24 10/02/24 09:25 Patient Tobacco Use Status Never used Tobacco 10/02/24 09:22 e-Cigarette/Vaping Use Never Used 10/02/24 09:22 Thrive Assessment: Date of Thrive Assessment Date Thrive assessed 08/28/24 10/02/24 09:22 Currently or been in a relationship where the following occur: I choose not to answer Const Other: Alert oriented x3, no acute cardiorespiratory distress noted ambulatory with normal gait [facility] Ears: external ears normal Face and sinus: Yes face symmetric Mouth: oropharynx normal and moist mucous membranes Neck Neck: Yes full ROM, Yes no lymphadenopathy and Yes supple Resp Auscultation: clear to auscultation bilaterally Cardio Other: S1-S2 present regular rate and rhythm, no murmurs GI Inspection: Yes obesity Palpation (GI): Soft to palpation, Tenderness to palpation present (GI) in the epigastrum, no guarding and no masses General: Yes no CVA tenderness and Yes deferred (Goes to [facility] OBG[facility]) Back/Spine/Pelvis Back: no CVA tenderness and No back tenderness Skin General skin exam: no rashes or lesions noted Neuro Cranial nerves: Yes CN's II-XII intact bilaterally and Yes Bilaterally intact EOM present Extrem Other: Crepitus noted in both knees. Varicose veins present in both lower extremities General: Yes full ROM, Yes no joint enlargement, Yes no calf tenderness, Yes normal gait and Yes pedal edema Results Reviewed Results Reviewed: Laboratory Tests 05/13/24 08/15/24 06:48 08:19 Estimat Average Glucose 166 154 Hemoglobin A1c % 7.4 H 7.0 H Urine Creatinine 198.00 Urine Microalbumin 34.0 Microalb/Creat Ratio 17.1 Name: Nereyda Edge Age/Sex: 49/F : 1975 Unit#: [id number] Attend Dr: Jen Ambrocio MD Re08/15/24 Status: DEP REF Location: [facility] Disch: SPEC : [id number] MICA: 08/15/24 STATUS: COMP REQ : [id number] RECD: 08/15/[address]: Jen Ambrocio MD COMP: 08/15/24 ENTERED: 08/15/[address]: ORDERED: Met Prof Fast, AST, ALT, Lipid Panel Test Result Flag Reference Sodium 140 135-145 mmol/L Potassium 3.5 3.3-5.1 mmol/L CL 105 96-108 mmol/L CO2 28 22-29 mmol/L Gap 11 L 12-20 BUN 11 9-16 mg/dL Creat 0.74 0.5-1.4 mg/dL eGFR > 60 Chronic Kidney Disease: Estimated GFR < 60 mL/min/1.73m2 Severe Kidney Disease: Estimated GFR < 15 mL/min/1.73m2 FBS 155 H 60-99 mg/dL A fasting glucose of 126 mg/dl or greater on more than one occasion is considered diagnostic of diabetes. CA 8.9 # 8.4-10.2 mg/dL AST (GOT) 26 5-31 U/L ALT (GPT) 32 H 0-31 U/L Triglyceride 100 <150 mg/dL Desirable Triglyceride: less than 150 mg/dL Borderline High Triglyceride 150-199 mg/dL High Triglyceride: 200-499 mg/dL Very High Triglyceride: greater than or equal to 5OO mg/dL Cholesterol 131 <200 mg/dL Desirable Cholesterol: less than 200 mg/dL Borderline High Cholesterol: 200-239 mg/dL High Cholesterol: greater than 239 mg/dL LDL Calculated 63 <100 mg/dL Desirable LDL: less than 100 mg/dL Near Optimal/Above Optimal LDL: 110-129 mg/dL Borderline High LDL: 130-159 mg/dL High LDL: 160-189 mg/dL Very High LDL: greater than or equal to 190 mg/dL HDL 48 >40 mg/dL Desirable HDL: greater than 40 mg/dL Coding Level of Care Code Est Pt Level 4 (64780) Complex EM visit Add On G2211 Diagnoses Nausea R11.0 Epigastric pain R10.13 Diabetes mellitus with hyperglycemia, without long-term current use of insulin E11.65 Essential hypertension I10 Dyslipidemia E78.5 Gastroesophageal reflux disease, unspecified whether esophagitis present K21.9 Esophagitis presence: esophagitis presence not specified Assessment & Plan Assessment & Plan (1) Nausea: Code(s): R11.0 - Nausea Category: Medical Plan: Upper GI series and abdominal ultrasound ordered. Patient advised to start taking omeprazole 20 mg 1 capsule daily at least 30 minutes before eating. Avoid eating greasy , grilled foods, avoid fried foods and highly acidic foods. Already seen at [facility] and is awaiting for an appointment for her upper endoscopy and colonoscopy procedure to be done (2) Epigastric pain: Code(s): R10.13 - Epigastric pain Category: Medical Plan: Abdominal ultrasound an upper GI series for. Advised to start taking omeprazole 20 mg daily an hour before eating (3) Diabetes mellitus with hyperglycemia, without long-term current use of insulin: Code(s): E11.65 - Type 2 diabetes mellitus with hyperglycemia Category: Medical Plan: Continued on metformin 1000 mg twice a day and continue on same dose of Ozempic 0.25 mg once a week. Reinforced importance of following diabetic diet and getting regular exercise. Goes to [facility] for her eye exams (4) Essential hypertension: Code(s): I10 - Essential (primary) hypertension Category: Medical Plan: Continue on lisinopril 20 mg daily (5) Dyslipidemia: Code(s): E78.5 - Hyperlipidemia, unspecified Category: Medical Plan: Reviewed recent fasting lipid profile with patient with levels within normal limit . Continue rosuvastatin 5 mg taken 1 tablet every other day , in addition to adherence to low-cholesterol diet and regular exercise, at least 30 minutes 3 to 4 times a week. Advised patient to make healthy food choices, eat more fruits, vegetables, whole grains, wild caught fish and low-fat dairy. Limit amount of meat and fried or fatty food products, as well as processed foods and fast foods. Follow-up scheduled with repeat fasting lipid panel in 3 months. (6) GERD (gastroesophageal reflux disease): Code(s): K21.9 - Gastro-esophageal reflux disease without esophagitis Category: Medical Qualifiers: Esophagitis presence: esophagitis presence not specified Qualified Code(s): K21.9 - Gastro-esophageal reflux disease without esophagitis Plan: Start taking omeprazole 20 mg 1 capsule once a day an hour before eating. Upper GI series ordered Orders: Orders FL upper GI series Today R10.13 - Epigastric pain, R11.0 - Nausea US abdomen complete Today R10.13 - Epigastric pain, R11.0 - Nausea Hemoglobin A1c 12/12/24 E78.5 - Hyperlipidemia, unspecified, I10 - Essential (primary) hypertension, K21.9 - Gastro-esophageal reflux disease without esophagitis, R10.13 - Epigastric pain, R11.0 - Nausea Lipid Panel 12/12/24 E78.5 - Hyperlipidemia, unspecified, I10 - Essential (primary) hypertension, K21.9 - Gastro-esophageal reflux disease without esophagitis, R10.13 - Epigastric pain, R11.0 - Nausea Comprehensive [place]. Panel Fast 12/12/24 E78.5 - Hyperlipidemia, unspecified, I10 - Essential (primary) hypertension, K21.9 - Gastro-esophageal reflux disease without esophagitis, R10.13 - Epigastric pain, R11.0 - Nausea Medications: Changed From omeprazole 20 mg PO DAILY PRN R12 - Heartburn To omeprazole 20 mg PO DAILY 30 caps 2RF R12 - Heartburn Refilled rosuvastatin 5 mg PO Q2D 90 days 45 tabs 1RF Ozempic (semaglutide) for 4 weeks 0.25 mg (0.368 mL) subcut QWEEK 30 days 3 mL 1RF NS E11.9 - Type 2 diabetes mellitus without complications, E66.811 - Obesity, class 1 metformin 1,000 mg PO BIDWMEAL 3 months 180 tabs 1RF E11.65 - Type 2 diabetes mellitus with hyperglycemia lisinopril 20 mg PO DAILY 90 tabs 2RF I10 - Essential (primary) hypertension
--- OUTSIDE RECORDS SUMMARY | 2024-10-02 09:21 | XMS_ITS | Clinical Summary ---
Author Organization [employer] [facility] it Address [address] [place] [address] Care Team Providers Care Quality Compliance Consultant Name Role Phone Jamie Vieyra MD Primary Care Provider Medical History Medical History Date Comments Psoriasis [...] age to complete this topic Care Teams Quality Compliance Consultant Relationship Specialty Start Date End Date Jamie Vieyra MD [address] [place] [address] PCP - General Internal Medicine 07/17/17
[2024-10-02 09:24] VITALS: BP 136/92; PULSE 103; TEMP 36.7; O2SAT 97; BMI 35.6
== END 2024-10-02 10:17 | disposition home or self-care (01) ==
PROVIDERS: PCP Internal Medicine; Visit Provider Internal Medicine
DX: R11.0 Nausea (principal); R10.13 Epigastric pain; E11.65 Type 2 diabetes mellitus with hyperglycemia; I10 Essential (primary) hypertension; E78.5 Hyperlipidemia, unspecified; K21.9 Gastro-esophageal reflux disease without esophagitis

== ENCOUNTER → 2024-10-02 09:10 | Outpatient (BNVA) | payer OTHER, SELFPAY | PROVIDERS: PCP Internal Medicine; Visit Provider Internal Medicine | DX: R11.0 Nausea (principal); R10.13 Epigastric pain; E11.65 Type 2 diabetes mellitus with hyperglycemia; I10 Essential (primary) hypertension; E78.5 Hyperlipidemia, unspecified; K21.9 Gastro-esophageal reflux disease without esophagitis | CPT/HCPCS: 99212 ==

== ENCOUNTER 2024-10-25 08:04 | Outpatient (REF) | payer OTHER, SELFPAY ==
--- NOTE | ~2024-10-25 | US_ITS ---
EXAMINATION: US ABDOMEN HISTORY: R11.0 - Nausea TECHNIQUE: Real-time grayscale ultrasound imaging of the abdomen was performed and images were reviewed. COMPARISON: Correlation is made with a CT of the abdomen without contrast dated 11/03/2022. FINDINGS: Liver: The right lobe of the liver measures 15.8 cm in size. The left lobe of the liver measures 8.8 cm in size. The liver demonstrates increased echotexture, consistent with steatosis. No focal mass or intrahepatic biliary ductal dilatation is identified. There is normal hepatopedal flow in the portal vein. Gallbladder and biliary tree: The gallbladder is unremarkable, without evidence of calculi, wall thickening, or pericholecystic fluid. There is no sonographic Jolley sign. The common bile duct is normal in caliber measuring 3 mm. Kidneys: The right kidney measures 13.6 cm in length and demonstrates a 1.3 cm lower pole cyst. There is a nonobstructing calculus at the upper pole measuring 6 x 9 x 7 mm. There is no hydronephrosis. The left kidney measures 12.9 cm in length and is unremarkable. Pancreas: The pancreatic head, neck, and body are unremarkable. The pancreatic tail is obscured by bowel gas. Spleen: The spleen is normal in size and contour, measuring 10.6 cm in length. Abdominal aorta and inferior vena cava: The visualized portions of the abdominal aorta and inferior vena cava are normal in caliber. There is no free fluid in the abdomen. US/US abdomen complete IMPRESSION: 1. Mild hepatomegaly. Hepatic steatosis. 2. 1.3 cm right renal cyst. 6 x 9 x 7 mm nonobstructing right upper pole renal calculus. Electronically signed by: Sid Thayer MD 10/25/2024 08:50 AM EDT
--- OUTSIDE RECORDS SUMMARY | 2024-10-25 08:06 | XMS_ITS | Clinical Summary ---
Author Organization [employer] Address [address] [facility] [address] [place] [address] Care Team Providers Care Mopper Name Role Phone Unavailable Primary Care Provider [...]
--- OUTSIDE RECORDS SUMMARY | 2024-10-25 08:06 | XMS_ITS | Clinical Summary ---
Author Organization [facility] [facility] it Address [address] [place] [address] Care Team Providers Care Director Franchise Sales Name Role Phone Jamie Vieyra MD Primary Care Provider [phone] Medical History Medical History Date Comments Psoriasis [...] age to complete this topic Care Teams Director Franchise Sales Relationship Specialty Start Date End Date Jamie Vieyra MD [address] [place] [address] PCP - General Internal Medicine 07/17/17
--- OUTSIDE RECORDS SUMMARY | 2024-10-25 08:06 | XMS_ITS | Encounter Summary ---
Author Organization [employer] Address [address] [facility] [address] [place] [address] Care Team Providers Care Physician Specialist Name Role Phone Unavailable Primary Care Provider Unavailabl e Encounter Details Date Type Department Care Team (Latest Contact Info) Description 06/15/2021 Abstract [facility] CONVERSIONS Dental, Provider, DDS Social History Tobacco [...]
== END 2024-10-25 08:05 | disposition home or self-care (01) ==
LOC: HO.HMGCX 08:04
PROVIDERS: PCP Internal Medicine; Visit Provider Internal Medicine
DX: R10.13 Epigastric pain (principal); R11.0 Nausea
CPT/HCPCS: 76700

== ENCOUNTER → 2024-10-25 08:06 | Outpatient (BNV) | payer OTHER, SELFPAY | PROVIDERS: PCP Internal Medicine; Visit Provider Radiology Diagnostic Radiology | DX: N20.0 Calculus of kidney (principal); N28.1 Cyst of kidney, acquired; K76.0 Fatty (change of) liver, not elsewhere classified | CPT/HCPCS: 76700 ==

== ENCOUNTER 2024-12-10 08:31 | Outpatient (REF) | payer OTHER, SELFPAY ==
--- NOTE | ~2024-12-10 | FL_ITS ---
EXAMINATION: XR FLUOROSCOPY UPPER GI WITH AIR CLINICAL INFORMATION: Epigastric pain COMPARISON: Ultrasound abdomen complete 10/25/2024 TECHNIQUE: Routine upper GI air contrast study was performed in upright and lying position. FINDINGS: Following oral administration of thick barium and effervescent granules and upright view there is normal propagation bolus from the oral cavity through the pharynx, esophagus into stomach without any evidence of obstruction, narrowing or stricture. On placing patient in supine and prone lying the course, caliber and peristalsis of the stomach, duodenal bulb and sweep is normal. The mucosal pattern of the esophagus, stomach and duodenum is normal. Moderate gastroesophageal reflux seen without hiatal hernia FLUOROSCOPY TIME: 1 minute 50 seconds DOSE AREA PRODUCT: 55.04 uGy-m2 (microgray-meter squared) FL/FL upper GI w air IMPRESSION: Moderate gastroesophageal reflux without hiatal hernia. Otherwise unremarkable upper GI air contrast study Electronically signed by: Miguel A Kim MD 12/12/2024 09:21 AM EDT
--- OUTSIDE RECORDS SUMMARY | 2024-12-10 08:52 | XMS_ITS | Clinical Summary ---
Author Organization [employer] [facility] Address [address] [place] [id number] Care Team Providers Care Transfer Station Operator Name Role Phone Jamie Vieyra MD Primary Care Provider [phone] Medical History Medical History Date Comments Psoriasis 02/17/2017 DX:Psoriasis Diabetes mellitus type 2, uncomplicated (CMS/HCC V24, CMS/HCC V28) 02/17/2017 DX:Diabetes mellitus type 2, uncomplicated ([facility]) Social History Tobacco Use Types Packs/Day Years [...] Vaccines (1 of 2) 2023 Influenza Vaccine (Season Ended) 2025 HIB Vaccines Aged Out No longer eligi [...] age to complete this topic Meningococcal B Vaccine Aged Out No l onger eligible based on patient's age to complete [...] age to complete this topic Care Teams Transfer Station Operator Relationship Specialty Start Date End Date Jamie Vieyra MD [address] [place] [address] PCP - General Internal Medicine 07/17/17
--- OUTSIDE RECORDS SUMMARY | 2024-12-10 08:52 | XMS_ITS | Clinical Summary ---
Author Organization [employer] Address [address] [facility] [address] [place] [address] Care Team Providers Care Aurist Name Role Phone Unavailable Primary Care Provider [...]
--- OUTSIDE RECORDS SUMMARY | 2024-12-10 08:52 | XMS_ITS | Encounter Summary ---
Author Organization [employer] Address [address] [facility] [address] [place] [address] Care Team Providers Care Pastry Baker Name Role Phone Unavailable Primary Care Provider Unavailabl e Encounter Details Date Type Department Care Team (Latest Contact Info) Description 06/15/2021 Abstract [facility] CONVERSIONS Dental, Provider, DDS Social History [...]
== END 2024-12-10 08:32 | disposition home or self-care (01) ==
LOC: HO.XRAY 08:31
PROVIDERS: PCP Internal Medicine; Visit Provider Internal Medicine
DX: R10.13 Epigastric pain (principal); R11.0 Nausea
CPT/HCPCS: 74246

== ENCOUNTER → 2024-12-10 08:34 | Outpatient (BNV) | payer OTHER, SELFPAY | PROVIDERS: PCP Internal Medicine; Visit Provider Radiology Diagnostic Radiology | DX: K21.9 Gastro-esophageal reflux disease without esophagitis (principal) | CPT/HCPCS: 74246 ==

== ENCOUNTER 2025-02-13 10:21 | Outpatient (REF) | payer OTHER, SELFPAY ==
--- OUTSIDE RECORDS SUMMARY | 2025-02-13 11:04 | XMS_ITS | Encounter Summary ---
Author Organization [employer] Address [address] [facility] [address] [place] [address] Care Team Providers Care Weigh Boss Name Role Phone Unavailable Primary Care Provider Unavailabl e Encounter Details Date Type Department Care Team (Latest Contact Info) Description 06/15/2021 Abstract [facility] CONVERSIONS Dental, Provider, DDS Social History Tobacco [...]
== END 2025-02-13 10:22 | disposition home or self-care (01) ==
LOC: HO.MAMMO 10:21
PROVIDERS: PCP Internal Medicine; Visit Provider Internal Medicine
DX: Z12.31 Encounter for screening mammogram for malignant neoplasm of breast (principal)
CPT/HCPCS: 77063; 77067

== ENCOUNTER → 2025-02-13 11:15 | Outpatient (BNV) | payer OTHER, SELFPAY | PROVIDERS: PCP Internal Medicine; Visit Provider Internal Medicine | DX: Z12.31 Encounter for screening mammogram for malignant neoplasm of breast (principal) | CPT/HCPCS: 77063; 77067 ==

== ENCOUNTER 2025-02-26 07:50 | Outpatient (AMB) | payer OTHER, SELFPAY ==
--- OUTSIDE RECORDS SUMMARY | 2025-02-26 07:53 | XMS_ITS | Encounter Summary ---
Author Organization [employer] Address [address] [facility] 7[address] [place] [address] Care Team Providers Care Regulatory Assistant Name Role Phone Unavailable Primary Care Provider Unavailabl e Encounter Details Date Type Department Care Team (Latest Contact Info) Description 06/15/2021 Abstract [facility] CONVERSIONS Dental, Provider, DDS Social History [...]
--- OUTSIDE RECORDS SUMMARY | 2025-02-26 07:53 | XMS_ITS | Clinical Summary ---
Author Organization [employer] [facility] Address [address] [place] [phone] Care Team Providers Care Sod Farmer Name Role Phone Jamie Vieyra MD Primary Care Provider [phone] Medical History Medical History Date Comments Psoriasis 02/17/2017 DX:Psoriasis Diabetes mellitus type 2, uncomplicated (CMS/HCC V24, CMS/HCC V28) 02/17/2017 DX:Diabetes mellitus type 2, uncomplicated ([facility]) Social History Tobacco Use Types Packs/Day Years [...] (1 of 2) 2023 Influenza Vaccine (#1) 2025 HIB Vaccines Aged Out No longer [...] age to complete this topic Care Teams Sod Farmer Relationship Specialty Start Date End Date Jamie Vieyra MD [address] [place] [id number] PCP - General Internal Medicine 07/17/17
[2025-02-26 08:11] VITALS: BP 142/92; PULSE 84; RESP 16; TEMP 36.6; O2SAT 97; BMI 34.7
--- NOTE | 2025-02-26 08:11 | MHC.PC.OV ---
Vital Signs 02/26/25 08:11 Height 5 ft 3 in Weight 196 lb BMI 34.7 BP 142/92 H Blood Pressure Location Rt brachial Position Sitting Respiration 16 Pulse 84 Pulse Source Pulse Oximeter Temp 97.9 F Temp Source Oral Pulse Oximetry (%) 97 Oxygen Delivery Method Room Air Intake Visit Reasons: Annual PE/ OK per DR. Ambrocio ~ R/S 10/25 Intake Note: Pt is here today for her PE: Last mammogram 02/13/25 Allergies No Known Allergies Allergy (Verified 02/26/25 08:53) Medication List - Last Reconciled 02/26/25 by Jen Ambrocio MD acetaminophen 1,000 mg (2 x 500 mg) PO Q6H PRN adalimumab (Humira(CF) Pen) mg subcut bisacodyl (Dulcolax (bisacodyl)) 20 mg (4 x 5 mg) PO ONCE 1 day blood sugar diagnostic (FreeStyle Lite Strips) Check fasting blood sugar twice a day before meals blood-glucose meter (FreeStyle Lite Meter kit) Check fasting blood sugar twice a day before meals diclofenac sodium 1% 4 grams topical QID PRN fluticasone propionate 50 mcg/actuation (Flonase Allergy Relief) 1 spray intranasal BID PRN ibuprofen 600 mg PO Q6H PRN lancets (FreeStyle Lancets) Check fasting blood sugar twice a day before meals levocetirizine 5 mg PO QPM PRN lisinopril 20 mg PO DAILY metformin 1,000 mg PO BIDWMEAL 3 months omeprazole 20 mg PO DAILY polyethylene glycol 3350 (Miralax) 238 grams PO ONCE rosuvastatin 5 mg PO Q2D 90 days Tobacco use date assessed: 02/26/25 Dental Screening Dental Screen Date: 02/26/25 Did you have a dental visit in the last 12 months?: Yes Did you have a dental problem in the last 6 months where you did not have access to dental care?: No Was dental information given to patient?: Patient has dentist HPI Annual PE/ OK per DR. Ambrocio ~ R/S 10/25 HPI Details 50-year-old lady with history of diabetes mellitus, currently only on metformin 1000 mg 1 tablet twice a day, dyslipidemia, hypertension, gastroesophageal reflux disease, obesity and osteoarthritis in psoriasis, here today for her physical exam. Latest hemoglobin A1c obtained today is at 7.5%. Blood pressure is elevated on this visit and on previous visits as well currently taking lisinopril 20 mg daily for blood pressure control. She also is on rosuvastatin 5 mg every other day for her lipids, needs a repeat fasting lipid panel done. Up-to-date with her screening mammogram done earlier this year with negative findings, Had abdominal hysterectomy due to abnormal uterine bleeding done at [facility] 02/24/2022, no longer gets Pap smear Never had a screening colonoscopy [facility] Medical History Hx of menorrhagia Obesity (BMI 30.0-34.9) History of nephrolithiasis Dyslipidemia Essential hypertension Heartburn Dysmenorrhea Medial meniscus tear GERD (gastroesophageal reflux disease) Varicose vein of leg Osteoarthritis, knee Psoriasis Surgical History Status post abdominal hysterectomy History of endometrial ablation History of bilateral tubal ligation H/O arthroscopy of right knee History of varicose veins Family History Father DVT (deep venous thrombosis) HTN (hypertension) Dyslipidemia Diabetes mellitus Mother Multiple myeloma COVID-19 Brother Lymphoma Social History Housing: House Alcohol intake: current Alcohol intake frequency: a few times a month Patient Tobacco Use Status: Never used Tobacco e-Cigarette/Vaping Use: Never Used Second Hand Smoke Exposure: No service: No Current occupational status: employed 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 1. Little interest or pleasure in doing things: not at all 2. Feeling down, depressed, or hopeless: not at all 3. Trouble falling or staying asleep, or sleeping too much: not at all 4. Feeling tired or having little energy: not at all 5. Poor appetite or overeating: not at all 6. Feeling bad about yourself - or that you are a failure or have let yourself or your family down: not at all 7. Trouble concentrating on things, such as reading the newspaper or watching television: not at all 8. Moving or speaking so slowly that other people could have noticed. Or the opposite - being so fidgety or restless that you have been moving around a lot more than usual: not at all 9. Thoughts that you would be better off or of hurting yourself in some way: not at all Total score: 0 Depression Screening Interpretation: Negative Depression Screening Done: Yes 67251 - PHQ-9 Billing: Yes Source: Developed by Drs. Sid Real, Martha Oviedo, Arnoldo Escobedo and colleagues, with an educational yamini from [employer] Thrive Questionnaire Date Thrive assessed: 08/28/24 I am a: Patient What is your living situation today?: I have a steady place to live Within the past 12 months, did the food you bought not last and you didn't have the money to get more?: I choose not to answer this question Within the past 12 months, did you worry whether your food would run out before you got money to buy more?: I choose not to answer this question Do you have trouble paying for medicines?: No Do you have trouble getting transportation to medical appointments?: No Do you have trouble paying your heating and electricity bill?: No Do you have trouble taking care of your child, family member or friend?: No Do you have trouble with day-to-day activities such as bathing, preparing meals, shopping, managing finances, etc.?: No Are you currently unemployed and looking for a job?: No Are you interested in more education?: No Please select the resources that you would like help with: None Currently or been in a relationship where the following occur: I choose not to answer THRIVE Score: 0 MARY-7 AMB Questionnaire MARY-7 Date MARY - 7 assessed: 08/28/24 Source: Developed by Drs. Sid Real, Martha Oviedo, Arnoldo Escobedo and colleagues, with an educational yamini from [employer]. Review of Systems Const Denies chills, Denies fever(s), Denies frequent falls and Denies malaise Eyes Details: goes to [facility], went last month, no retinopathy seen per patient Reports no additional complaints ENT Details: Sees dentist for her cleaning every 6 month Reports no additional complaints Card Denies chest pain, Denies chest pain with activity, Denies syncope, Denies irregular heart rhythm and Denies palpitations Resp Reports no additional complaints GI Reports no additional complaints and Reports heartburn (Controlled on omeprazole) Reports no additional complaints Musc Denies myalgias, Denies arthralgias, Denies joint swelling, Denies limited range of motion, Denies muscle weakness and Denies stiffness Skin/Breast Details: sees Dr Mynor Ramos for her psoriasis, currently on Humira Neuro Denies syncope and Denies frequent falls Psych Reports no additional complaints Endo Denies palpitations Eusebio/Lymph Reports no additional complaints Aller/Immun Reports no additional complaints Physical exam (Primary Care) Vital Signs: Last Vital Signs Temp 97.9 F 02/26/25 08:11 Pulse 84 02/26/25 08:11 Resp 16 02/26/25 08:11 BP 142/92 H 02/26/25 08:11 Pulse Ox 97 02/26/25 08:11 Oxygen Delivery Method Room Air 02/26/25 08:11 BMI result Body Mass Index 34.7 Tobacco/Smoking Status: Tobacco use Status Tobacco use date assessed 02/26/25 02/26/25 08:13 Patient Tobacco Use Status Never used Tobacco 02/26/25 08:13 e-Cigarette/Vaping Use Never Used 02/26/25 08:13 Depression Screening Interpretation: Negative Thrive Assessment: Date of Thrive Assessment Date Thrive assessed 08/28/24 02/26/25 08:13 Currently or been in a relationship where the following occur: I choose not to answer Const Other: Alert oriented x3, no acute cardiorespiratory distress noted ambulatory with normal gait HENMT Ears: external ears normal Face and sinus: Yes face symmetric Mouth: oropharynx normal and moist mucous membranes Eyes General: appearance normal, both eyes and all related structures Neck Neck: Yes full ROM, Yes no lymphadenopathy and Yes supple Chest Breast/axilla palpation: normal palpation of the breasts Resp Auscultation: clear to auscultation bilaterally Cardio Other: S1-S2 present regular rate and rhythm, no murmurs GI Inspection: Yes obesity Palpation (GI): Soft to palpation, no guarding and no masses General: Yes no CVA tenderness Back/Spine/Pelvis Back: no CVA tenderness and No back tenderness Skin General skin exam: no rashes or lesions noted Neuro Cranial nerves: Yes CN's II-XII intact bilaterally and Yes Bilaterally intact EOM present Extrem Other: Crepitus noted in both knees. Varicose veins present in both lower extremities General: Yes full ROM, Yes no joint enlargement, Yes no calf tenderness, Yes normal gait and No pedal edema Results AMB Hemoglobin A1c AMB Hemoglobin A1c 7.5 % Last Edit by Shell Schultz CMA on 02/26/25 08:36 Results Reviewed Results Reviewed: Laboratory Last Values Hgb A1c (Clinic) 7.5 % (4.0-6.0) H 02/26/25 08:22 Coding Level of Care Code Est Pt Prev Care 40-64y(71985) Diagnoses Annual visit for general adult medical examination with abnormal findings Z00.01 Gastroesophageal reflux disease, unspecified whether esophagitis present K21.9 Esophagitis presence: esophagitis presence not specified Essential hypertension I10 Dyslipidemia E78.5 Obesity (BMI 30.0-34.9) E66.811 Type 2 diabetes mellitus without complication, without long-term current use of insulin E11.9 Diabetes mellitus type: type 2 Diabetes mellitus complication status: without complication Additional Codes PHQ-9 - 38038 - PHQ-9 Billing: Yes ([id number]) Assessment & Plan Assessment & Plan (1) Annual visit for general adult medical examination with abnormal findings: Code(s): Z00.01 - Encounter for general adult medical examination with abnormal findings Plan: Will check appropriate labs. Continue with regular dental visit every 6 months and regular eye exams, goes to [facility]. s. Take adequate calcium in diet and vitamin-D 3 at 2000 IU per cap once a day, in addition to weight-bearing exercises to help maintain good muscle tone and weight control. Instructed to do self-breast exam, and continue to get yearly mammogram, currently up-to-date.. She goes to [facility], for her routine Pap and pelvic exam, had a abdominal hysterectomy due to dysfunctional uterine bleeding in 2021. Reminded to get her yearly flu shot, and COVID booster. Cologuard test ordered for colon cancer screen (2) GERD (gastroesophageal reflux disease): Code(s): K21.9 - Gastro-esophageal reflux disease without esophagitis Category: Medical Qualifiers: Esophagitis presence: esophagitis presence not specified Qualified Code(s): K21.9 - Gastro-esophageal reflux disease without esophagitis Plan: Continue omeprazole 20 mg once a day an hour before eating, avoidance of triggers for heartburn including acidic foods like tomatoes, pasta sauce, fried foods greasy foods, caffeine. (3) Essential hypertension: Code(s): I10 - Essential (primary) hypertension Category: Medical Plan: Blood pressure elevated, continued on lisinopril 20 mg daily and added amlodipine 5 mg 1 tablet at night with supper. Follow-up in 3 months. Reinforced importance of following a low-salt diet and getting regular exercise (4) Dyslipidemia: Code(s): E78.5 - Hyperlipidemia, unspecified Category: Medical Plan: Fasting lipid panel ordered, currently on rosuvastatin 5 mg taken 1 tablet every other day (5) Obesity (BMI 30.0-34.9): Code(s): E66.811 - Obesity, class 1 Category: Medical Plan: Discussed need to increase activity and weight reduction. Recommended focusing on improving health instead of dieting. Mediterranean diet is a healthy diet that helps, limit food high in fat, sugar, and calories. Eat slowly, pay attention to portion sizes, plan your meals ahead of time, start regular physical activity, at least 150 minutes of moderate intensity exercise, or 90 minutes per week of vigorous exercise. (6) Diabetes mellitus, without long-term current use of insulin: Code(s): E11.9 - Type 2 diabetes mellitus without complications Category: Medical Qualifiers: Diabetes mellitus type: type 2 Diabetes mellitus complication status: without complication Qualified Code(s): E11.9 - Type 2 diabetes mellitus without complications Plan: Hemoglobin A1c today is at 7.5%. Continued on metformin 1000 mg 1 tablet twice a day with meals, started on Trulicity 0.75 mg injected once a week, instructed on proper administration of medication. Has been on Ozempic in the past but developed nausea and abdominal cramping. Reinforced importance of following recommended diet and getting regular exercise, up-to-date with her diabetes eye exam, goes to [facility] Orders: Orders AMB Hemoglobin A1c Today Z13.9 - Encounter for screening, unspecified Microalbumin, Random (w Creat) Today E11.9 - Type 2 diabetes mellitus without complications, E66.811 - Obesity, class 1, E78.5 - Hyperlipidemia, unspecified, I10 - Essential (primary) hypertension, K21.9 - Gastro-esophageal reflux disease without esophagitis IRON PROFILE Today E11.9 - Type 2 diabetes mellitus without complications, E66.811 - Obesity, class 1, E78.5 - Hyperlipidemia, unspecified, I10 - Essential (primary) hypertension, K21.9 - Gastro-esophageal reflux disease without esophagitis Lipid Panel Today E11.9 - Type 2 diabetes mellitus without complications, E66.811 - Obesity, class 1, E78.5 - Hyperlipidemia, unspecified, I10 - Essential (primary) hypertension, K21.9 - Gastro-esophageal reflux disease without esophagitis Alanine Aminotransferase Today E11.9 - Type 2 diabetes mellitus without complications, E66.811 - Obesity, class 1, E78.5 - Hyperlipidemia, unspecified, I10 - Essential (primary) hypertension, K21.9 - Gastro-esophageal reflux disease without esophagitis Aspartate Amino Transferase Today E11.9 - Type 2 diabetes mellitus without complications, E66.811 - Obesity, class 1, E78.5 - Hyperlipidemia, unspecified, I10 - Essential (primary) hypertension, K21.9 - Gastro-esophageal reflux disease without esophagitis Basic Metabolic Panel Fasting Today E11.9 - Type 2 diabetes mellitus without complications, E66.811 - Obesity, class 1, E78.5 - Hyperlipidemia, unspecified, I10 - Essential (primary) hypertension, K21.9 - Gastro-esophageal reflux disease without esophagitis Vitamin D 25-OH Total Today E11.9 - Type 2 diabetes mellitus without complications, E66.811 - Obesity, class 1, E78.5 - Hyperlipidemia, unspecified, I10 - Essential (primary) hypertension, K21.9 - Gastro-esophageal reflux disease without esophagitis Complete Blood Count Auto Diff Today E11.9 - Type 2 diabetes mellitus without complications, E66.811 - Obesity, class 1, E78.5 - Hyperlipidemia, unspecified, I10 - Essential (primary) hypertension, K21.9 - Gastro-esophageal reflux disease without esophagitis Referrals Cologuard Test Z12.11 - Encounter for screening for malignant neoplasm of colon, Z12.12 - Encounter for screening for malignant neoplasm of rectum Medications: New amlodipine 5 mg PO QPM 30 tabs 6RF I10 - Essential (primary) hypertension dulaglutide (Trulicity) 0.75 mg (0.5 mL) subcut QWEEK 2.5 mL 5RF 30 days E11.9 - Type 2 diabetes mellitus without complications, E66.811 - Obesity, class 1 Refilled metformin 1,000 mg PO BIDWMEAL 180 tabs 4RF 3 months E11.65 - Type 2 diabetes mellitus with hyperglycemia rosuvastatin 5 mg PO Q2D 45 tabs 4RF 90 days
== END 2025-02-26 09:21 | disposition home or self-care (01) ==
LOC: HO.HMCC 07:51
PROVIDERS: PCP Internal Medicine; Visit Provider Internal Medicine
DX: Z00.01 Encounter for general adult medical examination with abnormal findings (principal); E11.69 Type 2 diabetes mellitus with other specified complication; E66.811 Obesity, class 1; Z68.34 Body mass index [BMI] 34.0-34.9, adult; K21.9 Gastro-esophageal reflux disease without esophagitis; I10 Essential (primary) hypertension; E78.5 Hyperlipidemia, unspecified

== ENCOUNTER → 2025-02-26 07:50 | Outpatient (BNVA) | payer OTHER, SELFPAY | PROVIDERS: PCP Internal Medicine; Visit Provider Internal Medicine | DX: Z00.01 Encounter for general adult medical examination with abnormal findings (principal); K21.9 Gastro-esophageal reflux disease without esophagitis; E78.5 Hyperlipidemia, unspecified; I10 Essential (primary) hypertension; E66.811 Obesity, class 1; E11.65 Type 2 diabetes mellitus with hyperglycemia; Z68.34 Body mass index [BMI] 34.0-34.9, adult; Z79.84 Long term (current) use of oral hypoglycemic drugs | CPT/HCPCS: 83036; 96127; 99396 ==

== ENCOUNTER 2025-02-28 07:16 | Outpatient (REF) | payer OTHER, SELFPAY ==
--- OUTSIDE RECORDS SUMMARY | 2025-02-28 07:18 | XMS_ITS | Clinical Summary ---
Author Organization [employer] [facility] Address [id number] [place] [phone] Care Team Providers Care Supervisory Training Specialist Name Role Phone Jamie Vieyra MD Primary Care Provider [phone] Medical History Medical History Date Comments Psoriasis 02/17/2017 DX:Psoriasis Diabetes mellitus type 2, uncomplicated (CMS/HCC V24, CMS/HCC V28) 02/17/2017 DX:Diabetes mellitus type 2, uncomplicated ([facility]) Social History Tobacco Use Types Packs/Day Years [...] age to complete this topic Care Teams Supervisory Training Specialist Relationship Specialty Start Date End Date Jamie Vieyra MD [address] [place] [phone] PCP - General Internal Medicine 07/17/17
--- OUTSIDE RECORDS SUMMARY | 2025-02-28 07:18 | XMS_ITS | Encounter Summary ---
Author Organization [employer] Address [address] [facility] [address] [place] [address] Care Team Providers Care Fryer Operator Name Role Phone Unavailable Primary Care Provider Unavailabl e Encounter Details Date Type Department Care Team (Latest Contact Info) Description 06/15/2021 Abstract [facility] CONVERSIONS Dental, Provider, DDS Social History [...]
[2025-02-28 10:05] LABS: MANUAL DIFF FLAG NO
[2025-02-28 10:22] LABS: Hematocrit 37.2 % (37.0-47.0); Hemoglobin 12.8 g/dl (12.0-16.0); Imm Gran Abs Auto 0.02 X10*3/uL (0.00-0.03); Imm Gran Pct Auto 0.3 % (0.0-0.4); Lymphocytes Absolute Auto 2.6 X10*3/uL (1.2-4.9); Mean Corpuscular HGB Conc 34.4 g/dl (31.0-35.0); Mean Corpuscular Hemoglobin 30.0 pg (27.0-33.0); Mean Corpuscular Volume 87.3 fL (80.0-98.0); NRBC Abs Auto 0.000 X10*3/uL (0.0-0.012); NRBC Pct Auto 0.0 /100WBC (0.0-0.2); Platelet Count 240 X10*3/uL (160-400); Red Blood Count 4.26 X10*6/uL (4.20-5.50); White Blood Count 6.4 X10*3/uL (4.8-10.8)
[2025-02-28 10:55] LABS: Alanine Aminotransferase 42 U/L (0-31); Anion Gap 13 (12-20); Aspartate Amino Transferase 32 U/L (5-31); Blood Urea Nitrogen 19 mg/dL (9-16); Calcium 9.4 mg/dL (8.4-10.2); Carbon Dioxide 28 mmol/L (22-29); Chloride 103 mmol/L (96-108); Cholesterol 126 mg/dL (<200); Estimated Glomerular Filt Rate > 60; HDL Cholesterol 44 mg/dL (>40); Iron 100 mcg/dL (30-160); Percent Iron Saturation 35 % (15-50); Potassium 3.3 mmol/L (3.3-5.1); Sodium 141 mmol/L (135-145); Total Iron Binding Capacity 289 mcg/dL (228-428); Triglycerides 143 mg/dL (<150); Unsaturated Iron Binding 189 ug/dL
[2025-02-28 11:31] LABS: Microalbum/Creatinine Ratio Ur 25.0 ug/mg cr (<30)
== END 2025-02-28 07:17 | disposition home or self-care (01) ==
LOC: HO.HMGCLDS 07:16
PROVIDERS: PCP Internal Medicine; Visit Provider Internal Medicine
DX: I10 Essential (primary) hypertension (principal); E78.5 Hyperlipidemia, unspecified; E66.811 Obesity, class 1; E11.9 Type 2 diabetes mellitus without complications; K21.9 Gastro-esophageal reflux disease without esophagitis
CPT/HCPCS: 36415; 80048; 80061; 82043; 82306; 82570; 83540; 84450; 84460; 85025

== ENCOUNTER 2025-05-26 09:03 | Outpatient (AMB) | payer OTHER, SELFPAY ==
--- OUTSIDE RECORDS SUMMARY | 2025-05-26 09:06 | XMS_ITS | Encounter Summary ---
Author Organization [employer] Address [address] [facility] [address] [place] [address] Care Team Providers Care Prepress Stripper Name Role Phone Unavailable Primary Care Provider Unavailabl e Encounter Details Date Type Department Care Team (Latest Contact Info) Description 06/15/2021 Abstract [facility] CONVERSIONS Dental, Provider, DDS Social History [...]
--- OUTSIDE RECORDS SUMMARY | 2025-05-26 09:06 | XMS_ITS | Clinical Summary ---
Author Organization [facility] Address [id number] [place] [phone] Care Team Providers Care Clinical Medical Assistant Name Role Phone Jamie Vieyra MD Primary Care Provider Medical History Medical History Date Comments Psoriasis 02/17/2017 DX:Psoriasis Diabetes mellitus type 2, uncomplicated (CMS/HCC V24, CMS/HCC V28) 02/17/2017 DX:Diabetes mellitus type 2, uncomplicated (HCC) [...] Last Done Comments Breast Cancer Screening 1973 DTaP,Tdap,and Td Vaccines (1 - Tdap) 02/19/1992 Hepatitis B Vaccines (1 of 3 - 19+ 3-dose series) 02/19/1992 Cervical Cancer Screening: P ap Smear 1994 Pneumococcal Vaccine: 50+ Ye ars (1 of 1 - PCV) 2023 Zoster Vaccines (1 of 2) 2023 Depression Screening 08/14/2024 COVID-19 Vaccine ( - 2023-2 5 season) 2025 Influenza Vaccine (#1) 2025 RSV Immunization Adult Patie nts (1 - 1-dose 75+ series) 02/19/2048 HIB Vaccines Aged Out No longer eligi [...] age to complete this topic Care Teams Clinical Medical Assistant Relationship Specialty Start Date End Date Jamie Vieyra MD [address] [place] [phone] PCP - General Internal Medicine 07/17/17
--- OUTSIDE RECORDS SUMMARY | 2025-05-26 09:06 | XMS_ITS | Clinical Summary ---
Author Organization [employer] Address [address] [facility] [address] [place] [address] Care Team Providers Care Audio Visual Equipment Rental Clerk Name Role Phone Unavailable Primary Care Provider [...] 1973 FIT 1973 FOBT 1973 Sigmoidoscopy 1973 Disability Screening 1973 Alcohol/Substance Use Screening 1985 Tobacco Screening 1985 Family Planning (PISQ) 02/19/1988 DTaP/Tdap/Td Vaccines (1 - Tdap) 02/19/1992 Hepatitis B Vaccines (1 of 3 - 19+ 3-dose series) 02/19/1992 Pap Smear 1994 Cervical Cancer Screening 2003 HPV/Cotest 2003 Mammogram 2013 Pneumococcal Vaccine: 50+ Years (2 of 2 - PCV) 2023 12/17/2018 Zoster Vaccines (1 of 2) 2023 COVID-19 Vaccine (3 - 2024- season) 2025 02/04/2021, 01/14/2021 Influenza Vaccine (#1) 2025 , 05/05/2023, 05/10/2022, Additional history exists RSV Patients and Patients Aged 60 years or older (1 - 1-dose 75+ series) 02/19/2048 HIB [...]
[2025-05-26 09:12] VITALS: BP 128/70; PULSE 104; TEMP 36.7; O2SAT 97; BMI 34.0
--- NOTE | 2025-05-26 09:12 | MHC.OFFWIV ---
Intake Vital Signs 05/26/25 09:12 Height 5 ft 3 in Weight 192 lb BMI 34.0 BP 128/70 Blood Pressure Location Lt brachial Position Sitting Pulse 104 H Pulse Source Pulse Oximeter Temp 98.1 F Temp Source Oral Pulse Oximetry (%) 97 Oxygen Delivery Method Room Air Intake Visit Reasons: EP- Vaginal itching Intake Note: pt presents with vaginal itching, burning with urination and urine frequency Patient Tobacco Use Status: Never used Tobacco Allergies No Known Allergies Allergy (Verified 05/26/25 09:18) Do you need a note to return to daycare/school/sports/work: No HPI HPI Comments History of Present Illness Details History of Present Illness - The patient is a 50-year-old female presenting with symptoms of vaginal itching and burning. - Symptoms began after starting Jardiance for diabetes management. - Reports external itching and burning sensation during urination, with no rash or discharge. - History of diabetes mellitus, currently managed with Jardiance. - She denies abd pain, fever, chills, back pain, hematuria, dysuria, vaginal bleeding or discharge. Physical Exam General: Cooperative, healthy appearing, comfortable, no acute distress and well developed Orientation: Patient oriented x3 Limitations: No limitations Respiratory: Normal respiratory effort and able to speak in complete sentences. Clear to auscultation bilaterally Cardiovascular: Regular rate and rhythm. Normal S1 and S2 GI: Normal to inspection. Soft to palpation and nontender, non distended. Negative CVA tenderness noted. Skin: No rashes or lesions noted Patient was informed and verbally consented to the use of an ambient scribe for clinic note documentation during this visit. [facility] Medical History (Updated 02/26/25 @ 09:20 by Jen Ambrocio MD) Diabetes mellitus, without long-term current use of insulin Hx of menorrhagia Obesity (BMI 30.0-34.9) History of nephrolithiasis Dyslipidemia Essential hypertension Heartburn Dysmenorrhea Medial meniscus tear GERD (gastroesophageal reflux disease) Varicose vein of leg Osteoarthritis, knee Psoriasis Surgical History Status post abdominal hysterectomy History of endometrial ablation History of bilateral tubal ligation H/O arthroscopy of right knee History of varicose veins Family History Father DVT (deep venous thrombosis) HTN (hypertension) Dyslipidemia Diabetes mellitus Mother Multiple myeloma COVID-19 Brother Lymphoma Social History Housing: House Alcohol intake: current Alcohol intake frequency: a few times a month Patient Tobacco Use Status: Never used Tobacco e-Cigarette/Vaping Use: Never Used Second Hand Smoke Exposure: No service: No Current occupational status: employed 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 Current occupational exposures/hazards: No Sexual orientation: Straight/Heterosexual Cognitive needs: No Hearing needs: No Vision needs: Yes Female Reproductive History Menstrual Age of Menarche: 6 Date of menopause: 08/25/20 Review of Systems Const All systems reviewed & are unremarkable except as noted in HPI and below Physical Exam Vital Signs: Last Vital Signs Temp 98.1 F 05/26/25 09:12 Pulse 104 H 05/26/25 09:12 BP 128/70 05/26/25 09:12 Pulse Ox 97 05/26/25 09:12 Oxygen Delivery Method Room Air 05/26/25 09:12 BMI result Body Mass Index 34.0 Results AMB Urinalysis, Automated UA Leukoctes 0 William/uL Last Edit by Anna Burns MA on 05/26/25 09:24 UA Nitrite Negative Last Edit by Anna Burns MA on 05/26/25 09:24 UA Urobilinogen 0.2 mg/dL Last Edit by Anna Burns MA on 05/26/25 09:24 UA Protein 0 mg/dL Last Edit by Anna Bursn MA on 05/26/25 09:24 UA pH 6.0 Last Edit by Anna Burns MA on 05/26/25 09:24 UA Blood 0 Samir/uL Last Edit by Anna Burns MA on 05/26/25 09:24 UA Specific [place] 1.015 Last Edit by Anna Burns MA on 05/26/25 09:24 UA Ketone Negative Last Edit by Anna Burns MA on 05/26/25 09:24 UA Bilirubin 1 mg/dL Last Edit by Anna Burns MA on 05/26/25 09:24 1+ Anna Burns 05/26/25 09:24 UA Glucose 1000 mg/dL Last Edit by Anna Burns MA on 05/26/25 09:24 3+ Anna Grant 05/26/25 09:24 Results Reviewed Results Reviewed: Laboratory Last Values Urine pH (Auto) 6.0 05/26/25 09:14 Specific [place] (Auto) 1.015 05/26/25 09:14 Urine Protein (Auto) 0 mg/dL 05/26/25 09:14 Glucose (UA)(Auto) 1000 mg/dL H* 05/26/25 09:14 Urine Ketones (Auto) Negative 05/26/25 09:14 Urine Blood (Auto) 0 Samir/uL 05/26/25 09:14 Urine Nitrite (Auto) Negative 05/26/25 09:14 Urine Bilirubin (Auto) 1 mg/dL H* 05/26/25 09:14 Urine Urobilinogen (Auto) 0.2 mg/dL 05/26/25 09:14 Leukocyte Esterase (Auto) 0 William/uL 05/26/25 09:14 Assessment & Plan Assessment & Plan (1) Vaginal itching: Code(s): N89.8 - Other specified noninflammatory disorders of vagina Plan Most likely yeast infection after starting on jardiance UA in the office was 1+luis e, 3+glucose plan - Perform a vaginal swab to confirm yeast infection. - Prescribe antifungal treatment: one dose today, another in three days. - Patient to notify primary care provider about Jardiance side effects. - Continue diabetes management with Jardiance, monitor glucose levels. - Follow-up with primary care physician to address medication side effects. Orders: Orders Bacterial Vaginosis Panel Today N89.8 - Other specified noninflammatory disorders of vagina AMB Urinalysis Automated Today Z13.9 - Encounter for screening, unspecified Medications: New fluconazole may repeat second dose 72 hrs after first dose if symptoms persist 150 mg PO Q3D 2 tabs 0RF Coding Level of Care Code Est Pt Level 3 (54543) Diagnoses Vaginal itching N89.8
== END 2025-05-26 10:18 | disposition home or self-care (01) ==
PROVIDERS: PCP Internal Medicine; Visit Provider Physician Assistant Medical
DX: N89.8 Other specified noninflammatory disorders of vagina (principal); Z13.9 Encounter for screening, unspecified

== ENCOUNTER 2025-05-26 09:03 | Outpatient (REF) | payer OTHER, SELFPAY ==
[2025-05-26 14:07] LABS: Bacterial Vaginosis PCR POSITIVE (Negative); Candida Group PCR DETECTED (Not Detect); Candida glab krusei PCR NOT DETECTED (Not Detect); Trichomonas vaginalis PCR NOT DETECTED (Not Detect)
== END 2025-05-26 09:04 | disposition home or self-care (01) ==
LOC: HO.LAB 09:03
PROVIDERS: PCP Internal Medicine; Visit Provider Physician Assistant Medical
DX: N89.8 Other specified noninflammatory disorders of vagina (principal); E11.9 Type 2 diabetes mellitus without complications; R17 Unspecified jaundice; Z98.51 Tubal ligation status
CPT/HCPCS: 81003; 81515; 99212

== ENCOUNTER 2025-06-28 08:23 | Outpatient (REF) | payer OTHER, SELFPAY ==
--- OUTSIDE RECORDS SUMMARY | 2025-06-28 08:26 | XMS_ITS | Clinical Summary ---
Author Organization [employer] [facility] Address [id number] [place] [id number] Care Team Providers Care Manufacturing Weaver Name Role Phone Jamie Vieyra MD Primary Care Provider [phone] Medical History Medical History Date Comments Psoriasis [...] Depression Screening 08/14/2024 COVID-19 Vaccine ( - 2024-2 6 season) 2025 Influenza Vaccine (#1) 2025 RSV [...] age to complete this topic Care Teams Manufacturing Weaver Relationship Specialty Start Date End Date Jamie Vieyra MD [address] [place] [id number] PCP - General Internal Medicine 07/17/17
[2025-06-28 12:22] LABS: Alanine Aminotransferase 37 U/L (0-31); Albumin Level 4.9 g/dL (3.5-5.0); Alkaline Phosphatase 85 U/L (39-117); Anion Gap 14 (12-20); Aspartate Amino Transferase 32 U/L (5-31); Blood Urea Nitrogen 17 mg/dL (9-16); Calcium 9.9 mg/dL (8.4-10.2); Carbon Dioxide 28 mmol/L (22-29); Chloride 104 mmol/L (96-108); Cholesterol 169 mg/dL (<200); Estimated Glomerular Filt Rate > 60; HDL Cholesterol 49 mg/dL (>40); Potassium 3.6 mmol/L (3.3-5.1); Sodium 142 mmol/L (135-145); Total Protein 8.1 g/dL (6.5-8.0); Triglycerides 148 mg/dL (<150)
== END 2025-06-28 08:24 | disposition home or self-care (01) ==
LOC: HO.HMGCLDS 08:23
PROVIDERS: PCP Internal Medicine; Visit Provider Internal Medicine
DX: B37.31 Acute candidiasis of vulva and vagina (principal); E11.9 Type 2 diabetes mellitus without complications; T38.3X5A Adverse effect of insulin and oral hypoglycemic [antidiabetic] drugs, initial encounter; R10.13 Epigastric pain; R11.0 Nausea; E78.5 Hyperlipidemia, unspecified; I10 Essential (primary) hypertension; K21.9 Gastro-esophageal reflux disease without esophagitis; Z79.899 Other long term (current) drug therapy; Z79.84 Long term (current) use of oral hypoglycemic drugs
CPT/HCPCS: 36415; 80053; 80061; 81003; 83036; 99212

== ENCOUNTER 2025-06-28 09:10 | Outpatient (AMB) | payer OTHER, SELFPAY ==
[2025-06-28 09:24] VITALS: BP 130/90; PULSE 94; RESP 16; TEMP 36.7; O2SAT 97; BMI 33.7
--- NOTE | 2025-06-28 09:24 | AM.OFFWIN_ITS ---
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: No Allergies No Known Allergies Allergy (Verified 06/28/25 09:35) Medication List - Last Reconciled 06/28/25 by JOCELINE Purvis-MELQUIADES acetaminophen 1,000 mg (2 x 500 mg) PO Q6H PRN adalimumab (Humira(CF) Pen) mg subcut amlodipine 5 mg PO QPM bisacodyl (Dulcolax (bisacodyl)) 20 mg (4 x 5 mg) PO ONCE 1 day blood sugar diagnostic (FreeStyle Lite Strips) Check fasting blood sugar twice a day before meals blood-glucose meter (FreeStyle Lite Meter kit) Check fasting blood sugar twice a day before meals diclofenac sodium 1% 4 grams topical QID PRN empagliflozin (Jardiance) 10 mg PO QAM fluticasone propionate 50 mcg/actuation (Flonase Allergy Relief) 1 spray intranasal BID PRN ibuprofen 600 mg PO Q6H PRN lancets (FreeStyle Lancets) Check fasting blood sugar twice a day before meals levocetirizine 5 mg PO QPM PRN lisinopril 20 mg PO DAILY metformin 1,000 mg PO BIDWMEAL 3 months omeprazole 20 mg PO DAILY polyethylene glycol 3350 (Miralax) 238 grams PO ONCE rosuvastatin 5 mg PO Q2D 90 days HPI HPI Comments History of Present Illness Details Chief Complaint The patient is a 50-year-old female with a past medical history of diabetes and hypertension presenting with complaints of vaginal burning and itching for three days. History The patient is a 50-year-old female presenting with vaginal burning and itching. Recurrent Vulvovaginal Candidiasis: - The patient reports the onset of vagin al burning and itching three days ago, without any associated discharge. - She has been using an noqq-fzh-hrxihal cream externally, which provided minimal relief. - The patient attributes these symptoms to her new diabetes medication, Jardiance, which she started about three weeks ago. - This is her second infection since sta rting the medication; she had a prior infection on May 26, for which a swab was positive for both bacterial vaginosis and yeast. - She was previously treated with flucon azole for the infection which improved her sx until 3 days ago. Type 2 Diabetes Mellitus: - The patient's diabetes is managed with metformin 1gram , taken in the morning and at night. - She also started Jardiance approximate ly three weeks ago. - Her blood sugar reading this morning w as 135 mg/dL. - Her next follow-up appointment for [facility] management is scheduled for July 28. Hypertension: - The patient has a past medical history of hypertension. Past Medical History - Diabetes Mellitus - Hypertension - Bacterial vaginosis and yeast infectio n on May 26. Review of Systems - Genitourinary: Reports vaginal burning and itching for the last 3 days. - Denies vaginal discharge. Physical Exam General: Awake, alert. No apparent distress Eyes: Sclera and conjunctiva clear bilaterally Cardiovascular: Regular rate and rhythm Respiratory: Clear to auscultation bilaterally Results - Urinalysis: Today's urinalysis showed 3+ glucose and was otherwise negative. - Vaginal Swab: A swab from May 26 was positive for both bacterial vaginosis and yeast. Medical Decision Making The patient is a 50-year-old female with type 2 diabetes and hypertension who presents with vaginal burning and itching consistent with vulvovaginal candidiasis. Her symptoms are attributed to the new SGLT-2 inhibitor, Jardiance, which she started three weeks ago. This is her second such infection since initiating the medication, making it an intolerable side effect. 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 Due to the recurrent infections, Jardiance will be discontinued. For glycemic control, she will be started on glyburide, which does not carry this side effect, in addition to her current metformin regimen. The current yeast infection will be treated with a two-dose regimen of oral fluconazole. The patient will follow up with her primary care provider for ongoing diabetes management. Plan 1. Recurrent Vulvovaginal Candidiasis - The recurrent infections are attribute d to the SGLT-2 inhibitor, Jardiance. - For treatment of the current infection , the patient was prescribed fluconazole 150 mg, with instructions to take one tablet, wait three days, and then take a second tablet. - The patient was advised she could cont inue using her mzdr-qie-zbqzcls cream externally for symptomatic relief. 2. Type 2 Diabetes Mellitus - Jardiance will be discontinued due to recurrent infectious side effects. - Glyburide will be initiated, one table t in the morning, as an alternative oral agent. - The patient will continue her current regimen of metformin. - The patient was instructed to monitor her blood sugars closely due to the medication change. - The patient will follow up with her [facility] care provider, Dr. Vidal, on July 28. - Dr. Ambrocio will be notified of the me dication changes. Patient Instructions - Stop taking the Jardiance medication. - Start taking the new medication for yo ur diabetes, glyburide, one tablet in the morning. - To treat the infection, take one pill of fluconazole, wait three days, and then take the second pill. - You may continue to use the cream you bought at the pharmacy on the outside for the itching. - Keep a close watch on your blood sugar levels, as your medications have been changed. - Keep your follow-up appointment with y our regular doctor on July 28. Consent Patient was informed and verbally consented to the use of an ambient scribe for clinic note documentation during this visit. [facility] Medical History (Updated 06/28/25 @ 09:45 by Isaura Roy, [facility]) Diabetes mellitus, without long-term current use of insulin Dyslipidemia Dysmenorrhea Essential hypertension GERD (gastroesophageal reflux disease) Heartburn History of nephrolithiasis Hx of menorrhagia Medial meniscus tear Obesity (BMI 30.0-34.9) Osteoarthritis, knee Psoriasis Varicose vein of leg Surgical History H/O arthroscopy of right knee History of bilateral tubal ligation History of endometrial ablation History of varicose veins Status post abdominal hysterectomy Family History Father DVT (deep venous thrombosis) HTN (hypertension) Dyslipidemia Diabetes mellitus Mother Multiple myeloma COVID-19 Brother Lymphoma Social History Housing: House Alcohol intake: current Alcohol intake frequency: a few times a month Patient Tobacco Use Status: Never used Tobacco e-Cigarette/Vaping Use: Never Used Second Hand Smoke Exposure: No service: No Current occupational status: employed 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 Current occupational exposures/hazards: No Sexual orientation: Straight/Heterosexual Cognitive needs: No Hearing needs: No Vision needs: Yes Female Reproductive History Menstrual Age of Menarche: 6 Date of menopause: 08/25/20 Physical Exam Vital Signs: Last Vital Signs Temp 98.1 F 06/28/25 09:24 Pulse 94 06/28/25 09:24 Resp 16 06/28/25 09:24 BP 130/90 H 06/28/25 09:24 Pulse Ox 97 06/28/25 09:24 Oxygen Delivery Method Room Air 06/28/25 09:24 BMI result Body Mass Index 33.7 Results AMB Urinalysis, Automated UA Leukoctes 0 William/uL Last Edit by Shell Schultz CMA on 06/28/25 09:42 UA Nitrite Negative Last Edit by Shell Schultz CMA on 06/28/25 09:42 UA Urobilinogen 0.2 mg/dL Last Edit by Shell Schultz CMA on 06/28/25 09:42 UA Protein 0 mg/dL Last Edit by Shell Schultz CMA on 06/28/25 09:42 UA pH 6.0 Last Edit by Shell Schultz CMA on 06/28/25 09:42 UA Blood 0 Samir/uL Last Edit by Shell Schultz CMA on 06/28/25 09:42 UA Specific [place] 1.020 Last Edit by Shell Schultz CMA on 06/28/25 09:42 UA Ketone Negative Last Edit by Shell Schultz CMA on 06/28/25 09:42 UA Bilirubin 0 mg/dL Last Edit by Shell Schultz CMA on 06/28/25 09:42 UA Glucose 1000 mg/dL Last Edit by Shell Schultz CMA on 06/28/25 09:42 Assessment & Plan Assessment & Plan (1) Vaginal candidiasis: Code(s): B37.3 - Candidiasis of vulva and vagina (2) Diabetes mellitus, without long-term current use of insulin: Code(s): E11.9 - Type 2 diabetes mellitus without complications Qualifiers: Diabetes mellitus complication status: without complication Diabetes mellitus type: type 2 Qualified Code(s): E11.9 - Type 2 diabetes mellitus without complications (3) Medication side effect: Code(s): T88.7XXA - Unspecified adverse effect of drug or medicament, initial encounter Plan . Orders: Orders AMB Urinalysis Automated Today Z13.9 - Encounter for screening, unspecified Medications: New glyburide 2.5 mg PO DAILY 30 tabs 1RF Refilled fluconazole may repeat second dose 72 hrs after first dose if symptoms persist 150 mg PO Q3D 2 tabs 0RF Discontinued empagliflozin (Jardiance) Discontinued Reason: Doctor's Order 10 mg PO QAM 30 tabs 3RF Coding Level of Care Code Est Pt Level 4 (42624) Diagnoses Vaginal candidiasis B37.3 Type 2 diabetes mellitus without complication, without long-term current use of insulin E11.9 Diabetes mellitus complication status: without complication Diabetes mellitus type: type 2 Medication side effect T88.7XXA
[2025-06-28 09:46] VITALS: BP 128/80
== END 2025-06-28 09:51 | disposition home or self-care (01) ==
PROVIDERS: PCP Internal Medicine; Visit Provider Nurse Practitioner Family
DX: B37.31 Acute candidiasis of vulva and vagina (principal); E11.9 Type 2 diabetes mellitus without complications; T88.7XXA Unspecified adverse effect of drug or medicament, initial encounter; Z13.9 Encounter for screening, unspecified

== ENCOUNTER 2025-07-28 10:37 | Outpatient (AMB) | payer OTHER, SELFPAY ==
--- NOTE | 2025-07-28 11:47 | A.OFFPC_ITS ---
Vital Signs 07/28/25 11:48 Height 5 ft 3 in Weight 198 lb BMI 35.1 BP 130/76 Blood Pressure Location Lt brachial Position Sitting Respiration 16 Pulse 92 Pulse Source Pulse Oximeter Temp 98.2 F Temp Source Oral Pulse Oximetry (%) 98 Oxygen Delivery Method Room Air Oxygen Flow Rate 16 Intake Visit Reasons: f/u new DM med Intake Note: Pt is here today to f/u new DM medication It Compliance Manager Required: No Allergies No Known Allergies Allergy (Verified 07/28/25 12:03) Medication List - Last Reconciled 07/28/25 by Jen Ambrocio MD acetaminophen 1,000 mg (2 x 500 mg) PO Q6H PRN adalimumab (Humira(CF) Pen) mg subcut amlodipine 5 mg PO QPM bisacodyl (Dulcolax (bisacodyl)) 20 mg (4 x 5 mg) PO ONCE 1 day blood sugar diagnostic (FreeStyle Lite Strips) Check fasting blood sugar twice a day before meals blood-glucose meter (FreeStyle Lite Meter kit) Check fasting blood sugar twice a day before meals diclofenac sodium 1% 4 grams topical QID PRN fluticasone propionate 50 mcg/actuation (Flonase Allergy Relief) 1 spray intranasal BID PRN glyburide 2.5 mg PO DAILY ibuprofen 600 mg PO Q6H PRN lancets (FreeStyle Lancets) Check fasting blood sugar twice a day before meals levocetirizine 5 mg PO QPM PRN lisinopril 20 mg PO DAILY metformin 1,000 mg PO BIDWMEAL 3 months omeprazole 20 mg PO DAILY polyethylene glycol 3350 (Miralax) 238 grams PO ONCE rosuvastatin 5 mg PO Q2D 90 days Tobacco use date assessed: 07/28/25 Dental Screening Dental Screen Date: 07/28/25 Did you have a dental visit in the last 12 months?: Yes Did you have a dental problem in the last 6 months where you did not have access to dental care?: No Was dental information given to patient?: Patient has dentist HPI f/u new DM med HPI Details The patient is a 50 year old female presenting for follow-up and management of type 2 diabetes mellitus. She has been on metformin and was previously on glyburide. Her HbA1c has improved from 7.6 to 6.9% today. Her fasting blood glucose was 140 mg/dL this morning. She has a history of trying Jardiance, which was stopped due to vaginal itching. A trial of Ozempic resulted in all-day stomach ache and nausea, prompting its discontinuation. She has also previously tried Mounjaro and possibly Trulicity, but had adverse effects and potential insurance coverage issues. Her past medical history is significant for psoriasis, for which she self- administers Humira. She has had a hysterectomy many years ago for heavy bleeding. She reports menopausal symptoms, specifically hot flashes. Her mammogram is up to date and showed normal findings. [facility] Medical History Diabetes mellitus, without long-term current use of insulin Hx of menorrhagia Obesity (BMI 30.0-34.9) History of nephrolithiasis Dyslipidemia Essential hypertension Heartburn Dysmenorrhea Medial meniscus tear GERD (gastroesophageal reflux disease) Varicose vein of leg Osteoarthritis, knee Psoriasis Surgical History Status post abdominal hysterectomy History of endometrial ablation History of bilateral tubal ligation H/O arthroscopy of right knee History of varicose veins Family History Father DVT (deep venous thrombosis) HTN (hypertension) Dyslipidemia Diabetes mellitus Mother Multiple myeloma COVID-19 Brother Lymphoma Social History Housing: House Alcohol intake: current Alcohol intake frequency: a few times a month Patient Tobacco Use Status: Never used Tobacco e-Cigarette/Vaping Use: Never Used Second Hand Smoke Exposure: No service: No Current occupational status: employed 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 Depression Screening Interpretation: Negative Depression Screening Done: Yes Source: Developed by Drs. Sid Real, Martha Oviedo, Arnoldo Escobedo and colleagues, with an educational yamini from [employer]. Thrive Questionnaire Date Thrive assessed: 08/28/24 I am a: Patient What is your living situation today?: I have a steady place to live Within the past 12 months, did the food you bought not last and you didn't have the money to get more?: I choose not to answer this question Within the past 12 months, did you worry whether your food would run out before you got money to buy more?: I choose not to answer this question Do you have trouble paying for medicines?: No Do you have trouble getting transportation to medical appointments?: No Do you have trouble paying your heating and electricity bill?: No Do you have trouble taking care of your child, family member or friend?: No Do you have trouble with day-to-day activities such as bathing, preparing meals, shopping, managing finances, etc.?: No Are you currently unemployed and looking for a job?: No Are you interested in more education?: No Please select the resources that you would like help with: None Currently or been in a relationship where the following occur: I choose not to answer THRIVE Score: 0 MARY-7 AMB Questionnaire MARY-7 Date MARY - 7 assessed: 08/28/24 Source: Developed by Drs. Sid Real, Martha Oviedo, Arnoldo Escobedo and colleagues, with an educational yamini from [employer]. Review of Systems Const Denies fever(s) and Denies malaise Eyes Details: goes to [facility], went last month, no retinopathy seen per patient ENT Details: Sees dentist for her cleaning every 6 month Reports no additional complaints Card Denies chest pain, Denies chest pain with activity, Denies syncope, Denies irregular heart rhythm and Denies palpitations Resp Reports no additional complaints GI Reports no additional complaints and Reports heartburn (Controlled on omeprazole) Reports no additional complaints Musc Denies myalgias, Denies arthralgias, Denies joint swelling, Denies limited range of motion, Denies muscle weakness and Denies stiffness Skin/Breast Details: sees Dr Mynor Ramos for her psoriasis, currently on Humira Neuro Denies syncope Psych Reports no additional complaints Endo Denies palpitations Eusebio/Lymph Reports no additional complaints Aller/Immun Reports no additional complaints Physical exam (Primary Care) Vital Signs: Last Vital Signs Temp 98.2 F 12/15/25 11:48 Pulse 92 07/28/25 11:48 Resp 16 07/28/25 11:48 BP 130/76 07/28/25 11:48 Pulse Ox 98 07/28/25 11:48 Oxygen Delivery Method Room Air 07/28/25 11:48 Oxygen Flow Rate 16 07/28/25 11:48 BMI result Body Mass Index 35.1 Tobacco/Smoking Status: Tobacco use Status Tobacco use date assessed 07/28/25 07/28/25 11:53 Patient Tobacco Use Status Never used Tobacco 07/28/25 11:48 e-Cigarette/Vaping Use Never Used 07/28/25 11:48 Depression Screening Interpretation: Negative Thrive Assessment: Date of Thrive Assessment Date Thrive assessed 08/28/24 07/28/25 11:48 Currently or been in a relationship where the following occur: I choose not to answer Const Other: Alert oriented x3, no acute cardiorespiratory distress noted ambulatory with normal gait HENMT Ears: external ears normal Face and sinus: Yes face symmetric Mouth: oropharynx normal and moist mucous membranes Eyes General: appearance normal, both eyes and all related structures Neck Neck: Yes full ROM, Yes no lymphadenopathy and Yes supple Chest Breast/axilla palpation: normal palpation of the breasts Resp Auscultation: clear to auscultation bilaterally Cardio Other: S1-S2 present regular rate and rhythm, no murmurs GI Inspection: Yes obesity Palpation (GI): Soft to palpation, no guarding and no masses General: Yes no CVA tenderness Back/Spine/Pelvis Back: no CVA tenderness and No back tenderness Skin General skin exam: no rashes or lesions noted Neuro Cranial nerves: Yes CN's II-XII intact bilaterally and Yes Bilaterally intact EOM present Extrem Other: Crepitus noted in both knees. Varicose veins present in both lower extremities General: Yes full ROM, Yes no joint enlargement, Yes no calf tenderness, Yes normal gait and No pedal edema Results Reviewed Results Reviewed: Laboratory Tests 02/26/25 06/28/25 08:22 08:29 Estimat Average Glucose 151 Hgb A1c (Clinic) 7.5 H Hemoglobin A1c % 6.9 H Name: Nereyda Edge Age/Sex: 50/F : 1975 Unit#: [id number] Attend Dr: Jen Ambrocio MD Re06/28/25 Status: DEP REF Location: [facility] Disch: SPEC : [id number] MICA: 06/28/25 STATUS: COMP REQ : [id number] RECD: 06/28/[address]: Jen Ambrocio MD COMP: 06/28/25 ENTERED: 06/28/25 [facility] DR: ORDERED: CMP Fast, Lipid Panel Test Result Flag Reference Sodium 142 135-145 mmol/L Potassium 3.6 3.3-5.1 mmol/L CL 104 96-108 mmol/L CO2 28 22-29 mmol/L Gap 14 12-20 BUN 17 H 9-16 mg/dL Creat 0.66 0.5-1.4 mg/dL eGFR > 60 Chronic Kidney Disease: Estimated GFR < 60 mL/min/1.73m2 Severe Kidney Disease: Estimated GFR < 15 mL/mi n/1.73m2 FBS 130 H 60-99 mg/dL A fasting glucose of 126 mg/dl or greater on more than one occasion is considered diagnostic of diabetes. CA 9.9 8.4-10.2 mg/dL Total Bili 0.6 0.0-1.0 mg/dL AST (GOT) 32 H 5-31 U/L ALT (GPT) 37 H 0-31 U/L Protein, Total 8.1 H 6.5-8.0 g/dL Alb 4.9 3.5-5.0 g/dL Triglyceride 148 <150 mg/dL Desirable Triglyceride: less than 150 mg/dL Borderline High Triglyceride 150-199 mg/dL High Triglyceride: 200-499 mg/dL Very High Triglyceride: greater than or equal to 5OO mg/dL Cholesterol 169 <200 mg/dL Desirable Cholesterol: less than 200 mg/dL Borderline High Cholesterol: 200-239 mg/dL High Cholesterol: greater than 239 mg/dL LDL Calculated 91 <100 mg/dL Desirable LDL: less than 100 mg/dL Near Optimal/Above Optimal LDL: 110-129 mg/dL Borderline High LDL: 130-159 mg/dL High LDL: 160-189 mg/dL Very High LDL: greater than or equal to 190 mg/dL HDL 49 >40 mg/dL Desirable HDL: greater than 40 mg/dL Note: This HDL assay may give artificially low results in patients with liver disease. Alk Phos 85 39-117 U/L Coding Level of Care Code Est Pt Level 4 (97490) Diagnoses Type 2 diabetes mellitus without complication, without long-term current use of insulin E11.9 Diabetes mellitus complication status: without complication Diabetes mellitus type: type 2 Essential hypertension I10 Dyslipidemia E78.5 Assessment & Plan Assessment & Plan (1) Diabetes mellitus, without long-term current use of insulin: Code(s): E11.9 - Type 2 diabetes mellitus without complications Category: Medical Qualifiers: Diabetes mellitus complication status: without complication Diabetes mellitus type: type 2 Qualified Code(s): E11.9 - Type 2 diabetes mellitus without complications Plan: The patient's diabetes is suboptimally controlled with an HbA1c of 7.6, showing improvement but not yet at the goal of <6. She has a history of intolerance to Ozempic (nausea, stomach ache) and Jardiance (vaginal itching), with previous trials of Mounjaro and Trulicity having unclear outcomes or coverage issues. The plan is to discontinue glyburide and initiate Trulicity 0.75 mg weekly injection, which appears to be covered by her insurance, [employer]. She will continue metformin. The prescription will be sent to [facility] [address]. The patient was counseled to eat light, easily digestible foods and avoid fried or greasy foods when starting the medication to minimize gastrointestinal side effects. A follow-up appointment is scheduled in three months to recheck her HbA1c and perform blood work. (2) Essential hypertension: Code(s): I10 - Essential (primary) hypertension Category: Medical Plan: Blood pressure at goal of less than 130/80. Continue with lisinopril and amlodipine. Reinforced importance of following a low sodium diet, getting regular exercise, and lowering stress levels. (3) Dyslipidemia: Code(s): E78.5 - Hyperlipidemia, unspecified Category: Medical Plan: Reviewed recent fasting lipid profile with patient with levels within normal limits . Continue rosuvastatin 5 mg taken every other day , in addition to adherence to low-cholesterol diet and regular exercise, at least 30 minutes 3 to 4 times a week. Advised patient to make healthy food choices, eat more fruits, vegetables, whole grains, wild caught fish and low-fat dairy. Limit amount of meat and fried or fatty food products, as well as processed foods and fast foods. Follow-up scheduled with repeat fasting lipid panel in 3 months. Orders: Orders Lipid Panel 3 Months E11.9 - Type 2 diabetes mellitus without complications, E78.5 - Hyperlipidemia, unspecified, I10 - Essential (primary) hypertension Hemoglobin A1c 3 Months E11.9 - Type 2 diabetes mellitus without complications, E78.5 - Hyperlipidemia, unspecified, I10 - Essential (primary) hypertension Basic Metabolic Panel Fasting 3 Months E11.9 - Type 2 diabetes mellitus without complications, E78.5 - Hyperlipidemia, unspecified, I10 - Essential (primary) hypertension Aspartate Amino Transferase 3 Months E11.9 - Type 2 diabetes mellitus without complications, E78.5 - Hyperlipidemia, unspecified, I10 - Essential (primary) hypertension Microalbumin, Random (w Creat) 3 Months E11.9 - Type 2 diabetes mellitus without complications, E78.5 - Hyperlipidemia, unspecified, I10 - Essential (primary) hypertension Alanine Aminotransferase 3 Months E11.9 - Type 2 diabetes mellitus without complications, E78.5 - Hyperlipidemia, unspecified, I10 - Essential (primary) hypertension Medications: New dulaglutide (Trulicity) 0.75 mg (0.5 mL) subcut QWEEK 2 mL 0RF E11.9 - Type 2 diabetes mellitus without complications Discontinued glyburide Discontinued Reason: Doctor's Order 2.5 mg PO DAILY 30 tabs 1RF
[2025-07-28 11:48] VITALS: BP 130/76; PULSE 92; RESP 16; TEMP 36.8; O2SAT 98; BMI 35.1
== END 2025-07-28 12:17 | disposition home or self-care (01) ==
LOC: HO.HMCC 10:38
PROVIDERS: PCP Internal Medicine; Visit Provider Internal Medicine
DX: E11.9 Type 2 diabetes mellitus without complications (principal); I10 Essential (primary) hypertension; E78.5 Hyperlipidemia, unspecified

== ENCOUNTER → 2025-07-28 10:37 | Outpatient (BNVA) | payer OTHER, SELFPAY | PROVIDERS: PCP Internal Medicine; Visit Provider Internal Medicine | DX: E11.9 Type 2 diabetes mellitus without complications (principal); I10 Essential (primary) hypertension; E78.5 Hyperlipidemia, unspecified; Z79.84 Long term (current) use of oral hypoglycemic drugs | CPT/HCPCS: 99212 ==